=== PATIENT | female | born 1980 | race Caucasian/White ===

== ENCOUNTER 2020-02-13 09:39 | Outpatient (REF) | payer OTHER, SELFPAY ==
[2020-02-14 10:03] LABS: BV Int Neg Control Negative (Negative); BV Int Pos Control Positive (Positive)
== END 2020-02-13 09:40 | disposition home or self-care (01) ==
LOC: HO.LAB 09:39
PROVIDERS: PCP Internal Medicine; Visit Provider Obstetrics & Gynecology
DX: N89.8 Other specified noninflammatory disorders of vagina (principal); I10 Essential (primary) hypertension
CPT/HCPCS: 87480; 87510; 87660; 99213

== ENCOUNTER → 2020-03-01 09:53 | Outpatient (BNVA) | payer OTHER, SELFPAY | PROVIDERS: Visit Provider Obstetrics & Gynecology | DX: Z76.89 Persons encountering health services in other specified circumstances (principal) ==

== ENCOUNTER 2020-09-20 18:13 | Inpatient (IN) | payer OTHER, SELFPAY ==
--- NOTE | ~2020-09-20 | CT_ITS ---
EXAMINATION: CT ABDOMEN AND PELVIS WITH CONTRAST CLINICAL INFORMATION: Abdominal pain, nodular and vomiting. COMPARISON: None TECHNIQUE: Multidetector volumetric images were obtained from the superior aspect of the liver through the pubic symphysis following administration 85 mL of Omnipaque 350 intravenous contrast. Sagittal and coronal reformatted images were obtained on the technologist's workstation. Oral contrast: No This CT examination was performed using dose optimization techniques as appropriate, variously including the following: *Automated exposure control *Adjustment of mA and/or kV according to patient size (this includes techniques or standardized protocols for targeted exams where dose is matched to indication/reason for exam; i.e. extremities or head) *Use of iterative reconstruction technique DLP: 972 mGy-cm FINDINGS: LUNG BASES: The visualized lung bases are unremarkable. LIVER, GALLBLADDER, AND BILIARY TREE: The liver is normal in size, shape, and attenuation. No focal hepatic lesion or biliary ductal dilatation is present. Gallbladder has been surgically removed. PANCREAS: Unremarkable. SPLEEN: Unremarkable. ADRENAL GLANDS: Unremarkable. KIDNEYS AND URETERS: The kidneys are normal in size, shape, and attenuation. No hydronephrosis, hydroureter, or calculi seen. No perinephric stranding. BLADDER: Unremarkable. GASTROINTESTINAL TRACT: There is a long segment of mural thickening involving what appears to be terminal ileum and cecum. Underlying inflammatory process. There are abnormal mesenteric lymph nodes measuring 8 mm in the right lower quadrant, mesenteric haziness and now with lesions. There is mesenteric scarring likely from fistulous connection previously. There is no free air, free fluid or any abscess at this time. Mild proximal small bowel distention with air-fluid level is seen in the fourth of mural thickening of the distal ileum. ABDOMINAL WALL: Small reactive lymph nodes are seen in the inguinal regions with largest lymph node left inguinal area measuring 9 mm. LYMPH NODES: There are numerous mesenteric lymph nodes likely i post inflammatory VASCULAR: Unremarkable. PELVIC VISCERA: There is small or free fluid in the pelvis. The uterus is anteverted with punctate calcification within is posterior fundal mass likely fibroid. It measures 2 x 2 by 2.0 cm likely fibroid. OSSEOUS STRUCTURES There is minimal free fluid in the pelvis and the pericolic gutters: No lytic or sclerotic process seen. CT/CT abdomen pelvis w con IMPRESSION: Abnormal distal ileal segment of mural thickening, mesenteric haziness and abnormal mesenteric lymphadenopathy likely inflammatory infectious bowel disease. There is extensive peritoneal scarring or thickening questioned in previous fistulous connection. There is mild dilated proximal small bowel loops with air-fluid level and minimal stool. There is minimal free fluid in the pelvis. Small calcified uterine fibroid.
[2020-09-20 18:16] VITALS: BP 180/100; PULSE 98; O2SAT 98
[2020-09-20 18:18] VITALS: BP 186/86; PULSE 91; RESP 20; TEMP 36.2; O2SAT 100; BMI 41.1
--- NOTE | 2020-09-20 18:25 | PC.NURSE ---
20g to left AC by EMS removed by this RN
[2020-09-20 20:00] VITALS: BP 176/99; PULSE 90; RESP 20; O2SAT 99
[2020-09-20 20:44] LABS: MANUAL DIFF FLAG NO
[2020-09-20 20:48] LABS: Basophils Percent Auto 0.2 % (0-2); Eosinophils Absolute Auto 0.2 X10*3/uL (0.0-0.4); Eosinophils Percent Auto 1.9 % (0-4); Hematocrit 32.6 % (37-47); Hemoglobin 9.9 g/dl (12.0-16.0); Imm Gran Abs Auto 0.03 X10*3/uL (0.00-0.03); Imm Gran Pct Auto 0.3 % (0.0-0.4); Lymphocytes Absolute Auto 1.4 X10*3/uL (1.2-4.9); Lymphocytes Percent Auto 13.7 % (20-40); Mean Corpuscular HGB Conc 30.4 g/dl (31.0-35.0); Mean Corpuscular Volume 72.6 fL (80-98); Mean Platelet Volume 8.6 fL (9.4-12.3); Monocytes Absolute Auto 0.7 X10*3/uL (0.1-1.2); Monocytes Percent Auto 6.8 % (2-11); Neutrophils Absolute Auto 7.9 X10*3/uL (2.0-8.3); Neutrophils Percent Auto 77.1 % (45-73); Platelet Count 477 X10*3/uL (160-400); Red Blood Count 4.49 X10*6/uL (4.20-5.50); Red Cell Distribution Width 16.3 % (11.0-16.0); White Blood Count 10.2 X10*3/uL (4.8-10.8)
--- NOTE | 2020-09-20 21:10 | ED_ITS ---
HPI - Abdominal Pain General Chief Complaint: Abdominal Pain Stated Complaint: abd pain x 1 week Time Seen by Provider: 09/20/20 21:08 History of Present Illness HPI narrative: Patient is a 40-year-old female with a history of Crohn's disease. Presents today with having abdominal pain. The pain is over the upper abdomen. She is status post cholecystectomy many years ago. No chest pain or shortness of breath no diaphoresis. No history of obstruction. Patient is currently on Humira for Crohn's disease. Complaining the pain is been ongoing for over week. Approximately the same but getting worse in the last 24-48 hours. Patient did have a bowel movement this morning. No cough no congestion or upper respiratory symptoms. No diaphoresis. Patient is from home. Related Data Home Medications Medication Instructions Recorded Confirmed adalimumab 40 mg/0.8 mL See Rx Instructions SUBCUT .COMPLEX 02/13/20 subcutaneous syringe kit lisinopril 20 mg tablet 20 mg PO DAILY 02/13/20 Previous Rx's Medication Instructions Recorded fluconazole 150 mg tablet 150 mg PO Q3D #2 tab 02/13/20 metronidazole 500 mg tablet 500 mg PO BID #10 tab 08/29/20 Allergies Allergy/AdvReac Type Severity Reaction Status Date / Time aspirin [Aspirin] Allergy Mild EYES SWELL Verified 09/20/20 18:24 [email or web address] Allergy Intermediate Rash Uncoded 03/01/20 10:04 ASA Allergy Unknown facial Uncoded 03/18/17 00:00 swelling SEASONAL ALLERGIES Allergy Unknown TRIGGERS Uncoded 01/12/20 16:47 ASTHMA ATTACKS Review of Systems Review of Systems Constitutional: No Weight loss, No Fever, No Chills, No Night Sweats, No Fatigue, No Malaise ENT/Mouth: No Hearing loss, No Ear Pain, No Nasal Congestion, No Sinus Pain, No Hoarseness, No sore throat, No Rhinorrhea, No Swallowing Difficulty Eyes: No Eye Pain, No Swelling, No Redness, No Foreign Body, No Discharge, No Vision Changes Cardiovascular: No Chest Pain, No SOB, No Dyspnea on Exertion, No Orthopnea, No Edema, No Palpitations Respiratory: No Cough, No Sputum, No Wheezing, No Smoke Exposure, No Dyspnea Gastrointestinal: No Nausea, No Vomiting, No Diarrhea, No Constipation, positive abdominal Pain, No Hematochezia, No Melena Genitourinary: no irregular bleeding, No Dysuria, No Urinary Frequency, No Hematuria, No Urinary Incontinence, No Urgency, No Flank Pain, No Urinary Flow Changes, No Hesitancy Musculoskeletal: No joint pain, No Myalgias, No Joint Swelling Skin: No Skin Lesions, No rash Neuro: No Weakness, No Numbness, No Paresthesias, No Loss of Consciousness, No Dizziness, No Headache Psych: No Anxiety/Panic, No Depression, No SI/HI/AH/VH, No Social Issues, Heme/Lymph: No Bruising, No Bleeding,No Lymphadenopathy Endocrine: No Polyuria, No Polydipsia, No Temperature Intolerance Physical Exam Vital Signs: Vital Signs: Last Vital Signs Temp 97.2 F 09/20/20 18:18 Pulse 90 09/20/20 20:00 Resp 20 09/20/20 20:00 BP 176/99 H 09/20/20 20:00 Pulse Ox 99 09/20/20 20:00 Body Mass Index 41.1 Appearance: Alert. Oriented X3. No acute distress. Eyes: Pupils equal, round and reactive to light. ENT: Pharynx normal. Neck: Normal inspection. Neck supple. No lymph nodes noted. No crepitus CVS: Normal heart rate and rhythm. Pulses normal. Normal S1 and S2 Respiratory: No respiratory distress. Breath sounds normal. No Wheezing. No rales Abdomen: Soft and nontender. No rigidity. No distention. good BS x4 Skin: Skin warm and dry. Normal skin color. Normal skin turgor. Extremities: No lower extremity edema. Neurovascular intact to all extremities. No Lacerations. No Rash Neuro: Oriented X 3. No motor deficit. No sensory deficit. Moving all extermities. No slurred speech MDM - Abdominal Pain MDM Narrative Medical decision making narrative: Patient positive history of Crohn's. With abdominal pain diffuse over the abdomen. Decreased p.o. intake. Did have a bowel movement earlier. Patient's CT scan of the abdomen positive for having may be early small-bowel obstruction. Otherwise is consistent with having Cr ohn's disease. We will go ahead and start patient on some steroid IV fluids. Will monitor overnight. Patient's case discussed with hospitalist service. In stable condition. Medical Records Attestation: I reviewed the patient's medical records. Lab Data Attestation: I reviewed the patient's lab results. Result diagrams: 09/20/20 20:40 09/20/20 20:40 Labs: Lab Results 09/20/20 09/20/20 09/20/20 Range/Units 20:40 20:40 20:40 WBC 10.2 (4.8-10.8) X10*3/uL RBC 4.49 (4.20-5.50) X10*6/uL Hgb 9.9 L (12.0-16.0) g/dl Hct 32.6 L (37-47) % MCV 72.6 L (80-98) fL MCH 22.0 L (27.0-33.0) pg MCHC 30.4 L (31.0-35.0) g/dl RDW 16.3 H (11.0-16.0) % Plt Count 477 H (160-400) X10*3/uL MPV 8.6 L (9.4-12.3) fL Immature Gran % (Auto) 0.3 (0.0-0.4) % Neut % (Auto) 77.1 H (45-73) % Lymph % (Auto) 13.7 L (20-40) % Edgar % (Auto) 6.8 (2-11) % Eos % (Auto) 1.9 (0-4) % Baso % (Auto) 0.2 (0-2) % Lymph # (Auto) 1.4 (1.2-4.9) X10*3/uL Edgar # (Auto) 0.7 (0.1-1.2) X10*3/uL Eos # (Auto) 0.2 (0.0-0.4) X10*3/uL Baso # (Auto) 0.0 (0.0-0.2) X10*3/uL Abs Immat Gran (auto) 0.03 (0.00-0.03) X10*3/uL Absolute Neuts (auto) 7.9 (2.0-8.3) X10*3/uL Absolute Nucleated RBC 0.000 (0.0-0.012) X10*3/uL Nucleated RBC % (auto) 0.0 (0.0-0.2) /100WBC Hold Blue Top SEE NOTE Sodium 138 (135-145) mmol/L Potassium 3.9 (3.3-5.1) mmol/L Chloride 104 (96-108) mmol/L Carbon Dioxide 25 (22-29) mmol/L Anion Gap 13 (12-20) BUN 10 (9-16) mg/dL Creatinine 0.67 (0.5-1.4) mg/dL Estim Creat Clear Calc 140.6 Estimated GFR > 60 Random Glucose 101 (60-115) mg/dL Calcium 8.7 (8.4-10.2) mg/dL Total Bilirubin 0.3 (0.0-1.0) mg/dL AST 10 (5-31) U/L ALT 11 (0-31) U/L Alkaline Phosphatase 91 (39-117) U/L Total Protein 7.8 (6.5-8.0) g/dL Albumin 3.7 (3.5-5.0) g/dL Lipase 12 (8-78) U/L Beta HCG, Quant < 2 mIU/mL Urine Color Urine Appearance Urine pH (5.0-8.0) Ur Specific [place] (1.005-1.025) Urine Protein (NEG-TRACE) MG/DL Urine Glucose (UA) (NEG) MG/DL Urine Ketones (NEG) MG/DL Urine Blood (NEG) Urine Nitrite (NEG) Ur Leukocyte Esterase (NEG) Urine RBC (0) /HPF Urine WBC (0-4) /HPF Ur Squamous Epith Cells /LPF Ur Renal Epithelial Cell /LPF Urine Bacteria /LPF Urine Mucus /LPF Urine Test (NEGATIVE) 09/20/20 09/20/20 Range/Units 22:14 22:14 WBC (4.8-10.8) X10*3/uL RBC (4.20-5.50) X10*6/uL Hgb (12.0-16.0) g/dl Hct (37-47) % MCV (80-98) fL MCH (27.0-33.0) pg MCHC (31.0-35.0) g/dl RDW (11.0-16.0) % Plt Count (160-400) X10*3/uL MPV (9.4-12.3) fL Immature Gran % (Auto) (0.0-0.4) % Neut % (Auto) (45-73) % Lymph % (Auto) (20-40) % Edgar % (Auto) (2-11) % Eos % (Auto) (0-4) % Baso % (Auto) (0-2) % Lymph # (Auto) (1.2-4.9) X10*3/uL Edgar # (Auto) (0.1-1.2) X10*3/uL Eos # (Auto) (0.0-0.4) X10*3/uL Baso # (Auto) (0.0-0.2) X10*3/uL Abs Immat Gran (auto) (0.00-0.03) X10*3/uL Absolute Neuts (auto) (2.0-8.3) X10*3/uL Absolute Nucleated RBC (0.0-0.012) X10*3/uL Nucleated RBC % (auto) (0.0-0.2) /100WBC Hold Blue Top Sodium (135-145) mmol/L Potassium (3.3-5.1) mmol/L Chloride (96-108) mmol/L Carbon Dioxide (22-29) mmol/L Anion Gap (12-20) BUN (9-16) mg/dL Creatinine (0.5-1.4) mg/dL Estim Creat Clear Calc Estimated GFR Random Glucose (60-115) mg/dL Calcium (8.4-10.2) mg/dL Total Bilirubin (0.0-1.0) mg/dL AST (5-31) U/L ALT (0-31) U/L Alkaline Phosphatase (39-117) U/L Total Protein (6.5-8.0) g/dL Albumin (3.5-5.0) g/dL Lipase (8-78) U/L Beta HCG, Quant mIU/mL Urine Color BROWN Urine Appearance TURBID Urine pH 6.0 (5.0-8.0) Ur Specific [place] 1.025 (1.005-1.025) Urine Protein 2+ H (NEG-TRACE) MG/DL Urine Glucose (UA) NEG (NEG) MG/DL Urine Ketones NEG (NEG) MG/DL Urine Blood 3+ H (NEG) Urine Nitrite POS H (NEG) Ur Leukocyte Esterase 1+ H (NEG) Urine RBC 50-75 H (0) /HPF Urine WBC 10-14 H (0-4) /HPF Ur Squamous Epith Cells 2+ /LPF Ur Renal Epithelial Cell 1+ /LPF Urine Bacteria 3+ /LPF Urine Mucus TRACE /LPF Urine Test NEGATIVE (NEGATIVE) Discharge Plan Discharge Clinical Impression: Small bowel obstruction, Crohn disease Patient Disposition: Admitted As Inpatient [facility] Past Medical History Medical History Hx of Crohn's disease Hx of essential hypertension Surgical History Hx of section Hx of cholecystectomy Hx of tubal ligation Family History Family History Mother Diabetes HTN (hypertension) Parkinson disease Father Hyperthyroidism Social History Social History Alcohol intake: never Advance Directives: No Advance Directives Information Provided: Yes Patient : No Sexual orientation: Straight/Heterosexual
[2020-09-20 21:17] LABS: Alanine Aminotransferase 11 U/L (0-31); Albumin Level 3.7 g/dL (3.5-5.0); Alkaline Phosphatase 91 U/L (39-117); Anion Gap 13 (12-20); Aspartate Amino Transferase 10 U/L (5-31); Bilirubin Total 0.3 mg/dL (0.0-1.0); Blood Urea Nitrogen 10 mg/dL (9-16); Calcium 8.7 mg/dL (8.4-10.2); Carbon Dioxide 25 mmol/L (22-29); Chloride 104 mmol/L (96-108); Creatinine Clr Calc Pharmacy 140.6; Estimated Glomerular Filt Rate > 60; Glucose Random 101 mg/dL (60-115); Lipase 12 U/L (8-78); Potassium 3.9 mmol/L (3.3-5.1); Sodium 138 mmol/L (135-145); Total Protein 7.8 g/dL (6.5-8.0)
--- NOTE | 2020-09-20 21:21 | PC.NURSE ---
Per CT, no test was done on pt. Per CT, to add HCG quant to labs. Quant pending.
--- NOTE | 2020-09-20 21:22 | PC.NURSE ---
Pt provided with a urine cup, awaiting UA.
[2020-09-20 21:40] LABS: HCG Quantitative < 2 mIU/mL
--- NOTE | 2020-09-20 21:58 | PC.NURSE ---
Off to CT on hospital bed. Plan to medicate upon return.
[2020-09-20] MEDS: iohexoL 350 MG/ML 100 ML INFUS..BTL IV (22:10)
[2020-09-20] MEDS: 0.9 % Sodium Chloride 1,000 ML 999 ML IV (22:11)
[2020-09-20] MEDS: ondansetron HCL 4 MG/2 ML VIAL IVPUSH (22:12)
[2020-09-20] MEDS: HYDROmorphone HCl 0.5 MG/0.5 ML SYRINGE IVPUSH ×2 (22:12→23:16)
[2020-09-20 22:22] LABS: Glucose Urine UA NEG (NEG); Leukocyte Esterase Urine 1+ (NEG); Nitrite Urine POS (NEG); Specific Gravity - Urine 1.025 (1.005-1.025); UACC Culture Trigger YES; Urine Blood 3+ (NEG); Urine Ketones NEG (NEG); Urine Protein 2+ MG/DL (NEG-TRACE)
[2020-09-20 22:23] LABS: Appearance Urine TURBID; Color Urine BROWN; UPreg QC Valid YES; Urine Pregnancy NEGATIVE (NEGATIVE)
[2020-09-20 22:29] LABS: Bacteria Urine 3+ /LPF; RBC Urine 50-75 /HPF (0); Squamous Epithelial Cell Urine 2+ /LPF
[2020-09-20 22:30] LABS: Mucus Urine TRACE /LPF; Renal Epithelial Cells Urine 1+ /LPF
[2020-09-20] MEDS: methylPREDNISolone Sod Succ 125 MG/2 ML VIAL IVPUSH (23:18)
[2020-09-20 23:27] VITALS: BP 177/94; PULSE 88; RESP 16; O2SAT 98
--- NOTE | 2020-09-20 23:28 | PC.NURSE ---
Pt aware of plan for admission. Covid swab obtained and sent. VSS. Call sorinao within reach, continue to monitor.
[2020-09-20 23:50] LABS: COVID-19 Test Negative (Negative)
--- NOTE | 2020-09-21 01:00 | P.HPHOSP_ITS ---
History of Present Illness Date of Service: 09/21/20 Chief Complaint: Abdominal pain 40-year-old female with a past medical history of Crohn's disease presented to the hospital with a chief complaint of abdominal pain, diffuse, associated with nausea and vomiting, denies any diarrhea. Denies any blood in the vomitus or blood in the stool. Mentions that symptoms have been going on for the past week but has been worsening lately for the past 2 days. Hence decided to come to the ER for further evaluation. Denies any chest pain palpitations lightheadedness dizziness. Denies any fever chills cough. Review of all other systems is negative except mentioned above ER course: Per ER team patient abdomen noted to have diffuse tenderness, no guarding no rigidity, CT scan shows findings of inflammation/Crohn's flare, also concern for an early SBO. Reportedly patient had bowel movement in the morning but has not passed any gas after that. Admitted to the hospital for further management. Patient was given Solu-Medrol in the ER. [facility] Medical History (Updated 09/30/20 @ 11:24 by Hadley Spaulding MD) Anemia Benign essential hypertension Crohn's disease Obesity (BMI 30-39.9) Family History Mother Diabetes HTN (hypertension) Parkinson disease Father Hyperthyroidism Surgical History Hx of section Hx of cholecystectomy Hx of tubal ligation Social History Household Members: Spouse and Children Housing: House Do you presently have visiting nurse or other home services: No Alcohol intake: never Patient Tobacco Use Status: Former Tobacco user Tobacco use type: Cigarette Second Hand Smoke Exposure: No Advance Directives Date on File: 09/21/20 service: No Current occupational status: employed Sexual orientation: Straight/Heterosexual Meds Allergies Allergy/AdvReac Type Severity Reaction Status Date / Time aspirin [Aspirin] Allergy Mild EYES SWELL Verified 09/30/20 05:24 [email or web address] Allergy Intermediate Rash Uncoded 09/30/20 05:24 ASA Allergy Unknown facial Uncoded 09/30/20 05:24 swelling SEASONAL ALLERGIES Allergy Unknown TRIGGERS Uncoded 09/30/20 05:24 ASTHMA ATTACKS Active Medications: Current Medications Generic Name Dose Route Start Last Admin Trade Name Alexey PRN Reason Stop Dose Admin Acetaminophen 650 mg 09/21/20 00:57 Acetaminophen 325 Mg Tablet PO Q6H PRN Pain, Mild (Pain Scale 1-3) Dextrose/Sodium Chloride 1,000 mls @ 100 mls/hr 09/21/20 01:00 D51/2ns IVCONT .Q10H [facility] Lisinopril 20 mg 09/21/20 09:00 Lisinopril 20 Mg Tablet PO DAILY [facility] Protocol Methylprednisolone Sodium Succinate 20 mg 09/21/20 01:00 Methylprednisolone Sod Succ 40 Mg/Ml Vial IVPUSH Q8H [place] Morphine Sulfate 1 mg 09/21/20 00:57 Morphine Sulfate 4 Mg/Ml Cartridge IVPUSH Q6H PRN Pain, Severe (Pain Scale 7-10) Pharmacy Consult 1 each 09/20/20 23:10 Consult Rx Perform Med Rec MISCELLANE ONCE PRN Consult order Sodium Chloride 3 ml 09/21/20 08:00 0.9 % Sodium Chloride Flush 3 Ml Syringe IVFLUSH QSHIFT [facility] Home Medications Medication Instructions Recorded Confirmed Last Taken Type adalimumab 40 mg/0.8 mL See Rx Instructions SUBCUT .COMPLEX 02/13/20 09/30/20 09/19/20 History subcutaneous syringe kit Physical Exam Vital Signs and Narrative: Vital Signs: Last Vital Signs Temp 97.2 F 09/20/20 18:18 Pulse 88 09/20/20 23:27 Resp 16 09/20/20 23:27 BP 177/94 H 09/20/20 23:27 Pulse Ox 98 09/20/20 23:27 Body Mass Index 41.1 Gen: Appears be in no acute distress HEENT: NCAT, Moist mucosa. Pulmonary: Vesicular breath sounds, fair air entry CVS: Normal S1-S2 Abdomen: BS+, Soft, mildly tender diffusely. No guarding no rigidity Extremities: Warm well perfused Neuro: Alert and awake. Results Labs CBC and Chem 7: 09/21/20 05:35 09/21/20 05:35 Labs: Laboratory Results - last 24 hr 09/20/20 09/20/20 09/20/20 20:40 20:40 20:40 MCV 72.6 L MCH 22.0 L MCHC 30.4 L RDW 16.3 H Plt Count 477 H MPV 8.6 L Immature Gran % (Auto) 0.3 Neut % (Auto) 77.1 H Lymph % (Auto) 13.7 L [place] % (Auto) 6.8 Eos % (Auto) 1.9 Baso % (Auto) 0.2 Lymph # (Auto) 1.4 [place] # (Auto) 0.7 Eos # (Auto) 0.2 Baso # (Auto) 0.0 Abs Immat Gran (auto) 0.03 Absolute Neuts (auto) 7.9 Absolute Nucleated RBC 0.000 Nucleated RBC % (auto) 0.0 Hold Blue Top SEE NOTE Anion Gap 13 Estim Creat Clear Calc 140.6 Estimated GFR > 60 Random Glucose 101 Calcium 8.7 Total Bilirubin 0.3 AST 10 ALT 11 Alkaline Phosphatase 91 Total Protein 7.8 Albumin 3.7 Lipase 12 Beta HCG, Quant < 2 Urine Color Urine Appearance Urine pH Ur Specific [place] Urine Protein Urine Glucose (UA) Urine Ketones Urine Blood Urine Nitrite Ur Leukocyte Esterase Urine RBC Urine WBC Ur Squamous Epith Cells Ur Renal Epithelial Cell Urine Bacteria Urine Mucus Urine Test COVID-19 (REJI) COVID-esolidar 09/20/20 09/20/20 09/20/20 22:14 22:14 23:25 MCV MCH MCHC RDW Plt Count MPV Immature Gran % (Auto) Neut % (Auto) Lymph % (Auto) [place] % (Auto) Eos % (Auto) Baso % (Auto) Lymph # (Auto) [place] # (Auto) Eos # (Auto) Baso # (Auto) Abs Immat Gran (auto) Absolute Neuts (auto) Absolute Nucleated RBC Nucleated RBC % (auto) Hold Blue Top Anion Gap Estim Creat Clear Calc Estimated GFR Random Glucose Calcium Total Bilirubin AST ALT Alkaline Phosphatase Total Protein Albumin Lipase Beta HCG, Quant Urine Color BROWN Urine Appearance TURBID Urine pH 6.0 Ur Specific [place] 1.025 Urine Protein 2+ H Urine Glucose (UA) NEG Urine Ketones NEG Urine Blood 3+ H Urine Nitrite POS H Ur Leukocyte Esterase 1+ H Urine RBC 50-75 H Urine WBC 10-14 H Ur Squamous Epith Cells 2+ Ur Renal Epithelial Cell 1+ Urine Bacteria 3+ Urine Mucus TRACE Urine Test NEGATIVE COVID-19 (REJI) Negative COVID-19 Naehas See Note Imaging Radiologist's Impressions: Impressions Abdomen/Pelvis CT 09/20/20 21:08 IMPRESSION: Abnormal distal ileal segment of mural thickening, mesenteric haziness and abnormal mesenteric lymphadenopathy likely inflammatory infectious bowel disease. There is extensive peritoneal scarring or thickening questioned in previous fistulous connection. There is mild dilated proximal small bowel loops with air-fluid level and minimal stool. There is minimal free fluid in the pelvis. Small calcified uterine fibroid. Assessment and Plan (1) Crohn disease: Status: Inactive 40-year-old female with a past medical history of Crohn's disease presented the hospital with a chief complaint of abdominal pain/nausea. Noted to have Crohn's flare. Crohn's flare: Continue Solu-Medrol 20 mg IV t.i.d.. Gastroenterology consult. Supportive care. NPO. Pain control. SBO: Patient had bowel movement early in the morning. Reports he has not been passing gas ever since. Supportive care. General surgery consult. UIT with microscopic Hematuria: ceftriaxone;f/u Cultures; Repeat UA after hydration DVT prophylaxis: SCD boots Code status: Full code
[2020-09-21] MEDS: Dextrose 5 % and 0.45 % NaCl 1,000 ML 100 ML IVCONT ×3 (01:08→22:34)
[2020-09-21] MEDS: Morphine Sulfate 4 MG/ML CARTRIDGE 1 MG IVPUSH ×2 (01:13→12:48)
[2020-09-21] MEDS: Acetaminophen 325 MG TABLET 650 MG PO (01:14)
--- NOTE | 2020-09-21 02:28 | PC.NURSE ---
[facility] unable to take report at this time.
--- NOTE | 2020-09-21 02:42 | PC.NURSE ---
This RN contacting hospitalist as UA was + for nitrates and leukocyte esterase. Plan for Rocephin and transfer to floor.
[2020-09-21] MEDS: cefTRIAXone sodium 1 GM in 0.9 % Sodium Chloride 50 ML IV (02:54)
[2020-09-21 04:00] VITALS: BP 181/95; PULSE 73; RESP 16; TEMP 36.4; O2SAT 96
[2020-09-21 06:24] LABS: Basophils Percent Auto 0.2 % (0-2); Hematocrit 32.5 % (37-47); Hemoglobin 9.5 g/dl (12.0-16.0); Imm Gran Abs Auto 0.03 X10*3/uL (0.00-0.03); Imm Gran Pct Auto 0.5 % (0.0-0.4); Lymphocytes Absolute Auto 0.3 X10*3/uL (1.2-4.9); Lymphocytes Percent Auto 5.3 % (20-40); MANUAL DIFF FLAG SCAN; Mean Corpuscular HGB Conc 29.2 g/dl (31.0-35.0); Mean Corpuscular Hemoglobin 21.3 pg (27.0-33.0); Mean Corpuscular Volume 72.7 fL (80-98); Mean Platelet Volume 9.3 fL (9.4-12.3); Monocytes Percent Auto 0.7 % (2-11); Neutrophils Absolute Auto 5.7 X10*3/uL (2.0-8.3); Neutrophils Percent Auto 93.3 % (45-73); Platelet Count 473 X10*3/uL (160-400); Red Blood Count 4.47 X10*6/uL (4.20-5.50); Red Cell Distribution Width 16.1 % (11.0-16.0); SCAN SMEAR FLAG 1; White Blood Count 6.1 X10*3/uL (4.8-10.8)
[2020-09-21 06:52] LABS: Anion Gap 13 (12-20); Blood Urea Nitrogen 7 mg/dL (9-16); Calcium 8.6 mg/dL (8.4-10.2); Carbon Dioxide 24 mmol/L (22-29); Chloride 105 mmol/L (96-108); Creatinine Clr Calc Pharmacy 140.6; Estimated Glomerular Filt Rate > 60; Glucose Random 192 mg/dL (60-115); Potassium 4.1 mmol/L (3.3-5.1); SLIDE REVIEW VERIFIED; Sodium 138 mmol/L (135-145)
[2020-09-21 07:21] VITALS: BP 130/75; PULSE 84; RESP 16; TEMP 36.1; O2SAT 95
--- NOTE | 2020-09-21 09:07 | MHC.CM.PN ---
CM met with Patient at bedside. Patient lives in a house with her Boyfriend and 2 children, ages 12 and 17 years of age. 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 Patient's goal is to return home, no services and CM has initiated and will follow for dc planning. PCP is Dr. Hadley Spaulding.
[2020-09-21] MEDS: methylPREDNISolone Sod Succ 40 MG/ML VIAL 20 MG IVPUSH ×2 (09:17→16:53)
[2020-09-21] MEDS: lisinopriL 20 MG TABLET PO (09:17)
--- NOTE | 2020-09-21 09:43 | P.CONGS_ITS ---
History of Present Illness Consult details Consult date: 09/21/20 Narrative: 40-year-old female patient presented to the emergency department with complaints of diffuse abdominal pain felt greatest in the right lower quadrant right upper quadrant. She has a known history of Crohn's disease and is being followed by Dr. Bowen. She reports previous episodes of similar complaints. The pain was associated with nausea and vomiting. In the emergency department she was noted to have diffuse abdominal tenderness. CT of the abdomen and pelvis revealed inflammation of the terminal ileum with narrowing and scarring from previous fistula resulting in dilated proximal small bowel suggestive of a partial small-bowel obstruction. The patient did have a bowel movement yesterday but denies any bowel movements since coming to the hospital. She is admitted to the hospital service for management of a Crohn's flare and small-bowel obstruction. This morning the patient feels much improved with decreased abdominal pain. Initially she was 10/10 but now reports 0/10. Review of Systems Review of Systems: Yes all other systems are reviewed and are negative Constitutional: Constitutional: Reports anorexia, Denies chills, Denies fever(s) and Denies headache(s) ENT: Denies headache(s) Cardiovascular: Cardiovascular: Reports Abdominal Distension, Denies chest pain, Reports Epigastric Pain, Denies pedal edema and Denies irregular heart rhythm Respiratory: Respiratory: Denies chest congestion, Denies cough, Denies excessive phlegm production and Denies wheezing Gastrointestinal: Gastrointestinal: Reports abdominal pain, Denies hematochezia, Reports change in bowel habits, Reports constipation, Denies diarrhea, Reports nausea and Reports vomiting Genitourinary: Genitourinary: Reports no additional female genitourinary complaints Neurologic: Reports system reviewed and no additional complaints, except as documented and Denies headache(s) Hematologic/Lymphatic: Hematologic/Lymphatic: Denies lymphadenopathy Allergic/Immunologic: Allergic/Immunologic: Denies wheezing PMFSH Past Medical History Medical History Hx of Crohn's disease Hx of essential hypertension Family History Family History Mother Diabetes HTN (hypertension) Parkinson disease Father Hyperthyroidism Surgical History Surgical History Hx of section Hx of cholecystectomy Hx of tubal ligation Social History Social History Household Members: Spouse and Children Housing: House Do you presently have visiting nurse or other home services: No Alcohol intake: never Patient Tobacco Use Status: Former Tobacco user Tobacco use type: Cigarette Smoked in Last 30 Days: No Patient Interested in Nicotine Replacement: No Patient Given Instructions on How to Stop Smoking: No Second Hand Smoke Exposure: No Use of substances other than those prescribed or required for medical reasons: No Currently Displaying Signs/Symptoms of Drug Intoxication Withdrawal: No Any prior treatment program specific to substance use: No Have you been hit, kicked, punched, or otherwise hurt by someone within the past year? If so, by whom?: No Do you feel safe in your current relationship?: Yes Is there a partner from a previous relationship who is making you feel unsafe now?: No Are you made to feel afraid or neglected: No Advance Directives: No Advance Directives Information Provided: Yes Advance Directives Date on File: 09/21/20 Do you have thoughts of harming others: None Do you have a plan to hurt others: No Plan Recently lost weight without trying: No Eating poorly because of decreased appetite: No Nutrition Risks: No Nutritional Risk Patient : No : No Poor oral hygiene: No service: No Current occupational status: employed Sexual orientation: Straight/Heterosexual Meds Allergies Allergy/AdvReac Type Severity Reaction Status Date / Time aspirin [Aspirin] Allergy Mild EYES SWELL Verified 09/20/20 18:24 zucchini Allergy Intermediate Rash Uncoded 03/01/20 10:04 ASA Allergy Unknown facial Uncoded 03/18/17 00:00 swelling SEASONAL ALLERGIES Allergy Unknown TRIGGERS Uncoded 01/12/20 16:47 ASTHMA ATTACKS Active Medications: Current Medications Generic Name Dose Route Start Last Admin Trade Name Freq PRN Reason Stop Dose Admin Acetaminophen 650 mg 09/21/20 00:57 09/21/20 01:14 Acetaminophen 325 Mg Tablet PO 650 mg Q6H PRN Administration Pain, Mild (Pain Scale 1-3) Dextrose/Sodium Chloride 1,000 mls @ 100 mls/hr 09/21/20 01:00 09/21/20 09:19 D51/2ns IVCONT 100 mls/hr .Q10H [facility] Administration Ceftriaxone Sodium 1 gm/ 50 mls @ 100 mls/hr 09/21/20 03:00 09/21/20 03:30 Sodium Chloride IV Infused Q24H [facility] Infusion Lisinopril 20 mg 09/21/20 09:00 09/21/20 09:17 Lisinopril 20 Mg Tablet PO 20 mg DAILY [facility]ERSON Administration Protocol Methylprednisolone Sodium Succinate 20 mg 09/21/20 08:00 09/21/20 09:17 Methylprednisolone Sod Succ 40 Mg/Ml Vial IVPUSH 20 mg Q8H [facility] Administration Morphine Sulfate 1 mg 09/21/20 00:57 09/21/20 01:13 Morphine Sulfate 4 Mg/Ml Cartridge IVPUSH 1 mg Q6H PRN Administration Pain, Severe (Pain Scale 7-10) Pharmacy Consult 1 each 09/20/20 23:10 Consult Rx Perform Med Rec MISCELLANE ONCE PRN Consult order Sodium Chloride 3 ml 09/21/20 08:00 09/21/20 09:17 0.9 % Sodium Chloride Flush 3 Ml Syringe IVFLUSH Not Given QSHIFT [facility] Home Medications Medication Instructions Recorded Confirmed Last Taken Type adalimumab 40 mg/0.8 mL See Rx Instructions SUBCUT .COMPLEX 02/13/20 09/20/20 09/19/20 History subcutaneous syringe kit lisinopril 20 mg tablet 20 mg PO DAILY 02/13/20 09/20/20 09/20/20 08:00 History Physical Exam Vital Signs: Vital Signs: Last Vital Signs Temp 97 F 09/21/20 07:21 Pulse 84 09/21/20 07:21 Resp 16 09/21/20 07:21 BP 130/75 09/21/20 07:21 Pulse Ox 95 09/21/20 07:21 Body Mass Index 41.1 Const: General: cooperative, healthy appearing, comfortable, no acute distress, well developed, alert and awake Eyes: Sclerae: sclerae normal EOM: EOMs intact bilaterally Resp: Effort & Inspection: normal respiratory effort, no audible wheezes, no cough and not tachypneic Cardio: Jugular venous distension: JVD present GI: Inspection: Yes normal to inspection Palpation (GI): Soft to palpation, nontender, no guarding and not rigid Percussion: Yes tympanic to percussion Auscultation: normal bowel sounds Skin: General skin exam: no rashes or lesions noted Extrem: General: Yes full ROM Results Labs Result diagrams: 09/21/20 05:35 09/21/20 05:35 Labs: Abnormal lab results 09/20/20 09/20/20 09/21/20 Range/Units 20:40 22:14 05:35 Hgb 9.9 L 9.5 L (12.0-16.0) g/dl Hct 32.6 L 32.5 L (37-47) % MCV 72.6 L 72.7 L (80-98) fL MCH 22.0 L 21.3 L (27.0-33.0) pg MCHC 30.4 L 29.2 L (31.0-35.0) g/dl RDW 16.3 H 16.1 H (11.0-16.0) % Plt Count 477 H 473 H (160-400) X10*3/uL MPV 8.6 L 9.3 L (9.4-12.3) fL Immature Gran % (Auto) 0.5 H (0.0-0.4) % Neut % (Auto) 77.1 H 93.3 H (45-73) % Lymph % (Auto) 13.7 L 5.3 L (20-40) % [place] % (Auto) 0.7 L (2-11) % Lymph # (Auto) 0.3 L (1.2-4.9) X10*3/uL [place] # (Auto) 0.0 L (0.1-1.2) X10*3/uL BUN (9-16) mg/dL Random Glucose (60-115) mg/dL Urine Protein 2+ H (NEG-TRACE) MG/DL Urine Blood 3+ H (NEG) Urine Nitrite POS H (NEG) Ur Leukocyte Esterase 1+ H (NEG) Urine RBC 50-75 H (0) /HPF Urine WBC 10-14 H (0-4) /HPF 09/21/20 Range/Units 05:35 Hgb (12.0-16.0) g/dl Hct (37-47) % MCV (80-98) fL MCH (27.0-33.0) pg MCHC (31.0-35.0) g/dl RDW (11.0-16.0) % Plt Count (160-400) X10*3/uL MPV (9.4-12.3) fL Immature Gran % (Auto) (0.0-0.4) % Neut % (Auto) (45-73) % Lymph % (Auto) (20-40) % [place] % (Auto) (2-11) % Lymph # (Auto) (1.2-4.9) X10*3/uL [place] # (Auto) (0.1-1.2) X10*3/uL BUN 7 L (9-16) mg/dL Random Glucose 192 H D (60-115) mg/dL Urine Protein (NEG-TRACE) MG/DL Urine Blood (NEG) Urine Nitrite (NEG) Ur Leukocyte Esterase (NEG) Urine RBC (0) /HPF Urine WBC (0-4) /HPF Short CBC 09/20/20 09/21/20 Range/Units 20:40 05:35 WBC 10.2 6.1 (4.8-10.8) X10*3/uL Hgb 9.9 L 9.5 L (12.0-16.0) g/dl Hct 32.6 L 32.5 L (37-47) % Plt Count 477 H 473 H (160-400) X10*3/uL BMP 09/20/20 09/21/20 20:40 05:35 Sodium 138 138 Potassium 3.9 4.1 Chloride 104 105 Carbon Dioxide 25 24 BUN 10 7 L Creatinine 0.67 0.67 Calcium 8.7 8.6 Liver Function 09/20/20 Range/Units 20:40 Total Bilirubin 0.3 (0.0-1.0) mg/dL AST 10 (5-31) U/L ALT 11 (0-31) U/L Alkaline Phosphatase 91 (39-117) U/L Albumin 3.7 (3.5-5.0) g/dL Urine 09/20/20 09/20/20 Range/Units 22:14 22:14 Urine Color BROWN Urine Appearance TURBID Urine pH 6.0 (5.0-8.0) Ur Specific [place] 1.025 (1.005-1.025) Urine Protein 2+ H (NEG-TRACE) MG/DL Urine Glucose (UA) NEG (NEG) MG/DL Urine Test NEGATIVE (NEGATIVE) All other labs normal. Assessment and Plan (1) Crohn disease: Status: Acute (2) Small bowel obstruction: Status: Acute Patient presents with evidence of a Crohn's flare with secondary partial small-bowel obstruction. Patient does feel improved this morning and denies any further nausea or vomiting. Examination reveals her abdomen to be soft and nondistended. Recommend further management of the Crohn's flare, GI consultation. No surgical intervention indicated at this time. Procedures Date of Service Date of Service: 09/21/20
[2020-09-21 12:00] VITALS: BP 165/79; PULSE 81; RESP 16; TEMP 36.6; O2SAT 97
--- NOTE | 2020-09-21 14:40 | PM.EVENT ---
Event Note Date of Service: 09/21/20 Event Note: Patient seen examined chart reviewed Patient abdominal pain is better no flatus no urinary sxs vs no fever,bp 165/79 Lungs clear abd obese soft nontender ext no edema a/p crohns flare with know hx of chrons disease since 2007 partial small-bowel obstruction due to above uti Continue IV ceftriaxone and follow urine c/s cont iv solumedrol/ivf Seen by General surgery no intervention indicated.
[2020-09-21 15:32] VITALS: BP 152/90; PULSE 76; RESP 18; TEMP 36.6; O2SAT 97
[2020-09-21] MEDS: 0.9 % Sodium Chloride Flush 3 ML SYRINGE IVFLUSH ×2 (16:54→22:35)
[2020-09-21 19:22] VITALS: BP 164/80; PULSE 83; RESP 16; TEMP 36.6; O2SAT 96
--- NOTE | 2020-09-21 19:36 | CONS_ITS ---
DATE OF SERVICE: 09/21/2020 REFERRING PHYSICIAN: Chilango Gray MD REASON FOR CONSULTATION: Crohn disease. HISTORY OF PRESENT ILLNESS: The patient is a pleasant 40-year-old woman, known to me from prior evaluation. She has a history of Crohn disease involving the small intestine with recurrent small-bowel obstructions. Her last colonoscopy in 2013 showed terminal ileal disease and an upper GI series in June of 2013 showed 2 segments of distal ileal disease. Current therapy is Humira, which she has been on since 2015, which has been increased to weekly dosing since 2017. She reports noting increasing abdominal distention over a period of 2 days prior to admission with abdominal pain, but not with any vomiting. She did have a bowel movement the day of admission. She presented to the emergency room, where she was evaluated and underwent a CT scanning of the abdomen and pelvis, which showed changes consistent with inflammatory bowel disease and mild dilation of proximal small loops of small bowel. She was admitted to the hospital and started on steroids and reports feeling much better today. She has been compliant with her Humira. PAST MEDICAL HISTORY: 1. Crohn disease as above. 2. Hypertension. CURRENT MEDICATIONS: Her current medication list is reviewed in the chart. ALLERGIES: MULTIPLE ALLERGIES ARE REVIEWED. FAMILY HISTORY: This is reviewed with the patient and is noncontributory. SOCIAL HISTORY: There is no current tobacco, alcohol, or substance abuse. REVIEW OF SYSTEMS: SKIN: No pruritus. HEENT: Negative. CARDIOPULMONARY: No shortness of breath or chest pain. GASTROINTESTINAL: As above. GENITOURINARY: Negative. NEUROPSYCHIATRIC: Negative. PHYSICAL EXAMINATION: GENERAL: Shows a pleasant female, in no acute distress. VITAL SIGNS: Reviewed in electronic medical record and are stable. SKIN: Anicteric. HEENT: Shows no scleral icterus. NECK: Without lymphadenopathy or thyromegaly. LUNGS: Clear. HEART: Regular rate and rhythm. S1, S2. No murmur. ABDOMEN: Soft without focal masses. Bowel sounds are present. There is no focal tenderness, guarding, or rebound. EXTREMITIES: Without edema. LABORATORY DATA: Shows a white blood cell count of 6.1, hematocrit 32.5. Chemistries show an elevated glucose. IMPRESSION: Crohn disease. At this point, she seems improved on her IV steroids. I would recommend continuing these. She can be started on prednisone when she is discharged. She will have laboratory studies as an outpatient next week prior to her Humira injection to assess for levels and antibodies and I would recommend starting her on clear liquids today and advancing her diet as tolerated. Thanks for asking me to see her. I will follow her in the hospital with you. MD ERIKA Giron/JULISSA / [id number]
[2020-09-21 23:32] VITALS: BP 158/85; PULSE 72; RESP 18; TEMP 36.3; O2SAT 98
[2020-09-22] MEDS: methylPREDNISolone Sod Succ 40 MG/ML VIAL 20 MG IVPUSH ×2 (01:40→08:14)
[2020-09-22] MEDS: cefTRIAXone sodium 1 GM in 0.9 % Sodium Chloride 50 ML IV (03:11)
[2020-09-22 03:23] VITALS: BP 135/79; PULSE 73; RESP 18; TEMP 36.9; O2SAT 97
[2020-09-22 07:47] VITALS: BP 127/72; PULSE 83; RESP 16; TEMP 36.2; O2SAT 98
[2020-09-22 08:14] VITALS: BP 127/72; PULSE 83
[2020-09-22] MEDS: lisinopriL 20 MG TABLET PO (08:14)
[2020-09-22] MEDS: 0.9 % Sodium Chloride Flush 3 ML SYRINGE IVFLUSH (08:17)
[2020-09-22] MEDS: Dextrose 5 % and 0.45 % NaCl 1,000 ML 100 ML IVCONT (08:18)
--- NOTE | 2020-09-22 10:09 | PM.PNGS ---
Subjective Subjective Date of Service: 09/22/20 Interval history: Feels well Denies abdominal pain No nausea or vomiting Has flatus and BMs Physical Exam Vital Signs: Vital Signs: Last Vital Signs Temp 97.2 F 09/22/20 07:47 Pulse 83 09/22/20 08:14 Resp 16 09/22/20 07:47 BP 127/72 09/22/20 08:14 Pulse Ox 98 09/22/20 07:47 Body Mass Index 41.1 Const: General: comfortable and no acute distress Resp: Effort & Inspection: normal respiratory effort GI: Inspection: No distended Palpation (GI): Soft to palpation, not firm and nontender Progress Note: A&P Assessment and plan (1) Small bowel obstruction: Status: Acute Assessment and Plan: Partial SBO from Crohn's disease Symptoms have resolved Tolerating clear liquids well Good GI function Diet as tolerated Okay to SC home later today if tolerating diet Patient has an appointment with Dr. Bowen next week Fall Risk Details Current Medications: Current Medications Generic Name Dose Route Start Last Admin Trade Name Freq PRN Reason Stop Dose Admin Acetaminophen 650 mg 09/21/20 00:57 09/21/20 01:14 Acetaminophen 325 Mg Tablet PO 650 mg Q6H PRN Administration Pain, Mild (Pain Scale 1-3) Dextrose/Sodium Chloride 1,000 mls @ 100 mls/hr 09/21/20 01:00 09/22/20 08:18 D51/2ns IVCONT 100 mls/hr .Q10H [facility] Administration Ceftriaxone Sodium 1 gm/ 50 mls @ 100 mls/hr 09/21/20 03:00 09/22/20 03:47 Sodium Chloride IV Infused Q24H [facility] Infusion Lisinopril 20 mg 09/21/20 09:00 09/22/20 08:14 Lisinopril 20 Mg Tablet PO 20 mg DAILY [facility] Administration Protocol Methylprednisolone Sodium Succinate 20 mg 09/21/20 08:00 09/22/20 08:14 Methylprednisolone Sod Succ 40 Mg/Ml Vial IVPUSH 20 mg Q8H [facility] Administration Morphine Sulfate 1 mg 09/21/20 00:57 09/21/20 12:48 Morphine Sulfate 4 Mg/Ml Cartridge IVPUSH 1 mg Q6H PRN Administration Pain, Severe (Pain Scale 7-10) Pharmacy Consult 1 each 09/20/20 23:10 Consult Rx Perform Med Rec MISCELLANE ONCE PRN Consult order Sodium Chloride 3 ml 09/21/20 08:00 09/22/20 08:17 0.9 % Sodium Chloride Flush 3 Ml Syringe IVFLUSH 3 ml QSHIFT [facility] Administration Time Spent With Patient Time: Total time spent is greater than 50% in coordination of care (as documented) at patient's floor/unit and/or counseling patient: Time with patient: 15 - 24 minutes Procedures Date of Service Date of Service: 09/22/20
[2020-09-22 11:25] VITALS: BP 158/86; PULSE 71; RESP 18; TEMP 36.3; O2SAT 97
--- NOTE | 2020-09-22 11:43 | PM.GIPN ---
Subjective Subjective Date of Service: 09/22/20 Interval History: feels well, had bm, no abd pain, tolerating clear liquids Critical Care Time (minutes): 0 Physical Exam Vital Signs: Vital Signs: Last Vital Signs Temp 97.3 F 09/22/20 11:25 Pulse 71 09/22/20 11:25 Resp 18 09/22/20 11:25 BP 158/86 H 09/22/20 11:25 Pulse Ox 97 09/22/20 11:25 Body Mass Index 41.1 Const: General: cooperative HENMT: Other: no scleral icterus Resp: Other: lungs clear Cardio: Heart sounds: S1 normal heart sound present and S2 normal heart sound present GI: Other: abdomen soft, n ontender Objective Data Labs CBC & Chem 7: 09/21/20 05:35 09/21/20 05:35 Progress Note: A&P Assessment and plan (1) Crohn disease: Status: Acute Assessment and Plan: doing well advance diet after d/c start prednisone 60 mg/d, taper by 10 mg/week she will have adalimumab levels/antibody testing before next injection on Thursday continue weekly dosing for now. discussed with patient possible need to change therapy pending results, also discussed possible elective resection of diseased segment of ileum pending clinical course. Time Spent With Patient Time: Total time spent is greater than 50% in coordination of care (as documented) at patient's floor/unit and/or counseling patient: Time with patient: less than 15 minutes Procedures Date of Service Date of Service: 09/22/20
--- NOTE | 2020-09-22 14:07 | MHC.CM.PN ---
PT WILL DISCHARGE HOME TODAY WITH NO SERVICES
--- NOTE | 2020-09-22 15:56 | P.DS_ITS ---
DS: Providers Provider Date of Service: 09/22/20 Date of admission: 09/21/20 00:57 Primary care physician: Hadley Spaulding MD Consults: 09/21/20 00:56 Consult to Gastroenterology Routine Consulting Provider: Cosmo Bowen Reason for consultation: Crohns Flare Consult to General Surgery Routine Consulting Provider: Ghanshyam Arnold Reason for consultation: SBO DS: Diagnosis Discharge Diagnosis (1) Crohn disease: Status: Acute DS: Medications Discharge Medications Home Medications: Home Medications Medication Instructions Recorded Confirmed adalimumab 40 mg/0.8 mL See Rx Instructions SUBCUT .COMPLEX 02/13/20 09/20/20 subcutaneous syringe kit lisinopril 20 mg tablet 20 mg PO DAILY 02/13/20 09/20/20 Previous Rx's Medication Instructions Recorded cefuroxime axetil 250 mg PO Q12H #10 tab 09/22/20 prednisone 10 mg PO DAILY #150 tab 09/22/20 DS: Summary Hospital Course Hospital Course: History of presenting illness Chief Complaint: Abdominal pain 40-year-old female with a past medical history of Crohn's disease presented to the hospital with a chief complaint of abdominal pain, diffuse, associated with nausea and vomiting, denies any diarrhea. Denies any blood in the vomitus or blood in the stool. Mentions that symptoms have been going on for the past week but has been worsening lately for the past 2 days. Hence decided to come to the ER for further evaluation. Denies any chest pain palpitations lightheadedness dizziness. Denies any fever chills cough. Review of all other systems is negative except mentioned above ER course: Per ER team patient abdomen noted to have diffuse tenderness, no guarding no rigidity, CT scan shows findings of inflammation/Crohn's flare, also concern for an early SBO. Reportedly patient had bowel movement in the morning but has not passed any gas after that. Admitted to the hospital for further management. Patient was given Solu-Medrol in the ER. Hospital course Patient admitted with abdominal pain associated with nause and vomiting,CT scan shows findings of inflammation/Crohn's flare, also concern for an early SBO treated with iv steroids,iv fluids and iv antibiotics for uti,was kept npo patient responded well to above treatment, diet has been advanced that she is tolerating well, nausea vomiting abdominal pain resolved, she is passing flatus and had a bowel movement, her urine culture grew E coli therefore being discharged on by mouth Ceftin for 5 days, patient was seen by Dr. Bowen he recommend to discharge patient home on tapering dose of steroids, and to continue adalimumab and recommend to have outpatient follow- up at their office in 7-10 days. Time Spent with Patient Time attestation: Total time spent providing and/or coordinating discharge services: Discharge coordination time: Greater than 30 minutes Quality: Stroke Does the patient have a stroke diagnosis?: No Physical Exam Vital Signs: Vital Signs: Last Vital Signs Temp 97.3 F 09/22/20 11:25 Pulse 71 09/22/20 11:25 Resp 18 09/22/20 11:25 BP 158/86 H 09/22/20 11:25 Pulse Ox 97 09/22/20 11:25 Body Mass Index 41.1 General patient resting comfortably in no acute distress. Neck is supple no JVD. CVS regular rate rhythm, Respiratory lungs clear to auscultation, no respiratory distress, no wheeze, no rhonchi. Gastrointestinal abdomen soft, nontender, bowel sounds audible, no no guarding , no rigidity. Extremities no clubbing cyanosis or edema. Neuro nonfocal , speech clear. Skin no rash DS: Data Data Completed and Pending Labs on day of discharge: Preliminary micro results at discharge 09/21/20 05:35 Blood Culture - Preliminary Blood - Venous No growth after 24 hours. 09/21/20 05:35 Blood Culture - Preliminary Blood - Venous No growth after 24 hours. Discharge Plan Discharge Patient Disposition: Home, Self-Care Discharge Diagnosis: Urinary tract infection Flare of Crohn's disease Partial small-bowel obstruction due to Crohn's Referrals: Hadley Spaulding MD [Primary Care Provider] - 1 Week Discharge Medications: New cefuroxime axetil 250 mg Tablet 250 mg PO Q12H Qty: 10 RF: 0 prednisone 10 mg tablet 10 mg PO DAILY Qty: 150 RF: 0 Continued lisinopril 20 mg tablet 20 mg PO DAILY RF: 0 Humira 40 mg/0.8 mL syringe kit See Rx Instructions subcut .COMPLEX RF: 0 Discharge Orders: Discharge Order (Routine); Ordered 09/22/20 Ordered By: Elicia Rogers Diet: advance to usual diet Activity on Discharge: As tolerated Stand Alone Forms: Patient Portal Discharge page Care Plan Goals: Crohn's flare and urinary tract infection take prednisone as prescribed starting from 60 mg daily drop 10 mg Q weekly as prescribed Take Ceftin 250 mg twice daily for 5 days, outpatient follow-up with Gastroente rology as planned, follow low residue soft diet Health Concerns: Crohn's disease/UTI Plan of Treatment: Outpatient follow-up with primary care physician and Gastroenterology Assessment: As above Discharge Date/Time: 09/22/20 15:00
== END 2020-09-22 15:00 | disposition home or self-care (01) | DRG 245 ==
LOC: HO.ED 23:14 → HO.IMC 09-21 02:16
PROVIDERS: Admitting Provider Hospitalist; Emergency Provider Emergency Medicine Emergency Medical Services; PCP Internal Medicine; Visit Provider Hospitalist
DX: K50.912 Crohn's disease, unspecified, with intestinal obstruction (principal); I10 Essential (primary) hypertension; N39.0 Urinary tract infection, site not specified; Z20.822 Contact with and (suspected) exposure to COVID-19; Z88.6 Allergy status to analgesic agent; Z79.899 Other long term (current) drug therapy
CPT/HCPCS: 36415; 74177; 80048; 80053; 81001; 81003; 81025; 83690; 84702; 85025; 87040; 87086; 87088; 87186; 87635; 96374; 96375; 99285; J0696; J1170; J2270; J2405; J2920; J2930; Q9967

== ENCOUNTER 2020-09-26 09:47 | Outpatient (REF) | payer OTHER, SELFPAY ==
[2020-10-09 16:08] LABS: Adalimumab Drug Level 2.9 mcg/mL; Anti-Adalimumab Antibody <10 AU (<10)
== END 2020-09-26 09:48 | disposition home or self-care (01) ==
LOC: HO.LAB 09:47
PROVIDERS: PCP Internal Medicine; Visit Provider Internal Medicine Gastroenterology
DX: K50.012 Crohn's disease of small intestine with intestinal obstruction (principal)
CPT/HCPCS: 36415; 80145; 83520

== ENCOUNTER 2020-10-23 09:12 | Outpatient (REF) | payer OTHER, SELFPAY ==
[2020-11-04 03:12] LABS: Adalimumab Drug Level 1.6 mcg/mL; Anti-Adalimumab Antibody <10 AU (<10)
== END 2020-10-23 09:13 | disposition home or self-care (01) ==
LOC: HO.LAB 09:12
PROVIDERS: PCP Internal Medicine; Visit Provider Internal Medicine Gastroenterology
DX: K50.00 Crohn's disease of small intestine without complications (principal)
CPT/HCPCS: 36415; 80145; 83520

== ENCOUNTER 2020-11-09 10:21 | Day surgery (SDC) | payer OTHER, SELFPAY ==
--- NOTE | 2020-11-08 08:30 | HO.ANESPROP2 ---
Documented by User: Yesica Chavezney 11/08/20 08:32 HPI - Anesthesia Eval Consult details Narrative: 40yo F for Colonoscopy Daily prednisone PMFSH Active Problems Active Problems: All Active Problems (Updated 09/30/20 @ 11:24 by Hadley Spaulding MD) Obesity (BMI 30-39.9) (Acute) Crohn's disease (Acute) Benign essential hypertension (Acute) Anemia (Acute) UTI (urinary tract infection) (Acute) Past Medical History Medical History Anemia Asthma Benign essential hypertension Crohn's disease Obesity (BMI 30-39.9) Family History Family History Mother Diabetes HTN (hypertension) Parkinson disease Father Hyperthyroidism Surgical History Surgical History Hx of section Hx of cholecystectomy Hx of colonoscopy Hx of tubal ligation Social History Social History Household Members: Spouse and Children Housing: House Do you presently have visiting nurse or other home services: No Alcohol intake: never Patient Tobacco Use Status: Former Tobacco user Quit Date: 6 YRS AGO Tobacco use type: Cigarette Second Hand Smoke Exposure: No Use of substances other than those prescribed or required for medical reasons: No Are you DNR?: No Advance Directives: No Advance Directives Information Provided: Yes Advance Directives Date on File: 09/21/20 service: No Current occupational status: employed Sexual orientation: Straight/Heterosexual Meds Allergies Allergy/AdvReac Type Severity Reaction Status Date / Time aspirin [Aspirin] Allergy Mild EYES SWELL Verified 09/30/20 05:24 zucchini Allergy Intermediate Rash Uncoded 09/30/20 05:24 SEASONAL ALLERGIES Allergy Unknown TRIGGERS Uncoded 09/30/20 05:24 ASTHMA ATTACKS Home Medications Medication Instructions Recorded Confirmed Last Taken Type adalimumab 40 mg/0.8 mL See Rx Instructions SUBCUT .COMPLEX 02/13/20 09/30/20 09/19/20 History subcutaneous syringe kit Exam Exam Date and Time: November 08, 2020 0830 Pertinent Lab Results Pertinent Lab Results: Laboratory Tests 09/21/20 09/21/20 05:35 05:35 WBC 6.1 Hgb 9.5 L Hct 32.5 L Plt Count 473 H Sodium 138 Potassium 4.1 Chloride 105 Carbon Dioxide 24 BUN 7 L Creatinine 0.67 Assessment and Plan Assessment Anesthesia Assessment: Chart Reviewed Documented by User: Daniela Rodriguez 11/09/20 10:54 PMFSH Past Medical History Medical History Anemia Asthma Benign essential hypertension Crohn's disease Obesity (BMI 30-39.9) Family History Family History Mother Diabetes HTN (hypertension) Parkinson disease Father Hyperthyroidism Surgical History Surgical History Hx of section Hx of cholecystectomy Hx of colonoscopy Hx of tubal ligation Social History Social History Household Members: Spouse and Children Housing: House Do you presently have visiting nurse or other home services: No Alcohol intake: never Patient Tobacco Use Status: Former Tobacco user Quit Date: 6 YRS AGO Tobacco use type: Cigarette Second Hand Smoke Exposure: No Use of substances other than those prescribed or required for medical reasons: No Are you DNR?: No Advance Directives: No Advance Directives Information Provided: Yes Advance Directives Date on File: 09/21/20 service: No Current occupational status: employed Sexual orientation: Straight/Heterosexual Meds Allergies Allergy/AdvReac Type Severity Reaction Status Date / Time aspirin [Aspirin] Allergy Mild EYES SWELL Verified 09/30/20 05:24 zucchini Allergy Intermediate Rash Uncoded 09/30/20 05:24 SEASONAL ALLERGIES Allergy Unknown TRIGGERS Uncoded 09/30/20 05:24 ASTHMA ATTACKS Home Medications Medication Instructions Recorded Confirmed Last Taken Type adalimumab 40 mg/0.8 mL See Rx Instructions SUBCUT .COMPLEX 02/13/20 09/30/20 09/19/20 History subcutaneous syringe kit Exam Airway Mallampati Class: II TM Dist: >3cm Neck ROM: Full Assessment and Plan Assessment Anesthesia Assessment: Anesthesia Plan Discussed and Chart Reviewed Final Anesthetic Review NPO: Yes ASA Class: III Final Preanesthetic Review: No Changes in Pt Med Stat, Meds/Allgs Chart Reviewed, Consent Obtained/Reviewed and Anes Risks/Benef Reviewed Patient Risk: Intermediate Procedure Risk: Low Assessment/Block/Sedation in SS: Assess/Block/Sedation-SS Anesthetic Plan Anesthetic Plan: MAC: Disposition: Standard PACU
[2020-11-09 10:28] VITALS: BMI 40.2
[2020-11-09 10:34] VITALS: BP 140/86; PULSE 91; RESP 16; TEMP 36.2; O2SAT 98
[2020-11-09] MEDS: Lactated Ringers 1,000 ML 100 ML IVCONT (10:47)
--- NOTE | 2020-11-09 11:27 | MHC.SHP ---
Pre-Procedural Eval Section A Date of Service: 11/09/20 The patient is an INPATIENT: No Changes since office visit: No Cold of Flu in the past 2 weeks, No New Medical Problems, No Changes in Medication and No Patient answered all questions The History & Physical has been completed within 30 days and I have reviewed it.: Yes Section B Chief Complaint: chrons Allergies: Allergies Allergy/AdvReac Type Severity Reaction Status Date / Time aspirin [Aspirin] Allergy Mild EYES SWELL Verified 09/30/20 05:24 zucchini Allergy Intermediate Rash Uncoded 09/30/20 05:24 SEASONAL ALLERGIES Allergy Unknown TRIGGERS Uncoded 09/30/20 05:24 ASTHMA ATTACKS Plan I have reviewed the history and physical and performed a pertinent physical examination on my patient. No changes have occurred unless specified.
[2020-11-09 12:10] VITALS: BP 144/89; PULSE 96; RESP 24; TEMP 36.3; O2SAT 97
--- NOTE | 2020-11-09 12:14 | P.BOP_ITS ---
Brief Operative Note Date of Service: 11/09/20 Pre-op diagnosis: crohns Post-op diagnosis: same Procedure: colonoscopy Surgeon: Cosmo Bowen Anesthesia: MAC Was an Industrial Truck Mechanic used for this Procedure?: No Estimated blood loss (mL): 5 Pathology: other (multiple biopsies) Condition: stable Disposition: PACU
[2020-11-09 12:24] VITALS: BP 141/93; PULSE 82; RESP 20; TEMP 36.3; O2SAT 99
--- NOTE | 2020-11-09 13:37 | OP_ITS ---
SURGEON: Cosmo Bowen MD INDICATIONS: Crohn disease involving the small and large intestine. PREOPERATIVE DIAGNOSIS: POSTOPERATIVE DIAGNOSIS: PROCEDURE PERFORMED: Colonoscopy to the cecum with biopsy. ESTIMATED BLOOD LOSS: COMPLICATIONS: ANESTHESIA: ASSISTANTS: SPECIMENS: MEDICATIONS: Monitored anesthesia care. DESCRIPTION OF PROCEDURE: History and physical performed. The risks and benefits of the procedure were explained to the patient. Informed consent was obtained. The patient was placed in the left lateral decubitus position. A digital rectal exam was performed and was found to be normal. The Olympus pediatric video colonoscope was introduced into the rectum and advanced to the cecum without difficulty. The cecum was identified by transillumination, palpation, and identification of ileocecal valve. Examination was performed and the scope was removed. She tolerated the procedure well and was taken to recovery area in stable condition. FINDINGS: The terminal ileum was not examined. In the cecum, there were inflammatory changes in the vicinity of the ileocecal valve, which distorted the anatomy. The valve and opening could not be clearly identified. The mucosa was friable and there was some superficial ulceration. Biopsies were obtained in the cecum and throughout the colon. There appeared to be no involvement endoscopically of the colon except at the ileocecal valve with the inflammatory changes as described above. Retroflexed examination was normal. The quality of the prep was good. IMPRESSION: Crohn disease involving the small intestine. RECOMMENDATIONS: 1. Follow up the biopsy results. 2. She has had low levels on testing for her weekly Humira troughs, so a different biologic agent could be considered. MD ERIKA Giron/MODL / [id number]
== END 2020-11-09 12:40 | disposition home or self-care (01) ==
PROVIDERS: PCP Internal Medicine; Visit Provider Internal Medicine Gastroenterology
PROC: 0DJD8ZZ Inspection of Lower Intestinal Tract, Via Natural or Artificial Opening Endoscopic (ICD-10-PCS; CPT 45378; principal; 2020-11-09 11:20)
DX: K50.00 Crohn's disease of small intestine without complications (principal); D64.9 Anemia, unspecified; J45.909 Unspecified asthma, uncomplicated; I10 Essential (primary) hypertension; Z79.899 Other long term (current) drug therapy; Z90.49 Acquired absence of other specified parts of digestive tract; Z87.891 Personal history of nicotine dependence
CPT/HCPCS: 45380; 88305

== ENCOUNTER 2020-12-15 08:50 | Emergency (ER) | payer OTHER, SELFPAY ==
--- NOTE | ~2020-12-15 | CT_ITS ---
EXAMINATION: CT ABDOMEN AND PELVIS WITH CONTRAST CLINICAL INFORMATION: History of Crohn's disease. Nausea, vomiting and upper abdominal pain. COMPARISON: 09/20/2020 TECHNIQUE: Multidetector volumetric images were obtained from the superior aspect of the liver through the pubic symphysis following administration 85 mL of Omnipaque 350 intravenous contrast. Sagittal and coronal reformatted images were obtained on the technologist's workstation. Oral contrast: No This CT examination was performed using dose optimization techniques as appropriate, variously including the following: *Automated exposure control *Adjustment of mA and/or kV according to patient size (this includes techniques or standardized protocols for targeted exams where dose is matched to indication/reason for exam; i.e. extremities or head) *Use of iterative reconstruction technique DLP: 1038 mGy-cm FINDINGS: LUNG BASES: The visualized lung bases are unremarkable. LIVER, GALLBLADDER, AND BILIARY TREE: The liver is normal in size, shape, and attenuation. No focal hepatic lesion or biliary ductal dilatation is present. Cholecystectomy. PANCREAS: Unremarkable. SPLEEN: Unremarkable. ADRENAL GLANDS: Unremarkable. KIDNEYS AND URETERS: The kidneys are normal in size, shape, and attenuation. No hydronephrosis, hydroureter, or calculi seen. No perinephric stranding. BLADDER: Unremarkable. GASTROINTESTINAL TRACT: There is marked wall thickening of the terminal ileum leading up to the cecum similar to that seen previously extending over length of approximately 11 cm. Upstream from this, there is a 4 cm segment of distal ileum which is uninvolved by inflammation followed by an additional 5 cm segment of distal ileum showing wall thickening. Again, upstream from this there is an additional short segment of distal ileum showing wall thickening. There is scarring of the small bowel mesentery within the pelvis with tethering of multiple loops of small bowel, also similar to the previous exam. This scar tissue also tethers the mid sigmoid colon, which is inseparable from loops of matted small bowel within the central. This. There is associated generalized ileus. No evidence of obstruction. Stomach unremarkable. ABDOMINAL WALL: No significant hernia. LYMPH NODES: There are mildly prominent mesenteric lymph nodes as seen previously which are reactive. No retroperitoneal or abdominal adenopathy by size criteria. VASCULAR: Unremarkable. PELVIC VISCERA: There is a 2.1 cm fibroid within the dorsal uterine fundus. Left ovary unremarkable. Right ovary is located inferior to the inflammatory changes involving the terminal ileum. Small free fluid within the pelvis and bilateral adnexa. OSSEOUS STRUCTURES: No acute or suspicious osseous abnormalities. CT/CT abdomen pelvis w con IMPRESSION: Again seen are changes related to Crohn's disease with multifocal noncontiguous skip lesions of small bowel inflammation, with intervening pseudosacculations and perienteric inflammation. There is tethering of multiple small and large bowel loops within the pelvis without evidence of obstruction. Developing fistula formation between loops of small bowel within the small bowel and sigmoid colon is neither confirmed nor excluded on this exam. Overall, the degree of inflammation is similar in extent to that seen on the previous exam. Associated generalized ileus noted.
[2020-12-15 08:57] VITALS: BP 162/106; PULSE 103; RESP 18; TEMP 36.8; O2SAT 96; BMI 40.4
[2020-12-15 09:55] VITALS: RESP 16
[2020-12-15 09:55] LABS: MANUAL DIFF FLAG NO
[2020-12-15] MEDS: ondansetron HCL 4 MG/2 ML VIAL IVPUSH (09:55)
[2020-12-15] MEDS: 0.9 % Sodium Chloride 1,000 ML 999 ML IVCONT (09:55)
[2020-12-15] MEDS: Morphine Sulfate 4 MG/ML CARTRIDGE IVPUSH ×2 (09:55→11:59)
[2020-12-15 09:56] LABS: Basophils Percent Auto 0.2 % (0-2); Eosinophils Absolute Auto 0.1 X10*3/uL (0.0-0.4); Eosinophils Percent Auto 0.4 % (0-4); Hematocrit 33.6 % (37-47); Hemoglobin 9.7 g/dl (12.0-16.0); Imm Gran Abs Auto 0.05 X10*3/uL (0.00-0.03); Imm Gran Pct Auto 0.4 % (0.0-0.4); Lymphocytes Absolute Auto 0.8 X10*3/uL (1.2-4.9); Lymphocytes Percent Auto 6.5 % (20-40); Mean Corpuscular HGB Conc 28.9 g/dl (31.0-35.0); Mean Corpuscular Volume 72.6 fL (80-98); Mean Platelet Volume 8.8 fL (9.4-12.3); Monocytes Absolute Auto 0.5 X10*3/uL (0.1-1.2); Monocytes Percent Auto 3.8 % (2-11); Neutrophils Absolute Auto 10.9 X10*3/uL (2.0-8.3); Neutrophils Percent Auto 88.7 % (45-73); Platelet Count 504 X10*3/uL (160-400); Red Blood Count 4.63 X10*6/uL (4.20-5.50); Red Cell Distribution Width 15.3 % (11.0-16.0); White Blood Count 12.3 X10*3/uL (4.8-10.8)
[2020-12-15 10:09] LABS: INTERNATIONAL NORM RATIO 1.1 (0.9-1.1)
[2020-12-15 10:38] LABS: Alanine Aminotransferase 14 U/L (0-31); Albumin Level 3.7 g/dL (3.5-5.0); Alkaline Phosphatase 100 U/L (39-117); Anion Gap 14 (12-20); Aspartate Amino Transferase 15 U/L (5-31); Bilirubin Total 0.4 mg/dL (0.0-1.0); Blood Urea Nitrogen 9 mg/dL (9-16); Carbon Dioxide 25 mmol/L (22-29); Chloride 103 mmol/L (96-108); Creatinine Clr Calc Pharmacy 131.4; Estimated Glomerular Filt Rate > 60; Glucose Random 118 mg/dL (60-115); Lipase 9 U/L (8-78); Magnesium 2.1 mg/dL (1.6-2.6); Potassium 3.9 mmol/L (3.3-5.1); Sodium 138 mmol/L (135-145); Total Protein 7.9 g/dL (6.5-8.0)
[2020-12-15 10:45] LABS: HCG Quantitative < 2 mIU/mL
[2020-12-15] MEDS: iohexoL 350 MG/ML 100 ML INFUS..BTL 85 ML IV (11:08)
[2020-12-15 11:33] LABS: Lactic Acid 0.8 mmol/L (0.5-2.0)
--- NOTE | 2020-12-15 11:37 | ED_ITS ---
HPI - Nausea/Vomiting/Diarrhea General Chief complaint: Nausea/Vomiting/Diarrhea Stated complaint: abd pain Time Seen by Provider: 12/15/20 09:19 Source: patient Mode of arrival: ambulatory Limitations: no limitations History of Present Illness HPI Narrative: 40-year-old female with a past medical history of Crohn's disease currently on Humira taking weekly and being followed by Dr. Bowen the sales consultant insurance, obesity, anemia, asthma and hypertension presenting to the ED with complaints of abdominal pain in the left upper quadrant/epigastric/right upper quadrant and right flank that is sharp in sensation radiating to her back since yesterday worse today with associated nausea/vomiting. Reports that she last had a bowel movement 2 days ago. She reports that her pain is sharp in sensation and that it feels worse than her prior episodes of Crohn's flares. She denies any fevers, dizziness, chest pain or shortness of breath, palpitations, dysuria, hematuria, abnormal vaginal discharge, diarrhea, recent travel or sick contacts or any other symptoms complaints or concerns at this time. MD elicited complaint: nausea, vomiting, abdominal pain and other (Constipation) Pertinent past history: other (Crohn's disease) Onset (ago): day(s) (Since last night worse today) Description of vomiting: bilious Associated nausea: Yes Associated abdominal pain: Yes Location of pain: epigastric, LUQ, RUQ and R flank Pain consistency: constant Severity: severe Pain scale (0-10): 10 Quality: sharp and constant Exacerbating factors: none Relieving factors: none Associated symptoms: denies other symptoms Related Data Home Medications Medication Instructions Recorded Confirmed adalimumab 40 mg/0.8 mL See Rx Instructions SUBCUT .COMPLEX 02/13/20 09/30/20 subcutaneous syringe kit (Humira) Previous Rx's Medication Instructions Recorded prednisone 10 mg tablet 10 mg PO DAILY #150 tab 09/22/20 ferrous sulfate 325 mg (65 mg 325 mg PO DAILY 30 Days #30 tab 09/30/20 iron) tablet lisinopril 20 mg tablet 20 mg PO DAILY 90 Days #90 tab 09/30/20 ondansetron HCl 4 mg tablet 4 mg PO Q8H PRN #14 tab 12/15/20 (Zofran) oxycodone 5 mg tablet 5 mg PO BID PRN #10 tab 12/15/20 prednisone 10 mg tablet 40 mg PO DAILY 14 Days #56 tab 12/15/20 Allergies Allergy/AdvReac Type Severity Reaction Status Date / Time aspirin [Aspirin] Allergy Mild EYES SWELL Verified 09/30/20 05:24 zucchini Allergy Intermediate Rash Uncoded 09/30/20 05:24 SEASONAL ALLERGIES Allergy Unknown TRIGGERS Uncoded 09/30/20 05:24 ASTHMA ATTACKS Review of Systems Review of Systems: Constitutional : No Weight loss, No Fever, No Chills, No Night Sweats, No Fatigue, No Malaise ENT/Mouth: No ear pain, No sore throat, No Difficulty swallowing Cardiovascular : No Chest Pain, No SOB, No Dyspnea on Exertion, No Orthopnea, NoEdema, No Palpitations Respiratory : No Cough, No Sputum, No Wheezing, No Dyspnea Gastrointestinal : Positive nausea/vomiting/abdominal pain/constipation, No Diarrhea, No blood streaked emesis, No coffee-ground emesis, No gross hemat emesis, No blood streak stool, No gross hematochezia, No Melena Genitourinary : No irregular bleeding, No Dysuria, No Urinary Frequency, No Hematuria,No Urinary Incontinence, No Urgency, No Flank Pain Musculoskeletal : No joint pain, No Myalgias, No Joint Swelling Skin : No Skin Lesions, No rash Neuro : No Weakness, No Numbness, No Paresthesias, No Loss of Consciousness, NoDizziness, No Headache Psych : No Social Issues, Heme/Lymph: No Bruising, No Bleeding,No Lymphadenopathy Endocrine : No Polyuria, No Polydipsia, No Temperature Intolerance Yes all other systems are reviewed and are negative Gastrointestinal: Gastrointestinal: Reports nausea PMFSH Past Medical History Attestation statement: The following information was validated with the patient. Medical History Anemia Asthma Benign essential hypertension Crohn's disease Obesity (BMI 30-39.9) Surgical History Hx of section Hx of cholecystectomy Hx of colonoscopy Hx of tubal ligation Family History Family History Mother Diabetes HTN (hypertension) Parkinson disease Father Hyperthyroidism Social History Social History Household Members: Spouse and Children Housing: House Do you presently have visiting nurse or other home services: No Alcohol intake: never Patient Tobacco Use Status: Former Tobacco user Quit Date: 6 YRS AGO Tobacco use type: Cigarette Second Hand Smoke Exposure: No Use of substances other than those prescribed or required for medical reasons: No Advance Directives: No Advance Directives Information Provided: No Advance Directives Date on File: 09/21/20 service: No Current occupational status: employed Sexual orientation: Straight/Heterosexual Physical Exam Vital Signs: Vital Signs: Last Vital Signs Temp 98.2 F 12/15/20 11:42 Pulse 83 12/15/20 11:42 Resp 18 12/15/20 11:59 BP 145/87 H 12/15/20 11:42 Pulse Ox 98 12/15/20 11:42 Body Mass Index 40.4 vital signs have been reviewed as normal and appeared to be correct. Blood pressure hypertensive at 162/106. Heart rate tachycardic at 103. Respiration rate normal. Temperature normal. Oxygen saturation normal. Appearance: Alert. Oriented X3. In pain otherwise No other acute distress. Head: Normal external exam. Normocephalic. Eyes: PERRLA. EOMI. Conjunctiva and sclera normal. Eyelids normal. ENT: Pharynx normal. Uvula midline. Moist mucous membranes. Neck: Normal inspection. Neck supple. FROM. No adenopathy. No meningeal signs. CVS: Normal heart rate and rhythm. Heart sound normal. No murmurs noted. Pulses normal throughout. Respiratory: No respiratory distress. Painless inspiration. Breath sounds normal. No wheezes/rales/rhonchi noted. Chest nontender. No accessory muscle usage noted or decreased air movement noted. Abdomen: Soft and moderate tenderness to palpation to left upper quadrant/epigastric/right upper quadrant/right flank with guarding and patient's abdomen appears to be distended. No rigidity. Bowel sounds normal in all 4 quadrants. No distention noted. No organomegaly noted. No visible injury noted. No rebound tenderness. Negative Rovsing sign. Negative obturator's sign. Negative psoas sign. Negative Barrios sign. Back: No CVA tenderness. Full range of motion noted. Skin: Skin warm and dry. Normal skin color. Normal skin turgor. No rashes/lesions/lacerations noted. Extremities: Extremities exhibit normal range of motion. Extremities nontender. Neuro: Oriented X 3. No motor deficit. No sensory deficit. Reflexes normal. Normal steady gait. Course Course Course Narrative: 9:30am - 40-year-old female with a past medical history of Crohn's disease currently on Humira taking weekly and being followed by Dr. Bowen the sales consultant insurance, obesity, anemia, asthma and hypertension presenting to the ED with complaints of abdominal pain in the left upper quadrant/epigastric/right upper quadrant and right flank that is sharp in sensation radiating to her back since yesterday worse today with associated nausea/vomiting. Reports that she last had a bowel movement 2 days ago. She reports that her pain is sharp in sensation and that it feels worse than her prior episodes of Crohn's flares. On Exam patient reports moderate pain otherwise no other acute distress. Mildly hypertensive and tachycardic otherwise all other vitals are within normal limits. Lungs are clear to auscultation. CV RRR. Abdominal exam patient has moderate tenderness palpation to upper abdomen and right flank with guarding and distension. No CVA tenderness is noted. Plan: Labs, UA, blood cultures, lactic acid, CT scan of abdomen and pelvis with IV contrast. Provide a L of IV fluids Reevaluation(s) Reevaluation #1: - labs reviewed and [place] [id number]. Mild baseline anemia similar compared to prior. Platelet count 504. Random glucose 118. Otherwise all other labs are within normal limits. Serum quant negative for . - CT scan of abdomen and pelvis with IV contrast revealed chronic changes no acute processes were noted. - therefore I consulted with Dr. Wiggins and he reviewed the patient's CT scan results and he reported that it appears similar when compared to last CT scan of abdomen pelvis with IV contrast in August 2020. - therefore he reported that the patient can receive 100 mg of IV hydrocortisone can be discharged with 40 mg of prednisone daily for at least 2 weeks and that the patient should follow up with Dr. Bowen to call his office on Thursday that he will return from vacation at that time and he can give her a taper dosing. Dr. Bowen and her are currently working with insurance to get her approved from switching to Humira to Remicade. I did offer admission although patient refused. Otherwise will give her a dose of IV hydrocortisone and DC home with prednisone and symptomatic treatment and instructions to follow-up with Dr. Andrés. Patient understands agrees with this plan. Time: 12:14 MDM - Nausea/Vomiting/Diarrhea Medical Records Attestation: I reviewed the patient's medical records. Lab Data Attestation: I reviewed the patient's lab results. Result diagrams: 12/15/20 09:49 12/15/20 09:49 Labs: Lab Results 12/15/20 12/15/20 12/15/20 Range/Units 09:49 09:49 09:49 WBC 12.3 H (4.8-10.8) X10*3/uL RBC 4.63 (4.20-5.50) X10*6/uL Hgb 9.7 L (12.0-16.0) g/dl Hct 33.6 L (37-47) % MCV 72.6 L (80-98) fL MCH 21.0 L (27.0-33.0) pg MCHC 28.9 L (31.0-35.0) g/dl RDW 15.3 (11.0-16.0) % Plt Count 504 H (160-400) X10*3/uL MPV 8.8 L (9.4-12.3) fL Immature Gran % (Auto) 0.4 (0.0-0.4) % Neut % (Auto) 88.7 H (45-73) % Lymph % (Auto) 6.5 L (20-40) % [place] % (Auto) 3.8 (2-11) % Eos % (Auto) 0.4 (0-4) % Baso % (Auto) 0.2 (0-2) % Lymph # (Auto) 0.8 L (1.2-4.9) X10*3/uL [place] # (Auto) 0.5 (0.1-1.2) X10*3/uL Eos # (Auto) 0.1 (0.0-0.4) X10*3/uL Baso # (Auto) 0.0 (0.0-0.2) X10*3/uL Abs Immat Gran (auto) 0.05 H (0.00-0.03) X10*3/uL Absolute Neuts (auto) 10.9 H (2.0-8.3) X10*3/uL Absolute Nucleated RBC 0.000 (0.0-0.012) X10*3/uL Nucleated RBC % (auto) 0.0 (0.0-0.2) /100WBC PT 13.0 (9.9-13.0) SEC INR 1.1 (0.9-1.1) Sodium 138 (135-145) mmol/L Potassium 3.9 (3.3-5.1) mmol/L Chloride 103 (96-108) mmol/L Carbon Dioxide 25 (22-29) mmol/L Anion Gap 14 (12-20) BUN 9 (9-16) mg/dL Creatinine 0.71 (0.5-1.4) mg/dL Estim Creat Clear Calc 131.4 Estimated GFR > 60 Random Glucose 118 H D (60-115) mg/dL Lactic Acid (0.5-2.0) mmol/L Calcium 9.0 (8.4-10.2) mg/dL Magnesium 2.1 (1.6-2.6) mg/dL Total Bilirubin 0.4 (0.0-1.0) mg/dL AST 15 D (5-31) U/L ALT 14 (0-31) U/L Alkaline Phosphatase 100 (39-117) U/L Total Protein 7.9 (6.5-8.0) g/dL Albumin 3.7 (3.5-5.0) g/dL Lipase 9 (8-78) U/L Beta HCG, Quant < 2 mIU/mL 12/15/20 Range/Units 11:12 WBC (4.8-10.8) X10*3/uL RBC (4.20-5.50) X10*6/uL Hgb (12.0-16.0) g/dl Hct (37-47) % MCV (80-98) fL MCH (27.0-33.0) pg MCHC (31.0-35.0) g/dl RDW (11.0-16.0) % Plt Count (160-400) X10*3/uL MPV (9.4-12.3) fL Immature Gran % (Auto) (0.0-0.4) % Neut % (Auto) (45-73) % Lymph % (Auto) (20-40) % [place] % (Auto) (2-11) % Eos % (Auto) (0-4) % Baso % (Auto) (0-2) % Lymph # (Auto) (1.2-4.9) X10*3/uL [place] # (Auto) (0.1-1.2) X10*3/uL Eos # (Auto) (0.0-0.4) X10*3/uL Baso # (Auto) (0.0-0.2) X10*3/uL Abs Immat Gran (auto) (0.00-0.03) X10*3/uL Absolute Neuts (auto) (2.0-8.3) X10*3/uL Absolute Nucleated RBC (0.0-0.012) X10*3/uL Nucleated RBC % (auto) (0.0-0.2) /100WBC PT (9.9-13.0) SEC INR (0.9-1.1) Sodium (135-145) mmol/L Potassium (3.3-5.1) mmol/L Chloride (96-108) mmol/L Carbon Dioxide (22-29) mmol/L Anion Gap (12-20) BUN (9-16) mg/dL Creatinine (0.5-1.4) mg/dL Estim Creat Clear Calc Estimated GFR Random Glucose (60-115) mg/dL Lactic Acid 0.8 (0.5-2.0) mmol/L Calcium (8.4-10.2) mg/dL Magnesium (1.6-2.6) mg/dL Total Bilirubin (0.0-1.0) mg/dL AST (5-31) U/L ALT (0-31) U/L Alkaline Phosphatase (39-117) U/L Total Protein (6.5-8.0) g/dL Albumin (3.5-5.0) g/dL Lipase (8-78) U/L Beta HCG, Quant mIU/mL Imaging Data CT scan abdomen pelvis with IV contrast: Attestation: I personally reviewed and interpreted this imaging study as follows: Radiologist's impression: FINDINGS: LUNG BASES: The visualized lung bases are unremarkable.? LIVER, GALLBLADDER, AND BILIARY TREE: The liver is normal in size, shape, and attenuation. No focal hepatic lesion or biliary ductal dilatation is present. Cholecystectomy.? PANCREAS: Unremarkable.? SPLEEN: Unremarkable.? ADRENAL GLANDS: Unremarkable.? KIDNEYS AND URETERS: The kidneys are normal in size, shape, and attenuation. No hydronephrosis, hydroureter, or calculi seen. No perinephric stranding. ? BLADDER: Unremarkable.? GASTROINTESTINAL TRACT: There is marked wall thickening of the terminal ileum leading up to the cecum similar to that seen previously extending over length of approximately 11 cm. Upstream from this, there is a 4 cm segment of distal ileum which is uninvolved by inflammation followed by an additional 5 cm segment of distal ileum showing wall thickening. Again, upstream from this there is an additional short segment of distal ileum showing wall thickening. There is scarring of the small bowel mesentery within the pelvis with tethering of multiple loops of small bowel, also similar to the previous exam. This scar tissue also tethers the mid sigmoid colon, which is inseparable from loops of matted small bowel within the central. This. There is associated generalized ileus. No evidence of obstruction. Stomach unremarkable. ABDOMINAL WALL: No significant hernia.? LYMPH NODES: There are mildly prominent mesenteric lymph nodes as seen previously which are reactive. No retroperitoneal or abdominal adenopathy by size criteria. VASCULAR: Unremarkable. PELVIC VISCERA: There is a 2.1 cm fibroid within the dorsal uterine fundus. Left ovary unremarkable. Right ovary is located inferior to the inflammatory changes involving the terminal ileum. Small free fluid within the pelvis and bilateral adnexa.? OSSEOUS STRUCTURES: No acute or suspicious osseous abnormalities.? CT/CT abdomen pelvis w con IMPRESSION: Again seen are changes related to Crohn's disease with multifocal noncontiguous skip lesions of small bowel inflammation, with intervening pseudosacculations and perienteric inflammation. There is tethering of multiple small and large bowel loops within the pelvis without evidence of obstruction. Developing fistula formation between loops of small bowel within the small bowel and sigmoid colon is neither confirmed nor excluded on this exam. Overall, the degree of inflammation is similar in extent to that seen on the previous exam. Associated generalized ileus noted. Discharge Plan Discharge Clinical Impression: Crohn's disease Patient Disposition: Home, Self-Care Instructions: Crohn Disease (ED) Prescriptions: New prednisone 10 mg tablet 40 mg PO DAILY 14 Days Qty: 56 RF: 0 ondansetron HCl [Zofran] 4 mg tablet 4 mg PO Q8H PRN (Reason: nausea and vomiting) Qty: 14 RF: 0 oxycodone 5 mg tablet 5 mg PO BID PRN (Reason: pain) Qty: 10 RF: 0 No Action prednisone 10 mg tablet 10 mg PO DAILY Qty: 150 RF: 0 lisinopril 20 mg tablet 20 mg PO DAILY 90 Days Qty: 90 RF: 1 ferrous sulfate 325 mg (65 mg iron) tablet 325 mg PO DAILY 30 Days Qty: 30 RF: 5 Humira 40 mg/0.8 mL syringe kit See Rx Instructions subcut .COMPLEX RF: 0 Referrals: Hadley Spaulding MD [Primary Care Provider] - 2 days Cosmo oBwen [Physician] - 12/17/20 Print Language: Syriac
[2020-12-15 11:42] VITALS: BP 145/87; PULSE 83; RESP 18; TEMP 36.8; O2SAT 98
[2020-12-15 11:59] VITALS: RESP 18
[2020-12-15] MEDS: Hydrocortisone Sod Succ/PF 100 MG VIAL IVPUSH (12:17)
[2020-12-15 12:25] LABS: C Reactive Protein 6.94 mg/dL (< or = 0.50)
[2020-12-15 12:53] LABS: Erythrocyte Sedimentation Rate 64 MM/HR (0-20)
[2020-12-15 12:55] LABS: COVID-19 Test Negative (Negative)
[2020-12-15 12:59] LABS: Glucose Urine UA NEG (NEG); Leukocyte Esterase Urine NEG (NEG); Nitrite Urine POS (NEG); PH 6.5 (5.0-8.0); Specific Gravity - Urine <= 1.005 (1.005-1.025); UACC Culture Trigger YES; Urine Blood TRACE (NEG); Urine Ketones NEG (NEG); Urine Protein NEG (NEG-TRACE)
[2020-12-15 13:00] LABS: Appearance Urine HAZY; Color Urine YELLOW
[2020-12-15 13:02] LABS: Bacteria Urine 2+ /LPF; Squamous Epithelial Cell Urine 2+ /LPF; WBC Urine 0-2 /HPF (0-4)
== END 2020-12-15 12:53 | disposition home or self-care (01) ==
PROVIDERS: Physician Assistant Medical; Emergency Provider Internal Medicine; PCP Internal Medicine
DX: K50.90 Crohn's disease, unspecified, without complications (principal); N39.0 Urinary tract infection, site not specified; Z20.822 Contact with and (suspected) exposure to COVID-19; I10 Essential (primary) hypertension; Z79.899 Other long term (current) drug therapy
CPT/HCPCS: 36415; 74177; 80053; 81001; 83605; 83690; 83735; 84702; 85025; 85610; 85652; 86140; 87040; 87086; 87088; 87186; 87635; 96361; 96374; 96375; 96376; 99284; J2270; J2405; Q9967

== ENCOUNTER 2020-12-27 07:45 | Outpatient (REF) | payer OTHER, SELFPAY ==
[2020-12-27 08:22] LABS: MANUAL DIFF FLAG NO
[2020-12-27 08:28] LABS: Basophils Absolute Auto 0.1 X10*3/uL (0.0-0.2); Basophils Percent Auto 0.4 % (0-2); Eosinophils Absolute Auto 0.1 X10*3/uL (0.0-0.4); Eosinophils Percent Auto 0.9 % (0-4); Hemoglobin 8.5 g/dl (12.0-16.0); Imm Gran Abs Auto 0.08 X10*3/uL (0.00-0.03); Imm Gran Pct Auto 0.6 % (0.0-0.4); Lymphocytes Percent Auto 22.5 % (20-40); Mean Corpuscular HGB Conc 28.3 g/dl (31.0-35.0); Mean Corpuscular Hemoglobin 20.9 pg (27.0-33.0); Mean Corpuscular Volume 73.7 fL (80-98); Mean Platelet Volume 9.3 fL (9.4-12.3); Monocytes Absolute Auto 0.9 X10*3/uL (0.1-1.2); Neutrophils Absolute Auto 9.2 X10*3/uL (2.0-8.3); Neutrophils Percent Auto 68.6 % (45-73); Platelet Count 418 X10*3/uL (160-400); Red Blood Count 4.07 X10*6/uL (4.20-5.50); Red Cell Distribution Width 15.9 % (11.0-16.0); White Blood Count 13.5 X10*3/uL (4.8-10.8)
[2020-12-27 08:53] LABS: Iron 26 mcg/dL (30-160); Percent Iron Saturation 10 % (15-50); Total Iron Binding Capacity 267 mcg/dL (228-428); Unsaturated Iron Binding 241 ug/dL
== END 2020-12-27 07:46 | disposition home or self-care (01) ==
LOC: HO.LAB 07:45
PROVIDERS: PCP Internal Medicine; Visit Provider Internal Medicine
DX: D50.9 Iron deficiency anemia, unspecified (principal)
CPT/HCPCS: 36415; 83540; 85025

== ENCOUNTER 2021-01-11 11:32 | Emergency (ER) | payer OTHER, SELFPAY ==
--- NOTE | ~2021-01-11 | CT_ITS ---
EXAMINATION: CT ABDOMEN AND PELVIS WITH CONTRAST CLINICAL INFORMATION: Right lower quadrant pain COMPARISON: Recent including 12/15/2020 TECHNIQUE: Multidetector volumetric images were obtained from the superior aspect of the liver through the pubic symphysis following administration 85 mL of Omnipaque 350 intravenous contrast. Sagittal and coronal reformatted images were obtained on the technologist's workstation. Oral contrast: No This CT examination was performed using dose optimization techniques as appropriate, variously including the following: *Automated exposure control *Adjustment of mA and/or kV according to patient size (this includes techniques or standardized protocols for targeted exams where dose is matched to indication/reason for exam; i.e. extremities or head) *Use of iterative reconstruction technique DLP: 1082 mGy-cm FINDINGS: LUNG BASES: The visualized lung bases are unremarkable. LIVER, GALLBLADDER, AND BILIARY TREE: Moderate nonspecific hepatomegaly without any discrete lesion. No biliary dilatation. Clips consistent cholecystectomy. PANCREAS: Unremarkable. SPLEEN: Unremarkable. ADRENAL GLANDS: Unremarkable. KIDNEYS AND URETERS: The kidneys are normal in size, shape, and attenuation. No hydronephrosis, hydroureter, or calculi seen. No perinephric stranding. BLADDER: Unremarkable. GASTROINTESTINAL TRACT: Centered about the ileocolic level is once again overall worsening active inflammatory changes. There is less small bowel dilatation on the current study otherwise there are more pronounced transmural hyperenhancement of long segments of small bowel as well as the cecum. There is a very disorganized cicatrized appearance to the right lower quadrant bowel loops and mesentery. Edema/fluid tracks into the mesenteric leaflets with more pronounced reactive lymph nodes throughout this region. More centrally within the pelvis, there is convergence of abnormal small bowel in sigmoid colon which could indicate early suspicious communication although this is not confirmed on this standard CT scan. Please see jansen images. Moreover small bowel loops are clumped in the right lower quadrant which could be related to marked inflammatory adhesions versus potentially early fistulous medication. There is no definite extraluminal air or definite drainable fluid collection seen. The perianal location appears unremarkable. No new foci of involvement seen. There is mild fullness of the right renal collecting system to this level which could represent early obstruction. ABDOMINAL WALL: No focal defect. LYMPH NODES: As above VASCULAR: Unremarkable. PELVIC VISCERA: Fibroid uterus again noted. OSSEOUS STRUCTURES: Changes of mild symmetrical sacroiliitis. CT/CT abdomen pelvis w con IMPRESSION: Overall slight progression of severe active inflammatory changes in the right lower quadrant centered about the ileocolic level. Please see jansen images. Appearance favors active granulomatous colitis with potentially early fistula formation. No drainable abscess measurable although phlegmonous changes are present. Patient may benefit from an MR enterography to better assess for complications. The only positive change in the interim is less dilatation of upstream small bowel which could indicate absence of any fibrous stenosing Crohn's. Clinical question was also appendicitis. The appendix is not definitively identified but based on review of series CT scans, appearance favors active granulomatous colitis.
[2021-01-11 11:34] VITALS: BP 183/96; PULSE 112; RESP 16; TEMP 36.6; O2SAT 98; BMI 40.2
--- NOTE | 2021-01-11 12:03 | ED.ABDPAIN ---
HPI - Abdominal Pain General Chief Complaint: Abdominal Pain Stated Complaint: rt side abd pain Time Seen by Provider: 01/11/21 12:55 Source: patient Mode of arrival: ambulatory Limitations: no limitations History of Present Illness HPI narrative: Patient presents to the ED for right-sided abdominal pain that woke her up this morning. Patient states no nausea, vomiting, dysuria, hematuria, or diarrhea. Patient states history of Crohn's disease and states this is the worst pain she has ever had. Patient states her appendix has not been removed. Patient states unlikely she is due to her having her to burn. Denies any recent trauma to the abdomen or flanks. MD elicited complaint: abdominal pain Related Data Home Medications Medication Instructions Recorded Confirmed adalimumab 40 mg/0.8 mL See Rx Instructions SUBCUT .COMPLEX 02/13/20 01/03/21 subcutaneous syringe kit (Humira) Previous Rx's Medication Instructions Recorded ondansetron HCl 4 mg tablet 4 mg PO Q8H PRN #14 tab 12/15/20 (Zofran) prednisone 10 mg tablet 40 mg PO DAILY 14 Days #56 tab 12/15/20 cephalexin 500 mg capsule 500 mg PO QID 5 Days #20 cap 12/19/20 ferrous sulfate 325 mg (65 mg 325 mg PO DAILY 30 Days #30 tab 01/03/21 iron) tablet lisinopril 20 mg tablet 20 mg PO DAILY 90 Days #90 tab 01/03/21 oxycodone-acetaminophen 5 mg-325 1 tab PO TID PRN #9 tab 01/11/21 mg tablet (Percocet) prednisone 20 mg tablet 60 mg PO DAILY 7 Days #21 tab 01/11/21 Allergies Allergy/AdvReac Type Severity Reaction Status Date / Time aspirin [Aspirin] Allergy Mild EYES SWELL Verified 01/03/21 21:36 zucchini Allergy Intermediate Rash Uncoded 01/03/21 21:36 SEASONAL ALLERGIES Allergy Unknown TRIGGERS Uncoded 01/03/21 21:36 ASTHMA ATTACKS Review of Systems Review of Systems Yes all other systems are reviewed and are negative Constitutional: Reports as per HPI and Reports no additional constitutional complaints Eyes: Reports as per HPI and Reports no additional eye complaints Reports system reviewed and no additional complaints, except as documented and Reports as per HPI Cardiovascular: Reports as per HPI and Reports no additional cardiovascular complaints Respiratory: Reports as per HPI and Reports no additional respiratory complaints Gastrointestinal: Reports as per HPI, Reports no additional gastrointestinal complaints and Reports abdominal pain (Right sided abdominal) Genitourinary: Reports no additional female genitourinary complaints and Reports as per HPI Musculoskeletal: Reports no additional musculoskeletal complaints and Reports as per HPI Reports system reviewed and no additional complaints, except as documented and Reports as per HPI Psychiatric: Reports no additional psychiatric complaints and Reports as per HPI Physical Exam Vital Signs: Vital Signs: Last Vital Signs Temp 98.5 F 01/11/21 18:27 Pulse 92 01/11/21 18:27 Resp 16 01/11/21 18:27 BP 133/76 01/11/21 18:27 Pulse Ox 99 01/11/21 18:27 Body Mass Index 40.2 Const: General: cooperative, healthy appearing, comfortable, no acute distress, well developed, alert, awake and Physically active Orientation/consciousness: patient oriented x3 HENMT: Head: Yes normal to inspection, Yes No palpable skull fracture present, Yes normocephalic and Yes atraumatic Eyes: General: appearance normal, both eyes and all related structures Neck: Neck: Yes normal visual inspection, Yes full ROM, Yes no lymphadenopathy, Yes no meningeal signs, Yes trachea midline, Yes supple and No tender Chest: Chest palpation & inspection: normal inspection of the chest and normal palpation of entire chest wall Resp: Effort & Inspection: normal respiratory effort and able to speak in complete sentences Auscultation: clear to auscultation bilaterally Cardio: Jugular venous distension: no JVD Heart sounds: S1 normal heart sound present and S2 normal heart sound present GI: Inspection: Yes normal to inspection and No abdominal wall ecchymosis Palpation (GI): Soft to palpation, not firm, Tenderness to palpation present (GI) in the RLQ and with rebound tenderness, no guarding and not rigid : General: No CVA tenderness and Yes no CVA tenderness Back/Spine/Pelvis: Back: no CVA tenderness, No CVA tenderness and No back tenderness Skin: General skin exam: no rashes or lesions noted and elasticity normal Neuro: General: patient oriented x3, gait normal, no meningeal signs and CN's II-XI intact bilaterally Cranial nerves: Yes CN's II-XII intact bilaterally Course Course Course Narrative: Patient will have labs drawn. UA to rule out and UTI. patient hypertensive and tachy due to pain. Reevaluation(s) Reevaluation #1: Patient given morphine for pain. Patient will white blood cell count [id number] which is chronically elevated. CT scan shows granulomatous colitis which is excepted of Crohn's disease but has a fistula. Spoke with Dr. Arnold of surgery who states no surgery is indicated. Dr. Arnold recommend contacting Gastroenterology on-call. Patient is chronically anemic. 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 Patient preferred to be discharged with steroids. Patient informed to return to the ED immediately if symptoms worsen. Patient will be given days off from work. Patient states she will call Dr. Bowen on her own for immediate appointment. Time: 19:27 MDM - Abdominal Pain MDM Narrative Medical decision making narrative: Crohn's granulomalaatous colitis Lab Data Result diagrams: 01/11/21 12:21 01/11/21 12:21 Labs: Lab Results 01/11/21 01/11/21 01/11/21 Range/Units 12:21 12:21 14:20 WBC 14.4 H (4.8-10.8) X10*3/uL RBC 4.09 L (4.20-5.50) X10*6/uL Hgb 8.7 L (12.0-16.0) g/dl Hct 29.7 L (37-47) % MCV 72.6 L (80-98) fL MCH 21.3 L (27.0-33.0) pg MCHC 29.3 L (31.0-35.0) g/dl RDW 15.5 (11.0-16.0) % Plt Count 395 (160-400) X10*3/uL MPV 8.5 L (9.4-12.3) fL Immature Gran % (Auto) 0.4 (0.0-0.4) % Neut % (Auto) 80.2 H (45-73) % Lymph % (Auto) 13.3 L (20-40) % Morris % (Auto) 5.4 (2-11) % Eos % (Auto) 0.6 (0-4) % Baso % (Auto) 0.1 (0-2) % Lymph # (Auto) 1.9 (1.2-4.9) X10*3/uL Morris # (Auto) 0.8 (0.1-1.2) X10*3/uL Eos # (Auto) 0.1 (0.0-0.4) X10*3/uL Baso # (Auto) 0.0 (0.0-0.2) X10*3/uL Abs Immat Gran (auto) 0.06 H (0.00-0.03) X10*3/uL Absolute Neuts (auto) 11.5 H (2.0-8.3) X10*3/uL Absolute Nucleated RBC 0.000 (0.0-0.012) X10*3/uL Nucleated RBC % (auto) 0.0 (0.0-0.2) /100WBC Sodium 139 (135-145) mmol/L Potassium 3.2 L (3.3-5.1) mmol/L Chloride 104 (96-108) mmol/L Carbon Dioxide 25 (22-29) mmol/L Anion Gap 13 (12-20) BUN 10 (9-16) mg/dL Creatinine 0.73 (0.5-1.4) mg/dL Estim Creat Clear Calc 127.5 Estimated GFR > 60 Random Glucose 100 (60-115) mg/dL Calcium 8.8 (8.4-10.2) mg/dL Total Bilirubin 0.4 (0.0-1.0) mg/dL Direct Bilirubin 0.2 (0.0-0.5) mg/dL AST 8 D (5-31) U/L ALT 11 (0-31) U/L Alkaline Phosphatase 74 D (39-117) U/L Total Protein 6.7 (6.5-8.0) g/dL Albumin 3.5 (3.5-5.0) g/dL Lipase 15 (8-78) U/L Beta HCG, Quant < 2 mIU/mL Urine Color YELLOW Urine Appearance HAZY Urine pH 6.5 (5.0-8.0) Ur Specific [place] 1.010 (1.005-1.025) Urine Protein NEG (NEG-TRACE) MG/DL Urine Glucose (UA) NEG (NEG) MG/DL Urine Ketones NEG (NEG) MG/DL Urine Blood TRACE (NEG) Urine Nitrite NEG (NEG) Ur Leukocyte Esterase TRACE H (NEG) Urine RBC 0-2 (0) /HPF Urine WBC 0-2 (0-4) /HPF Ur Squamous Epith Cells 2+ /LPF Urine Bacteria TRACE /LPF Discharge Plan Discharge Clinical Impression: Crohn disease, Granulomatous colitis Patient Disposition: Home, Self-Care Instructions: Crohn Disease (ED) Additional Instructions: Please call Dr. 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 He will be discharged with steroids and pain meds. Return to the ED immediately for worsening abdominal pain, fever, chills, nausea, vomiting, diarrhea, blood in stool, or any other concerning symptoms. Prescriptions: New prednisone 20 mg tablet 60 mg PO DAILY 7 Days Qty: 21 RF: 0 oxycodone-acetaminophen [Percocet] 5-325 mg tablet 1 tab PO TID PRN (Reason: pain) Qty: 9 RF: 0 No Action prednisone 10 mg tablet 40 mg PO DAILY 14 Days Qty: 56 RF: 0 ondansetron HCl [Zofran] 4 mg tablet 4 mg PO Q8H PRN (Reason: nausea and vomiting) Qty: 14 RF: 0 cephalexin 500 mg capsule 500 mg PO QID 5 Days Qty: 20 RF: 0 lisinopril 20 mg tablet 20 mg PO DAILY 90 Days Qty: 90 RF: 1 ferrous sulfate 325 mg (65 mg iron) tablet 325 mg PO DAILY 30 Days Qty: 30 RF: 5 Humira 40 mg/0.8 mL syringe kit See Rx Instructions subcut .COMPLEX RF: 0 Referrals: Cosmo Bowen [Physician] - 2 days (Crohn's exacerbation. Granulomatous colitis) Stand Alone Forms: Work/School Release Interventions: ED Discharge Assessment Last Done: 01/11/21 19:39 Discharge Date/Time: 01/11/21 19:58 Print Language: Pan[place]ian [facility] Past Medical History Medical History Anemia Asthma Benign essential hypertension Crohn's disease Obesity (BMI 30-39.9) Surgical History Hx of section Hx of cholecystectomy Hx of colonoscopy Hx of tubal ligation Family History Family History Mother Diabetes HTN (hypertension) Parkinson disease Father Hyperthyroidism Social History Social History Household Members: Spouse and Children Housing: House Do you presently have visiting nurse or other home services: No Alcohol intake: never Patient Tobacco Use Status: Former Tobacco user Quit Date: 6 YRS AGO Tobacco use type: Cigarette Second Hand Smoke Exposure: Yes Advance Directives: No Advance Directives Date on File: 09/21/20 Patient : No service: No Current occupational status: employed Sexual orientation: Straight/Heterosexual
--- NOTE | 2021-01-11 12:30 | PC.NURSE ---
Pt alert and oriented, vss. pt reports right-sided abdominal pain that woke her up this morning. no c/o nausea, vomiting or diarrhea. Pt has history of Crohn's disease and states she has never had pain this bad before. She denies dizziness/sob/chest pain. no other symptoms reported.
[2021-01-11 12:37] LABS: MANUAL DIFF FLAG NO
[2021-01-11 12:38] LABS: Basophils Percent Auto 0.1 % (0-2); Eosinophils Absolute Auto 0.1 X10*3/uL (0.0-0.4); Eosinophils Percent Auto 0.6 % (0-4); Hematocrit 29.7 % (37-47); Hemoglobin 8.7 g/dl (12.0-16.0); Imm Gran Abs Auto 0.06 X10*3/uL (0.00-0.03); Imm Gran Pct Auto 0.4 % (0.0-0.4); Lymphocytes Absolute Auto 1.9 X10*3/uL (1.2-4.9); Lymphocytes Percent Auto 13.3 % (20-40); Mean Corpuscular HGB Conc 29.3 g/dl (31.0-35.0); Mean Corpuscular Hemoglobin 21.3 pg (27.0-33.0); Mean Corpuscular Volume 72.6 fL (80-98); Mean Platelet Volume 8.5 fL (9.4-12.3); Monocytes Absolute Auto 0.8 X10*3/uL (0.1-1.2); Monocytes Percent Auto 5.4 % (2-11); Neutrophils Absolute Auto 11.5 X10*3/uL (2.0-8.3); Neutrophils Percent Auto 80.2 % (45-73); Platelet Count 395 X10*3/uL (160-400); Red Blood Count 4.09 X10*6/uL (4.20-5.50); Red Cell Distribution Width 15.5 % (11.0-16.0); White Blood Count 14.4 X10*3/uL (4.8-10.8)
[2021-01-11 12:53] VITALS: BP 139/90; PULSE 97; RESP 18; TEMP 531.9; TEMP 989.4; O2SAT 98
[2021-01-11 12:57] LABS: Alanine Aminotransferase 11 U/L (0-31); Albumin Level 3.5 g/dL (3.5-5.0); Alkaline Phosphatase 74 U/L (39-117); Anion Gap 13 (12-20); Aspartate Amino Transferase 8 U/L (5-31); Bilirubin Direct 0.2 mg/dL (0.0-0.5); Bilirubin Total 0.4 mg/dL (0.0-1.0); Blood Urea Nitrogen 10 mg/dL (9-16); Calcium 8.8 mg/dL (8.4-10.2); Carbon Dioxide 25 mmol/L (22-29); Chloride 104 mmol/L (96-108); Creatinine Clr Calc Pharmacy 127.5; Estimated Glomerular Filt Rate > 60; Glucose Random 100 mg/dL (60-115); Lipase 15 U/L (8-78); Potassium 3.2 mmol/L (3.3-5.1); Sodium 139 mmol/L (135-145); Total Protein 6.7 g/dL (6.5-8.0)
[2021-01-11] MEDS: Morphine Sulfate 4 MG/ML CARTRIDGE IVPUSH (12:57)
[2021-01-11] MEDS: methylPREDNISolone Sod Succ 125 MG/2 ML VIAL IVPUSH (12:57)
[2021-01-11] MEDS: 0.9 % Sodium Chloride 1,000 ML 999 ML IV (12:57)
[2021-01-11 13:56] LABS: HCG Quantitative < 2 mIU/mL
[2021-01-11 14:29] LABS: Appearance Urine HAZY; Color Urine YELLOW; Glucose Urine UA NEG (NEG); Leukocyte Esterase Urine TRACE (NEG); Nitrite Urine NEG (NEG); PH 6.5 (5.0-8.0); UACC Culture Trigger YES; Urine Blood TRACE (NEG); Urine Ketones NEG (NEG); Urine Protein NEG (NEG-TRACE)
[2021-01-11 14:41] LABS: Bacteria Urine TRACE /LPF; RBC Urine 0-2 /HPF (0); Squamous Epithelial Cell Urine 2+ /LPF; WBC Urine 0-2 /HPF (0-4)
[2021-01-11] MEDS: iohexoL 350 MG/ML 100 ML INFUS..BTL IV (15:20)
[2021-01-11 16:00] VITALS: BP 135/85; PULSE 102; RESP 16; TEMP 36.8; O2SAT 99
[2021-01-11] MEDS: Morphine Sulfate 2 MG/ML CARTRIDGE IVPUSH (17:49)
[2021-01-11 18:27] VITALS: BP 133/76; PULSE 92; RESP 16; TEMP 36.9; O2SAT 99
--- NOTE | 2021-01-11 19:28 | P.CONGS_ITS ---
History of Present Illness Consult details Consult date: 01/11/21 Narrative: 40F who is known to me for a long hx of Crohn's disease, who came to the ED tonight for RLQ pain. She says she was doing well yesterday but started to feel sharp constant pain on the RLQ this morning. She says this persisted. She denies nausea or vomitting. She denies diarrhea. She is being foillowed by Dr. Bowen and has been on Humira but is in the process of being switched to Remicade. She says she had been on PO prednisone until last week.She was last admitted to the hospital last August for a similar complaint. Review of Systems Constitutional: Constitutional: Denies chills and Denies fever(s) Cardiovascular: Cardiovascular: Denies chest pain, Denies dyspnea and Denies dyspnea on exertion Respiratory: Respiratory: Denies cough, Denies dyspnea and Denies dyspnea on exertion Gastrointestinal: Gastrointestinal: Denies hematochezia and Denies change in bowel habits Genitourinary: Genitourinary: Denies hematuria Musculoskeletal: Musculoskeletal: Denies back pain and Denies limited range of motion Neurologic: Denies focal weakness and Denies convulsions Psychiatric: Psychiatric: Denies depression and Denies mood swings PMFSH Past Medical History Medical History Anemia Asthma Benign essential hypertension Crohn's disease Obesity (BMI 30-39.9) Family History Family History Mother Diabetes HTN (hypertension) Parkinson disease Father Hyperthyroidism Surgical History Surgical History Hx of section Hx of cholecystectomy Hx of colonoscopy Hx of tubal ligation Social History Social History Household Members: Spouse and Children Housing: House Do you presently have visiting nurse or other home services: No Alcohol intake: never Patient Tobacco Use Status: Former Tobacco user Quit Date: 6 YRS AGO Tobacco use type: Cigarette Second Hand Smoke Exposure: Yes Advance Directives: No Advance Directives Date on File: 09/21/20 Patient : No service: No Current occupational status: employed Sexual orientation: Straight/Heterosexual Meds Allergies Allergy/AdvReac Type Severity Reaction Status Date / Time aspirin [Aspirin] Allergy Mild EYES SWELL Verified 01/03/21 21:36 zucchini Allergy Intermediate Rash Uncoded 01/03/21 21:36 SEASONAL ALLERGIES Allergy Unknown TRIGGERS Uncoded 01/03/21 21:36 ASTHMA ATTACKS Home Medications Medication Instructions Recorded Confirmed Last Taken Type adalimumab 40 mg/0.8 mL See Rx Instructions SUBCUT .COMPLEX 02/13/20 01/03/21 09/19/20 History subcutaneous syringe kit (Humira) Physical Exam Vital Signs: Vital Signs: Last Vital Signs Temp 98.5 F 01/11/21 18:27 Pulse 92 01/11/21 18:27 Resp 16 01/11/21 18:27 BP 133/76 01/11/21 18:27 Pulse Ox 99 01/11/21 18:27 Body Mass Index 40.2 Const: General: comfortable and no acute distress Orientation/consciousness: patient oriented x3 Neck: Neck: Yes no lymphadenopathy Resp: Auscultation: clear to auscultation bilaterally Cardio: Rhythm: regular rhythm GI: Other: tender on the RLQ, no rebound or guarding Palpation (GI): Soft to palpation, Tenderness to palpation present (GI) and no guarding Neuro: General: patient oriented x3 Results Labs Result diagrams: 01/11/21 12:21 01/11/21 12:21 Labs: Abnormal lab results 01/11/21 01/11/21 01/11/21 Range/Units 12:21 12:21 14:20 WBC 14.4 H (4.8-10.8) X10*3/uL RBC 4.09 L (4.20-5.50) X10*6/uL Hgb 8.7 L (12.0-16.0) g/dl Hct 29.7 L (37-47) % MCV 72.6 L (80-98) fL MCH 21.3 L (27.0-33.0) pg MCHC 29.3 L (31.0-35.0) g/dl MPV 8.5 L (9.4-12.3) fL Neut % (Auto) 80.2 H (45-73) % Lymph % (Auto) 13.3 L (20-40) % Abs Immat Gran (auto) 0.06 H (0.00-0.03) X10*3/uL Absolute Neuts (auto) 11.5 H (2.0-8.3) X10*3/uL Potassium 3.2 L (3.3-5.1) mmol/L Ur Leukocyte Esterase TRACE H (NEG) Short CBC 01/11/21 Range/Units 12:21 WBC 14.4 H (4.8-10.8) X10*3/uL Hgb 8.7 L (12.0-16.0) g/dl Hct 29.7 L (37-47) % Plt Count 395 (160-400) X10*3/uL BMP 01/11/21 12:21 Sodium 139 Potassium 3.2 L Chloride 104 Carbon Dioxide 25 BUN 10 Creatinine 0.73 Calcium 8.8 Liver Function 01/11/21 Range/Units 12:21 Total Bilirubin 0.4 (0.0-1.0) mg/dL Direct Bilirubin 0.2 (0.0-0.5) mg/dL AST 8 D (5-31) U/L ALT 11 (0-31) U/L Alkaline Phosphatase 74 D (39-117) U/L Albumin 3.5 (3.5-5.0) g/dL Urine 01/11/21 Range/Units 14:20 Urine Color YELLOW Urine Appearance HAZY Urine pH 6.5 (5.0-8.0) Ur Specific [place] 1.010 (1.005-1.025) Urine Protein NEG (NEG-TRACE) MG/DL Urine Glucose (UA) NEG (NEG) MG/DL All other labs normal. Imaging Abdomen CT scan report/results: report reviewed and image reviewed CT scan - pelvis: report reviewed and image reviewed Assessment and Plan (1) Crohn disease: Status: Inactive Her CT shows inflammatory and granulomatous changes in the RLQ at the area of the terminall ileum and cecum c/w her long standing Crohn's disease. This is similar in appearance to her previous CT scan. She is not presenting with obstruction. She has a benign exam, but may need to be admitted for IV steroids again. She is supposed to be started on Remicade by Dr. Valencia. I will follow along if she gets admitted. Procedures Date of Service Date of Service: 01/11/21
== END 2021-01-11 19:58 | disposition home or self-care (01) ==
PROVIDERS: Physician Assistant; Emergency Provider Emergency Medicine; PCP Internal Medicine
DX: K50.90 Crohn's disease, unspecified, without complications (principal); K50.10 Crohn's disease of large intestine without complications; R10.31 Right lower quadrant pain; F17.210 Nicotine dependence, cigarettes, uncomplicated; Z71.6 Tobacco abuse counseling; Z79.899 Other long term (current) drug therapy
CPT/HCPCS: 36415; 74177; 80053; 81001; 82248; 83690; 84702; 85025; 87086; 96361; 96374; 96375; 96376; 99283; 99284; J2270; J2930; Q9967

== ENCOUNTER → 2021-01-18 10:23 | Outpatient (BNV) | payer OTHER, SELFPAY | PROVIDERS: PCP Internal Medicine; Referring Provider Internal Medicine; Visit Provider Internal Medicine | DX: D64.9 Anemia, unspecified (principal) | CPT/HCPCS: 99203; 99212; 99213; 99214; G2211 ==

== ENCOUNTER 2021-01-29 07:22 | Outpatient (REF) | payer OTHER, SELFPAY ==
[2021-02-01 01:41] LABS: TS Negative Control Passed; TS Panel A 0; TS Panel B 1; TS Positive Control Passed; TSpotTB Negative (SeeBelow)
== END 2021-01-29 07:23 | disposition home or self-care (01) ==
LOC: HO.MDS 07:22
PROVIDERS: Visit Provider Internal Medicine Gastroenterology
DX: K50.012 Crohn's disease of small intestine with intestinal obstruction (principal)
CPT/HCPCS: 36415; 86481; 96413; 96415; J1745

== ENCOUNTER 2021-02-05 07:36 | Outpatient (REF) | payer OTHER, SELFPAY | END 2021-02-05 07:37 | disposition home or self-care (01) | LOC: HO.MDS 07:36 | PROVIDERS: PCP Internal Medicine; Visit Provider Internal Medicine | DX: D50.9 Iron deficiency anemia, unspecified (principal) | CPT/HCPCS: 96365; 96366; J1200; J1750; Q0163 ==

== ENCOUNTER 2021-02-12 07:53 | Outpatient (REF) | payer OTHER, SELFPAY | END 2021-02-12 07:54 | disposition home or self-care (01) | LOC: HO.MDS 07:53 | PROVIDERS: PCP Internal Medicine; Visit Provider Internal Medicine Gastroenterology | DX: K50.012 Crohn's disease of small intestine with intestinal obstruction (principal) | CPT/HCPCS: 96413; 96415; J1745 ==

== ENCOUNTER 2021-03-05 09:35 | Outpatient (REF) | payer OTHER, SELFPAY ==
[2021-03-05 15:23] LABS: CT PCR NOT DETECTED (Not Detect.); NG PCR NOT DETECTED (Not Detect.)
[2021-03-06 09:58] LABS: BV Int Neg Control Negative (Negative); BV Int Pos Control Positive (Positive)
[2021-03-07 21:42] LABS: HPV mRNA E6/E7 rflx Not Detected (Not Detected)
== END 2021-03-05 09:36 | disposition home or self-care (01) ==
LOC: HO.LAB 09:35
PROVIDERS: Visit Provider Advanced Practice Midwife
DX: Z01.411 Encounter for gynecological examination (general) (routine) with abnormal findings (principal); Z11.51 Encounter for screening for human papillomavirus (HPV); Z11.3 Encounter for screening for infections with a predominantly sexual mode of transmission; N89.8 Other specified noninflammatory disorders of vagina; N92.0 Excessive and frequent menstruation with regular cycle
CPT/HCPCS: 87480; 87491; 87510; 87591; 87624; 87660; 88142

== ENCOUNTER 2021-03-25 10:49 | Outpatient (REF) | payer OTHER, SELFPAY ==
--- NOTE | ~2021-03-25 | US_ITS ---
EXAMINATION: US PELVIS CLINICAL INFORMATION: Excessive and frequent menstruation. COMPARISON: CT abdomen and pelvis with contrast 01/11/2021. TECHNIQUE: Ultrasound of the pelvis is performed using both transabdominal and transvaginal transducers along with Doppler. Transvaginal imaging is performed due to inadequate visualization transabdominally. FINDINGS: UTERUS: The uterus is anteverted and anteflexed and measures 9.9 cm in length, 4.8 cm in AP and 5.8 cm in transverse dimension. The double wall endometrial thickness is 1.3 cm. The uterus is smooth in contour and has normal myometrial echogenicity. There are two hyperechoic lesions. One in the anterior body of the uterus measuring 1.4 x 1.4 cm. The second in the posterior fundus measuring 2.0 x 1.4 x 2.0 cm. ADNEXA: Both ovaries are visualized. There is normal color flow to the adnexa. There is no ovarian torsion. There is no pelvic ascites or fluid collection. Right ovary measures 2.9 x 1.6 x 1.7 cm and volume 4.1 mL. There is a small dominant follicle in the right ovary. Left ovary measures 3.5 x 1.8 x 3.2 cm and volume 10.6 mL. There is a focal hyperechoic lesion measuring 1.6 x 0.8 x 1.3 cm. There is a small amount of free fluid in the cul-de-sac. US/US pelvic and transvaginal IMPRESSION: Two small uterine fibroids. Dominant follicle right ovary. Small hyperechoic lesion left ovary. This was not seen on the previous CT abdomen and pelvic exam.
[2021-03-25 11:58] LABS: Hematocrit 35.5 % (37.0-47.0); Hemoglobin 10.2 g/dl (12.0-16.0); Mean Corpuscular HGB Conc 28.7 g/dl (31.0-35.0); Mean Corpuscular Hemoglobin 23.2 pg (27.0-33.0); Mean Corpuscular Volume 80.7 fL (80.0-98.0); Mean Platelet Volume 9.7 fL (9.4-12.3); Platelet Count 325 X10*3/uL (160-400); Red Cell Distribution Width 18.4 % (11.0-16.0); White Blood Count 9.1 X10*3/uL (4.8-10.8)
[2021-03-25 12:34] LABS: Thyroid Stimulating Hormone 1.51 uIU/mL (0.32-4.0)
== END 2021-03-25 10:50 | disposition home or self-care (01) ==
LOC: HO.US 10:49
PROVIDERS: PCP Internal Medicine; Visit Provider Advanced Practice Midwife
DX: N92.1 Excessive and frequent menstruation with irregular cycle (principal); N92.0 Excessive and frequent menstruation with regular cycle
CPT/HCPCS: 36415; 76830; 76856; 84443; 85027

== ENCOUNTER 2021-03-25 11:43 | Outpatient (REF) | payer OTHER, SELFPAY | END 2021-03-25 11:44 | disposition home or self-care (01) | LOC: HO.MDS 11:43 | PROVIDERS: Visit Provider Internal Medicine Gastroenterology | DX: K50.012 Crohn's disease of small intestine with intestinal obstruction (principal) | CPT/HCPCS: 96413; 96415; J1745 ==

== ENCOUNTER 2021-04-05 09:31 | Outpatient (REF) | payer OTHER, SELFPAY ==
--- NOTE | ~2021-04-05 | MM_ITS ---
EXAMINATION: MM SCREENING DIGITAL BREAST TOMOSYNTHESIS, BILATERAL CLINICAL INFORMATION: Screening. Asymptomatic. No prior breast imaging. Age 41. No known family history breast cancer. The lifetime risk of breast cancer based on the Tyrer-Cuzick Model is 9%. COMPARISON: None (current study represents initial baseline exam). TECHNIQUE: Digital breast tomosynthesis is performed in both the craniocaudal and mediolateral oblique views along with computer-aided detection (CAD). Synthesized 2D images are generated from the tomosynthesis. FINDINGS: There are scattered areas of fibroglandular density (ACR BI-RADS breast composition Category b). Neither breast shows abnormal calcifications or architectural abnormality. Left breast shows no significant mass. The axilla and skin contours are unremarkable. Right breast has macrolobulated nodule anterior lower inner periareolar breast measuring 0.6 x 0.4 cm. Patient will be recalled for targeted ultrasound to fully characterize baseline appearance. MM/MM tomosynthesis screening BI IMPRESSION: 1. Right: Macrolobulated nodule periareolar lower inner quadrant under 1 cm. 2. Left: No mammographic evidence of malignancy. ASSESSMENT: BI-RADS 0: Incomplete - Need Additional Imaging Evaluation RECOMMENDATION: 1. Targeted ultrasound right breast. 2. Radiology department staff will contact the patient for additional imaging. This patient's information was entered into a reminder system with a target due date for their next mammogram.
== END 2021-04-05 09:32 | disposition home or self-care (01) ==
LOC: HO.MAMMO 09:31
PROVIDERS: PCP Internal Medicine; Visit Provider Advanced Practice Midwife
DX: Z12.31 Encounter for screening mammogram for malignant neoplasm of breast (principal)
CPT/HCPCS: 77063; 77067

== ENCOUNTER → 2021-04-08 11:22 | Outpatient (BNVA) | payer OTHER, SELFPAY | PROVIDERS: PCP Internal Medicine; Visit Provider Advanced Practice Midwife ==

== ENCOUNTER 2021-04-10 09:18 | Outpatient (REF) | payer OTHER, SELFPAY ==
--- NOTE | ~2021-04-10 | US_ITS ---
EXAMINATION: US DIAGNOSTIC ULTRASOUND BREAST, RIGHT CLINICAL INFORMATION: Recall from baseline mammography for subcentimeter circumscribed nodule periareolar lower inner right breast. COMPARISON: Baseline mammography 04/05/2021. TECHNIQUE: Ultrasound right breast is targeted to the medial periareolar breast. Grayscale imaging and color Doppler are performed without and with harmonics. FINDINGS: There is a small cyst just beneath the skin 3:00 position 2 cm from nipple measuring approximately 6 x 4 mm. This corresponds to the finding on mammography. There is increased through-transmission of sound. No associated color flow. There is no solid mass or architectural abnormality or duct ectasia. Results are discussed with the patient at time of visit. US/US breast RT limited IMPRESSION: Small cyst periareolar breast measuring 6 x 4 mm corresponding to finding on baseline mammography. ASSESSMENT: BI-RADS 2: Benign RECOMMENDATION: Routine annual mammography screening. This patient's information was entered into a reminder system with a target due date for their next mammogram.
== END 2021-04-10 09:19 | disposition home or self-care (01) ==
LOC: HO.MAMMO 09:18
PROVIDERS: Visit Provider Advanced Practice Midwife
DX: N63.15 Unspecified lump in the right breast, overlapping quadrants (principal)
CPT/HCPCS: 76642

== ENCOUNTER 2021-04-16 08:02 | Outpatient (REF) | payer OTHER, SELFPAY ==
[2021-04-16 08:25] LABS: MANUAL DIFF FLAG NO
[2021-04-16 08:35] LABS: Basophils Percent Auto 0.2 % (0-2); Hematocrit 39.2 % (37.0-47.0); Hemoglobin 11.5 g/dl (12.0-16.0); Imm Gran Pct Auto 0.8 % (0.0-0.4); Lymphocytes Absolute Auto 1.2 X10*3/uL (1.2-4.9); Mean Corpuscular HGB Conc 29.3 g/dl (31.0-35.0); Mean Corpuscular Hemoglobin 23.8 pg (27.0-33.0); Mean Platelet Volume 8.9 fL (9.4-12.3); Monocytes Absolute Auto 0.4 X10*3/uL (0.1-1.2); Neutrophils Absolute Auto 10.2 x10*3/uL (2.0-8.3); Platelet Count 430 X10*3/uL (160-400); Red Blood Count 4.84 X10*6/uL (4.20-5.50); Red Cell Distribution Width 15.9 % (11.0-16.0); White Blood Count 11.9 X10*3/uL (4.8-10.8)
[2021-04-16 09:18] LABS: Erythrocyte Sedimentation Rate 55 MM/HR (0-20)
== END 2021-04-16 08:03 | disposition home or self-care (01) ==
LOC: HO.LAB 08:02
PROVIDERS: PCP Internal Medicine; Visit Provider Internal Medicine Gastroenterology
DX: K50.00 Crohn's disease of small intestine without complications (principal)
CPT/HCPCS: 36415; 85025; 85652

== ENCOUNTER 2021-05-07 13:41 | Outpatient (REF) | payer OTHER, SELFPAY | END 2021-05-07 13:42 | disposition home or self-care (01) | LOC: HO.LAB 13:41 | PROVIDERS: PCP Internal Medicine; Visit Provider Advanced Practice Midwife | DX: N92.0 Excessive and frequent menstruation with regular cycle (principal); N93.9 Abnormal uterine and vaginal bleeding, unspecified; R93.5 Abnormal findings on diagnostic imaging of other abdominal regions, including retroperitoneum | CPT/HCPCS: 58100; 81025; 88305 ==

== ENCOUNTER 2021-05-07 14:38 | Outpatient (REF) | payer OTHER, SELFPAY ==
[2021-05-09 06:47] LABS: CA-125 33 U/mL (<35)
== END 2021-05-07 14:39 | disposition home or self-care (01) ==
LOC: HO.LAB 14:38
PROVIDERS: PCP Internal Medicine; Visit Provider Advanced Practice Midwife
DX: N83.299 Other ovarian cyst, unspecified side (principal)
CPT/HCPCS: 36415; 86304

== ENCOUNTER 2021-05-16 10:22 | Outpatient (REF) | payer OTHER, SELFPAY ==
--- NOTE | ~2021-05-16 | US_ITS ---
EXAMINATION: US PELVIS CLINICAL INFORMATION: Abnormal findings on diagnostic imaging. COMPARISON: Previous study from 03/25/2021. TECHNIQUE: Ultrasound of the pelvis is performed using both transabdominal and transvaginal transducers along with Doppler. Transvaginal imaging is performed due to inadequate visualization transabdominally. FINDINGS: The uterus is measuring 10.5 x 4.7 x 5.3 cm. Anteverted and anteflexed. The endometrial thickness is measured at 7 mm. Two probable fibroids are seen. One emanating off the fundus is exophytic. This may be partially calcified. Measures 2.2 x 2.1 x 2.1 cm. Another appears myometrial and is felt to be away from the canal. This measures 1.6 x 1.4 x 1.5 cm. These were seen previously. The right ovary is 2.8 x 1.3 x 1.6 cm. Volume 3 mL. There is vascularity. Left ovary is 4.4 x 2.5 x 3.8 cm. Once again a small hyperechoic area is seen within. This structure is not significantly changed. Measured by the parts counterperson at 1.3 x 0.6 x 0.9 cm. There is no obvious adnexal mass. A small amount of free fluid is seen which may be physiologic. US/US pelvic and transvaginal IMPRESSION: Small fibroids within the uterus are once again seen. A small amount of free fluid which may be physiologic. Once again small hyperechoic lesion associated with the left ovary which is not felt to be changed from previous. Etiology is indeterminate.
== END 2021-05-16 10:23 | disposition home or self-care (01) ==
LOC: HO.HMGCX 10:22
PROVIDERS: Visit Provider Advanced Practice Midwife
DX: R93.5 Abnormal findings on diagnostic imaging of other abdominal regions, including retroperitoneum (principal)
CPT/HCPCS: 76830; 76856

== ENCOUNTER 2021-05-20 08:42 | Outpatient (REF) | payer OTHER, SELFPAY | END 2021-05-20 08:43 | disposition home or self-care (01) | LOC: HO.MDS 08:42 | PROVIDERS: PCP Internal Medicine; Visit Provider Internal Medicine Gastroenterology | DX: K50.012 Crohn's disease of small intestine with intestinal obstruction (principal) | CPT/HCPCS: 96413; 96415; J1745 ==

== ENCOUNTER → 2021-06-19 15:31 | Outpatient (BNVA) | payer OTHER, SELFPAY | PROVIDERS: PCP Internal Medicine; Visit Provider Advanced Practice Midwife ==

== ENCOUNTER 2021-07-01 08:02 | Outpatient (REF) | payer OTHER, SELFPAY ==
[2021-07-01 08:19] LABS: MANUAL DIFF FLAG NO
[2021-07-01 08:32] LABS: Basophils Percent Auto 0.3 % (0-2); Eosinophils Percent Auto 0.3 % (0-4); Hematocrit 36.7 % (37.0-47.0); Hemoglobin 11.1 g/dl (12.0-16.0); Imm Gran Abs Auto 0.09 X10*3/uL (0.00-0.03); Imm Gran Pct Auto 0.8 % (0.0-0.4); Lymphocytes Absolute Auto 1.6 X10*3/uL (1.2-4.9); Lymphocytes Percent Auto 13.9 % (20-40); Mean Corpuscular HGB Conc 30.2 g/dl (31.0-35.0); Mean Corpuscular Hemoglobin 25.5 pg (27.0-33.0); Mean Corpuscular Volume 84.2 fL (80.0-98.0); Mean Platelet Volume 9.1 fL (9.4-12.3); Monocytes Absolute Auto 0.8 X10*3/uL (0.1-1.2); Neutrophils Absolute Auto 8.6 x10*3/uL (2.0-8.3); Neutrophils Percent Auto 77.7 % (45-73); Platelet Count 376 X10*3/uL (160-400); Red Blood Count 4.36 X10*6/uL (4.20-5.50); Red Cell Distribution Width 13.1 % (11.0-16.0); White Blood Count 11.1 X10*3/uL (4.8-10.8)
[2021-07-01 08:39] LABS: Estimated Average Glucose 117 mg/dL; Hemoglobin A1c % 5.7 %
[2021-07-01 08:59] LABS: Alanine Aminotransferase 15 U/L (0-31); Albumin Level 3.6 g/dL (3.5-5.0); Alkaline Phosphatase 70 U/L (39-117); Anion Gap 12 (12-20); Aspartate Amino Transferase 11 U/L (5-31); Bilirubin Total 0.3 mg/dL (0.0-1.0); Blood Urea Nitrogen 11 mg/dL (9-16); Carbon Dioxide 26 mmol/L (22-29); Chloride 106 mmol/L (96-108); Cholesterol 140 mg/dL; Estimated Glomerular Filt Rate > 60; Glucose Fasting 77 mg/dL (60-99); HDL Cholesterol 51 mg/dL; Iron 33 mcg/dL (30-160); LDL Cholesterol Calculated 76 mg/dl; Percent Iron Saturation 14 % (15-50); Potassium 4.1 mmol/L (3.3-5.1); Sodium 140 mmol/L (135-145); Total Iron Binding Capacity 244 mcg/dL (228-428); Triglycerides 66 mg/dL; Unsaturated Iron Binding 211 ug/dL
[2021-07-01 09:23] LABS: TSH reflex Free T4 0.62 uIU/mL (0.32-4.0); Vitamin D 25-OH Total 14.5 ng/mL (>30)
[2021-07-01 09:23] LABS: Appearance Urine HAZY; Color Urine YELLOW; Glucose Urine UA NEG (NEG); Leukocyte Esterase Urine TRACE (NEG); Nitrite Urine POS (NEG); UACC Culture Trigger YES; Urine Blood TRACE (NEG); Urine Ketones NEG (NEG); Urine Protein NEG (NEG-TRACE)
[2021-07-01 09:49] LABS: Bacteria Urine 3+ /LPF; RBC Urine 0 /HPF (0); Squamous Epithelial Cell Urine 1+ /LPF
[2021-07-02 17:16] LABS: CA-125 17 U/mL (<35)
== END 2021-07-01 08:03 | disposition home or self-care (01) ==
LOC: HO.LAB 08:02
PROVIDERS: Advanced Practice Midwife; PCP Internal Medicine; Visit Provider Internal Medicine
DX: Z00.00 Encounter for general adult medical examination without abnormal findings (principal); R93.5 Abnormal findings on diagnostic imaging of other abdominal regions, including retroperitoneum; I10 Essential (primary) hypertension; R73.01 Impaired fasting glucose; D50.9 Iron deficiency anemia, unspecified; E55.9 Vitamin D deficiency, unspecified
CPT/HCPCS: 36415; 80053; 80061; 81001; 82306; 83036; 83540; 84443; 85025; 86304; 87086; 87088; 87186

== ENCOUNTER 2021-07-09 15:33 | Outpatient (REF) | payer OTHER, SELFPAY ==
--- NOTE | ~2021-07-09 | MR_ITS ---
EXAMINATION: MRI PELVIS WITH AND WITHOUT CONTRAST CLINICAL INFORMATION: Reason for Exam R93.5 - Abnormal findings on diagnostic imaging of other ... COMPARISON: CT abdomen pelvis 01/11/2021, pelvic ultrasound 05/16/2021 TECHNIQUE: Multiple routine MRI sequences through the pelvis were obtained before and after the uneventful administration of 10 mL of Gadavist gadolinium-based IV contrast. FINDINGS: UTERUS: Anteverted uterus has a normal configuration and measures 10.9 x 5.1 x 5.9 cm ([id number] x anterior-posterior x transverse). Endometrium is uniform and measures 0.8 cm in thickness. Junctional zone is normal in signal and thickness. A 2.1 cm subserosal myoma is noted at the fundus and a 1.6 cm subserosal myoma in the anterior body which is homogeneously T2 hypointense. Stability artifact in the anterior lower uterine segment may reflect sequelae of prior section scar. CERVIX: Unremarkable. VAGINA: A 2.8 cm T2 hyperintense lesion associated with the lower third of the left aspect of the vagina which may reflect a Bartholin gland cyst. OVARIES: The right ovary measures 2.5 x 1.8 cm. Right ovary is unremarkable. The left ovary measures 3.4 x 1.1 cm. A 1.7 cm intrinsically T1 hyperintense, heterogeneous T2 left ovarian lesion which may reflect a small hemorrhagic cyst. No solid ovarian mass. A 1.8 cm unilocular left paraovarian cyst. KIDNEYS: Two normally positioned kidneys are seen. No hydronephrosis. BLADDER: Unremarkable. PELVIC FREE FLUID: Small amount of fluid in the pelvis which may in part be loculated given the anti--dependent location. LYMPH NODES: No pathologically enlarged lymph nodes. OSSEOUS STRUCTURES: No acute or suspicious osseous abnormalities. VISUALIZED BOWEL: Tethered appearance of the loops of visualized bowel matted within the central pelvis, similar in morphology to prior, for which fistula cannot be excluded. MR/MR pelvis wo/w con IMPRESSION: A 1.7 cm intrinsically T1 hyperintense left ovarian lesion which may reflect a small hemorrhagic cyst. No solid ovarian mass. A 2.8 cm T2 hyperintense lesion associated with the lower third of the left aspect of the vagina which may reflect a Bartholin gland cyst. A 1.8 cm unilocular simple left paraovarian cyst, no imaging follow-up recommended. Small subserosal myomas measuring up to 2.1 cm Tethered appearance of the loops of visualized bowel matted within the central pelvis, similar in morphology to prior, for which fistula cannot be excluded. Small amount of fluid in the pelvis which may in part be loculated given the anti--dependent location.
== END 2021-07-09 15:34 | disposition home or self-care (01) ==
LOC: HO.MRI 15:33
PROVIDERS: Visit Provider Advanced Practice Midwife
DX: R93.5 Abnormal findings on diagnostic imaging of other abdominal regions, including retroperitoneum (principal)
CPT/HCPCS: 72197; A9585

== ENCOUNTER 2021-07-16 08:49 | Outpatient (REF) | payer OTHER, SELFPAY | END 2021-07-16 08:50 | disposition home or self-care (01) | LOC: HO.MDS 08:49 | PROVIDERS: PCP Internal Medicine; Visit Provider Internal Medicine Gastroenterology | DX: K50.90 Crohn's disease, unspecified, without complications (principal) | CPT/HCPCS: 96413; 96415; J1745 ==

== ENCOUNTER → 2021-07-17 11:07 | Outpatient (BNVA) | payer OTHER, SELFPAY | PROVIDERS: PCP Internal Medicine; Visit Provider Advanced Practice Midwife | DX: N83.202 Unspecified ovarian cyst, left side (principal); N92.0 Excessive and frequent menstruation with regular cycle; Z87.891 Personal history of nicotine dependence; Z71.2 Person consulting for explanation of examination or test findings | CPT/HCPCS: Q3014 ==

== ENCOUNTER 2021-09-10 08:46 | Outpatient (REF) | payer OTHER, SELFPAY | END 2021-09-10 08:47 | disposition home or self-care (01) | LOC: HO.MDS 08:46 | PROVIDERS: Visit Provider Internal Medicine Gastroenterology | DX: K50.90 Crohn's disease, unspecified, without complications (principal) | CPT/HCPCS: 96413; 96415; J1745 ==

== ENCOUNTER 2021-09-25 08:29 | Outpatient (REF) | payer OTHER, SELFPAY ==
--- NOTE | ~2021-09-25 | XR_ITS ---
EXAMINATION: XR HAND, RIGHT XR HAND, LEFT CLINICAL INFORMATION: Chronic pain bilateral hands COMPARISON: None TECHNIQUE: Each hand is imaged in 3 views. There are total of 6 views. FINDINGS: Right: Normal bony mineralization. No fracture, dislocation, or arthropathy. Ulnar variance is borderline negative. The carpus shows no joint narrowing or erosive change or chondrocalcinosis. The MCP and interphalangeal joints are unremarkable. Left: Normal bony mineralization. No fracture, dislocation, or arthropathy. Ulnar variance is borderline negative. The carpus shows no joint narrowing or erosive change or chondrocalcinosis. The MCP and interphalangeal joints are unremarkable. XR/XR hand RT min 3V IMPRESSION: Normal bilateral hands. No arthropathy.
--- NOTE | ~2021-09-25 | XR_ITS ---
EXAMINATION: XR HAND, RIGHT XR HAND, LEFT CLINICAL INFORMATION: Chronic pain bilateral hands COMPARISON: None TECHNIQUE: Each hand is imaged in 3 views. There are total of 6 views. FINDINGS: Right: Normal bony mineralization. No fracture, dislocation, or arthropathy. Ulnar variance is borderline negative. The carpus shows no joint narrowing or erosive change or chondrocalcinosis. The MCP and interphalangeal joints are unremarkable. Left: Normal bony mineralization. No fracture, dislocation, or arthropathy. Ulnar variance is borderline negative. The carpus shows no joint narrowing or erosive change or chondrocalcinosis. The MCP and interphalangeal joints are unremarkable. XR/XR hand LT min 3V IMPRESSION: Normal bilateral hands. No arthropathy.
[2021-09-25 09:30] LABS: MANUAL DIFF FLAG NO
[2021-09-25 10:07] LABS: Basophils Percent Auto 0.2 % (0-2); Eosinophils Absolute Auto 0.1 X10*3/uL (0.0-0.4); Eosinophils Percent Auto 0.9 % (0-4); Hematocrit 38.2 % (37.0-47.0); Hemoglobin 11.7 g/dl (12.0-16.0); Imm Gran Abs Auto 0.05 X10*3/uL (0.00-0.03); Imm Gran Pct Auto 0.5 % (0.0-0.4); Lymphocytes Absolute Auto 1.4 X10*3/uL (1.2-4.9); Lymphocytes Percent Auto 15.7 % (20-40); Mean Corpuscular HGB Conc 30.6 g/dl (31.0-35.0); Mean Corpuscular Hemoglobin 25.7 pg (27.0-33.0); Mean Corpuscular Volume 83.8 fL (80.0-98.0); Mean Platelet Volume 9.5 fL (9.4-12.3); Monocytes Absolute Auto 0.5 X10*3/uL (0.1-1.2); Monocytes Percent Auto 5.2 % (2-11); Neutrophils Absolute Auto 7.1 x10*3/uL (2.0-8.3); Neutrophils Percent Auto 77.5 % (45-73); Platelet Count 295 X10*3/uL (160-400); Red Blood Count 4.56 X10*6/uL (4.20-5.50); Red Cell Distribution Width 13.4 % (11.0-16.0); White Blood Count 9.2 X10*3/uL (4.8-10.8)
[2021-09-25 10:39] LABS: Alanine Aminotransferase 16 U/L (0-31); Albumin Level 3.6 g/dL (3.5-5.0); Alkaline Phosphatase 61 U/L (39-117); Anion Gap 13 (12-20); Aspartate Amino Transferase 11 U/L (5-31); Bilirubin Total 0.2 mg/dL (0.0-1.0); Blood Urea Nitrogen 8 mg/dL (9-16); C Reactive Protein 4.26 mg/dL (< or = 0.50); Calcium 9.1 mg/dL (8.4-10.2); Carbon Dioxide 27 mmol/L (22-29); Chloride 105 mmol/L (96-108); Estimated Glomerular Filt Rate > 60; Glucose Random 98 mg/dL (60-115); Potassium 3.9 mmol/L (3.3-5.1); Rheumatoid Factor < 15.0 IU/mL (<15.0); Sodium 141 mmol/L (135-145); Total Protein 6.8 g/dL (6.5-8.0)
[2021-09-25 10:56] LABS: Erythrocyte Sedimentation Rate 30 MM/HR (0-20)
[2021-09-25 11:03] LABS: TSH reflex Free T4 0.59 uIU/mL (0.32-4.0); Vitamin D 25-OH Total 16.9 ng/mL (>30)
[2021-09-25 11:34] LABS: Appearance Urine CLOUDY; Color Urine YELLOW; Glucose Urine UA NEG (NEG); Leukocyte Esterase Urine 1+ (NEG); Nitrite Urine NEG (NEG); Specific Gravity - Urine 1.015 (1.005-1.025); UACC Culture Trigger YES; Urine Blood 3+ (NEG); Urine Ketones NEG (NEG); Urine Protein NEG (NEG-TRACE)
[2021-09-25 11:37] LABS: Folate 12.1 ng/mL (> or = 4.0); Vitamin B12 393 pg/mL (200-900)
[2021-09-25 12:17] LABS: Mucus Urine 2+ /LPF; Squamous Epithelial Cell Urine 1+ /LPF
[2021-09-25 12:18] LABS: Bacteria Urine 3+ /LPF
[2021-09-29 11:57] LABS: Anti Nuclear Antibody Pattern Nuclear, Homogeneous; Anti Nuclear Antibody Screen POSITIVE (NEGATIVE)
== END 2021-09-25 08:30 | disposition home or self-care (01) ==
LOC: HO.LAB 08:29
PROVIDERS: PCP Internal Medicine; Visit Provider Internal Medicine
DX: M25.50 Pain in unspecified joint (principal); M79.89 Other specified soft tissue disorders; I10 Essential (primary) hypertension; M79.7 Fibromyalgia; R20.2 Paresthesia of skin; E78.00 Pure hypercholesterolemia, unspecified; E55.9 Vitamin D deficiency, unspecified
CPT/HCPCS: 36415; 73130; 80053; 81001; 82306; 82607; 82746; 84443; 85025; 85652; 86038; 86039; 86140; 86431; 87086

== ENCOUNTER 2021-10-08 12:30 | Outpatient (REF) | payer OTHER, SELFPAY ==
--- NOTE | ~2021-10-08 | US_ITS ---
EXAMINATION: US PELVIS CLINICAL INFORMATION: Abnormal finding. Follow-up left ovary. COMPARISON: Ultrasound pelvis 05/16/2021. TECHNIQUE: Ultrasound of the pelvis is performed using both transabdominal and transvaginal transducers along with Doppler. Transvaginal imaging is performed due to inadequate visualization transabdominally. FINDINGS: Uterus: The uterus is anteverted and measures 11.1 cm in length, 4.9 mL in AP and 5.8 cm in transverse dimension. The double wall endometrial thickness is 0.9 mm. The uterus is smooth in contour and has normal myometrial echogenicity. There are 2 hypoechoic lesions. 1. Lesion in the anterior upper body of uterus measures 2.6 x 2.3 x 1.7 cm. Previously it measured 1.6 x 1.4 x 1.5 seen. 2. Lesion in the top of the fundus partially exophytic measures 2.7 x 1.5 x 1.7 cm. Previously it measured 2.2 x 2.1 x 2.1 cm. Adnexa: Both ovaries are visualized on transabdominal ultrasound matter. There is normal color flow to the adnexa. There is no ovarian torsion. There is no pelvic ascites or fluid collection. Right ovary measures 5.8 x 3.2 x 3.6 cm and volume 35 mL. There is anechoic cyst with septation on transabdominal ultrasound measuring 4.0 x 3.2 x 4.4 cm. Left ovary measures 4.8 x 4.2 x 4.1 cm and volume 43.3 mL. There is anechoic cyst measuring 4.7 x 2.2 x 3.3 cm. A hypoechoic avascular lesion seen measuring 1.7 x 1.1 x 1.9 cm. US/US pelvic and transvaginal IMPRESSION: Complex right ovarian cyst. Simple cyst left ovary with a hypoechoic nonvascular lesion. Two uterine fibroids grossly unchanged.
== END 2021-10-08 12:31 | disposition home or self-care (01) ==
LOC: HO.US 12:30
PROVIDERS: Visit Provider Advanced Practice Midwife
DX: R93.5 Abnormal findings on diagnostic imaging of other abdominal regions, including retroperitoneum (principal)
CPT/HCPCS: 76830; 76856

== ENCOUNTER 2021-11-05 08:28 | Outpatient (REF) | payer OTHER, SELFPAY ==
[2021-11-05 08:52] LABS: MANUAL DIFF FLAG NO
[2021-11-05 09:32] LABS: Basophils Percent Auto 0.2 % (0-2); Eosinophils Percent Auto 0.1 % (0-4); Hematocrit 36.7 % (37.0-47.0); Hemoglobin 11.1 g/dl (12.0-16.0); Imm Gran Abs Auto 0.07 X10*3/uL (0.00-0.03); Imm Gran Pct Auto 0.8 % (0.0-0.4); Lymphocytes Absolute Auto 0.8 X10*3/uL (1.2-4.9); Lymphocytes Percent Auto 8.6 % (20-40); Mean Corpuscular HGB Conc 30.2 g/dl (31.0-35.0); Mean Corpuscular Hemoglobin 24.9 pg (27.0-33.0); Mean Corpuscular Volume 82.5 fL (80.0-98.0); Mean Platelet Volume 9.4 fL (9.4-12.3); Monocytes Absolute Auto 0.4 X10*3/uL (0.1-1.2); Monocytes Percent Auto 4.6 % (2-11); Neutrophils Absolute Auto 7.8 x10*3/uL (2.0-8.3); Neutrophils Percent Auto 85.7 % (45-73); Platelet Count 428 X10*3/uL (160-400); Red Blood Count 4.45 X10*6/uL (4.20-5.50); Red Cell Distribution Width 13.2 % (11.0-16.0); White Blood Count 9.1 X10*3/uL (4.8-10.8)
[2021-11-05 10:10] LABS: Erythrocyte Sedimentation Rate 51 MM/HR (0-20)
[2021-11-05 10:11] LABS: Alanine Aminotransferase 19 U/L (0-31); Albumin Level 3.7 g/dL (3.5-5.0); Alkaline Phosphatase 79 U/L (39-117); Aspartate Amino Transferase 10 U/L (5-31); Bilirubin Direct < 0.2 mg/dL (0.0-0.5); Bilirubin Total 0.2 mg/dL (0.0-1.0); Total Protein 7.3 g/dL (6.5-8.0)
[2021-11-08 12:17] LABS: IgA 326 mg/dL (47-310); IgG 1566 mg/dL (600-1640); IgM 204 mg/dL (50-300)
== END 2021-11-05 08:29 | disposition home or self-care (01) ==
LOC: HO.MDS 08:28
PROVIDERS: PCP Internal Medicine; Visit Provider Internal Medicine Gastroenterology
DX: K50.012 Crohn's disease of small intestine with intestinal obstruction (principal)
CPT/HCPCS: 36415; 80076; 82784; 85025; 85652; 86140; 86334; 96413; 96415; J1745

== ENCOUNTER 2021-11-27 13:35 | Outpatient (REF) | payer OTHER, SELFPAY ==
--- NOTE | ~2021-11-27 | US_ITS ---
EXAMINATION: US PELVIS CLINICAL INFORMATION: Right ovarian cyst. COMPARISON: None TECHNIQUE: Ultrasound of the pelvis is performed using both transabdominal and transvaginal transducers along with Doppler. Transvaginal imaging is performed due to inadequate visualization transabdominally. FINDINGS: UTERUS: The uterus is anteverted and measures 11.5 cm in length, 5.2 cm in AP and 5.7 cm in transverse dimension. The double wall endometrial thickness is 0.8 cm. The uterus is smooth in contour and has normal myometrial echogenicity. There is a small hypoechoic lesion left in anterior uterus measuring 2.0 x 1.9 x 2.1 cm. Previously it measured 2.6 x 2.3 x 1.7 cm. There is a second hypoechoic lesion on the top of the fundus measuring 1.3 x 1.3 x 1.9 cm. Previously measured 2.7 x 1.5 x 1.7 cm. ADNEXA: Both ovaries are visualized on transabdominal view. There is normal color flow to the adnexa. There is no ovarian torsion. There is no pelvic ascites or fluid collection. Right ovary measures 4.8 x 2.9 x 3.4 cm and volume 24.9 mL. There is a small anechoic cyst measuring 3.3 x 1.8 x 3.2 cm. Previously the right ovary measured 5.8 x 3.2 x 3.6 cm and volume 35 mL. Left ovary measures 4.3 x 2.3 x 2.4 cm and volume 12.5 mL. There are small follicular cysts seen. Previously the left ovary measures 4.8 x 4.2 x 4.1 cm and 43.3 mL. US/US pelvic and transvaginal IMPRESSION: Simple cyst right ovary. Small follicular cyst left ovary. At least 2 uterine fibroids. There is no free fluid in the cul-de-sac.
== END 2021-11-27 13:36 | disposition home or self-care (01) ==
LOC: HO.US 13:35
PROVIDERS: Visit Provider Advanced Practice Midwife
DX: N83.291 Other ovarian cyst, right side (principal)
CPT/HCPCS: 76830; 76856

== ENCOUNTER → 2021-12-17 11:18 | Outpatient (BNVA) | payer OTHER, SELFPAY | PROVIDERS: Visit Provider Advanced Practice Midwife | DX: Z71.2 Person consulting for explanation of examination or test findings (principal) | CPT/HCPCS: 99212 ==

== ENCOUNTER 2021-12-31 08:37 | Outpatient (REF) | payer OTHER, SELFPAY ==
[2022-01-03 14:11] LABS: TS Negative Control Passed; TS Panel A 0; TS Panel B 0; TS Positive Control Passed; TSpotTB Negative (Negative)
== END 2021-12-31 08:38 | disposition home or self-care (01) ==
LOC: HO.MDS 08:37
PROVIDERS: Visit Provider Internal Medicine Gastroenterology
DX: K50.012 Crohn's disease of small intestine with intestinal obstruction (principal)
CPT/HCPCS: 36415; 86481; 96413; 96415; J1745

== ENCOUNTER 2022-02-25 09:01 | Outpatient (REF) | payer OTHER, SELFPAY | END 2022-02-25 09:02 | disposition home or self-care (01) | LOC: HO.MDS 09:01 | PROVIDERS: Visit Provider Internal Medicine Gastroenterology | DX: K50.012 Crohn's disease of small intestine with intestinal obstruction (principal) | CPT/HCPCS: 96413; 96415; J1745 ==

== ENCOUNTER 2022-03-24 09:19 | Emergency (ER) | payer OTHER, SELFPAY ==
--- NOTE | ~2022-03-24 | XR_ITS ---
EXAMINATION: XR ABDOMEN COMPLETE CLINICAL INDICATION: History of. Crohn's disease: Obstruction. Abdominal pain. COMPARISON: Abdominal radiograph 10/23/2017, CT abdomen and pelvis 01/11/2021 TECHNIQUE: 2 views of the abdomen. FINDINGS: Assessment for intra-abdominal free air is limited due to the fact that the right hemidiaphragm is clipped from the [id number] on the upright image. No evidence of large volume free air. No significant air-fluid levels. There is a small amount of gas in nondilated loops of small bowel and transverse colon. Paucity of bowel gas in the lower abdomen and pelvis. No bowel wall thickening. Visualized left lung base is clear. Surgical clips in the right upper quadrant consistent with prior cholecystectomy. No acute osseous injury. XR/XR abdomen min 2V IMPRESSION: 1. Nonobstructive bowel gas pattern. 2. No large volume free air-limited assessment as above. 3. Paucity of bowel gas in the lower abdomen and pelvis.
[2022-03-24 10:18] VITALS: BP 159/102; PULSE 92; RESP 18; TEMP 36; O2SAT 97; BMI 41.9
[2022-03-24 10:31] LABS: MANUAL DIFF FLAG NO
[2022-03-24 10:34] LABS: Basophils Percent Auto 0.2 % (0-2); Eosinophils Absolute Auto 0.1 X10*3/uL (0.0-0.4); Hemoglobin 10.9 g/dl (12.0-16.0); Imm Gran Abs Auto 0.04 X10*3/uL (0.00-0.03); Imm Gran Pct Auto 0.5 % (0.0-0.4); Lymphocytes Absolute Auto 1.1 X10*3/uL (1.2-4.9); Lymphocytes Percent Auto 12.5 % (20-40); Mean Corpuscular HGB Conc 30.3 g/dl (31.0-35.0); Mean Corpuscular Hemoglobin 24.8 pg (27.0-33.0); Mean Platelet Volume 8.7 fL (9.4-12.3); Monocytes Absolute Auto 0.6 X10*3/uL (0.1-1.2); Neutrophils Absolute Auto 6.8 x10*3/uL (2.0-8.3); Neutrophils Percent Auto 78.8 % (45-73); Platelet Count 405 X10*3/uL (160-400); Red Blood Count 4.39 X10*6/uL (4.20-5.50); Red Cell Distribution Width 12.5 % (11.0-16.0); White Blood Count 8.6 X10*3/uL (4.8-10.8)
[2022-03-24 10:53] LABS: Anion Gap 13 (12-20); Blood Urea Nitrogen 9 mg/dL (9-16); Calcium 8.5 mg/dL (8.4-10.2); Carbon Dioxide 26 mmol/L (22-29); Chloride 105 mmol/L (96-108); Creatinine Clr Calc Pharmacy 137.4; Estimated Glomerular Filt Rate > 60; Glucose Random 86 mg/dL (60-115); Potassium 3.8 mmol/L (3.3-5.1); Sodium 140 mmol/L (135-145)
--- NOTE | 2022-03-24 11:56 | ED.ABDPAIN ---
HPI - Abdominal Pain General Chief Complaint: Abdominal Pain <CATIA Bennett - Last Filed: 03/24/22 11:58> Stated Complaint: Chrons flare up <CATIA Bennett - Last Filed: 03/24/22 11:58> Time Seen by Provider: 03/24/22 13:09 <CATIA Bennett - Last Filed: 03/24/22 11:58> Source: patient <Aneudy Crooks MD - Last Filed: 03/24/22 15:45> Mode of arrival: ambulatory <Aneudy Crooks MD - Last Filed: 03/24/22 15:45> Limitations: no limitations <Aneudy Crooks MD - Last Filed: 03/24/22 15:45> History of Present Illness HPI narrative: Patient with known chrohns on remicaide think she has a flair and in the past has had prednisone. She has lower abdominal pain going to the back over the past few days. Patient has no diarrhea or constipation. Patient denies dysuria or frequency. She states that normally she can't have a BM but her BMs have been normal. <Aneudy Crooks MD - Last Filed: 03/24/22 15:45> MD elicited complaint: abdominal pain <Aneudy Crooks MD - Last Filed: 03/24/22 15:45> Pertinent past history: other (chrohn's) <Aneudy Crooks MD - Last Filed: 03/24/22 15:45> Onset (ago): day(s) <Aneudy Crooks MD - Last Filed: 03/24/22 15:45> Pain Consistency: intermittent <Aneudy Crooks MD - Last Filed: 03/24/22 15:45> Location: RLQ and LLQ <Aneudy Crooks MD - Last Filed: 03/24/22 15:45> Severity: mild <Aneudy Crooks MD - Last Filed: 03/24/22 15:45> Quality: cramping <Aneudy Crooks MD - Last Filed: 03/24/22 15:45> Radiation: back <Aneudy Crooks MD - Last Filed: 03/24/22 15:45> Exacerbating factors: nothing <Aneudy Crooks MD - Last Filed: 03/24/22 15:45> Relieving factors: nothing <Aneudy Crooks MD - Last Filed: 03/24/22 15:45> Associated symptoms: denies other symptoms <Aneudy Crooks MD - Last Filed: 03/24/22 15:45> Related Data Home Medications: Home Medications Medication Instructions Recorded Confirmed infliximab 100 mg intravenous 100 mg IV Q8W 05/23/21 02/04/22 solution (Remicade) prednisone 5 mg tablet 15 mg PO DAILY 05/23/21 02/04/22 ketotifen fumarate 0.025 % (0.035 1 drp ophthalmic (eye) BID PRN Dry 02/04/22 02/04/22 %) eye drops Eye(S) Previous Rx's Medication Instructions Recorded ondansetron HCl 4 mg tablet 4 mg PO Q8H PRN nausea and 12/15/20 (Zofran) vomiting #14 tabs cyanocobalamin (vitamin B-12) 1,000 mcg PO DAILY #90 tabs 08/05/21 1,000 mcg tablet (Vitamin B-12) lisinopril 30 mg tablet 30 mg PO DAILY 90 days #90 tabs 09/07/21 albuterol sulfate 90 mcg/actuation 2 inh inhalation Q6H PRN shortness 12/27/21 breath activated powder inhaler of breath or wheezing #1 ea cephalexin 500 mg capsule 500 mg PO Q6H 7 days #28 caps 03/24/22 <CATIA Bennett - Last Filed: 03/24/22 11:58> Allergies/Adverse Reactions: Allergies Allergy/AdvReac Type Severity Reaction Status Date / Time aspirin [Aspirin] Allergy Mild EYES SWELL Verified 12/17/21 11:28 zucchini Allergy Intermediate Rash Uncoded 12/17/21 11:28 SEASONAL ALLERGIES Allergy Unknown TRIGGERS Uncoded 12/17/21 11:28 ASTHMA ATTACKS <CATIA Bennett - Last Filed: 03/24/22 11:58> Review of Systems Review of Systems Yes all other systems are reviewed and are negative <Aneudy Crooks MD - Last Filed: 03/24/22 15:45> PMFSH Past Medical History Medical History: Medical History Anemia Asthma Benign essential hypertension Breast nodule Crohn's disease Obesity (BMI 30-39.9) Uterine fibroid <CATIA Bennett - Last Filed: 03/24/22 11:58> Surgical History: Surgical History Hx of section Hx of cholecystectomy Hx of colonoscopy Hx of tubal ligation <CATIA Bennett - Last Filed: 03/24/22 11:58> Family History Family History: Family History Mother Diabetes HTN (hypertension) Parkinson disease Father Hyperthyroidism <CATIA Bennett - Last Filed: 03/24/22 11:58> Social History Social History: Social History Household Members: Spouse and Children Housing: House Do you presently have visiting nurse or other home services: No Alcohol intake: never Patient Tobacco Use Status: Former Tobacco user Quit Date: 6 YRS AGO Tobacco use type: Cigarette Second Hand Smoke Exposure: Yes Advance Directives: Yes Advance Directives on File: Yes Advance Directives Date on File: 09/21/20 service: No Current occupational status: employed Sexual orientation: Straight/Heterosexual Cognitive needs: No Hearing needs: No Vision needs: Yes <CATIA Bennett - Last Filed: 03/24/22 11:58> Physical Exam ED Vital Signs: Vital Signs - 24 hr 03/24/22 10:18 03/24/22 13:25 03/24/22 14:13 Temperature 96.8 F 98.5 F Pulse Rate 92 90 93 Respiratory Rate 18 20 14 Blood Pressure 159/102 H 157/85 H 149/95 H Pulse Oximetry 97 98 99 Oxygen Delivery Method Room Air Room Air Room Air 03/24/22 15:35 Temperature 99.3 F Pulse Rate 84 Respiratory Rate 16 Blood Pressure 154/89 H Pulse Oximetry 98 Oxygen Delivery Method Room Air BMI result Body Mass Index 41.9 <CATIA Bennett - Last Filed: 03/24/22 11:58> Vital Signs - 24 hr 03/24/22 10:18 03/24/22 13:25 03/24/22 14:13 Temperature 96.8 F 98.5 F Pulse Rate 92 90 93 Respiratory Rate 18 20 14 Blood Pressure 159/102 H 157/85 H 149/95 H Pulse Oximetry 97 98 99 Oxygen Delivery Method Room Air Room Air Room Air 03/24/22 15:35 Temperature 99.3 F Pulse Rate 84 Respiratory Rate 16 Blood Pressure 154/89 H Pulse Oximetry 98 Oxygen Delivery Method Room Air BMI result Body Mass Index 41.9 <Aneudy Crooks MD - Last Filed: 03/24/22 15:45> Const General: healthy appearing <Aneudy Crooks MD - Last Filed: 03/24/22 15:45> Nutritional Appearance: obese <Aneudy Crooks MD - Last Filed: 03/24/22 15:45> Orientation/consciousness: oriented to person and patient oriented x3 <Aneudy Crooks MD - Last Filed: 03/24/22 15:45> Limitations: no limitations <Aneudy Crooks MD - Last Filed: 03/24/22 15:45> HENMT Head: Yes normal to inspection <Aneudy Crooks MD - Last Filed: 03/24/22 15:45> Ears: external ears normal <Aneudy Crooks MD - Last Filed: 03/24/22 15:45> General nose exam: Normal external nose present <Aneudy Crooks MD - Last Filed: 03/24/22 15:45> Mouth: Normal oral and palatal mucosa present and oropharynx normal <Aneudy Crooks MD - Last Filed: 03/24/22 15:45> Throat: Yes posterior oropharynx normal <Aneudy Crooks MD - Last Filed: 03/24/22 15:45> Eyes General: appearance normal, both eyes and all related structures <Aneudy Crooks MD - Last Filed: 03/24/22 15:45> Neck Neck: Yes normal visual inspection <Aneudy Crooks MD - Last Filed: 03/24/22 15:45> Chest Chest palpation & inspection: normal inspection of the chest <Aneudy Crooks MD - Last Filed: 03/24/22 15:45> Resp Auscultation: clear to auscultation bilaterally <Aneudy Crooks MD - Last Filed: 03/24/22 15:45> Cardio Jugular venous distension: no JVD <Aneudy Crooks MD - Last Filed: 03/24/22 15:45> Rate: regular rate <Aneudy Crooks MD - Last Filed: 03/24/22 15:45> Rhythm: regular rhythm <Aneudy Crooks MD - Last Filed: 03/24/22 15:45> Heart sounds: S1 normal heart sound present and S2 normal heart sound present <Aneudy Crooks MD - Last Filed: 03/24/22 15:45> GI Other: obese soft mild tenderness <Aneudy Crooks MD - Last Filed: 03/24/22 15:45> Palpation (GI): Soft to palpation and Tenderness to palpation present (GI) <Aneudy Crooks MD - Last Filed: 03/24/22 15:45> Auscultation: normal bowel sounds <Aneudy Crooks MD - Last Filed: 03/24/22 15:45> Back/Spine/Pelvis Other: very mild bilateral CVAT <Aneudy Crooks MD - Last Filed: 03/24/22 15:45> Skin General skin exam: no rashes or lesions noted <Aneudy Crooks MD - Last Filed: 03/24/22 15:45> Neuro General: oriented to person and patient oriented x3 <Aneudy Crooks MD - Last Filed: 03/24/22 15:45> Cranial nerves: Yes CN's II-XII intact bilaterally <Aneudy Crooks MD - Last Filed: 03/24/22 15:45> Motor exam (neuro): 5/5 motor strength present throughout <Aneudy Crooks MD - Last Filed: 03/24/22 15:45> Extrem General: Yes normal to inspection <Aneudy Crooks MD - Last Filed: 03/24/22 15:45> Psych Appearance: grossly normal <Aneudy Crooks MD - Last Filed: 03/24/22 15:45> Course Course Course Narrative: 42 yo female with history of Crohn's on Remicade who presents to the ER for evaluation of abdominal pain, nausea, and vomiting x6 days. Hx blockage but having normal BM's without blood. Follows with Dr. Bowen and has gone on steroids in the past with improvement. Basic labs sent from triage. Pt appears well. UA sent now. Will defer imaging to main ED provider, ?if GI would want oral contrast. <CATIA Bennett - Last Filed: 03/24/22 11:58> Reevaluation(s) Reevaluation #1: Non specific abdominal pain, patient is non toxic, labs significant for UTI, xray with nonobstructive bowel gas pattern will dc home on keflex <Aneudy Crooks MD - Last Filed: 03/24/22 15:45> Time: 15:42 <Aneudy Crooks MD - Last Filed: 03/24/22 15:45> Medications Administered Discontinued Medications Generic Name Dose Route Start Last Admin Trade Name Freq PRN Reason Stop Dose Admin Cephalexin HCl 500 mg 03/24/22 13:39 03/24/22 14:32 Cephalexin 500 Mg Capsule PO 03/24/22 13:40 500 mg ONCE ONE Administration Ketorolac Tromethamine 30 mg 03/24/22 13:39 03/24/22 14:31 Ketorolac Tromethamine 30 Mg/Ml Vial IM 03/24/22 13:40 30 mg ONCE ONE Administration <CATIA Bennett - Last Filed: 03/24/22 11:58> Medications Administered Discontinued Medications Generic Name Dose Route Start Last Admin Trade Name Freq PRN Reason Stop Dose Admin Cephalexin HCl 500 mg 03/24/22 13:39 03/24/22 14:32 Cephalexin 500 Mg Capsule PO 03/24/22 13:40 500 mg ONCE ONE Administration Ketorolac Tromethamine 30 mg 03/24/22 13:39 03/24/22 14:31 Ketorolac Tromethamine 30 Mg/Ml Vial IM 03/24/22 13:40 30 mg ONCE ONE Administration <Aneudy Crooks MD - Last Filed: 03/24/22 15:45> MDM - Abdominal Pain Lab Data Result diagrams: : 03/24/22 10:27 03/24/22 10:27 <CATIA Bennett - Last Filed: 03/24/22 11:58> Labs: Lab Results 03/24/22 03/24/22 03/24/22 Range/Units 10:27 10:27 10:27 WBC 8.6 (4.8-10.8) X10*3/uL RBC 4.39 (4.20-5.50) X10*6/uL Hgb 10.9 L (12.0-16.0) g/dl Hct 36.0 L (37.0-47.0) % MCV 82.0 (80.0-98.0) fL MCH 24.8 L (27.0-33.0) pg MCHC 30.3 L (31.0-35.0) g/dl RDW 12.5 (11.0-16.0) % Plt Count 405 H (160-400) X10*3/uL MPV 8.7 L (9.4-12.3) fL Immature Gran % (Auto) 0.5 H (0.0-0.4) % Neut % (Auto) 78.8 H (45-73) % Lymph % (Auto) 12.5 L (20-40) % Mathews % (Auto) 7.0 (2-11) % Eos % (Auto) 1.0 (0-4) % Baso % (Auto) 0.2 (0-2) % Lymph # (Auto) 1.1 L (1.2-4.9) X10*3/uL Mathews # (Auto) 0.6 (0.1-1.2) X10*3/uL Eos # (Auto) 0.1 (0.0-0.4) X10*3/uL Baso # (Auto) 0.0 (0.0-0.2) X10*3/uL Abs Immat Gran (auto) 0.04 H (0.00-0.03) X10*3/uL Absolute Neuts (auto) 6.8 (2.0-8.3) x10*3/uL Absolute Nucleated RBC 0.000 (0.0-0.012) X10*3/uL Nucleated RBC % (auto) 0.0 (0.0-0.2) /100WBC ESR 79 H (0-20) MM/HR Sodium 140 (135-145) mmol/L Potassium 3.8 (3.3-5.1) mmol/L Chloride 105 (96-108) mmol/L Carbon Dioxide 26 (22-29) mmol/L Anion Gap 13 (12-20) BUN 9 (9-16) mg/dL Creatinine 0.68 (0.5-1.4) mg/dL Estim Creat Clear Calc 137.4 Estimated GFR > 60 Random Glucose 86 (60-115) mg/dL Calcium 8.5 D (8.4-10.2) mg/dL Total Bilirubin 0.2 (0.0-1.0) mg/dL Direct Bilirubin < 0.2 (0.0-0.5) mg/dL AST 11 (5-31) U/L ALT 12 (0-31) U/L Alkaline Phosphatase 85 (39-117) U/L C-Reactive Protein 6.35 H (< or = 0.50) mg/dL Total Protein 6.7 (6.5-8.0) g/dL Albumin 3.4 L (3.5-5.0) g/dL Lipase 12 (8-78) U/L Urine Color Urine Appearance Urine pH (5.0-9.0) Ur Specific [place] (1.005-1.025) Urine Protein (Neg-Trace) mg/dL Urine Glucose (UA) (Negative) mg/dL Urine Ketones (Negative) mg/dL Urine Blood (Negative) Urine Nitrite (Negative) Ur Leukocyte Esterase (Negative) Urine RBC (0-2) /HPF Urine WBC (0-5) /HPF Ur Squamous Epith Cells (0-2) /HPF Urine Bacteria (None Seen) Hyaline Casts (0-2) /LPF 03/24/ Range/Units 11:59 WBC (4.8-10.8) X10*3/uL RBC (4.20-5.50) X10*6/uL Hgb (12.0-16.0) g/dl Hct (37.0-47.0) % MCV (80.0-98.0) fL MCH (27.0-33.0) pg MCHC (31.0-35.0) g/dl RDW (11.0-16.0) % Plt Count (160-400) X10*3/uL MPV (9.4-12.3) fL Immature Gran % (Auto) (0.0-0.4) % Neut % (Auto) (45-73) % Lymph % (Auto) (20-40) % Mathews % (Auto) (2-11) % Eos % (Auto) (0-4) % Baso % (Auto) (0-2) % Lymph # (Auto) (1.2-4.9) X10*3/uL Mathews # (Auto) (0.1-1.2) X10*3/uL Eos # (Auto) (0.0-0.4) X10*3/uL Baso # (Auto) (0.0-0.2) X10*3/uL Abs Immat Gran (auto) (0.00-0.03) X10*3/uL Absolute Neuts (auto) (2.0-8.3) x10*3/uL Absolute Nucleated RBC (0.0-0.012) X10*3/uL Nucleated RBC % (auto) (0.0-0.2) /100WBC ESR (0-20) MM/HR Sodium (135-145) mmol/L Potassium (3.3-5.1) mmol/L Chloride (96-108) mmol/L Carbon Dioxide (22-29) mmol/L Anion Gap (12-20) BUN (9-16) mg/dL Creatinine (0.5-1.4) mg/dL Estim Creat Clear Calc Estimated GFR Random Glucose (60-115) mg/dL Calcium (8.4-10.2) mg/dL Total Bilirubin (0.0-1.0) mg/dL Direct Bilirubin (0.0-0.5) mg/dL AST (5-31) U/L ALT (0-31) U/L Alkaline Phosphatase (39-117) U/L C-Reactive Protein (< or = 0.50) mg/dL Total Protein (6.5-8.0) g/dL Albumin (3.5-5.0) g/dL Lipase (8-78) U/L Urine Color Yellow Urine Appearance Cloudy Urine pH 5.5 (5.0-9.0) Ur Specific [place] >= 1.030 H (1.005-1.025) Urine Protein 30 (1+) H (Neg-Trace) mg/dL Urine Glucose (UA) Negative (Negative) mg/dL Urine Ketones 15 (Negative) mg/dL Urine Blood Moderate (2+) H (Negative) Urine Nitrite Positive H (Negative) Ur Leukocyte Esterase Moderate (2+) H (Negative) Urine RBC 11-20 H (0-2) /HPF Urine WBC >50 H (0-5) /HPF Ur Squamous Epith Cells 6-10 (0-2) /HPF Urine Bacteria 4+ (None Seen) Hyaline Casts 0-2 (0-2) /LPF <CATIA Bennett - Last Filed: 03/24/22 11:58> Lab Results 03/24/22 03/24/22 03/24/22 Range/Units 10:27 10:27 10:27 WBC 8.6 (4.8-10.8) X10*3/uL RBC 4.39 (4.20-5.50) X10*6/uL Hgb 10.9 L (12.0-16.0) g/dl Hct 36.0 L (37.0-47.0) % MCV 82.0 (80.0-98.0) fL MCH 24.8 L (27.0-33.0) pg MCHC 30.3 L (31.0-35.0) g/dl RDW 12.5 (11.0-16.0) % Plt Count 405 H (160-400) X10*3/uL MPV 8.7 L (9.4-12.3) fL Immature Gran % (Auto) 0.5 H (0.0-0.4) % Neut % (Auto) 78.8 H (45-73) % Lymph % (Auto) 12.5 L (20-40) % Mathews % (Auto) 7.0 (2-11) % Eos % (Auto) 1.0 (0-4) % Baso % (Auto) 0.2 (0-2) % Lymph # (Auto) 1.1 L (1.2-4.9) X10*3/uL Mathews # (Auto) 0.6 (0.1-1.2) X10*3/uL Eos # (Auto) 0.1 (0.0-0.4) X10*3/uL Baso # (Auto) 0.0 (0.0-0.2) X10*3/uL Abs Immat Gran (auto) 0.04 H (0.00-0.03) X10*3/uL Absolute Neuts (auto) 6.8 (2.0-8.3) x10*3/uL Absolute Nucleated RBC 0.000 (0.0-0.012) X10*3/uL Nucleated RBC % (auto) 0.0 (0.0-0.2) /100WBC ESR 79 H (0-20) MM/HR Sodium 140 (135-145) mmol/L Potassium 3.8 (3.3-5.1) mmol/L Chloride 105 (96-108) mmol/L Carbon Dioxide 26 (22-29) mmol/L Anion Gap 13 (12-20) BUN 9 (9-16) mg/dL Creatinine 0.68 (0.5-1.4) mg/dL Estim Creat Clear Calc 137.4 Estimated GFR > 60 Random Glucose 86 (60-115) mg/dL Calcium 8.5 D (8.4-10.2) mg/dL Total Bilirubin 0.2 (0.0-1.0) mg/dL Direct Bilirubin < 0.2 (0.0-0.5) mg/dL AST 11 (5-31) U/L ALT 12 (0-31) U/L Alkaline Phosphatase 85 (39-117) U/L C-Reactive Protein 6.35 H (< or = 0.50) mg/dL Total Protein 6.7 (6.5-8.0) g/dL Albumin 3.4 L (3.5-5.0) g/dL Lipase 12 (8-78) U/L Urine Color Urine Appearance Urine pH (5.0-9.0) Ur Specific [place] (1.005-1.025) Urine Protein (Neg-Trace) mg/dL Urine Glucose (UA) (Negative) mg/dL Urine Ketones (Negative) mg/dL Urine Blood (Negative) Urine Nitrite (Negative) Ur Leukocyte Esterase (Negative) Urine RBC (0-2) /HPF Urine WBC (0-5) /HPF Ur Squamous Epith Cells (0-2) /HPF Urine Bacteria (None Seen) Hyaline Casts (0-2) /LPF 03/24/22 Range/Units 11:59 WBC (4.8-10.8) X10*3/uL RBC (4.20-5.50) X10*6/uL Hgb (12.0-16.0) g/dl Hct (37.0-47.0) % MCV (80.0-98.0) fL MCH (27.0-33.0) pg MCHC (31.0-35.0) g/dl RDW (11.0-16.0) % Plt Count (160-400) X10*3/uL MPV (9.4-12.3) fL Immature Gran % (Auto) (0.0-0.4) % Neut % (Auto) (45-73) % Lymph % (Auto) (20-40) % Mathews % (Auto) (2-11) % Eos % (Auto) (0-4) % Baso % (Auto) (0-2) % Lymph # (Auto) (1.2-4.9) X10*3/uL Mathews # (Auto) (0.1-1.2) X10*3/uL Eos # (Auto) (0.0-0.4) X10*3/uL Baso # (Auto) (0.0-0.2) X10*3/uL Abs Immat Gran (auto) (0.00-0.03) X10*3/uL Absolute Neuts (auto) (2.0-8.3) x10*3/uL Absolute Nucleated RBC (0.0-0.012) X10*3/uL Nucleated RBC % (auto) (0.0-0.2) /100WBC ESR (0-20) MM/HR Sodium (135-145) mmol/L Potassium (3.3-5.1) mmol/L Chloride (96-108) mmol/L Carbon Dioxide (22-29) mmol/L Anion Gap (12-20) BUN (9-16) mg/dL Creatinine (0.5-1.4) mg/dL Estim Creat Clear Calc Estimated GFR Random Glucose (60-115) mg/dL Calcium (8.4-10.2) mg/dL Total Bilirubin (0.0-1.0) mg/dL Direct Bilirubin (0.0-0.5) mg/dL AST (5-31) U/L ALT (0-31) U/L Alkaline Phosphatase (39-117) U/L C-Reactive Protein (< or = 0.50) mg/dL Total Protein (6.5-8.0) g/dL Albumin (3.5-5.0) g/dL Lipase (8-78) U/L Urine Color Yellow Urine Appearance Cloudy Urine pH 5.5 (5.0-9.0) Ur Specific [place] >= 1.030 H (1.005-1.025) Urine Protein 30 (1+) H (Neg-Trace) mg/dL Urine Glucose (UA) Negative (Negative) mg/dL Urine Ketones 15 (Negative) mg/dL Urine Blood Moderate (2+) H (Negative) Urine Nitrite Positive H (Negative) Ur Leukocyte Esterase Moderate (2+) H (Negative) Urine RBC 11-20 H (0-2) /HPF Urine WBC >50 H (0-5) /HPF Ur Squamous Epith Cells 6-10 (0-2) /HPF Urine Bacteria 4+ (None Seen) Hyaline Casts 0-2 (0-2) /LPF <Aneudy Crooks MD - Last Filed: 03/24/22 15:45> Imaging Data Abdominal x-ray: Radiologist's impression: FINDINGS: Assessment for intra-abdominal free air is limited due to the fact that the right hemidiaphragm is clipped from the [id number] on the upright image. No evidence of large volume free air. No significant air-fluid levels. There is a small amount of gas in nondilated loops of small bowel and transverse colon. Paucity of bowel gas in the lower abdomen and pelvis. No bowel wall thickening. Visualized left lung base is clear. Surgical clips in the right upper quadrant consistent with prior cholecystectomy. No acute osseous injury. XR/XR abdomen min 2V IMPRESSION: 1.? Nonobstructive bowel gas pattern. 2.? No large volume free air-limited assessment as above. 3.? Paucity of bowel gas in the lower abdomen and pelvis. ? <Aneudy Crooks MD - Last Filed: 03/24/22 15:45> Discharge Plan Discharge Clinical Impression: Urinary tract infection, Abdominal pain <CATIA Bennett - Last Filed: 03/24/22 11:58> Patient Disposition: Home, Self-Care <CATIA Bennett - Last Filed: 03/24/22 11:58> Instructions: Urinary Tract Infection in Women (ED), Abdominal Pain (ED) <CATIA Bennett - Last Filed: 03/24/22 11:58> Prescriptions: New cephalexin 500 mg capsule 500 mg PO Q6H 7 Days Qty: 28 0RF No Action lisinopril 30 mg tablet 30 mg PO DAILY 90 Days Qty: 90 1RF albuterol sulfate 90 mcg/actuation aerosol powdr breath activated 2 inh inhalation Q6H PRN (Reason: shortness of breath or wheezing) Qty: 1 3RF ondansetron HCl [Zofran] 4 mg tablet 4 mg PO Q8H PRN (Reason: nausea and vomiting) Qty: 14 0RF infliximab [Remicade] 100 mg recon soln 100 mg IV Q8W Label Comments: Dr. Bowen cyanocobalamin (vitamin B-12) [Vitamin B-12] 1,000 mcg Tablet 1,000 mcg PO DAILY Qty: 90 3RF ketotifen fumarate 0.025 % (0.035 %) drops 1 drp ophthalmic (eye) BID PRN (Reason: Dry Eye(S)) prednisone 5 mg tablet 15 mg PO DAILY <CATIA Bennett - Last Filed: 03/24/22 11:58> Referrals: Hadley Spaulding MD [Primary Care Provider] - 3 days <CATIA Bennett - Last Filed: 03/24/22 11:58>
[2022-03-24 12:17] LABS: Appearance Urine Cloudy; Color Urine Yellow; Glucose Urine UA Negative (Negative); Leukocyte Esterase Urine Moderate (2+) (Negative); Nitrite Urine Positive (Negative); PH 5.5 (5.0-9.0); Specific Gravity - Urine >= 1.030 (1.005-1.025); UMIC TRIGGER UACC YES; Urine Blood Moderate (2+) (Negative); Urine Ketones 15 mg/dL (Negative); Urine Protein 30 (1+) mg/dL (Neg-Trace)
[2022-03-24 12:20] LABS: Bacteria Urine 4+ (None Seen); Hyaline Casts Urine 0-2 /LPF (0-2); UACC Culture Trigger YES; WBC Urine >50 /HPF (0-5)
[2022-03-24 12:23] LABS: Alanine Aminotransferase 12 U/L (0-31); Albumin Level 3.4 g/dL (3.5-5.0); Alkaline Phosphatase 85 U/L (39-117); Aspartate Amino Transferase 11 U/L (5-31); Bilirubin Direct < 0.2 mg/dL (0.0-0.5); Bilirubin Total 0.2 mg/dL (0.0-1.0); C Reactive Protein 6.35 mg/dL (< or = 0.50); Lipase 12 U/L (8-78); Total Protein 6.7 g/dL (6.5-8.0)
--- OUTSIDE RECORDS SUMMARY | 2022-03-24 13:15 | XMS_ITS | Continuity of Care Document ---
:1980 Author Organization [facility] Address Unavailable , Care Team Providers Name Role Phone Hadley Spaulding MD Primary Care Physician Encounter [facility] Date(s): 03/14/21 - 04/13/21 [facility] Attending Physician: Candice Taveras Admitting Physician: Candice Taveras Referring Physician: Candice Taveras Medications Lisinopril By Mouth, Daily, 0 Refills, Maintenance, 03/14/21 14:04:00 EST, Partial fill upon patient request ifthe prescription is for a schedule II opioid drug. Start Date: 03/14/21 Status: OrderedPredniSONE By Mouth, Daily, 0 Refills, Maintenance, 03/14/21 14:04:00 EST, Partial fill upon patient request ifthe prescription is for a schedule II opioid drug. Start Date: 03/14/21 Status: Ordered
--- OUTSIDE RECORDS SUMMARY | 2022-03-24 13:15 | XMS_ITS | Continuity of Care Document ---
:1980 Author Organization [facility] Address Unavailable , Care Team Providers Name Role Phone Jasson BUI, Hadley Moran Primary Care Physician Encounter [facility] Date(s): 03/14/21 - 03/21/21 [facility] Attending Physician: Sixto BUI, Tay Emerson Referring Physician: Cosmo Bowen MD Medications Lisinopril By Mouth, Daily, 0 Refills, Maintenance, 03/14/21 14:04:00 EST, Partial fill upon patient request ifthe prescription is for a schedule II opioid drug. Start Date: 03/14/21 Status: OrderedPredniSONE By Mouth, Daily, 0 Refills, Maintenance, 03/14/21 14:04:00 EST, Partial fill upon patient request ifthe prescription is for a schedule II opioid drug. Start Date: 03/14/21 Status: Ordered Vital Signs Most recent to oldest [Reference Range]: 1 Weight 111.6 kg (03/14/21 1:59 PM) Pulse Rate [55-90 bpm] 99 bpm *H* (03/14/21 1:59 PM) Blood Pressure [90-138/55-84 mm Hg] 165/95 mm Hg *H* (03/14/21 1:59 PM) Temperature [96.8-100.4 DegF] 97.6 DegF (03/14/21 1:59 PM) Blood pressure sites Arm, right (03/14/21 1:59 PM) Temperature Route Temporal (03/14/21 1:59 PM)
--- OUTSIDE RECORDS SUMMARY | 2022-03-24 13:15 | XMS_ITS ---
:1980 Author Organization [facility] Address [address] [place] [address] Care Team Providers Name Role Phone Cosmo Bowen Jr Unavailable Unavailable PROBLEMS Type Condition ICD9-CM QUN92-SO Onset Condition SNOMED Cod e Code Code Dates Status Problem Crohn's disease K50.012 Active 1085 [id number] of small intestine with intestinal obstruction ALLERGIES Substance Reaction Event Type Date Status zuccini Unknown Non Drug Allergy Sep, Active Aspirin Unknown Drug Allergy Sep, Active ENCOUNTERS Encounter Location Date Diagnosis [facility] [address], [facility] [address] [place] [address] [facility] [address] Suite Jan, [place] disease [facility] [address] [place] intestine with i ntestinal [id number] obstruction K50. 012 [facility] [address] Oct, [facility] [address] [place] [address] [facility] [address] Suite Oct, [place] disease of small [facility] [address] [place] intestine with i ntestinal [address] obstruction K50. 012 [place] [address] Suite Sep, [place]'s disease of small [facility] [address] [place] intestine with i ntestinal [address] obstruction K50. 012 [facility] [address] Mar, [facility] [address] [place] [address] [facility] [address] Mar, [facility] [address] [place] [address] [facility] [address] Suite Mar, [place] disease of small [facility] [address] [place] intestine with i ntestinal [address] obstruction K50. 012 [facility] [address] Feb, [facility] [address] [place] [address] [facility] [address] Feb, [facility] [address] [place] [address] [facility] [address] Feb, [facility] [address] [place] [address] [facility] [address] Jan, [facility] [address] [place] [address] [facility] [address] Suite Jan, [place] disease of small [facility] [address] [place] intestine with i ntestinal [address] obstruction K50. 012 [facility] [address] Dec, [facility] [address] [place] [address] [facility] [address] Nov, [facility] [address] [place] [address] [facility] [address] Suite Oct, [place]'s disease of small [facility] [address] [place] intestine with i ntestinal [address] obstruction K50. 012 [facility] [address] [place] [address] Oct, Crohn''s diseas e of small [place] [id number] intestine with intestinal obstruction K50. 012 [facility] [address] Suite Sep, [place] disease of small [facility] [address] [place] intestine with i ntestinal [address] obstruction K50. 012 [facility] [address] Sep, [facility] [address] [place] [address] [facility] [address] Sep, [facility] [address] [place] [address] [facility] [address] Sep, [facility] [address] [place] [address] [facility] [address] Suite August, Cr [place]n's disease of small [facility] [address] [place] intestine with i ntestinal [address] obstruction K50. 012 [facility] [address] August, [facility] [address] [place] [address] [facility] [address] Jul, [facility] [address] [place] [address] [facility] [address] Jul, [facility] [address] [place] [address] [facility] [address] Sep, [facility] [address] [place] [address] [facility] [address] August, [facility] [address] [place] [address] [facility] [address] Jul, [facility] [address] [place] [address] [facility] [address] Jul, [facility] [address] [place] [address] [facility] [address] Apr, [facility] [address] [place] [address] [facility] [address] Jan, [facility] [address] [place] [address] [facility] [address] Suite Jan, Cr [place]ns disease of small [facility] [address] [place] intestine with i ntestinal [address] obstruction K50. 012 [facility] [address] Jan, [facility] [address] [place] [address] [facility] [address] Suite Jul, Cr ohns disease of small [facility] [address] [place] intestine with i ntestinal [address] obstruction K50. 012 [facility] [address] Suite Jan, Cr ohns disease of small [facility] [address] [place] intestine with i ntestinal [address] obstruction K50. 012 [facility] [address] Nov, [facility] [address] [place] [address] [facility] [address] Suite Sep, Cr ohns disease of small [facility] [address] [place] intestine with i ntestinal [address] obstruction K50. 012 [facility] [address] Sep, [facility] [address] [place] [address] [facility] [address] Jul, [facility] [address] [place] [address] [facility] [address] Suite Jul, Cr ohns disease of small [facility] [address] [place] intestine with i ntestinal [address] obstruction K50. 012 [facility] [address] Apr, [facility] [address] [place] [address] [facility] [address] Mar, [facility] [address] [place] [address] [facility] [address] Feb, [facility] [address] [place] [address] [facility] [address] Suite Jan, Cr ohns disease of small [facility] [address] [place] intestine with i ntestinal [address] obstruction K50. 012 [facility] [address] Jan, [facility] [address] [place] [address] [facility] [address] Jan, [facility] [address] [place] [address] [facility] [address] Oct, [facility] [address] [place] [address] [facility] [address] Suite Oct, Cr ohns disease of small [facility] [address] [place] intestine with i ntestinal [address] obstruction K50. 012 [facility] [address] May, [facility] [address] [place] [address] [facility] [address] Apr, [facility] [address] [place] [address] [facility] [address] Suite Apr, Cr ohns disease of small [facility] [address] [place] intestine with i ntestinal [address] obstruction K50. 012 and Ileitis 558.9 [facility] [address] Apr, [facility] [address] [place] [address] [facility] [address] Apr, [facility] [address] [place] [address] [facility] [address] August, [facility] [address] [place] [address] [facility] [address] Suite Apr, Il eitis 558.9 [facility] [address] [place] [address] [facility] [address] Feb, [facility] [address] [place] [address] [facility] [address] Feb, [facility] [address] [place] [address] [facility] [address] Suite Feb, Cr ohns disease of small [facility] [address] [place] intestine with i ntestinal [address] obstruction K50. 012 and Arvizu's esopha maeve without dysplasi a K22.70 [facility] [address] Dec, [facility] [address] [place] [address] [facility] [address] Suite Oct, Il eitis 558.9 [facility] [address] [place] [address] [facility] [address] Feb, [facility] [address] [place] [address] [facility] [address] Suite Feb, Il eitis 558.9 [facility] [address] [place] [address] [facility] [address] Suite August, Il eitis 558.9 [facility] [address] [place] [address] [facility] [address] Suite May, Il eitis 558.9 [facility] [address] [place] [address] [facility] [place] [place] [address] [place] [address] May, Tamia [place] [phone] [facility] [address] May, [facility] [address] [place] [address] [facility] [address] May, [facility] [address] [place] [address] [facility] [address] May, [facility] [address] [place] [address] IMMUNIZATIONS No Known Immunizations SOCIAL HISTORY Never Assessed REASON FOR REFERRAL FUNCTIONAL STATUS PLAN OF CARE Activity Details Follow Up 6 Months Reason: Future Appointment Provider Name:Cosmo michael Jr, 2022-04-02 09:20:00 AM, [address] , [place], [address], Pending Test T SPOT TB Pending Test LIVER PROFILE Pending Test LIPASE Pending Test CRP Pending Test CBC w/o DIFF Pending Test SED RATE (ESR) Pending Test Prometheus ANSER IFX Pending Test MRI ABD W&WO CONTRAST Pending Test T SPOT TB Pending Test ADALIMUMAB LEVEL ADA IBD Pending Test XR GI SMALL BOWEL SERIES Future/Pending Procedure COLONOSCOPY [id number] Future/Pending Procedure COLONOSCOPY [id number] VITAL SIGNS Weight 254 lbs 2021-10-02 Weight 241 lbs 2021-04-04 Weight 244 lbs 2021-01-31 Weight 246 lbs 2020-10-17 Weight 269 lbs 2019-02-23 Weight 273 lbs 2018-08-18 Weight 262 lbs 2018-02-17 Weight 260 lbs 2017-08-19 Weight 259 lbs 2017-02-18 Weight 268 lbs 2016-11-19 Weight 247 lbs 2016-05-07 Weight 261 lbs 2015-03-02 Weight 278 lbs 2014-11-01 Weight 253 lbs 2014-03-10 Weight 252 lbs 2013-09-01 Height 66 in 2021-10-02 Height 66 in 2021-04-04 Height 66 in 2021-01-31 Height 66 in 2020-10-17 Height 66 in 2019-02-23 Height 66 in 2018-08-18 Height 66 in 2018-02-17 Height 66 in 2017-08-19 Height 66 in 2017-02-18 Height 66 in 2016-11-19 Height 66 in 2016-05-07 Height 66 in 2015-03-02 Height 66 in 2014-11-01 Height 66 in 2014-03-10 Height 66 in 2013-09-01 BMI 40.99 kg/m2 2021-10-02 BMI 38.89 kg/m2 2021-04-04 BMI 39.38 kg/m2 2021-01-31 BMI 39.70 kg/m2 2020-10-17 BMI 43.41 kg/m2 2019-02-23 BMI 44.06 kg/m2 2018-08-18 BMI 42.28 kg/m2 2018-02-17 BMI 41.96 kg/m2 2017-08-19 BMI 41.80 kg/m2 2017-02-18 BMI 43.25 kg/m2 2016-11-19 BMI 39.86 kg/m2 2016-05-07 BMI 42.12 kg/m2 2015-03-02 BMI 44.87 kg/m2 2014-11-01 BMI 40.83 kg/m2 2014-03-10 BMI 40.67 kg/m2 2013-09-01 Heart Rate 80 /min 2017-02-18 Heart Rate 80 /min 2013-09-01 Temperature 97.7 degrees Fahrenheit 2021-10-02 Temperature 97.1 degrees Fahrenheit 2021-04-04 Temperature 97.1 degrees Fahrenheit 2021-01-31 Temperature 97.1 degrees Fahrenheit 2020-10-17 Blood pressure systolic 000 mm Hg 2021-10-02 Blood pressure diastolic 00 mm Hg 2021-10-02 MEDICATIONS Medication Instructions Dosage Frequency Start End Duration Statu s Date Date predniSONE 10 4 tablets Jan, Active MG daily for 1 2021 week then taper by 1 tablet weekly predniSONE 5 MG TOME FAITH 30 Active TABLETA POR VIA ORAL TODOS LOS FRAZIER FOR NEXT 4 WEEKS. TAKE WITH 10 MG TABLET. Remicade Active Cephalexin 500 5 Active MG predniSONE 10 TOME DOS 30 Active MG TABLETAS POR VIA ORAL TODOS LOS FRAZIER WITH FOOD OR MILK 30 predniSONE 5 MG Orally Once a 8 24h 27 Mar, 56 days No t-Takin day tablets(40m 2016 g g) daily for 1 week, and then decrease by 1 pill(5mg) per week Furosemide 20 TAKE 1 30 Active MG TABLET BY MOUTH ONCE DAILY NEEDED FOR SWELLING Vitamin D3 1000 Orally Once a 1 capsule 24h Active UNIT day Lisinopril 5 MG take 1 30 Active tablet by mouth once daily Dicyclomine HCl TOME FAITH 90 Active 20 MG TABLETA POR VIA ORAL 2-4 TIMES A DAY Vitamin B 12 Orally Once a 1 lozenge 24h 30 day(s) A ctive 500 MCG day Levbid 0.375 MG Orally every 12 1 tablet 12h 16 Jul, 30 days Active hrs 2020 PROCEDURES Procedure Date Ordered Result Body Site TOBACCO NON-USER August 18, 2018 DOC MEDS VERIFIED W/PT OR RE October 02, 2021 BP SCR PRFRM RCMDD DEFIND SCR INTVL August 18, 2018 PATIENT NOT ELIG D/T ACTIVE DX HTN October 17, 2020 DOC MEDS VERIFIED W/PT OR RE August 18, 2018 DOC RSN FOR NOT SCREEN/REC F/U HBP Apr 04, 2021 DOC MEDS VERIFIED W/PT OR RE October 17, 2020 PATIENT NOT ELIG D/T ACTIVE DX HTN Jan 31, 2021 COLONOSCOPY AND BIOPSY November 09, 2020 Pt scrn tbco id as non user Jan 31, 2021 Pt scrn tbco id as non user October 02, 2021 DOC MEDS VERIFIED W/PT OR RE Apr 04, 2021 DOC MEDS VERIFIED W/PT OR RE Jan 31, 2021 PATIENT NOT ELIG D/T ACTIVE DX HTN October 02, 2021 Pt scrn tbco id as non user October 17, 2020 Pt scrn tbco id as non user Apr 04, 2021 RESULTS Name Result Date Reference Range T Spot TB 2021-12-31 TSpotTB Negative Negative TS Panel A 0 TS Panel B 0 TS Negative Control Passed TS Positive Control Passed Complete Blood Count Auto Diff 2021-11-05 White Blood Count 9.1 4.8-10.8 Red Blood Count 4.45 4.20-5.50 Hemoglobin 11.1 12.0-16.0 Hematocrit 36.7 37.0-47.0 Mean Corpuscular Volume 82.5 80.0-98. 0 Mean Corpuscular Hemoglobin 24.9 27.0 -33.0 Mean Corpuscular HGB Conc 30.2 31.0-3 5.0 Red Cell Distribution Width 13.2 11.0 -16.0 Platelet Count 428 160-400 Mean Platelet Volume 9.4 9.4-12.3 Neutrophils Percent Auto 85.7 45-73 Imm Gran Pct Auto 0.8 0.0-0.4 Lymphocytes Percent Auto 8.6 20-40 Monocytes Percent Auto 4.6 2-11 Eosinophils Percent Auto 0.1 0-4 Basophils Percent Auto 0.2 0-2 NRBC Pct Auto 0.0 0.0-0.2 Neutrophils Absolute Auto 7.8 2.0-8. 3 Imm Gran Abs Auto 0.07 0.00-0.03 Lymphocytes Absolute Auto 0.8 1.2-4. 9 Monocytes Absolute Auto 0.4 0.1-1.2 Eosinophils Absolute Auto 0.0 0.0-0. 4 Basophils Absolute Auto 0.0 0.0-0.2 NRBC Abs Auto 0.000 0.0-0.012 Erythrocyte Sedimentation Rate 2021-11-05 Erythrocyte Sedimentation Rate 51 0 -20 Liver Panel 2021-11-05 Bilirubin Total 0.2 0.0-1.0 Bilirubin Direct < 0.2 0.0-0.5 Aspartate Amino Transferase 10 5-31 Alanine Aminotransferase 19 0-31 Total Protein 7.3 6.5-8.0 Albumin Level 3.7 3.5-5.0 Alkaline Phosphatase 79 39-117 C Reactive Protein 2021-11-05 C Reactive Protein 4.20 < or = 0.50 Immunofixation Pnl, Serum 2021-11-05 IgG 3940 [id number] IgA 326 47-310 IgM 204 50-300 Immunofixation Interpretation SEE NOTE Complete Blood Count Auto Diff 2021-04-16 White Blood Count 11.9 4.8-10.8 Red Blood Count 4.84 4.20-5.50 Hemoglobin 11.5 12.0-16.0 Hematocrit 39.2 37.0-47.0 Mean Corpuscular Volume 81.0 80.0-98. 0 Mean Corpuscular Hemoglobin 23.8 27.0 -33.0 Mean Corpuscular HGB Conc 29.3 31.0-3 5.0 Red Cell Distribution Width 15.9 11.0 -16.0 Platelet Count 430 160-400 Mean Platelet Volume 8.9 9.4-12.3 Neutrophils Percent Auto 86.0 45-73 Imm Gran Pct Auto 0.8 0.0-0.4 Lymphocytes Percent Auto 10.0 20-40 Monocytes Percent Auto 3.0 2-11 Eosinophils Percent Auto 0.0 0-4 Basophils Percent Auto 0.2 0-2 NRBC Pct Auto 0.0 0.0-0.2 Neutrophils Absolute Auto 10.2 2.0-8. 3 Imm Gran Abs Auto 0.10 0.00-0.03 Lymphocytes Absolute Auto 1.2 1.2-4. 9 Monocytes Absolute Auto 0.4 0.1-1.2 Eosinophils Absolute Auto 0.0 0.0-0. 4 Basophils Absolute Auto 0.0 0.0-0.2 NRBC Abs Auto 0.000 0.0-0.012 Erythrocyte Sedimentation Rate 2021-04-16 Erythrocyte Sedimentation Rate 55 0 -20 T Spot TB 2021-01-29 TSpotTB Negative SeeBelow TS Panel A 0 TS Panel B 1 TS Negative Control Passed TS Positive Control Passed Pathology 2020-11-09 Adalimumab+Ab 2020-10-23 Adalimumab Drug Level 1.6 Anti-Adalimumab Antibody <10 <10 Adalimumab Interpretation SEE NOTE Adalimumab Comment SEE NOTE Adalimumab+Ab 2020-09-26 Adalimumab Drug Level 2.9 Anti-Adalimumab Antibody <10 <10 Adalimumab Interpretation SEE NOTE Adalimumab Comment SEE NOTE LIVER PROFILE 2018-08-20 PROTEIN, TOTAL 6.9 6.5-8.0 ALBUMIN 3.9 3.5-5.0 BILIRUBIN, TOTAL 0.4 0.0-1.0 BILIRUBIN, DIRECT 0.2 0.0-0.5 ALK. PHOS. 82 39-117 GOT 15 5-31 GPT 20 0-31 LIPASE 2018-08-20 LIPASE 18 8-78 CBC w/o DIFF 2018-08-20 WBC 7.8 4.8-10.8 RBC 4.64 4.20-5.50 HEMOGLOBIN 11.1 12.0-16.0 HEMATOCRIT 34.8 37-47 MCV 74.9 80-98 MCH 23.8 27.0-33.0 MCHC 31.8 31.0-35.0 PLATELET COUNT 314 160-400 RDW 13.2 11.0-16.0 LIVER PROFILE 2017-08-20 PROTEIN, TOTAL 7.1 6.5-8.0 ALBUMIN 3.8 3.5-5.0 BILIRUBIN, TOTAL 0.3 0.0-1.0 BILIRUBIN, DIRECT < 0.2 0.0-0.5 ALK. PHOS. 101 39-117 GOT 20 5-31 GPT 25 0-31 AMYLASE 2017-08-20 AMYLASE 53 28-100 CRP 2017-08-20 CRP 3.93 < OR = 0.50 CBC w DIFF 2017-08-20 WBC 8.1 4.8-10.8 ABSOLUTE NEUTROPHIL COUNT 5.5 2.2-7. 9 RBC 4.15 4.20-5.50 HEMOGLOBIN 9.6 12.0-16.0 HEMATOCRIT 30.2 37-47 MCV 72.9 80-98 MCH 23.2 27.0-33.0 MCHC 31.9 31.0-35.0 PLATELET COUNT 379 160-400 RDW 14.4 11.0-16.0 NEUTROPHILS 67.6 45-73 LYMPHOCYTES 21.9 20-40 MONOCYTES 7.0 2-11 EOSINOPHILS 2.6 0-4 BASOPHILS 1.0 0-2 SED RATE (ESR) 2017-08-20 SED RATE 62 0-20 PROMETHEUS TPMT GENETICS 2017-08-20 PROM TPMT GENETICS SEE NOTE BASIC METABOLIC PROFILE FAST 2017-04-22 NA 139 135-145 K 3.8 3.3-5.1 CL 109 96-108 CO2 27 22-29 ANION GAP 7 12-20 FASTING BLOOD SUGAR 152 60-99 BUN 11 9-16 CREATININE 0.65 0.5-1.4 ESTIMATED GFR > 60 ESTIMATED CrCl 150.2 CALCIUM 8.7 8.4-10.2 CBC with MANUAL DIFFERENTIAL 2017-04-22 WBC 9.8 4.8-10.8 ABSOLUTE NEUTROPHIL COUNT 8.1 2.2-7. 9 RBC 3.89 4.20-5.50 HEMOGLOBIN 9.5 12.0-16.0 HEMATOCRIT 30.4 37-47 MCV 78.2 80-98 MCH 24.5 27.0-33.0 MCHC 31.3 31.0-35.0 PLATELET COUNT 295 160-400 RDW 13.3 11.0-16.0 SEGS 82 45-73 BANDS 4 3-5 LYMPHOCYTES 9 20-40 MONOCYTES 5 2-11 PLATELET ESTIMATE NORMAL NORMAL PLATELET MORPHOLOGY NORMAL NORMAL RBC MORPHOLOGY 1+ HYPO NORMAL RBC MORPHOLOGY 2+ ANISO NORMAL RBC MORPHOLOGY 1+ MICRO NORMAL BASIC METABOLIC PROFILE FAST 2017-04-21 NA 140 135-145 K 4.0 3.3-5.1 CL 109 96-108 CO2 26 22-29 ANION GAP 9 12-20 FASTING BLOOD SUGAR 172 60-99 BUN 9 9-16 CREATININE 0.64 0.5-1.4 ESTIMATED GFR > 60 ESTIMATED CrCl 152.6 CALCIUM 8.6 8.4-10.2 CRP 2017-04-21 CRP 3.54 < OR = 0.50 CBC with MANUAL DIFFERENTIAL 2017-04-21 WBC 10.8 4.8-10.8 ABSOLUTE NEUTROPHIL COUNT 9.7 2.2-7. 9 RBC 4.21 4.20-5.50 HEMOGLOBIN 10.4 12.0-16.0 HEMATOCRIT 32.9 37-47 MCV 78.2 80-98 MCH 24.7 27.0-33.0 MCHC 31.6 31.0-35.0 PLATELET COUNT 307 160-400 RDW 13.4 11.0-16.0 SEGS 89 45-73 LYMPHOCYTES 6 20-40 MONOCYTES 5 2-11 PLATELET ESTIMATE NORMAL NORMAL PLATELET MORPHOLOGY NORMAL NORMAL RBC MORPHOLOGY 1+ ANISO NORMAL RBC MORPHOLOGY 1+ MICRO NORMAL RBC MORPHOLOGY 1+ POIK NORMAL RBC MORPHOLOGY ELLIPTOCYTES NORMAL RBC MORPHOLOGY 1+ HYPO NORMAL SED RATE (ESR) 2017-04-21 SED RATE 40 0-20 XR ABD UPRIGHT AND CHEST 2017-04-21 ABDOMEN 1 VIEW ONLY 2017-02-07 CBC with MANUAL DIFFERENTIAL 2017-01-21 WBC 9.6 4.8-10.8 ABSOLUTE NEUTROPHIL COUNT 6.5 2.2-7. 9 RBC 4.33 4.20-5.50 HEMOGLOBIN 10.7 12.0-16.0 HEMATOCRIT 33.1 37-47 MCV 76.3 80-98 MCH 24.7 27.0-33.0 MCHC 32.3 31.0-35.0 PLATELET COUNT 306 160-400 RDW 13.2 11.0-16.0 SEGS 71 45-73 LYMPHOCYTES 24 20-40 MONOCYTES 4 2-11 BASOPHILS 1 0-1 PLATELET ESTIMATE NORMAL NORMAL PLATELET MORPHOLOGY NORMAL NORMAL RBC MORPHOLOGY 1+ ANISO NORMAL RBC MORPHOLOGY 1+ MICRO NORMAL RBC MORPHOLOGY 1+ HYPO NORMAL RBC MORPHOLOGY 1+ POIK NORMAL RBC MORPHOLOGY ELLIPTOCYTES NORMAL XR ABD UPRIGHT AND CHEST 2017-01-21 BASIC METABOLIC PROFILE FAST 2014-09-27 NA 140 135-145 K 3.1 3.3-5.1 CL 108 96-108 CO2 23 22-29 ANION GAP 12 12-20 FASTING BLOOD SUGAR 124 60-99 BUN 6 9-16 CREATININE 0.61 0.5-1.4 ESTIMATED GFR > 60 ESTIMATED CrCl 166.7 CALCIUM 8.3 8.4-10.2 CBC with MANUAL DIFFERENTIAL 2014-09-27 WBC 6.8 4.8-10.8 ABSOLUTE NEUTROPHIL COUNT 4.7 2.2-7. 9 RBC 4.18 4.20-5.50 HEMOGLOBIN 9.6 12.0-16.0 HEMATOCRIT 30.0 37-47 MCV 71.8 80-98 MCH 22.9 27.0-33.0 MCHC 31.9 31.0-35.0 PLATELET COUNT 255 160-400 RDW 14.0 11.0-16.0 SEGS 70 45-73 BANDS 1 3-5 LYMPHOCYTES 22 20-40 MONOCYTES 5 2-11 EOSINOPHILS 1 0-4 BASOPHILS 1 0-1 PLATELET ESTIMATE NORMAL NORMAL PLATELET MORPHOLOGY NORMAL NORMAL RBC MORPHOLOGY 1+ ANISO NORMAL RBC MORPHOLOGY 1+ MICRO NORMAL RBC MORPHOLOGY 1+ HYPO NORMAL RBC MORPHOLOGY 1+ POIK NORMAL RBC MORPHOLOGY ELLIPTOCYTES NORMAL BASIC METABOLIC PROFILE FAST 2014-09-26 NA 138 135-145 K 3.5 3.3-5.1 CL 106 96-108 CO2 22 22-29 ANION GAP 14 12-20 FASTING BLOOD SUGAR 117 60-99 BUN 8 9-16 CREATININE 0.60 0.5-1.4 ESTIMATED GFR > 60 ESTIMATED CrCl 169.4 CALCIUM 8.5 8.4-10.2 IRON + IBC (FE) 2014-09-26 IRON 34 30-160 IBC 261 228-428 % SATURATION 13 15-50 FERRITIN 2014-09-26 FERRITIN 41 10-122 CRP 2014-09-26 CRP 2.54 < OR = 0.50 VITAMIN B12 AND FOLATE 2014-09-26 B12 395 200-900 FOLATE 16.0 > OR = 4.0 CBC with MANUAL DIFFERENTIAL 2014-09-26 WBC 6.6 4.8-10.8 ABSOLUTE NEUTROPHIL COUNT 4.7 2.2-7. 9 RBC 4.47 4.20-5.50 HEMOGLOBIN 10.3 12.0-16.0 HEMATOCRIT 32.3 37-47 MCV 72.3 80-98 MCH 23.1 27.0-33.0 MCHC 31.9 31.0-35.0 PLATELET COUNT 308 160-400 RDW 14.1 11.0-16.0 SEGS 67 45-73 BANDS 3 3-5 LYMPHOCYTES 20 20-40 MONOCYTES 9 2-11 EOSINOPHILS 1 0-4 PLATELET ESTIMATE NORMAL NORMAL PLATELET MORPHOLOGY NORMAL NORMAL RBC MORPHOLOGY 1+ ANISO NORMAL RBC MORPHOLOGY 1+ MICRO NORMAL RBC MORPHOLOGY 1+ HYPO NORMAL RBC MORPHOLOGY 1+ POIK NORMAL RBC MORPHOLOGY ELLIPTOCYTES NORMAL SED RATE (ESR) 2014-09-26 SED RATE 34 0-20 XR ABD UPRIGHT AND CHEST 2014-09-26 XR GI HIGH DENSITY SMALL BOWEL 2013-07-06 GI BIOPSY 2013-06-22 G.I. BIOPSY REASON FOR VISIT Patient presents today for crohn's, needs new pa on remicade, would like script for prednisone, labs, needs t spot order, Patient presents today for crohn's, labs, office visit, Patient presents today for crohns disease, Can you put script in Maldivian?, fyi:needs pa renewal on remicade/done, flare up of Crohn's disease, MRI, crohn's, Renew medication , pathology/waiting on insurance, crohn's, patient presents today for colon recall , lab results, prednisone rx, Prednisone , labs, has not received meds, abd right side, Beau Refill, gave verbal for unsuccessful script being sent through fax, requesting r/f on humira, recall colonoscopy, crohn's, colonoscopy, crohn's, r/s colonoscopy with Beau PERRY, 6 month f/u Crohns, ? CURRENT INSURANCE, Patient presents today for a 6 month follow up for Crohns, Patient presents today for crohn''s disease, Crohn's flair up, Beau, would like script for prednisone, Beau PA, Patient presents today for 6 month f/u for Crohn's disease, Prednisone, has some q uestions, PATIENT PRESENTS TODAY FOR follow up Crohn's, Beau dose increase, Crohn's , Put on one year OV follow up, patient presents today for 6 month f/u, 6 month f/u, Beau Yanez, Pt presents today for a Follow up on her Crohns disease., requesting soon appt? , NEXT APPT, Pt no show, 6 month f/u, Wants refill, 6 month f/u, Beau Yanez, Hospital follow up, Follow up from hospital, Hospital f/u , ? if appt needed within one week, F/U Crohn's disease , put on one year OV follow up, FOLLOW UP,follow up, ileitis, abd x-ray , Need to lock hospital note, sign off on colyte prep, Book for colonoscopy Insurance Providers [facility] Health Member Patient Patient Patient Patient Patient Subscriber Subscriber Subscriber Group Insurance Plan Plan Plan Plan ID Relationship Address Phone Name Date of ID Name Date of No Type Insurance Insurance Insurance Coverage to Subscriber Address Phone Name Dates [employer] [phone] [employer] self [place] [id number] [place] [id number] Health RA [facility] ASAF [id number] MEDICAID [address] MEDICAID self [place] [id number] [place] [id number] 00 OF [place] RA [address] [facility] ASAF [id number] [employer] [address] [employer] self [place] [id number] [facility] [id number] Health RA Plan [facility] ASAF [id number]
[2022-03-24 13:20] LABS: Erythrocyte Sedimentation Rate 79 MM/HR (0-20)
[2022-03-24 13:25] VITALS: BP 157/85; PULSE 90; RESP 20; O2SAT 98
[2022-03-24 14:13] VITALS: BP 149/95; PULSE 93; RESP 14; TEMP 36.9; O2SAT 99
[2022-03-24] MEDS: Ketorolac Tromethamine 30 MG/ML VIAL IM (14:31)
[2022-03-24] MEDS: cephALEXin 500 MG CAPSULE PO (14:32)
[2022-03-24 15:35] VITALS: BP 154/89; PULSE 84; RESP 16; TEMP 37.4; O2SAT 98
== END 2022-03-24 15:57 | disposition home or self-care (01) ==
PROVIDERS: Physician Assistant; Emergency Provider Emergency Medicine; PCP Internal Medicine
DX: N39.0 Urinary tract infection, site not specified (principal); B96.20 Unspecified Escherichia coli [E. coli] as the cause of diseases classified elsewhere; R10.9 Unspecified abdominal pain; I10 Essential (primary) hypertension; K50.90 Crohn's disease, unspecified, without complications; Z79.899 Other long term (current) drug therapy
CPT/HCPCS: 36415; 74019; 80048; 80076; 81001; 83690; 85025; 85652; 86140; 87086; 87088; 87186; 96372; 99284; J1885

== ENCOUNTER 2022-04-11 09:53 | Outpatient (REF) | payer OTHER, SELFPAY ==
--- NOTE | ~2022-04-11 | MM_ITS ---
EXAMINATION: MM SCREENING DIGITAL BREAST TOMOSYNTHESIS, BILATERAL CLINICAL INFORMATION: Screening. Asymptomatic. The lifetime risk of breast cancer based on the Tyrer-Cuzick Model is 9%. COMPARISON: Mammography: 04/05/2021 (baseline); right breast ultrasound 04/10/2021. TECHNIQUE: Digital breast tomosynthesis is performed in both the craniocaudal and mediolateral oblique views along with computer-aided detection (CAD). Synthesized 2D images are generated from the tomosynthesis. FINDINGS: There are scattered areas of fibroglandular density (ACR BI-RADS breast composition Category b). The right CC view has subtle nodular asymmetric density anterior outer breast, possibly incompletely compressed glandular tissue or summation artifact. Patient will be recalled for additional imaging. Incidental subdermal cyst anterior medial right breast is borderline increased. The remainder of the bilateral breasts appear similar to baseline exam. No abnormal calcifications. The axilla and skin contours are unremarkable. MM/MM tomosynthesis screening BI IMPRESSION: Right: -Subtle nodular asymmetric density anterior outer breast on CC view, possibly artifact. Left: -No mammographic evidence of malignancy. ASSESSMENT: BI-RADS 0: Incomplete - Need Additional Imaging Evaluation RECOMMENDATION: 1. Additional views of the right breast (spot CC). 2. Targeted ultrasound if warranted after review of the additional views. 3. Radiology department staff will contact the patient for additional imaging. This patient's information was entered into a reminder system with a target due date for their next mammogram.
== END 2022-04-11 09:54 | disposition home or self-care (01) ==
LOC: HO.MAMMO 09:53
PROVIDERS: PCP Internal Medicine; Visit Provider Internal Medicine
DX: Z12.31 Encounter for screening mammogram for malignant neoplasm of breast (principal)
CPT/HCPCS: 77063; 77067

== ENCOUNTER 2022-04-22 08:46 | Outpatient (REF) | payer OTHER, SELFPAY | END 2022-04-22 08:47 | disposition home or self-care (01) | LOC: HO.MDS 08:46 | PROVIDERS: Visit Provider Internal Medicine Gastroenterology | DX: K50.012 Crohn's disease of small intestine with intestinal obstruction (principal) | CPT/HCPCS: 96413; 96415; J1745 ==

== ENCOUNTER 2022-05-01 13:43 | Outpatient (REF) | payer OTHER, SELFPAY ==
--- NOTE | ~2022-05-01 | US_ITS ---
EXAMINATION: MM DIAGNOSTIC DIGITAL BREAST TOMOSYNTHESIS, RIGHT US DIAGNOSTIC ULTRASOUND BREAST, RIGHT CLINICAL INFORMATION: Recall from screening for subtle nodular asymmetric density anterior right breast. The lifetime risk of breast cancer based on the Tyrer-Cuzick Model is 9%. COMPARISON: Mammography: 04/11/2022, 04/05/2021 (baseline); right breast ultrasound 04/10/2021 TECHNIQUE: Digital breast tomosynthesis is performed. 2D images are generated from the tomosynthesis. The following views are obtained: Spot CC x2. Ultrasound right breast is targeted to the anterior upper breast 9:00 through 2:00 position using grayscale imaging and color Doppler without and with harmonics. FINDINGS: There are scattered areas of fibroglandular density (ACR BI-RADS breast composition Category b). The additional spot views confirm subtle nodular asymmetry with smooth partly obscured margins. In retrospect, finding is likely present on baseline exam 04/05/2021 but not as conspicuous due to overlapping fibroglandular densities. There is no architectural abnormality. Ultrasound demonstrates a benign-appearing circumscribed macrolobulated mildly hypoechoic nodule 12:00 position 2 cm from nipple measuring approximately 1.0 x 0.5 cm. There is no increased or decreased through transmission of sound. Results are discussed with the patient at time of visit. The finding most likely represents a benign fibroadenoma, likely obscured by overlapping tissue on initial baseline exam 2020. Given the benign appearance, small size, and probable stability, short interval follow-up right ultrasound in 6 months is recommended. US/US breast RT limited IMPRESSION: -Probable fibroadenoma periareolar 12:00 right breast 1.0 cm. ASSESSMENT: BI-RADS 3: Probably Benign RECOMMENDATION: Right breast ultrasound in 6 months. This patient's information was entered into a reminder system with a target due date for their next mammogram.
== END 2022-05-01 13:44 | disposition home or self-care (01) ==
LOC: HO.MAMMO 13:43
PROVIDERS: PCP Internal Medicine; Visit Provider Internal Medicine
DX: R92.2 Inconclusive mammogram (principal)
CPT/HCPCS: 76642; 77065

== ENCOUNTER 2022-05-23 10:36 | Outpatient (REF) | payer OTHER, SELFPAY ==
[2022-05-23 14:17] LABS: CT PCR NOT DETECTED (Not Detect.); NG PCR NOT DETECTED (Not Detect.)
[2022-05-24 13:23] LABS: BV Int Neg Control Negative (Negative); BV Int Pos Control Positive (Positive)
== END 2022-05-23 10:37 | disposition home or self-care (01) ==
LOC: HO.LNP 10:36
PROVIDERS: PCP Internal Medicine; Visit Provider Advanced Practice Midwife
DX: Z11.3 Encounter for screening for infections with a predominantly sexual mode of transmission (principal); N92.0 Excessive and frequent menstruation with regular cycle; N89.8 Other specified noninflammatory disorders of vagina
CPT/HCPCS: 0353U; 87480; 87510; 87660

== ENCOUNTER 2022-05-31 18:36 | Inpatient (IN) | payer OTHER, SELFPAY ==
--- NOTE | ~2022-05-31 | CT_ITS ---
EXAMINATION: CT ABDOMEN AND PELVIS WITH CONTRAST CLINICAL INFORMATION: Crohn's disease with abdominal pain COMPARISON: Multiple prior CT scans of the abdomen and pelvis the most recent of which was 01/11/2021 TECHNIQUE: Multidetector volumetric images were obtained from the superior aspect of the liver through the pubic symphysis following administration 90 mL of Omnipaque 350 intravenous contrast. Sagittal and coronal reformatted images were obtained on the technologist's workstation. Oral contrast: No This CT examination was performed using dose optimization techniques as appropriate, variously including the following: *Automated exposure control *Adjustment of mA and/or kV according to patient size (this includes techniques or standardized protocols for targeted exams where dose is matched to indication/reason for exam; i.e. extremities or head) *Use of iterative reconstruction technique DLP: 1044 mGy-cm FINDINGS: LUNG BASES: The visualized lung bases are unremarkable. LIVER, GALLBLADDER, AND BILIARY TREE: The liver is enlarged at 20 cm in cephalocaudad dimension and demonstrates decreased attenuation consistent with hepatic steatosis. No focal hepatic lesion or biliary ductal dilatation is present. Status post cholecystectomy. PANCREAS: Unremarkable. SPLEEN: Unremarkable. ADRENAL GLANDS: Unremarkable. KIDNEYS AND URETERS: The kidneys are normal in size, shape, and attenuation. No hydronephrosis, hydroureter, or calculi seen. No perinephric stranding. BLADDER: Unremarkable. GASTROINTESTINAL TRACT: There are abnormally dilated loops of small bowel present involving the distal ileum. Similar diameter as previous study but significantly more loops are dilated. Again seen is a marked inflammatory process involving the cecum and terminal ileum with terminal ileal stricture. Fistulous tracks to other bowel loops could be present but are not well characterized on this study. The most distal small bowel is dilated with a thickened wall and demonstrates fecalization. A small fluid collection is present in the right lower quadrant measuring 2.6 x 2.2 x 3.6 cm but does not contain any air to suggest gross abscess. ABDOMINAL WALL: No significant hernia is appreciated. LYMPH NODES: There are prominent lymph nodes present in the mesentery but no gross retroperitoneal lymphadenopathy. VASCULAR: Unremarkable. 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 A 1.8 cm benign simple left ovarian cyst is present. No significant free fluid present in the pelvis. OSSEOUS STRUCTURES: Unremarkable. The SI joints appear normal. CT/CT abdomen pelvis w IV con IMPRESSION: 1. Marked inflammatory process involving the cecum and terminal ileum with terminal ileal stricture and associated small bowel obstruction as described above. Process appears more extensive than it did on 01/11/2021 2. Incidental note made of enlarged fatty liver, cholecystectomy, bicornuate uterus and benign left ovarian cyst. Fleischner guidelines were followed.
[2022-05-31 18:45] VITALS: BP 165/91; BP 172/108; PULSE 101; PULSE 108; RESP 22; TEMP 36.9; O2SAT 100; O2SAT 98; BMI 40.6
--- NOTE | 2022-05-31 18:49 | ED_ITS ---
HPI - Abdominal Pain General Chief Complaint: Abdominal Pain Stated Complaint: R upper abd pain per EMS Time Seen by Provider: 05/31/22 18:47 Source: patient and EMS Mode of arrival: EMS Limitations: no limitations History of Present Illness HPI narrative: 42-year-old female presents via EMS for 10/10 right upper quadrant abdominal pain with nausea and vomiting. Patient has a history of Crohn's disease, stated the pain started at 01:00 and has not improved. patient is unable to keep fluids or food down because of the pain nausea and vomiting. MD elicited complaint: abdominal pain Pertinent past history: other (Crohn's, history of SBO) Onset (ago): day(s) (1) Pain Consistency: constant Location: diffuse and RUQ Severity: severe Pain scale (0-10): 9 Quality: cramping, aching and fullness Exacerbating factors: eating, movement and other (Palpation) Relieving factors: nothing Context: history of similar episodes Associated symptoms: nausea, vomiting and chills Related Data Home Medications Medication Instructions Recorded Confirmed infliximab 100 mg intravenous 100 mg IV Q8W 05/23/21 05/29/22 solution (Remicade) ketotifen fumarate 0.025 % (0.035 1 drp ophthalmic (eye) BID PRN Dry 02/04/22 05/29/22 %) eye drops Eye(S) Previous Rx's Medication Instructions Recorded ondansetron HCl 4 mg tablet 4 mg PO Q8H PRN nausea and 12/15/20 (Zofran) vomiting #14 tabs cyanocobalamin (vitamin B-12) 1,000 mcg PO DAILY #90 tabs 08/05/21 1,000 mcg tablet (Vitamin B-12) lisinopril 30 mg tablet 30 mg PO DAILY 90 days #90 tabs 09/07/21 albuterol sulfate 90 mcg/actuation 2 inh inhalation Q6H PRN shortness 12/27/21 breath activated powder inhaler of breath or wheezing #1 ea Ventolin HFA 90 mcg/actuation 2 puff inhalation Q6H PRN 05/29/22 aerosol inhaler (albuterol sulfate) shortness of breath or wheezing 30 days #18 grams Allergies Allergy/AdvReac Type Severity Reaction Status Date / Time aspirin [Aspirin] Allergy Mild EYES SWELL Verified 05/29/22 14:16 zucchini Allergy Intermediate Rash Uncoded 05/29/22 14:16 SEASONAL ALLERGIES Allergy Unknown TRIGGERS Uncoded 05/29/22 14:16 ASTHMA ATTACKS Review of Systems Review of Systems Constitutional: No Fever, No Chills Cardiovascular: No Chest Pain, No SOB Respiratory: No Cough, No Dyspnea Gastrointestinal: Positive Nausea, positive Vomiting, No Diarrhea, positive abdominal Pain Genitourinary: No Dysuria, No Hematuria Musculoskeletal: Now joint pain, No Myalgias, No Joint Swelling Skin: No Skin lacerations, No rash Neuro: No Weakness, No Numbness, No Dizziness, No Headache Yes all other systems are reviewed and are negative [facility] Past Medical History Attestation statement: The following information was validated with the patient. Source: old records reviewed Medical History Anemia Asthma Benign essential hypertension Breast nodule Crohn's disease Obesity (BMI 30-39.9) Uterine fibroid Surgical History Hx of section Hx of cholecystectomy Hx of colonoscopy Hx of tubal ligation Family History Family History Mother Diabetes HTN (hypertension) Parkinson disease Father Hyperthyroidism Social History Social History Household Members: Spouse and Children Housing: House Do you presently have visiting nurse or other home services: No Alcohol intake: never Patient Tobacco Use Status: Former Tobacco user Quit Date: 6 YRS AGO Tobacco use type: Cigarette Smoked in Last 30 Days: No Second Hand Smoke Exposure: Yes Use of substances other than those prescribed or required for medical reasons: No Advance Directives: Yes Advance Directives on File: Yes Advance Directives Date on File: 09/21/20 service: No Current occupational status: employed 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 Oriented X3. Moderate distress. Eyes: Pupils equal, round and reactive to light. ENT: Pharynx normal. Neck: Normal inspection. Neck supple. CVS: Normal heart rate and rhythm. Pulses normal. Respiratory: No respiratory distress. Breath sounds normal. Abdomen: Soft and diffusely tender.. Skin: Skin warm and dry. Normal skin color. Normal skin turgor. Extremities: No lower extremity edema. Gait not assessed for safety. Moves all extremities against resistance. Neuro: No motor deficit. No sensory deficit. Cranial nerves 2-12 intact. Course Course Course Narrative: 42-year-old female presents for 10/10 right upper quadrant abdominal pain that s tarted at 01:00 associated with nausea and vomiting. Patient does have a history of Crohn's disease and small bowel obstruction in the past. She does get Remicade infusions every 8 weeks, unsure of the dosage. She has been on Remicade for the past few years. Patient states that this feels like a Crohn's flare. Will order labs, and CT scan of abdomen pelvis. Patient is afebrile, nontoxic, answering questions politely and appropriately. Will give fluids, pain management and Zofran. 20:20 labs still pending. 21:00 labs are unremarkable. COVID is negative. 21:30 CT scan abdomen and pelvis indicates marked inflammatory process involving cecum, and terminal ileum with terminal ileal stricture associated with small bowel obstruction. I did discuss these findings with on-call surgery, Dr. Mello, who defered to hospitalist as well as Gastroenterology. I did discuss this case with the hospitalist, who will admit for Crohn's colitis with suspected bowel obstruction. Discussion with Dr. Wiggins via tiger text, plan of care is for antibiotics and hydrocortisone q.8. Review of MRI on 04/14/2022 indicates [id number] active ileitis involving the terminal ileum over 12 cm segment similar to the prior study, shorter segment of moderate active distal ileum inflammation is seen within the more upstream ileum extending over approximately 7 cm. Thin inflammatory fistulous tracts arising from the sites of the inflamed ileum converging towards a stellate area in the lower mid abd omen pelvis with resultant kinking of small bowels and severe narrowing of the sigmoid colon at 2 different loops. The overall configuration of the stellate area is similar to the prior study however extent of inflammation in this appears mildly decreased. Interval resolution of phlegmonous changes adjacent to the ascending colon. No new phlegmon or abscess. Bilateral probable Bartholin gland cyst measuring up to 2.4 cm on left. This reading was obtained from [facility], given to this LAUNCH ENGINEER by Dr. Wiggins. I did discuss findings with the patient, patient respectfully declines NG tube and stated that she has had significant problems with them in the past. Will continue with IV antibiotics, pain management and antiemetics. Patient will be admitted by the hospitalist for Crohn's colitis and small bowel obstruction. Consultations Consultation #1: Riaz Time: 22:30 Consultation #2: Rosalie Time: 22:39 Consultation #3: Jose Time: 22:30 Medical Decision Making Differential Diagnosis Differential Diagnoses: The differential diagnosis associated with the pre sentation includes Acute abdomen, colitis, Crohn's, pancreatitis, kidney stone, diverticulitis Admission/Observation Consideration of admission/observation: Escalation of care including admission/observation considered Patient will require admission Consult Healthcare Provider Management of the patient was discussed with: Hospitalist and Field Marketing Team Leader General surgery, Gastroenterology Lab Data MDM Lab Attestation statement: I reviewed the patient's lab results. 05/31/22 19:55 05/31/22 19:13 Labs: Lab Results 05/31/22 05/31/22 Range/Units 19:55 20:36 WBC 8.2 (4.8-10.8) X10*3/uL RBC 4.77 (4.20-5.50) X10*6/uL Hgb 11.7 L (12.0-16.0) g/dl Hct 37.8 (37.0-47.0) % MCV 79.2 L (80.0-98.0) fL MCH 24.5 L (27.0-33.0) pg MCHC 31.0 (31.0-35.0) g/dl RDW 13.3 (11.0-16.0) % Plt Count 374 (160-400) X10*3/uL MPV 9.1 L (9.4-12.3) fL Immature Gran % (Auto) 0.2 (0.0-0.4) % Neut % (Auto) 85.2 H (45-73) % Lymph % (Auto) 6.5 L (20-40) % Evans % (Auto) 7.0 (2-11) % Eos % (Auto) 0.9 (0-4) % Baso % (Auto) 0.2 (0-2) % Lymph # (Auto) 0.5 L (1.2-4.9) X10*3/uL Evans # (Auto) 0.6 (0.1-1.2) X10*3/uL Eos # (Auto) 0.1 (0.0-0.4) X10*3/uL Baso # (Auto) 0.0 (0.0-0.2) X10*3/uL Abs Immat Gran (auto) 0.02 (0.00-0.03) X10*3/uL Absolute Neuts (auto) 7.0 (2.0-8.3) x10*3/uL Absolute Nucleated RBC 0.000 (0.0-0.012) X10*3/uL Nucleated RBC % (auto) 0.0 (0.0-0.2) /100WBC Sodium 140 (135-145) mmol/L Potassium 4.1 (3.3-5.1) mmol/L Chloride 106 (96-108) mmol/L Carbon Dioxide 22 (22-29) mmol/L Anion Gap 16 (12-20) BUN 10 (9-16) mg/dL Creatinine 0.68 (0.5-1.4) mg/dL Estim Creat Clear Calc 139.7 Estimated GFR > 60 Random Glucose 114 (60-115) mg/dL Calcium 8.9 (8.4-10.2) mg/dL Magnesium 1.9 (1.6-2.6) mg/dL Independent Interpretation I performed an independent interpretation of an: CT Scan Radiology Impression Discussion of test interpretation with radiology: I have reviewed the radiologist's reading. Radiologist Impression: FINDINGS: LUNG BASES: The visualized lung bases are unremarkable.? LIVER, GALLBLADDER, AND BILIARY TREE: The liver is enlarged at 20 cm in cephalocaudad dimension and demonstrates decreased attenuation consistent with hepatic steatosis. No focal hepatic lesion or biliary ductal dilatation is present. Status post cholecystectomy.? PANCREAS: Unremarkable.? SPLEEN: Unremarkable.? ADRENAL GLANDS: Unremarkable.? KIDNEYS AND URETERS: The kidneys are normal in size, shape, and attenuation. No hydronephrosis, hydroureter, or calculi seen. No perinephric stranding. ? ? BLADDER: Unremarkable.? GASTROINTESTINAL TRACT: There are abnormally dilated loops of small bowel present involving the distal ileum. Similar diameter as previous study but significantly more loops are dilated. Again seen is a marked inflammatory process involving the cecum and terminal ileum with terminal ileal stricture. Fistulous tracks to other bowel loops could be present but are not well characterized on this study. The most distal small bowel is dilated with a thickened wall and demonstrates fecalization. A small fluid collection is present in the right lower quadrant measuring 2.6 x 2.2 x 3.6 cm but does not contain any air to suggest gross abscess. ABDOMINAL WALL: No significant hernia is appreciated.? LYMPH NODES: There are prominent lymph nodes present in the mesentery but no gross retroperitoneal lymphadenopathy. VASCULAR: Unremarkable. 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 A 1.8 cm benign simple left ovarian cyst is present.? No significant free fluid present in the pelvis.? OSSEOUS STRUCTURES: Unremarkable. The SI joints appear normal. CT/CT abdomen pelvis w IV con IMPRESSION: 1.? Marked inflammatory process involving the cecum and terminal ileum with terminal ileal stricture and associated small bowel obstruction as described above. Process appears more extensive than it did on 01/11/2021 2.? Incidental note made of enlarged fatty liver, cholecystectomy, bicornuate uterus and benign left ovarian cyst. ? Fleischner guidelines were followed. External Record Review External record reviewed: Inpatient record, Outpatient record and Prior outpatient labs Prescription Management I considered prescription management with: Pain Medication, Antibiotic and Other (Steroids, antiemetics) Chronic Conditions Patient?s care impacted by: Hypertension and Other (Crohn's) Medications Administered Generic Name Dose Route Start Last Admin Trade Name Freq PRN Reason Stop Dose Admin Hydrocortisone Sodium Succinate 100 mg 05/31/22 23:00 05/31/22 23:27 Hydrocortisone Sod Succ/Pf 100 Mg Vial IVPUSH 100 mg Q8H JEFFERSON Administration Sodium Chloride 3 ml 06/01/22 00:00 05/31/22 23:35 0.9 % Sodium Chloride Flush 3 Ml Syringe IVFLUSH Not Given QSHIFT JEFFERSON Discontinued Medications Generic Name Dose Route Start Last Admin Trade Name Freq PRN Reason Stop Dose Admin Sodium Chloride 1,000 mls @ 999 mls/hr 05/31/22 19:00 05/31/22 20:51 Ns IVCONT 05/31/22 20:00 Infused .Q1H1M JEFFERSON Infusion Metronidazole 500 mg in 100 mls @ 100 mls/hr 05/31/22 21:52 05/31/22 23:27 Flagyl IV 05/31/22 22:51 Infused ONCE ONE Infusion Levofloxacin 750 mg in 150 mls @ 100 mls/hr 05/31/22 21:52 05/31/22 23:27 Levaquin IV 05/31/22 23:21 100 mls/hr ONCE ONE Administration Iohexol 100 ml 05/31/22 20:49 05/31/22 20:49 Iohexol 350 Mg/Ml 100 Ml Infus..Btl IV 05/31/22 20:50 90 ml ONCE ONE Administration Morphine Sulfate 4 mg 05/31/22 18:52 05/31/22 19:21 Morphine Sulfate 4 Mg/Ml Cartridge IVPUSH 05/31/22 18:53 4 mg ONCE ONE Administration Protocol Morphine Sulfate 4 mg 05/31/22 21:53 05/31/22 22:02 Morphine Sulfate 4 Mg/Ml Cartridge IVPUSH 05/31/22 21:54 4 mg ONCE ONE Administration Protocol Ondansetron HCl 4 mg 05/31/22 18:52 05/31/22 19:21 Ondansetron Hcl 4 Mg/2 Ml Vial IVPUSH 05/31/22 18:53 4 mg ONCE ONE Administration Critical Care Time Critical Care Time Critical Care Time: Yes Total Critical Care Time: 50 Attestation: I have personally provided critical care time exclusive of time spent on separately billable procedures. Time includes review of laboratory data, radiology results, discussion with consultants, and monitoring for potential decompensation. Interventions were performed as documented. Discharge Plan Discharge Clinical Impression: Crohn's disease, Small bowel obstruction Patient Disposition: Admitted As Inpatient
[2022-05-31] MEDS: ondansetron HCL 4 MG/2 ML VIAL IVPUSH (19:21)
[2022-05-31] MEDS: Morphine Sulfate 4 MG/ML CARTRIDGE IVPUSH ×2 (19:21→22:02)
[2022-05-31] MEDS: 0.9 % Sodium Chloride 1,000 ML 999 ML IVCONT (19:23)
[2022-05-31 19:38] VITALS: BP 154/88; PULSE 102; RESP 20; TEMP 36.8; O2SAT 95
[2022-05-31 20:01] LABS: Basophils Percent Auto 0.2 % (0-2); Eosinophils Absolute Auto 0.1 X10*3/uL (0.0-0.4); Eosinophils Percent Auto 0.9 % (0-4); Hematocrit 37.8 % (37.0-47.0); Hemoglobin 11.7 g/dl (12.0-16.0); Imm Gran Abs Auto 0.02 X10*3/uL (0.00-0.03); Imm Gran Pct Auto 0.2 % (0.0-0.4); Lymphocytes Absolute Auto 0.5 X10*3/uL (1.2-4.9); Lymphocytes Percent Auto 6.5 % (20-40); Mean Corpuscular Hemoglobin 24.5 pg (27.0-33.0); Mean Corpuscular Volume 79.2 fL (80.0-98.0); Mean Platelet Volume 9.1 fL (9.4-12.3); Monocytes Absolute Auto 0.6 X10*3/uL (0.1-1.2); Neutrophils Percent Auto 85.2 % (45-73); Platelet Count 374 X10*3/uL (160-400); Red Blood Count 4.77 X10*6/uL (4.20-5.50); Red Cell Distribution Width 13.3 % (11.0-16.0); White Blood Count 8.2 X10*3/uL (4.8-10.8)
[2022-05-31 20:05] LABS: MANUAL DIFF FLAG NO
[2022-05-31] MEDS: iohexoL 350 MG/ML 100 ML INFUS..BTL IV (20:49)
[2022-05-31 21:03] LABS: Anion Gap 16 (12-20); Blood Urea Nitrogen 10 mg/dL (9-16); Calcium 8.9 mg/dL (8.4-10.2); Carbon Dioxide 22 mmol/L (22-29); Chloride 106 mmol/L (96-108); Creatinine Clr Calc Pharmacy 139.7; Estimated Glomerular Filt Rate > 60; Glucose Random 114 mg/dL (60-115); Magnesium 1.9 mg/dL (1.6-2.6); Potassium 4.1 mmol/L (3.3-5.1); Sodium 140 mmol/L (135-145)
--- NOTE | 2022-05-31 22:13 | PC.NURSE ---
Pt refusing NG tube insertion. Provider aware.
[2022-05-31] MEDS: metroNIDAZOLE/NS 500 MG/100 ML PIGGYBACK 100 MG IV (22:30)
--- NOTE | 2022-05-31 22:30 | P.HPHOSP_ITS ---
History of Present Illness Date of Service: 05/31/22 Chief Complaint: Abdominal Pain This is a 42-year-old female with pertinent history of Crohn's disease on Remicade, essential hypertension who presents to the emergency department for evaluation of abdominal pain. Patient states she has been having upper abdomi nal pain that started at 01:00 and has been constant, nonradiating, progressive and worse with p.o. intake. Has been having associated nausea and episodes of nonbloody emesis. Her last bowel movement was 1 day prior to presentation. States she has had episodes of SBO due to Crohn's disease in the past. Denies fever, chills, chest discomfort, palpitations, shortness of breath, changes in urinary habits. In the emergency department, imaging with inflammation around the cecum and terminal ileum with associated SBO Review of Systems Constitutional: Constitutional: Reports no additional constitutional complaints Cardiovascular: Cardiovascular: Reports no additional cardiovascular complaints Respiratory: Respiratory: Reports no additional respiratory complaints Gastrointestinal: Gastrointestinal: Reports abdominal pain, Reports nausea and Reports vomiting Genitourinary: Genitourinary: Reports no additional female genitourinary complaints [facility] Medical History Anemia Asthma Benign essential hypertension Breast nodule Crohn's disease Obesity (BMI 30-39.9) Uterine fibroid Family History Mother Diabetes HTN (hypertension) Parkinson disease Father Hyperthyroidism Surgical History Hx of section Hx of cholecystectomy Hx of colonoscopy Hx of tubal ligation Social History Household Members: Spouse and Children Housing: House Do you presently have visiting nurse or other home services: No Alcohol intake: never Patient Tobacco Use Status: Former Tobacco user Quit Date: 6 YRS AGO Tobacco use type: Cigarette Smoked in Last 30 Days: No Second Hand Smoke Exposure: Yes Use of substances other than those prescribed or required for medical reasons: No Advance Directives: Yes Advance Directives on File: Yes Advance Directives Date on File: 09/21/20 service: No Current occupational status: employed 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 Sexual orientation: Straight/Heterosexual Cognitive needs: No Hearing needs: No Vision needs: Yes Meds Allergies Allergy/AdvReac Type Severity Reaction Status Date / Time aspirin [Aspirin] Allergy Mild EYES SWELL Verified 05/29/22 14:16 zucchini Allergy Intermediate Rash Uncoded 05/29/22 14:16 SEASONAL ALLERGIES Allergy Unknown TRIGGERS Uncoded 05/29/22 14:16 ASTHMA ATTACKS Active Medications: Current Medications Acetaminophen (Acetaminophen 325 Mg Tablet) 650 mg PO Q6H PRN PRN Reason: Pain, Mild (Pain Scale 1-3) Metronidazole (Flagyl) 500 mg in 100 mls @ 100 mls/hr IV ONCE ONE Stop: 05/31/22 22:51 Levofloxacin (Levaquin) 750 mg in 150 mls @ 100 mls/hr IV ONCE ONE Stop: 05/31/22 23:21 Melatonin (Melatonin 3 Mg Tablet) 6 mg PO BEDTIME PRN PRN Reason: Insomnia Morphine Sulfate (Morphine Sulfate 4 Mg/Ml Cartridge) 4 mg IVPUSH Q4H PRN; Protocol PRN Reason: Pain, Severe (Pain Scale 7-10) Ondansetron HCl (Ondansetron Hcl 4 Mg/2 Ml Vial) 4 mg IVPUSH Q8H PRN PRN Reason: Nausea and Vomiting Pharmacy Consult (Consult Rx Perform Med Rec) 1 each MISCELLANE ONCE PRN PRN Reason: Consult order Sodium Chloride (0.9 % Sodium Chloride Flush 3 Ml Syringe) [facility]ations Medication Instructions Recorded Confirmed Last Taken Type infliximab 100 mg intravenous 100 mg IV Q8W 05/23/21 05/29/22 Unknown History solution (Remicade) ketotifen fumarate 0.025 % (0.035 1 drp ophthalmic (eye) BID PRN Dry 02/04/22 05/29/22 Unknown History %) eye drops Eye(S) Physical Exam Vital Signs and Narrative: Vital Signs: Last Vital Signs Temp 98.3 F 05/31/22 19:38 Pulse 102 H 05/31/22 19:38 Resp 20 05/31/22 19:38 BP 154/88 H 05/31/22 19:38 Pulse Ox 95 05/31/22 19:38 O2 Del Method 05/31/22 19:38 BMI result Body Mass Index 40.6 Middle-aged female lying in bed in mild distress Neck supple, no JVD Tachycardic with regular rhythm, S1-S2 heard Regular breath sounds bilaterally, no wheezing or crackles appreciated Abdomen with tenderness to mild palpation, no guarding, no rigidity, no rebound tenderness Patient is awake, alert and oriented to self, place, time and person ; no focal motor deficit Psych: Normal mood No pedal edema Results Labs 05/31/22 19:55 05/31/22 20:36 Labs: Laboratory Results - last 24 hr 05/31/22 05/31/22 19:55 20:36 MCV 79.2 L MCH 24.5 L MCHC 31.0 RDW 13.3 Plt Count 374 MPV 9.1 L Immature Gran % (Auto) 0.2 Neut % (Auto) 85.2 H Lymph % (Auto) 6.5 L [place] % (Auto) 7.0 Eos % (Auto) 0.9 Baso % (Auto) 0.2 Lymph # (Auto) 0.5 L [place] # (Auto) 0.6 Eos # (Auto) 0.1 Baso # (Auto) 0.0 Abs Immat Gran (auto) 0.02 Absolute Neuts (auto) 7.0 Absolute Nucleated RBC 0.000 Nucleated RBC % (auto) 0.0 Anion Gap 16 Estim Creat Clear Calc 139.7 Estimated GFR > 60 Random Glucose 114 Calcium 8.9 Magnesium 1.9 Imaging Radiologist's Impressions: Impressions Abdomen/Pelvis CT 05/31/22 20:57 IMPRESSION: 1. Marked inflammatory process involving the cecum and terminal ileum with terminal ileal stricture and associated small bowel obstruction as described above. Process appears more extensive than it did on 01/11/2021 2. Incidental note made of enlarged fatty liver, cholecystectomy, bicornuate uterus and benign left ovarian cyst. Fleischner guidelines were followed. Assessment and Plan (1) Small bowel obstruction: Status: Acute Plan This is a 42-year-old female with pertinent history of Crohn's disease on Remicade, essential hypertension who presents to the emergency department for evaluation of abdominal pain. #. Small-bowel obstruction due to Crohn's flare: Will admit patient and initiate systemic IV steroids. Gastroenterology and surgery were consulted from the ER, appreciate assistance. Patient refused NG tube. Symptomatic management for now. Will keep NPO for bowel rest #. Essential hypertension: Resume lisinopril once able to take p.o. DVT prophylaxis: Mechanical NPO Full code Admit as inpatient and will require two night minimum hospital stay for IV steroids and management of SBO. Specialist consult pending Time Spent With Patient Time: Total time managing care of this patient today ____ minutes. Quality Stroke Does the patient have a stroke diagnosis?: No VTE Prior VTE?: No VTE Risk Level:: Medical - moderate - high VTE Device Contraindication: N/A - Device Ordered VTE Drug Contraindication: Treatment Not Indicated
[2022-05-31 22:38] LABS: Lactic Acid 0.7 mmol/L (0.5-2.0)
[2022-05-31 22:51] LABS: IDNOW Serial# 55D5AD1C
[2022-05-31 22:52] LABS: COVID-19 Test Negative (Negative)
[2022-05-31] MEDS: levoFLOXacin/D5W 750 MG/150 ML PIGGYBACK 100 MG IV (23:27)
[2022-05-31] MEDS: Hydrocortisone Sod Succ/PF 100 MG VIAL IVPUSH (23:27)
[2022-06-01 00:15] VITALS: BP 142/91; PULSE 113; RESP 20; TEMP 36.8; O2SAT 94
[2022-06-01 06:00] VITALS: BP 151/95; PULSE 97; RESP 14; O2SAT 97
[2022-06-01] MEDS: Hydrocortisone Sod Succ/PF 100 MG VIAL IVPUSH (06:15)
--- NOTE | 2022-06-01 06:17 | PC.NURSE ---
pt had a bowel movement, stated it was soft, not and or runny. Color was normal and pt reports no pain with the bowel movement.
[2022-06-01 07:14] LABS: MANUAL DIFF FLAG NO
[2022-06-01 07:21] LABS: Basophils Percent Auto 0.1 % (0-2); Eosinophils Percent Auto 0.1 % (0-4); Hematocrit 36.5 % (37.0-47.0); Imm Gran Abs Auto 0.03 X10*3/uL (0.00-0.03); Imm Gran Pct Auto 0.4 % (0.0-0.4); Lymphocytes Absolute Auto 0.5 X10*3/uL (1.2-4.9); Mean Corpuscular HGB Conc 30.1 g/dl (31.0-35.0); Mean Corpuscular Hemoglobin 24.1 pg (27.0-33.0); Mean Platelet Volume 9.3 fL (9.4-12.3); Monocytes Absolute Auto 0.4 X10*3/uL (0.1-1.2); Monocytes Percent Auto 6.1 % (2-11); Neutrophils Absolute Auto 5.8 x10*3/uL (2.0-8.3); Neutrophils Percent Auto 86.3 % (45-73); Platelet Count 398 X10*3/uL (160-400); Red Blood Count 4.56 X10*6/uL (4.20-5.50); Red Cell Distribution Width 13.4 % (11.0-16.0); White Blood Count 6.7 X10*3/uL (4.8-10.8)
--- NOTE | 2022-06-01 07:40 | PC.NURSE ---
assumed care of this pt at 0700am, denies any pain at this time and is passing gas. will continue to monitor. waiting on surgical consult.
[2022-06-01 07:50] LABS: Anion Gap 14 (12-20); Blood Urea Nitrogen 11 mg/dL (9-16); Calcium 8.9 mg/dL (8.4-10.2); Carbon Dioxide 23 mmol/L (22-29); Chloride 106 mmol/L (96-108); Creatinine Clr Calc Pharmacy 133.8; Estimated Glomerular Filt Rate > 60; Glucose Random 128 mg/dL (60-115); Potassium 4.6 mmol/L (3.3-5.1); Sodium 138 mmol/L (135-145)
[2022-06-01 08:23] VITALS: BP 170/101; PULSE 89; TEMP 36.9; O2SAT 97
[2022-06-01] MEDS: 0.9 % Sodium Chloride Flush 3 ML SYRINGE IVFLUSH (08:49)
--- NOTE | 2022-06-01 09:04 | PHA.MEDREC ---
Pharmacy Consult ? Medication Reconciliation Pharmacy has completed the medication reconciliation.
--- NOTE | 2022-06-01 10:00 | MHC.CM.PN ---
PT REPORTS SHE LIVES WITH HER AND TWO CHILDREN SHE IS INDEPENDENT WITH CARE, HAS NO DME AND NO SERVICES PT SAYS SHE IS COVID VAX SHE DECLINED TO COMPLETE A HCP TODAY BUT SAYS SHE WILL THINK ABOUT IT PCP: BHARTI LITTLE DCP: HOME NO SERVICES VIA FAMILY TRANSPORT
--- NOTE | 2022-06-01 10:22 | HO.PM.IMPN ---
Subjective Subjective Date of Service: 06/01/22 Interval History: crohn;s flare, psbo having flatus, no abdominal pain Physical Exam Vital Signs: Vital Signs: Last Vital Signs Temp 98.4 F 06/01/22 08:23 Pulse 89 06/01/22 08:23 Resp 14 06/01/22 06:00 BP 170/101 H 06/01/22 08:23 Pulse Ox 97 06/01/22 08:23 O2 Del Method 06/01/22 08:23 BMI result Body Mass Index 40.6 Const: Other: General: AO X 3, no acute distress Resp: CTA bilateral CVS: S1,S2,RRR GI: -/+BS, NT, no distention Skin: No rash Neuro: motor grossly intact Psych: appropriate affect Objective Data Active Medications Acetaminophen (Acetaminophen 325 Mg Tablet) 650 mg PO Q6H PRN PRN Reason: Pain, Mild (Pain Scale 1-3) Hydrocortisone Sodium Succinate (Hydrocortisone Sod Succ/Pf 100 Mg Vial) 100 mg IVPUSH Q8H [facility] Last Admin: 06/01/22 06:15 Dose: 100 mg Documented By: DANIELLE Melatonin (Melatonin 3 Mg Tablet) 6 mg PO BEDTIME PRN PRN Reason: Insomnia Morphine Sulfate (Morphine Sulfate 4 Mg/Ml Cartridge) 4 mg IVPUSH Q4H PRN; Protocol PRN Reason: Pain, Severe (Pain Scale 7-10) Ondansetron HCl (Ondansetron Hcl 4 Mg/2 Ml Vial) 4 mg IVPUSH Q8H PRN PRN Reason: Nausea and Vomiting Pharmacy Consult (Consult Rx Perform Med Rec) 1 each MISCELLANE ONCE PRN PRN Reason: Consult order Sodium Chloride (0.9 % Sodium Chloride Flush 3 Ml Syringe) 3 ml IVFLUSH QSHIFT [facility] Last Admin: 06/01/22 08:49 Dose: 3 ml Documented By: BEATRIZ Labs 06/01/22 06:51 06/01/22 06:51 Labs: Laboratory Results - last 24 hr 05/31/22 05/31/22 05/31/22 19:55 20:36 22:23 MCV 79.2 L MCH 24.5 L MCHC 31.0 RDW 13.3 Plt Count 374 MPV 9.1 L Immature Gran % (Auto) 0.2 Neut % (Auto) 85.2 H Lymph % (Auto) 6.5 L [place] % (Auto) 7.0 Eos % (Auto) 0.9 Baso % (Auto) 0.2 Lymph # (Auto) 0.5 L [place] # (Auto) 0.6 Eos # (Auto) 0.1 Baso # (Auto) 0.0 Abs Immat Gran (auto) 0.02 Absolute Neuts (auto) 7.0 Absolute Nucleated RBC 0.000 Nucleated RBC % (auto) 0.0 Anion Gap 16 Estim Creat Clear Calc 139.7 Estimated GFR > 60 Random Glucose 114 Lactic Acid 0.7 Calcium 8.9 Magnesium 1.9 COVID-19 ([facility]I) COVID-19 Clin Com 05/31/22 06/01/22 06/01/22 22:26 06:51 06:51 MCV 80.0 MCH 24.1 L MCHC 30.1 L RDW 13.4 Plt Count 398 MPV 9.3 L Immature Gran % (Auto) 0.4 Neut % (Auto) 86.3 H Lymph % (Auto) 7.0 L [place] % (Auto) 6.1 Eos % (Auto) 0.1 Baso % (Auto) 0.1 Lymph # (Auto) 0.5 L [place] # (Auto) 0.4 Eos # (Auto) 0.0 Baso # (Auto) 0.0 Abs Immat Gran (auto) 0.03 Absolute Neuts (auto) 5.8 Absolute Nucleated RBC 0.000 Nucleated RBC % (auto) 0.0 Anion Gap 14 Estim Creat Clear Calc 133.8 Estimated GFR > 60 Random Glucose 128 H Lactic Acid Calcium 8.9 Magnesium COVID-19 ([facility]I) Negative COVID-19 Clin Com See Note Assessment and Plan (1) Small bowel obstruction: Status: Acute Plan 42-year-old female with pertinent history of Crohn's disease on Remicade, essential hypertension who presents to the emergency department for evaluation of abdominal pain. #. Small-bowel obstruction due to Crohn's flare: NPO, GI and Surgery eval #. Essential hypertension: Resume. DVT prophylaxis: Lovenox NPO Full code need for inpatient: crhon's flare Time Spent With Patient Time: Total time managing care of this patient today ____ minutes. Quality Stroke Does the patient have a stroke diagnosis?: No VTE Prior VTE?: No VTE Risk Level:: Medical - moderate - high VTE Device Contraindication: N/A - Device Ordered VTE Drug Contraindication: Treatment Not Indicated
[2022-06-01] MEDS: lisinopriL 10 MG TABLET 30 MG PO (10:44)
[2022-06-01] MEDS: Omeprazole 20 MG CAPSULE.DR PO (10:44)
--- NOTE | 2022-06-01 11:40 | P.CONGS_ITS ---
History of Present Illness Consult details Consult date: 06/01/22 Narrative: The patient is a 42-year-old woman with a history of Crohn's disease currently on Remicade. She is being managed by Dr. Bowen and Dr. Arnold. She is admitted in the hospitalist service through the emergency department because of another Crohn's flare and on CT he noted to have partial small-bowel obstruc tion. The patient requested Dr. Arnold. She also notes that she is not interested in having operations because she had previously seen him as well as another surgeon who advised her that if her resection occurs an ileostomy may be required. Patient reports crampy abdominal pain associated with nausea and vomiting that started about a day and a half prior to admission. She states she is passing a little bit of gas and that the pain is improved since admission. Review of Systems Review of Systems: Yes all other systems are reviewed and are negative Constitutional: Constitutional: Reports as per [facility] Past Medical History Medical History Anemia Asthma Benign essential hypertension Breast nodule Crohn's disease Obesity (BMI 30-39.9) Uterine fibroid Family History Family History Mother Diabetes HTN (hypertension) Parkinson disease Father Hyperthyroidism Surgical History Surgical History Hx of section Hx of cholecystectomy Hx of colonoscopy Hx of tubal ligation Social History Social History Household Members: Spouse and Children Housing: House Do you presently have visiting nurse or other home services: No Alcohol intake: never Patient Tobacco Use Status: Former Tobacco user Quit Date: 6 YRS AGO Tobacco use type: Cigarette Smoked in Last 30 Days: No Second Hand Smoke Exposure: Yes Use of substances other than those prescribed or required for medical reasons: No Advance Directives: Yes Advance Directives on File: Yes Advance Directives Date on File: 09/21/20 service: No Current occupational status: employed 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 Sexual orientation: Straight/Heterosexual Cognitive needs: No Hearing needs: No Vision needs: Yes Meds Allergies Allergy/AdvReac Type Severity Reaction Status Date / Time aspirin [Aspirin] Allergy Mild EYES SWELL Verified 05/29/22 14:16 zucchini Allergy Intermediate Rash Uncoded 05/29/22 14:16 SEASONAL ALLERGIES Allergy Unknown TRIGGERS Uncoded 05/29/22 14:16 ASTHMA ATTACKS Active Medications: Current Medications Acetaminophen (Acetaminophen 325 Mg Tablet) 650 mg PO Q6H PRN PRN Reason: Pain, Mild (Pain Scale 1-3) Albuterol Sulfate (Albuterol Sulfate 90 Mcg 8 Gm Inhaler) 2 puff INHALE Q6H PRN PRN Reason: shortness of breath or wheezing Cyanocobalamin (Cyanocobalamin (Vitamin B-12) 1,000 Mcg Tablet) 1,000 mcg PO DAILY [facility] Enoxaparin Sodium (Enoxaparin Sodium 40 Mg/0.4 Ml Syringe) 40 mg SUBCUT Q24H [facility] Furosemide (Furosemide 20 Mg Tablet) 20 mg PO DAILY PRN; Protocol PRN Reason: swelling Hydrocortisone Sodium Succinate (Hydrocortisone Sod Succ/Pf 100 Mg Vial) 100 mg IVPUSH Q8H [facility] Last Admin: 06/01/22 06:15 Dose: 100 mg Ketotifen Fumarate (Ketotifen Fumarate 0.025% Oph 5 Ml Drpbtl) 1 drop EYE-BOTH BID PRN PRN Reason: Dry Eye(S) Lisinopril (Lisinopril 10 Mg Tablet) 30 mg PO DAILY [facility]; Protocol Last Admin: 06/01/22 10:44 Dose: 30 mg Melatonin (Melatonin 3 Mg Tablet) 6 mg PO BEDTIME PRN PRN Reason: Insomnia Morphine Sulfate (Morphine Sulfate 4 Mg/Ml Cartridge) 4 mg IVPUSH Q4H PRN; Protocol PRN Reason: Pain, Severe (Pain Scale 7-10) Omeprazole (Omeprazole 20 Mg Capsule.Dr) 20 mg PO DAILY [facility] Last Admin: 06/01/22 10:44 Dose: 20 mg Ondansetron HCl (Ondansetron Hcl 4 Mg/2 Ml Vial) 4 mg IVPUSH Q8H PRN PRN Reason: Nausea and Vomiting Pharmacy Consult (Consult Rx Perform Med Rec) 1 each MISCELLANE ONCE PRN PRN Reason: Consult order Sodium Chloride (0.9 % Sodium Chloride Flush 3 Ml Syringe) 3 ml IVFLUSH QSHIFT [facility] Last Admin: 06/01/22 08:49 Dose: 3 ml Home Medications Medication Instructions Recorded Confirmed Last Taken Type infliximab 100 mg intravenous 100 mg IV Q8W 05/23/21 06/01/22 Unknown History solution (Remicade) ketotifen fumarate 0.025 % (0.035 1 drp ophthalmic (eye) BID PRN Dry 02/04/22 06/01/22 05/31/22 History %) eye drops Eye(S) cyanocobalamin (vitamin B-12) 1 tab PO DAILY 06/01/22 06/01/22 05/31/22 History 1,000 mcg tablet (Vitamin B-12) furosemide 20 mg tablet 1 tab PO DAILY PRN swelling 06/01/22 06/01/22 05/31/22 History omeprazole 20 mg capsule,delayed 1 cap PO QAM 06/01/22 06/01/22 05/31/22 History release Physical Exam Vital Signs: Vital Signs: Last Vital Signs Temp 98.4 F 06/01/22 08:23 Pulse 89 06/01/22 08:23 Resp 14 06/01/22 06:00 BP 170/101 H 06/01/22 08:23 Pulse Ox 97 06/01/22 08:23 O2 Del Method 06/01/22 08:23 BMI result Body Mass Index 40.6 The patient is non-toxic & in good spirits NC/AT, PERRLA, EOMI Mood, affect & judgment all appear appropriate Sclera anicteric conjunctiva pink and moist Oropharynx is clear with no aphthous ulcers, Mallampati class 4, mucous membranes moist Neck is supple with no masses, adenopathy or bruits Thyroid is nontender and free of dominant masses Heart is regular, normal S1-S2 no rubs or murmurs Lungs are clear and equal anteriorly with no audible wheezing, rubs or dullness to percussion Abdomen is obese with no demonstrable hernias. Mild diffuse tenderness is noted with more on the right side of her abdomen. No HSM, rebound, rigidity, guar ding, masses or bruits are present. Rectal exam is deferred Skin has good turgor and is free of rashes Extremities free of cyanosis clubbing edema Results Labs 06/01/22 06:51 06/01/22 06:51 Labs: Abnormal lab results 05/31/22 06/01/22 06/01/22 Range/Units 19:55 06:51 06:51 Hgb 11.7 L 11.0 L (12.0-16.0) g/dl Hct 36.5 L (37.0-47.0) % MCV 79.2 L (80.0-98.0) fL MCH 24.5 L 24.1 L (27.0-33.0) pg MCHC 30.1 L (31.0-35.0) g/dl MPV 9.1 L 9.3 L (9.4-12.3) fL Neut % (Auto) 85.2 H 86.3 H (45-73) % Lymph % (Auto) 6.5 L 7.0 L (20-40) % Lymph # (Auto) 0.5 L 0.5 L (1.2-4.9) X10*3/uL Random Glucose 128 H (60-115) mg/dL Short CBC 05/31/22 06/01/22 Range/Units 19:55 06:51 WBC 8.2 6.7 (4.8-10.8) X10*3/uL Hgb 11.7 L 11.0 L (12.0-16.0) g/dl Hct 37.8 36.5 L (37.0-47.0) % Plt Count 374 398 (160-400) X10*3/uL BMP 05/31/22 06/01/22 20:36 06:51 Sodium 140 138 Potassium 4.1 4.6 Chloride 106 106 Carbon Dioxide 22 23 BUN 10 11 Creatinine 0.68 0.71 Calcium 8.9 8.9 All other labs normal. Imaging Abdomen CT scan report/results: report reviewed and image reviewed CT scan - pelvis: report reviewed and image reviewed Assessment and Plan (1) Small bowel obstruction: Status: Acute (2) Morbid obesity with BMI of 40.0-44.9, adult: Status: Acute (3) Obesity (BMI 30-39.9): Status: Acute (4) Crohn's disease: Status: Acute Plan The patient does not have an acute surgical abdomen this time. I am not sure that there is any additional medical management that could be added, but the patient's city council member will see her during this hospitalization. Will ask Dr. Arnold to assume care. I did explain to the patient that ileostomy may be required and any resection for safety reasons. Time Spent With Patient Time: Total time managing care of this patient today ____ minutes. Procedures Date of Service Date of Service: 06/01/22
--- NOTE | 2022-06-01 12:06 | P.DS_ITS ---
DS: Providers Provider Date of Service: 06/01/22 Date of admission: 05/31/22 21:58 Primary care physician: Unknown Physician Consults: 05/31/22 21:55 Consult to General Surgery Stat Consulting Provider: Hernandez Mello Reason for consultation: sbo Has provider been notified: Yes 05/31/22 21:57 Consult to Gastroenterology Stat Consulting Provider: Roosevelt Wiggins Reason for consultation: crohns sbo Has provider been notified: Yes DS: Diagnosis Discharge Diagnosis (1) Small bowel obstruction: Status: Acute (2) Morbid obesity with BMI of 40.0-44.9, adult: Status: Acute (3) Obesity (BMI 30-39.9): Status: Acute (4) Crohn's disease: Status: Acute DS: Summary Hospital Course Hospital Course: Chief Complaint: Abdominal Pain This is a 42-year-old female with pertinent history of Crohn's disease on Remicade, essential hypertension who presents to the emergency department for evaluation of abdominal pain.? Patient states she has been having upper abdominal pain that started at 01:00 and has been constant, nonradiating, progressive and worse with p.o. intake.? Has been having associated nausea and episodes of nonbloody emesis.? Her last bowel movement was 1 day prior to presentation.? States she has had episodes of SBO due to Crohn's disease in the past.? Denies fever, chills, chest discomfort, palpitations, shortness of breath, changes in urinary habits. Hospital course:Patient was admitted for management of bwerl osbtruction related to crohn's and while still been treated and evaluated, she has decided that she doesn't want to be in the hospital aneymore, that she feels better and wants to go home, surgeon Dr. Mello has seen her and was going to have Dr. Arnold, pt's surgeon reassess tomorrow, additionally GI was to see the patient for further management. I could not convince her to stay, she's of a sound laisha at this time, alert oriented to self, place and time and undertand the circumstances of her being here, she's able to repeat everything back in her own words, she understand her condition (bowel obstruction) can get worse and endangering her her health and life yet proceededto leave. Time Spent with Patient Time attestation: Total time managing care of this patient today ____ minutes. Discharge coordination time: Greater than 30 minutes Quality: Safe Use of Opioids Does Pt have an Active Cancer Diagnosis on the Problem List?: No Quality: Stroke Does the patient have a stroke diagnosis?: No Physical Exam Vital Signs: Vital Signs: Last Vital Signs Temp 98.4 F 06/01/22 08:23 Pulse 89 06/01/22 08:23 Resp 14 06/01/22 06:00 BP 170/101 H 06/01/22 08:23 Pulse Ox 97 06/01/22 08:23 O2 Del Method 06/01/22 08:23 BMI result Body Mass Index 40.6 DS: Data Data Completed and Pending Labs on day of discharge: Laboratory Results - last 24 hr 05/31/22 05/31/22 05/31/22 19:55 20:36 22:23 WBC 8.2 RBC 4.77 Hgb 11.7 L Hct 37.8 MCV 79.2 L MCH 24.5 L MCHC 31.0 RDW 13.3 Plt Count 374 MPV 9.1 L Immature Gran % (Auto) 0.2 Neut % (Auto) 85.2 H Lymph % (Auto) 6.5 L [place] % (Auto) 7.0 Eos % (Auto) 0.9 Baso % (Auto) 0.2 Lymph # (Auto) 0.5 L [place] # (Auto) 0.6 Eos # (Auto) 0.1 Baso # (Auto) 0.0 Abs Immat Gran (auto) 0.02 Absolute Neuts (auto) 7.0 Absolute Nucleated RBC 0.000 Nucleated RBC % (auto) 0.0 Sodium 140 Potassium 4.1 Chloride 106 Carbon Dioxide 22 Anion Gap 16 BUN 10 Creatinine 0.68 Estim Creat Clear Calc 139.7 Estimated GFR > 60 Random Glucose 114 Lactic Acid 0.7 Calcium 8.9 Magnesium 1.9 COVID-19 ([facility]I) COVID-19 Clin Com 05/31/22 06/01/22 06/01/22 22:26 06:51 06:51 WBC 6.7 RBC 4.56 Hgb 11.0 L Hct 36.5 L MCV 80.0 MCH 24.1 L MCHC 30.1 L RDW 13.4 Plt Count 398 MPV 9.3 L Immature Gran % (Auto) 0.4 Neut % (Auto) 86.3 H Lymph % (Auto) 7.0 L [place] % (Auto) 6.1 Eos % (Auto) 0.1 Baso % (Auto) 0.1 Lymph # (Auto) 0.5 L [place] # (Auto) 0.4 Eos # (Auto) 0.0 Baso # (Auto) 0.0 Abs Immat Gran (auto) 0.03 Absolute Neuts (auto) 5.8 Absolute Nucleated RBC 0.000 Nucleated RBC % (auto) 0.0 Sodium 138 Potassium 4.6 Chloride 106 Carbon Dioxide 23 Anion Gap 14 BUN 11 Creatinine 0.71 Estim Creat Clear Calc 133.8 Estimated GFR > 60 Random Glucose 128 H Lactic Acid Calcium 8.9 Magnesium COVID-19 ([facility]JI) Negative COVID-19 Clin Com See Note Discharge Plan Discharge Anticipated Discharge Date/Time: 06/01/22 12:00 Patient Disposition: Left Against Medical Advice Discharge Diagnosis: bowel obstruction due to crohn's Referrals: Physician,Unknown J [Primary Care Provider] - 1 Week Discharge Medications: Continued lisinopril 30 mg tablet 30 mg PO DAILY 90 Days Qty: 90 1RF albuterol sulfate 90 mcg/actuation aerosol powdr breath activated 2 inh inhalation Q6H PRN (Reason: shortness of breath or wheezing) Qty: 1 3RF infliximab [Remicade] 100 mg recon soln 100 mg IV Q8W Label Comments: Dr. Bowen ketotifen fumarate 0.025 % (0.035 %) drops 1 drp ophthalmic (eye) BID PRN (Reason: Dry Eye(S)) omeprazole 20 mg capsule,delayed release(DR/EC) 1 cap PO QAM furosemide 20 mg tablet 1 tab PO DAILY PRN (Reason: swelling) cyanocobalamin (vitamin B-12) [Vitamin B-12] 1,000 mcg tablet 1 tab PO DAILY Discharge Orders: Discharge Order (Routine); Ordered 06/01/22 Ordered By: Singh Grubbs Diet: unable to advise Activity on Discharge: As tolerated Stand Alone Forms: Against Medical Advice Care Plan Goals: AMA Health Concerns: AMA Plan of Treatment: You understand you are leaving against medical advice as we discussed and advised you to stay, you are assuming all risks, including the risk of worsening bowel obstruction and even the possibility of follow up with your doctor and Dr. Valencia, your GI doctor, you may call 911 or return to the emergency at any time, especially if you feel your condition is getting worse. Assessment: as above
--- NOTE | 2022-06-01 19:43 | PM.EVENT ---
Event Note Date of Service: 06/01/22 Event Note: GI-I came by to see the patient for a consult but she apparently left AMA earlier today. I reviewed Dr. Grubbs's note. I discussed this with the nursing staff and they confirmed that she is no longer here. I will make Dr. Bowen aware of her admission and need for follow up. Thanks Time Spent With Patient Time: Total time managing care of this patient today ____ minutes.
== END 2022-06-01 12:00 | disposition left against medical advice (07) | DRG 245 ==
LOC: HO.ED 22:14 → HO.EDOVER 22:21
PROVIDERS: Nurse Practitioner Family; Admitting Provider Student in an Organized Health Care Education/Training Program; Emergency Provider Internal Medicine; PCP Internal Medicine; Visit Provider Internal Medicine
DX: K50.912 Crohn's disease, unspecified, with intestinal obstruction (principal); E66.01 Morbid (severe) obesity due to excess calories; I10 Essential (primary) hypertension; Z20.822 Contact with and (suspected) exposure to COVID-19; Z68.41 Body mass index [BMI] 40.0-44.9, adult; Z87.891 Personal history of nicotine dependence; Z88.6 Allergy status to analgesic agent; Z79.620 Long term (current) use of immunosuppressive biologic; Z79.899 Other long term (current) drug therapy
CPT/HCPCS: 36415; 74177; 80048; 83605; 83735; 85025; 87040; 87635; 99285; J1956; J2270; J2405; Q9967

== ENCOUNTER 2022-06-16 08:13 | Outpatient (REF) | payer OTHER, SELFPAY | END 2022-06-16 08:14 | disposition home or self-care (01) | LOC: HO.LAB 08:13 | PROVIDERS: PCP Internal Medicine; Visit Provider Internal Medicine Gastroenterology | DX: K50.012 Crohn's disease of small intestine with intestinal obstruction (principal) | CPT/HCPCS: 36415; 80230; 81401; 82542; 83520; 88346; 88350 ==

== ENCOUNTER 2022-06-17 08:25 | Outpatient (REF) | payer OTHER, SELFPAY | END 2022-06-17 08:26 | disposition home or self-care (01) | LOC: HO.MDS 08:25 | PROVIDERS: Visit Provider Internal Medicine Gastroenterology | DX: K50.012 Crohn's disease of small intestine with intestinal obstruction (principal) | CPT/HCPCS: 96413; 96415; J1745 ==

== ENCOUNTER 2022-08-12 08:36 | Outpatient (REF) | payer OTHER, SELFPAY | END 2022-08-12 08:37 | disposition home or self-care (01) | LOC: HO.MDS 08:36 | PROVIDERS: Visit Provider Internal Medicine Gastroenterology | DX: K50.90 Crohn's disease, unspecified, without complications (principal) | CPT/HCPCS: 96413; 96415; J1745 ==

== ENCOUNTER 2022-09-08 11:45 | Outpatient (REF) | payer OTHER, SELFPAY ==
--- NOTE | ~2022-09-08 | XR_ITS ---
EXAMINATION: XR ABDOMEN COMPLETE CLINICAL INDICATION: Crohn's disease of the small intestine without obstruction COMPARISON: Previous CT of the abdomen and pelvis most recent May 2022 TECHNIQUE: 2 views of the abdomen. FINDINGS: There are dilated loops of small bowel with air-fluid levels. There is no evidence of free air. No calcifications. Post cholecystectomy. Bony structures are unremarkable. XR/XR abdomen min 2V IMPRESSION: Dilated small bowel with air-fluid levels. Differential would include small bowel obstruction and ileus. Imaging follow-up recommended.
[2022-09-08 12:49] LABS: Hematocrit 37.7 % (37.0-47.0); Hemoglobin 11.6 g/dl (12.0-16.0); Mean Corpuscular HGB Conc 30.8 g/dl (31.0-35.0); Mean Corpuscular Hemoglobin 24.3 pg (27.0-33.0); Mean Platelet Volume 9.1 fL (9.4-12.3); Platelet Count 465 X10*3/uL (160-400); Red Blood Count 4.77 X10*6/uL (4.20-5.50); Red Cell Distribution Width 13.6 % (11.0-16.0); White Blood Count 9.9 X10*3/uL (4.8-10.8)
[2022-09-08 13:19] LABS: Alanine Aminotransferase 18 U/L (0-31); Albumin Level 3.8 g/dL (3.5-5.0); Alkaline Phosphatase 81 U/L (39-117); Aspartate Amino Transferase 16 U/L (5-31); Bilirubin Direct 0.2 mg/dL (0.0-0.5); Bilirubin Total 0.5 mg/dL (0.0-1.0); C Reactive Protein 5.94 mg/dL (< or = 0.50); Lipase 13 U/L (8-78); Total Protein 7.1 g/dL (6.5-8.0)
[2022-09-08 13:27] LABS: Erythrocyte Sedimentation Rate 62 MM/HR (0-20)
== END 2022-09-08 11:46 | disposition home or self-care (01) ==
LOC: HO.XRAY 11:45
PROVIDERS: Visit Provider Internal Medicine Gastroenterology
DX: K50.012 Crohn's disease of small intestine with intestinal obstruction (principal)
CPT/HCPCS: 36415; 74019; 80076; 83690; 85027; 85652; 86140

== ENCOUNTER 2022-10-07 08:22 | Outpatient (REF) | payer OTHER, SELFPAY ==
[2022-10-07 08:46] LABS: MANUAL DIFF FLAG NO
[2022-10-07 08:59] LABS: Basophils Percent Auto 0.2 % (0-2); Eosinophils Absolute Auto 0.1 X10*3/uL (0.0-0.4); Eosinophils Percent Auto 0.8 % (0-4); Hematocrit 38.2 % (37.0-47.0); Hemoglobin 11.4 g/dl (12.0-16.0); Imm Gran Abs Auto 0.05 X10*3/uL (0.00-0.03); Imm Gran Pct Auto 0.5 % (0.0-0.4); Lymphocytes Percent Auto 10.5 % (20-40); Mean Corpuscular HGB Conc 29.8 g/dl (31.0-35.0); Mean Corpuscular Hemoglobin 24.6 pg (27.0-33.0); Mean Corpuscular Volume 82.3 fL (80.0-98.0); Mean Platelet Volume 9.7 fL (9.4-12.3); Monocytes Absolute Auto 0.5 X10*3/uL (0.1-1.2); Monocytes Percent Auto 5.7 % (2-11); Neutrophils Absolute Auto 7.5 x10*3/uL (2.0-8.3); Neutrophils Percent Auto 82.3 % (45-73); Platelet Count 308 X10*3/uL (160-400); Red Blood Count 4.64 X10*6/uL (4.20-5.50); Red Cell Distribution Width 13.5 % (11.0-16.0); White Blood Count 9.2 X10*3/uL (4.8-10.8)
[2022-10-07 09:25] LABS: Alanine Aminotransferase 14 U/L (0-31); Albumin Level 3.6 g/dL (3.5-5.0); Alkaline Phosphatase 63 U/L (39-117); Aspartate Amino Transferase 7 U/L (5-31); Bilirubin Direct 0.1 mg/dL (0.0-0.5); Bilirubin Total 0.4 mg/dL (0.0-1.0); C Reactive Protein 3.66 mg/dL (< or = 0.50); Lipase 16 U/L (8-78); Total Protein 7.3 g/dL (6.5-8.0)
[2022-10-07 09:37] LABS: Erythrocyte Sedimentation Rate 30 MM/HR (0-20)
== END 2022-10-07 08:23 | disposition home or self-care (01) ==
LOC: HO.LAB 08:22
PROVIDERS: PCP Internal Medicine; Visit Provider Internal Medicine Gastroenterology
DX: K50.012 Crohn's disease of small intestine with intestinal obstruction (principal)
CPT/HCPCS: 36415; 80076; 80230; 82542; 83690; 85025; 85652; 86140

== ENCOUNTER 2022-10-07 08:46 | Outpatient (REF) | payer OTHER, SELFPAY | END 2022-10-07 08:47 | disposition home or self-care (01) | LOC: HO.MDS 08:46 | PROVIDERS: Visit Provider Internal Medicine Gastroenterology | DX: K50.90 Crohn's disease, unspecified, without complications (principal) | CPT/HCPCS: 96413; 96415; J1745 ==

== ENCOUNTER 2022-10-27 23:55 | Emergency (ER) | payer OTHER, SELFPAY ==
[2022-10-27 23:59] VITALS: BP 189/103; PULSE 104; RESP 20; TEMP 36.8; O2SAT 96; BMI 41.0
[2022-10-28 01:47] LABS: Alanine Aminotransferase 20 U/L (0-31); Albumin Level 3.6 g/dL (3.5-5.0); Alkaline Phosphatase 74 U/L (39-117); Anion Gap 13 (12-20); Aspartate Amino Transferase 16 U/L (5-31); Bilirubin Total 0.3 mg/dL (0.0-1.0); Blood Urea Nitrogen 9 mg/dL (9-16); Calcium 9.2 mg/dL (8.4-10.2); Carbon Dioxide 26 mmol/L (22-29); Chloride 108 mmol/L (96-108); Creatinine Clr Calc Pharmacy 114.9; Estimated Glomerular Filt Rate > 60; Glucose Random 124 mg/dL (60-115); Potassium 3.5 mmol/L (3.3-5.1); Sodium 143 mmol/L (135-145); Total Protein 7.3 g/dL (6.5-8.0)
[2022-10-28 03:12] VITALS: O2SAT 97
[2022-10-28 03:30] VITALS: BP 174/108; PULSE 102; RESP 20; TEMP 37.4; O2SAT 97
--- NOTE | 2022-10-28 03:54 | PC.NURSE ---
Pt A&Ox4, denies any pain, reports dry cough, SOB x Thursday denies any sick contact. Lung sounds clear, RR 20, O2 sat 97% on RA, no respiratory distress noted, Pt sitting up on stretcher. Pt ambulated independently to .
--- NOTE | 2022-10-28 05:54 | ED.URI ---
HPI - URI/Sore Throat General Chief Complaint: Upper Respiratory Symptoms Stated Complaint: Cough/Asthma Time Seen by Provider: 10/28/22 05:41 Source: patient Mode of arrival: ambulatory Limitations: no limitations History of Present Illness HPI Narrative: Patient comes emergency room complaining of dry cough, shortness of breath after coughing spells. Patient states she has been coughing for about 4 days now. Denies wheezing, no chest pain. Related Data Home Medications Medication Instructions Recorded Confirmed infliximab 100 mg intravenous 100 mg IV Q8W 05/23/21 08/04/22 solution (Remicade) ketotifen fumarate 0.025 % (0.035 1 drp ophthalmic (eye) BID PRN Dry 02/04/22 08/04/22 %) eye drops Eye(S) cyanocobalamin (vitamin B-12) 1 tab PO DAILY 06/01/22 08/04/22 1,000 mcg tablet (Vitamin B-12) furosemide 20 mg tablet 1 tab PO DAILY PRN swelling 06/01/22 08/04/22 omeprazole 20 mg capsule,delayed 1 cap PO QAM 06/01/22 08/04/22 release Previous Rx's Medication Instructions Recorded lisinopril 30 mg tablet 30 mg PO DAILY 90 days #90 tabs 09/07/21 albuterol sulfate 90 mcg/actuation 2 inh inhalation Q6H PRN shortness 12/27/21 breath activated powder inhaler of breath or wheezing #1 ea ferrous sulfate 325 mg (65 mg 325 mg PO DAILY 30 days #30 tabs 06/24/22 iron) tablet doxycycline hyclate 100 mg capsule 100 mg PO BID #14 caps 10/28/22 Allergies Allergy/AdvReac Type Severity Reaction Status Date / Time aspirin [Aspirin] Allergy Mild EYES SWELL Verified 05/29/22 14:16 [email or web address] Allergy Intermediate Rash Uncoded 05/29/22 14:16 SEASONAL ALLERGIES Allergy Unknown TRIGGERS Uncoded 05/29/22 14:16 ASTHMA ATTACKS Review of Systems Review of Systems: Constitutional : No Weight loss, No Fever, No Chills, No Night Sweats, No Fatigue, No Malaise ENT/Mouth : No Hearing loss, No Ear Pain, No Nasal Congestion, No Sinus Pain, No Hoarseness, No sore throat, No Rhinorrhea, No Swallowing Difficulty Eyes: No Eye Pain, No Swelling, No Redness, No Foreign Body, No Discharge, No Vision Changes Cardiovascular : No Chest Pain, No SOB, No Dyspnea on Exertion, No Orthopnea, No Edema, No Palpitations Respiratory : Complaining of dry cough, no wheezing, shortness of breath after heavy coughing Gastrointestinal : No Nausea, No Vomiting, No Diarrhea, No Constipation, No abdominal Pain, No Hematochezia, No Melena Genitourinary : no irregular bleeding, No Dysuria, No Urinary Frequency, No Hematuria, No Urinary Incontinence, No Urgency, No Flank Pain, No Urinary Flow Changes, No Hesitancy Musculoskeletal : No joint pain, No Myalgias, No Joint Swelling Skin : No Skin Lesions, No rash Neuro : No Weakness, No Numbness, No Paresthesias, No Loss of Consciousness, No Dizziness, No Headache Psych : No Anxiety/Panic, No Depression, No SI/HI/AH/VH, No Social Issues, Heme/Lymph: No Bruising, No Bleeding,No Lymphadenopathy Endocrine : No Polyuria, No Polydipsia, No Temperature Intolerance PMFSH Past Medical History Medical History Anemia Asthma Benign essential hypertension Breast nodule Crohn's disease Obesity (BMI 30-39.9) Uterine fibroid Surgical History Hx of section Hx of cholecystectomy Hx of colonoscopy Hx of tubal ligation Family History Family History Mother Diabetes HTN (hypertension) Parkinson disease Father Hyperthyroidism Social History Social History Household Members: Spouse and Children Housing: House Do you presently have visiting nurse or other home services: No Alcohol intake: never Patient Tobacco Use Status: Former Tobacco user Quit Date: 6 YRS AGO Tobacco use type: Cigarette Smoked in Last 30 Days: No Second Hand Smoke Exposure: Yes Use of substances other than those prescribed or required for medical reasons: No Advance Directives: Yes Advance Directives on File: Yes Advance Directives Date on File: 09/21/20 Patient : No service: No Current occupational status: employed Current occupation: [employer] Sexual orientation: Straight/Heterosexual Cognitive needs: No Hearing needs: No Vision needs: Yes Physical Exam Vital Signs: Vital Signs: Last Vital Signs Temp 99.3 F 10/28/22 03:30 Pulse 102 H 10/28/22 03:30 Resp 20 10/28/22 03:30 BP 174/108 H 10/28/22 03:30 Pulse Ox 97 10/28/22 03:30 O2 Del Method Room Air 10/28/22 03:30 BMI result Body Mass Index 41.0 Const: Other: Appearance: Alert. Oriented X3. No acute distress. Eyes: Pupils equal, round and reactive to light. ENT: Pharynx normal. Neck: Normal inspection. Neck supple. No lymph nodes noted. No crepitus CVS: Normal heart rate and rhythm. Pulses normal. Normal S1 and S2 Respiratory: No respiratory distress. Breath sounds normal. No Wheezing. No rales Abdomen: Soft and nontender. No rigidity. No distention. Skin: Skin warm and dry. Normal skin color. Normal skin turgor. Extremities: No lower extremity edema. No Lacerations. No Rash Neuro: Oriented X 3. No motor deficit. No sensory deficit. Moving all extremities. No slurred speech. CN 2 through 12 grossly intact Psych: calm, cooperative, normal affect Medical Decision Making Medical Decision Making [facility] Narrative: -my interpretation of chest x-ray: Possible left lower lobe pneumonia -patient given 1 dose of doxycycline -patient's oxygen saturation remains at 96% Differential Diagnosis Differential Diagnoses: The differential diagnosis associated with the presentation includes (Asthma exacerbation, pneumonia, viral syndrome) Lab Data [facility] Lab Attestation statement: I reviewed the patient's lab results. 10/28/22 01:25 10/28/22 01:25 Labs: Lab Results 10/28/22 10/28/22 10/28/22 Range/Units 01:25 01:25 01:25 WBC 6.0 (4.8-10.8) X10*3/uL RBC 4.38 (4.20-5.50) X10*6/uL Hgb 10.6 L (12.0-16.0) g/dl Hct 35.8 L (37.0-47.0) % MCV 81.7 (80.0-98.0) fL MCH 24.2 L (27.0-33.0) pg MCHC 29.6 L (31.0-35.0) g/dl RDW 13.2 (11.0-16.0) % Plt Count 303 (160-400) X10*3/uL MPV 9.0 L (9.4-12.3) fL Immature Gran % (Auto) 0.5 H (0.0-0.4) % Neut % (Auto) 79.4 H (45-73) % Lymph % (Auto) 7.7 L (20-40) % [place] % (Auto) 10.7 (2-11) % Eos % (Auto) 1.2 (0-4) % Baso % (Auto) 0.5 (0-2) % Lymph # (Auto) 0.5 L (1.2-4.9) X10*3/uL [place] # (Auto) 0.6 (0.1-1.2) X10*3/uL Eos # (Auto) 0.1 (0.0-0.4) X10*3/uL Baso # (Auto) 0.0 (0.0-0.2) X10*3/uL Abs Immat Gran (auto) 0.03 (0.00-0.03) X10*3/uL Absolute Neuts (auto) 4.8 (2.0-8.3) x10*3/uL Absolute Nucleated RBC 0.000 (0.0-0.012) X10*3/uL Nucleated RBC % (auto) 0.0 (0.0-0.2) /100WBC Sodium 143 (135-145) mmol/L Potassium 3.5 D (3.3-5.1) mmol/L Chloride 108 (96-108) mmol/L Carbon Dioxide 26 (22-29) mmol/L Anion Gap 13 (12-20) BUN 9 (9-16) mg/dL Creatinine 0.83 (0.5-1.4) mg/dL Estim Creat Clear Calc 114.9 Estimated GFR > 60 Random Glucose 124 H (60-115) mg/dL Calcium 9.2 (8.4-10.2) mg/dL Total Bilirubin 0.3 (0.0-1.0) mg/dL AST 16 (5-31) U/L ALT 20 (0-31) U/L Alkaline Phosphatase 74 (39-117) U/L Total Protein 7.3 (6.5-8.0) g/dL Albumin 3.6 (3.5-5.0) g/dL Influenza Type A (PCR) NEGATIVE (Negative) Influenza Type B (PCR) NEGATIVE (Negative) RSV RNA Qual (PCR) NEGATIVE (Negative) SARS-CoV-2 RNA (RT-PCR) NEGATIVE (Negative) Radiology Impression Discussion of test interpretation with radiology: I have reviewed the radiologist's reading. Radiologist Impression: INDINGS: New patchy consolidation is present in the left lower lobe with some increased density seen in the right lower lobe as well. Heart size normal. No evidence CHF. No pleural effusions. XR/XR chest 2V IMPRESSION: Left lower lobe pneumonia. Some additional opacity at the lung bases may represent atelectasis. Discharge Plan Discharge Clinical Impression: Pneumonia Patient Disposition: Home, Self-Care Instructions: Pneumonia (ED) Additional Instructions: Please follow-up with your primary care physician tomorrow. If you have any worsening or new symptoms, please return to the emergency room or call 911 Prescriptions: New doxycycline hyclate 100 mg capsule 100 mg PO BID Qty: 14 0RF No Action lisinopril 30 mg tablet 30 mg PO DAILY 90 Days Qty: 90 1RF albuterol sulfate 90 mcg/actuation aerosol powdr breath activated 2 inh inhalation Q6H PRN (Reason: shortness of breath or wheezing) Qty: 1 3RF ferrous sulfate 325 mg (65 mg iron) tablet 325 mg PO DAILY 30 Days Qty: 30 5RF infliximab [Remicade] 100 mg recon soln 100 mg IV Q8W Patient Comments: Dr. Bowen ketotifen fumarate 0.025 % (0.035 %) drops 1 drp ophthalmic (eye) BID PRN (Reason: Dry Eye(S)) omeprazole 20 mg capsule,delayed release(DR/EC) 1 cap PO QAM furosemide 20 mg tablet 1 tab PO DAILY PRN (Reason: swelling) cyanocobalamin (vitamin B-12) [Vitamin B-12] 1,000 mcg tablet 1 tab PO DAILY
[2022-10-28 06:00] VITALS: BP 179/104; PULSE 105; RESP 18; TEMP 36.8; O2SAT 94
== END 2022-10-28 06:11 | disposition home or self-care (01) ==
PROVIDERS: Emergency Provider Emergency Medicine; PCP Internal Medicine
DX: J18.9 Pneumonia, unspecified organism (principal); R05.9 Cough, unspecified; R06.02 Shortness of breath; Z79.899 Other long term (current) drug therapy; Z20.822 Contact with and (suspected) exposure to COVID-19
CPT/HCPCS: 0241U; 71046; 80053; 85025; 99283; 99284

== ENCOUNTER 2022-11-06 12:46 | Inpatient (IN) | payer MEDICAID, SELFPAY ==
--- NOTE | ~2022-11-06 | CT_ITS ---
EXAMINATION: CT ABDOMEN AND PELVIS WITH CONTRAST CLINICAL INFORMATION: Abdominal pain with history of Crohn's disease COMPARISON: CT abdomen pelvis 05/31/2022 TECHNIQUE: Multidetector volumetric images were obtained from the superior aspect of the liver through the pubic symphysis following administration 85 mL of Omnipaque 350 intravenous contrast. Sagittal and coronal reformatted images were obtained on the technologist's workstation. Oral contrast: No This CT examination was performed using dose optimization techniques as appropriate, variously including the following: *Automated exposure control *Adjustment of mA and/or kV according to patient size (this includes techniques or standardized protocols for targeted exams where dose is matched to indication/reason for exam; i.e. extremities or head) *Use of iterative reconstruction technique DLP: 962 mGy-cm FINDINGS: LUNG BASES: Bibasilar atelectasis is present, left greater than right. No pleural effusions are cyst LIVER, GALLBLADDER, AND BILIARY TREE: Again seen is hepatomegaly with the liver measuring about 21 cm in greatest length. No liver masses or bile duct dilatation is seen. Status post cholecystectomy PANCREAS: Unremarkable. SPLEEN: Unremarkable. ADRENAL GLANDS: Unremarkable. KIDNEYS AND URETERS: The kidneys are normal in size, shape, and attenuation. There is a single ill-defined area of low attenuation in the mid left kidney which was also seen previously and is of questionable significance (3:37). No worrisome renal masses are seen. There is a single 1 to 2 mm nonobstructing calculus present at the lower pole of the left kidney not appreciated previously (4:334). No hydronephrosis, hydroureter, or additional calculi seen. No perinephric stranding. BLADDER: Unremarkable. GASTROINTESTINAL TRACT: Once again seen are abnormally dilated loops of small bowel involving the distal ileum. At the time of the prior study, significantly more loops of small bowel were dilated. The cause of this is again noted to be a marked inflammatory process involving the cecum and terminal ileum with redemonstration of the terminal ileal stricture (7:52). Fistulous tracks to other bowel loops could be present but are not well characterized on this study. A number of small bowel loops appear to be tethered together in the pelvis, similar to prior, with thickened chandler. Enteric fistula cannot be excluded. 2 small loculated fluid collections in the pelvis are unchanged compared to the prior study, the largest measuring about 3.7 cm with no air or surrounding inflammatory change to suggest an abscess. No free intraperitoneal air. ABDOMINAL WALL: No significant hernia is appreciated. LYMPH NODES: No retroperitoneal lymphadenopathy. VASCULAR: Unremarkable. No portal venous gas. PELVIC VISCERA: An anteverted uterus is present with a calcified 1.5 cm fundal fibroid, unchanged. A 1.8 cm benign left adnexal cyst is again noted and unremarkable An abnormal adnexal mass or free intraperitoneal fluid is not seen. OSSEOUS STRUCTURES: Unremarkable. The SI joints appear normal. CT/CT abdomen pelvis w IV con IMPRESSION: 1. There is small bowel obstruction secondary to inflammatory process involving the cecum and terminal ileum with terminal ileal stricture. However, appearances are not nearly as bad as they were on the 05/31/2022 study. 2. 2 small loculated fluid collections in the pelvis are unchanged. 3. Other incidental findings as described above including hepatomegaly, cholecystectomy, benign left adnexal cyst and calcified uterine fibroid. Fleischner guidelines were followed.
[2022-11-06 13:10] VITALS: BP 220/113; PULSE 90
[2022-11-06 13:19] VITALS: BP 180/101; PULSE 94; RESP 18; TEMP 37.1; O2SAT 96; BMI 40.5
--- NOTE | 2022-11-06 13:32 | ED.ABDPAIN ---
HPI - Abdominal Pain General Chief Complaint: Abdominal Pain Stated Complaint: buq pain,h/o crohn's per ems Time Seen by Provider: 11/06/22 13:26 Source: patient Limitations: no limitations History of Present Illness HPI narrative: This is 42 years old female with history of Crohn's disease presented to the emergency department complaining of abdominal pain ongoing for a couple of days, she denies any vomiting any diarrhea any fever. She is on Remicade that she takes twice a month. MD elicited complaint: abdominal pain Onset (ago): day(s) (2) Pain Consistency: constant Location: diffuse Severity: moderate Quality: cramping Migration to: no migration Related Data Home Medications Medication Instructions Recorded Confirmed infliximab 100 mg intravenous 100 mg IV Q6W 05/23/21 11/06/22 solution (Remicade) ketotifen fumarate 0.025 % (0.035 1 drp ophthalmic (eye) BID PRN Dry 02/04/22 11/06/22 %) eye drops Eye(S) cyanocobalamin (vitamin B-12) 1 tab PO DAILY 06/01/22 11/06/22 1,000 mcg tablet (Vitamin B-12) furosemide 20 mg tablet 1 tab PO DAILY PRN swelling 06/01/22 11/06/22 omeprazole 20 mg capsule,delayed 1 cap PO DAILY@0630 06/01/22 11/06/22 release acetaminophen 500 mg tablet 1,000 mg PO Q6H PRN Pain 11/06/22 11/06/22 cholecalciferol (vitamin D3) 25 25 mcg PO DAILY 11/06/22 11/06/22 mcg (1,000 unit) tablet (Vitamin D3) fexofenadine 180 mg tablet 180 mg PO DAILY PRN Allergy 11/06/22 11/06/22 ([place] Allergy) Symptoms Previous Rx's Medication Instructions Recorded lisinopril 30 mg tablet 30 mg PO DAILY 90 days #90 tabs 09/07/21 albuterol sulfate 90 mcg/actuation 2 inh inhalation Q6H PRN shortness 12/27/21 breath activated powder inhaler of breath or wheezing #1 ea Allergies Allergy/AdvReac Type Severity Reaction Status Date / Time aspirin [Aspirin] Allergy Mild EYES SWELL Verified 11/06/22 13:18 zucchini Allergy Intermediate Rash Uncoded 05/29/22 14:16 SEASONAL ALLERGIES Allergy Unknown TRIGGERS Uncoded 05/29/22 14:16 ASTHMA ATTACKS Review of Systems Constitutional: Reports no additional constitutional complaints Cardiovascular: Reports no additional cardiovascular complaints Gastrointestinal: Reports abdominal pain PMFSH Past Medical History Attestation statement: The following information was validated with the patient. Medical History Anemia Asthma Benign essential hypertension Breast nodule Crohn's disease Obesity (BMI 30-39.9) Uterine fibroid Surgical History Hx of section Hx of cholecystectomy Hx of colonoscopy Hx of tubal ligation Family History Family History Mother Diabetes HTN (hypertension) Parkinson disease Father Hyperthyroidism Social History Social History Household Members: Spouse and Children Housing: House Do you presently have visiting nurse or other home services: No Alcohol intake: never Patient Tobacco Use Status: Former Tobacco user Quit Date: 6 YRS AGO Tobacco use type: Cigarette Second Hand Smoke Exposure: Yes Advance Directives: Yes Advance Directives on File: Yes Advance Directives Date on File: 09/21/20 service: No Current occupational status: employed 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 Sexual orientation: Straight/Heterosexual Cognitive needs: No Hearing needs: No Vision needs: Yes Physical Exam ED Vital Signs: Vital Signs - 24 hr 11/06/22 13:19 11/06/22 14:39 11/06/22 16:04 Temperature 98.7 F 97.3 F Pulse Rate 94 86 90 Respiratory Rate 18 12 18 Blood Pressure 180/101 H 163/90 H 167/97 H Pulse Oximetry 96 98 93 Oxygen Delivery Method Room Air Room Air Room Air BMI result Body Mass Index 40.5 Const General: cooperative Nutritional Appearance: well nourished Orientation/consciousness: patient oriented x3 Limitations: no limitations HENMT Head: Yes normal to inspection General nose exam: Normal external nose present Face and sinus: Yes normal facial exam Mouth: Normal oral and palatal mucosa present Neck Neck: Yes normal visual inspection and Yes full ROM Chest Chest palpation & inspection: normal inspection of the chest Resp Effort & Inspection: normal respiratory effort and able to speak in complete sentences Auscultation: clear to auscultation bilaterally Cardio Jugular venous distension: no JVD Rate: regular rate Rhythm: regular rhythm GI Palpation (GI): Soft to palpation, not firm, nontender and no guarding Skin General skin exam: no rashes or lesions noted, elasticity normal and turgor normal Lesions: no lesions Rashes: no rashes Neuro General: patient oriented x3 Course Reevaluation(s) Reevaluation #1: spoke with Dr Rowell to admit to medicine Time: 17:17 Reevaluation #2: spoke with CHANG Ram Time: 17:36 Medical Decision Making Medical Decision Making [facility] Narrative: Patient presented with abdominal pain and she has history of Crohn's disease again labs I think we should get imaging as well she had bowel obstruction in the past and the last scan was in May Differential Diagnosis Differential Diagnoses: The differential diagnosis associated with the presentation includes Exacerbation of Crohn's/small bowel obstruction, perforated bowels Admission/Observation Consideration of admission/observation: Escalation of care including admission/observation considered Consult Healthcare Provider Management of the patient was discussed with: Hospitalist and Ride Operator spoke with surgeon/ GI/Hospitalist Lab Data [facility] Lab Attestation statement: I reviewed the patient's lab results. 11/06/22 14:18 / 14:18 Labs: Lab Results 11/06/22 11/06/22 11/06/22 Range/Units 14:18 14:18 14:18 WBC 12.0 H (4.8-10.8) X10*3/uL RBC 4.59 (4.20-5.50) X10*6/uL Hgb 11.3 L (12.0-16.0) g/dl Hct 36.5 L (37.0-47.0) % MCV 79.5 L (80.0-98.0) fL MCH 24.6 L (27.0-33.0) pg MCHC 31.0 (31.0-35.0) g/dl RDW 13.2 (11.0-16.0) % Plt Count 383 D (160-400) X10*3/uL MPV 9.2 L (9.4-12.3) fL Immature Gran % (Auto) 0.5 H (0.0-0.4) % Neut % (Auto) 85.3 H (45-73) % Lymph % (Auto) 7.5 L (20-40) % [place] % (Auto) 6.1 (2-11) % Eos % (Auto) 0.3 (0-4) % Baso % (Auto) 0.3 (0-2) % Lymph # (Auto) 0.9 L (1.2-4.9) X10*3/uL [place] # (Auto) 0.7 (0.1-1.2) X10*3/uL Eos # (Auto) 0.0 (0.0-0.4) X10*3/uL Baso # (Auto) 0.0 (0.0-0.2) X10*3/uL Abs Immat Gran (auto) 0.06 H (0.00-0.03) X10*3/uL Absolute Neuts (auto) 10.2 H (2.0-8.3) x10*3/uL Absolute Nucleated RBC 0.000 (0.0-0.012) X10*3/uL Nucleated RBC % (auto) 0.0 (0.0-0.2) /100WBC Sodium 140 (135-145) mmol/L Potassium 3.7 (3.3-5.1) mmol/L Chloride 108 (96-108) mmol/L Carbon Dioxide 24 (22-29) mmol/L Anion Gap 12 (12-20) BUN 11 (9-16) mg/dL Creatinine 0.67 (0.5-1.4) mg/dL Estim Creat Clear Calc 141.4 Estimated GFR > 60 Random Glucose 96 (60-115) mg/dL Calcium 9.4 (8.4-10.2) mg/dL Total Bilirubin 0.4 (0.0-1.0) mg/dL AST 10 (5-31) U/L ALT 11 (0-31) U/L Alkaline Phosphatase 66 (39-117) U/L C-Reactive Protein 2.93 H (< or = 0.50) mg/dL Total Protein 7.4 (6.5-8.0) g/dL Albumin 3.5 (3.5-5.0) g/dL Lipase 10 (8-78) U/L Beta HCG, Quant < 2 mIU/mL Urine Color Urine Appearance Urine pH (5.0-9.0) Ur Specific [place] (1.005-1.025) Urine Protein (Neg-Trace) mg/dL Urine Glucose (UA) (Negative) mg/dL Urine Ketones (Negative) mg/dL Urine Blood (Negative) Urine Nitrite (Negative) Ur Leukocyte Esterase (Negative) Urine RBC (0-2) /HPF Urine WBC (0-5) /HPF Ur Squamous Epith Cells (0-2) /HPF Urine Bacteria (None Seen) Hyaline Casts (0-2) /LPF 11/06/22 Range/Units 14:28 WBC (4.8-10.8) X10*3/uL RBC (4.20-5.50) X10*6/uL Hgb (12.0-16.0) g/dl Hct (37.0-47.0) % MCV (80.0-98.0) fL MCH (27.0-33.0) pg MCHC (31.0-35.0) g/dl RDW (11.0-16.0) % Plt Count (160-400) X10*3/uL MPV (9.4-12.3) fL Immature Gran % (Auto) (0.0-0.4) % Neut % (Auto) (45-73) % Lymph % (Auto) (20-40) % [place] % (Auto) (2-11) % Eos % (Auto) (0-4) % Baso % (Auto) (0-2) % Lymph # (Auto) (1.2-4.9) X10*3/uL [place] # (Auto) (0.1-1.2) X10*3/uL Eos # (Auto) (0.0-0.4) X10*3/uL Baso # (Auto) (0.0-0.2) X10*3/uL Abs Immat Gran (auto) (0.00-0.03) X10*3/uL Absolute Neuts (auto) (2.0-8.3) x10*3/uL Absolute Nucleated RBC (0.0-0.012) X10*3/uL Nucleated RBC % (auto) (0.0-0.2) /100WBC Sodium (135-145) mmol/L Potassium (3.3-5.1) mmol/L Chloride (96-108) mmol/L Carbon Dioxide (22-29) mmol/L Anion Gap (12-20) BUN (9-16) mg/dL Creatinine (0.5-1.4) mg/dL Estim Creat Clear Calc Estimated GFR Random Glucose (60-115) mg/dL Calcium (8.4-10.2) mg/dL Total Bilirubin (0.0-1.0) mg/dL AST (5-31) U/L ALT (0-31) U/L Alkaline Phosphatase (39-117) U/L C-Reactive Protein (< or = 0.50) mg/dL Total Protein (6.5-8.0) g/dL Albumin (3.5-5.0) g/dL Lipase (8-78) U/L Beta HCG, Quant mIU/mL Urine Color RED Urine Appearance Hazy Urine pH 6.5 (5.0-9.0) Ur Specific [place] 1.020 (1.005-1.025) Urine Protein 30 (1+) H (Neg-Trace) mg/dL Urine Glucose (UA) Negative (Negative) mg/dL Urine Ketones Trace (Negative) mg/dL Urine Blood Large (3+) H (Negative) Urine Nitrite Negative (Negative) Ur Leukocyte Esterase Negative (Negative) Urine RBC >20 H (0-2) /HPF Urine WBC 0-5 (0-5) /HPF Ur Squamous Epith Cells 3-5 (0-2) /HPF Urine Bacteria None Seen (None Seen) Hyaline Casts 0-2 (0-2) /LPF Independent Interpretation I performed an independent interpretation of an: CT Scan Interpretation: Reviwed and interpreted the CT scan myself Radiology Impression Discussion of test interpretation with radiology: I have reviewed the radiologist's reading. External Record Review External record reviewed: Inpatient record Chronic Conditions Chrohns Medications Administered Generic Name Dose Route Start Last Admin Trade Name Freq PRN Reason Stop Dose Admin Lactated Ringer's 1,000 mls @ 100 mls/hr 11/06/22 18:00 11/06/22 18:10 Lr IVCONT 100 mls/hr .Q10H JEFFERSON Administration Lidocaine 1 patch 11/06/22 18:00 11/06/22 18:09 Lidocaine 4 % Patch Adh..Patch TRANSDERMA 1 patch DAILY JEFFERSON Administration Protocol Methylprednisolone Sodium Succinate 60 mg 11/06/22 18:00 11/06/22 18:09 Methylprednisolone Sod Succ 125 Mg/2 Ml Vial IVPUSH 60 mg DAILY JEFFERSON Administration Discontinued Medications Generic Name Dose Route Start Last Admin Trade Name Alexey PRN Reason Stop Dose Admin Hydromorphone HCl 0.5 mg 11/06/22 17:07 11/06/22 17:48 Hydromorphone Hcl 0.5 Mg/0.5 Ml Syringe IVPUSH 11/06/22 17:08 0.5 mg ONCE ONE Administration Protocol Sodium Chloride 1,000 mls @ 999 mls/hr 11/06/22 13:30 11/06/22 15:59 Ns IVCONT 11/06/22 14:30 Infused .Q1H1M JEFFERSON Infusion Iohexol 100 ml 11/06/22 15:30 11/06/22 15:30 Iohexol 350 Mg/Ml 100 Ml Infus..Btl IV 11/06/22 15:31 85 ml ONCE ONE Administration Morphine Sulfate 4 mg 11/06/22 13:30 11/06/22 14:32 Morphine Sulfate 4 Mg/Ml Cartridge IVPUSH 11/06/22 13:31 4 mg ONCE ONE Administration Protocol Discharge Plan Discharge Clinical Impression: SBO (small bowel obstruction), Crohn's disease Patient Disposition: Admitted As Inpatient
[2022-11-06 14:23] LABS: MANUAL DIFF FLAG NO
[2022-11-06 14:26] LABS: Basophils Percent Auto 0.3 % (0-2); Eosinophils Percent Auto 0.3 % (0-4); Hematocrit 36.5 % (37.0-47.0); Hemoglobin 11.3 g/dl (12.0-16.0); Imm Gran Abs Auto 0.06 X10*3/uL (0.00-0.03); Imm Gran Pct Auto 0.5 % (0.0-0.4); Lymphocytes Absolute Auto 0.9 X10*3/uL (1.2-4.9); Lymphocytes Percent Auto 7.5 % (20-40); Mean Corpuscular Hemoglobin 24.6 pg (27.0-33.0); Mean Corpuscular Volume 79.5 fL (80.0-98.0); Mean Platelet Volume 9.2 fL (9.4-12.3); Monocytes Absolute Auto 0.7 X10*3/uL (0.1-1.2); Monocytes Percent Auto 6.1 % (2-11); Neutrophils Absolute Auto 10.2 x10*3/uL (2.0-8.3); Neutrophils Percent Auto 85.3 % (45-73); Platelet Count 383 X10*3/uL (160-400); Red Blood Count 4.59 X10*6/uL (4.20-5.50); Red Cell Distribution Width 13.2 % (11.0-16.0)
[2022-11-06] MEDS: Morphine Sulfate 4 MG/ML CARTRIDGE IVPUSH ×2 (14:32→22:20)
[2022-11-06] MEDS: 0.9 % Sodium Chloride 1,000 ML 999 ML IVCONT (14:33)
[2022-11-06 14:39] VITALS: BP 163/90; PULSE 86; RESP 12; O2SAT 98
[2022-11-06 14:40] LABS: Alanine Aminotransferase 11 U/L (0-31); Albumin Level 3.5 g/dL (3.5-5.0); Alkaline Phosphatase 66 U/L (39-117); Anion Gap 12 (12-20); Aspartate Amino Transferase 10 U/L (5-31); Bilirubin Total 0.4 mg/dL (0.0-1.0); Blood Urea Nitrogen 11 mg/dL (9-16); Calcium 9.4 mg/dL (8.4-10.2); Carbon Dioxide 24 mmol/L (22-29); Chloride 108 mmol/L (96-108); Creatinine Clr Calc Pharmacy 141.4; Estimated Glomerular Filt Rate > 60; Glucose Random 96 mg/dL (60-115); Lipase 10 U/L (8-78); Potassium 3.7 mmol/L (3.3-5.1); Sodium 140 mmol/L (135-145); Total Protein 7.4 g/dL (6.5-8.0)
[2022-11-06 14:46] LABS: Appearance Urine Hazy; Color Urine RED; Glucose Urine UA Negative (Negative); Leukocyte Esterase Urine Negative (Negative); Nitrite Urine Negative (Negative); PH 6.5 (5.0-9.0); UMIC TRIGGER UACC YES; Urine Blood Large (3+) (Negative); Urine Ketones Trace mg/dL (Negative); Urine Protein 30 (1+) mg/dL (Neg-Trace)
[2022-11-06 14:49] LABS: HCG Quantitative < 2 mIU/mL
[2022-11-06 14:50] LABS: Bacteria Urine None Seen (None Seen); Hyaline Casts Urine 0-2 /LPF (0-2); RBC Urine >20 /HPF (0-2); WBC Urine 0-5 /HPF (0-5)
[2022-11-06] MEDS: iohexoL 350 MG/ML 100 ML INFUS..BTL IV (15:30)
[2022-11-06 16:04] VITALS: BP 167/97; PULSE 90; RESP 18; TEMP 36.3; O2SAT 93
[2022-11-06] MEDS: HYDROmorphone HCl 0.5 MG/0.5 ML SYRINGE IVPUSH (17:48)
--- NOTE | 2022-11-06 17:55 | PHA.MEDREC ---
Pharmacy Consult ? Medication Reconciliation Pharmacy has completed the medication reconciliation. Spoke to patient to confirm meds.
[2022-11-06 17:57] VITALS: BP 171/100; PULSE 89; RESP 18; TEMP 36.2; O2SAT 95
--- NOTE | 2022-11-06 18:04 | PM.IMHP ---
History of Present Illness Date of Service: 11/06/22 Attending physician on admission: Stephanie Villaseñor Chief Complaint: Nausea vomiting, abdominal pain. 42-year-old female with pertinent history of Crohn's disease on Remicade, essential hypertension who presents to the emergency department for evaluation of abdominal pain.? Patient states she has been having upper abdominal pain this morning, she says pain has been constant, nonradiating, progressive and worse with p.o. intake.? Has been having associated nausea and episodes of nonbloody emesis.? Her last bowel movement was 1 day prior to presentation.? States she has had episodes of SBO due to Crohn's disease in the past.? She says that she was in the hospital few months back with similar episode that time she signed out against the medical advice afterwards she got steroids from her primary GI and subsequently was feeling better afterwards, but today morning suddenly her abdominal pain started again and had nausea vomiting as above so decided to come to the hospital. Denies fever, chills, chest discomfort, palpitations, shortness of breath, changes in urinary habits. Lab imaging reviewed: Mild white count of 12 Sodium 140 potassium 3.7 BUN and creatinine normal. CT/CT abdomen pelvis w IV con IMPRESSION: 1.? There is small bowel obstruction secondary to inflammatory process involving the cecum and terminal ileum with terminal ileal stricture. However, appearances are not nearly as bad as they were on the 05/31/2022 study. 2.? 2 small loculated fluid collections in the pelvis are unchanged. 3.? Other incidental findings as described above including hepatomegaly, cholecystectomy, benign left adnexal cyst and calcified uterine fibroid. ED physician discussed the case with surgery and GI: Currently recommended to start steroids, pain management and monitor clinically. Review of Systems Review of Systems: As above. [facility] Medical History Anemia Asthma Benign essential hypertension Breast nodule Crohn's disease Obesity (BMI 30-39.9) Uterine fibroid Family History Mother Diabetes HTN (hypertension) Parkinson disease Father Hyperthyroidism Surgical History Hx of section Hx of cholecystectomy Hx of colonoscopy Hx of tubal ligation Social History Household Members: Spouse and Children Housing: House Do you presently have visiting nurse or other home services: No Alcohol intake: never Patient Tobacco Use Status: Former Tobacco user Quit Date: 6 YRS AGO Tobacco use type: Cigarette Second Hand Smoke Exposure: Yes Advance Directives: Yes Advance Directives on File: Yes Advance Directives Date on File: 09/21/20 service: No Current occupational status: employed 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 Sexual orientation: Straight/Heterosexual Cognitive needs: No Hearing needs: No Vision needs: Yes Meds Allergies Allergy/AdvReac Type Severity Reaction Status Date / Time aspirin [Aspirin] Allergy Mild EYES SWELL Verified 11/06/22 13:18 zucchini Allergy Intermediate Rash Uncoded 05/29/22 14:16 SEASONAL ALLERGIES Allergy Unknown TRIGGERS Uncoded 05/29/22 14:16 ASTHMA ATTACKS Active Medications: Current Medications Capsaicin (Capsaicin 0.025% Cream 60 Gm Tube) 1 appl TOPICAL QID JEFFERSON; Protocol Lactated Ringer's (Lr) 1,000 mls @ 100 mls/hr IVCONT .Q10H JEFFERSON Lidocaine (Lidocaine 4 % Patch Adh..Patch) 1 patch TRANSDERMA DAILY JEFFERSON; Protocol Methylprednisolone Sodium Succinate (Methylprednisolone Sod Succ 125 Mg/2 Ml Vial) 60 mg IVPUSH DAILY [facility] Morphine Sulfate (Morphine Sulfate 4 Mg/Ml Cartridge) 4 mg IVPUSH Q8H PRN; Protocol PRN Reason: Pain, Mild (Pain Scale 1-3) Ondansetron HCl (Ondansetron Hcl 4 Mg/2 Ml Vial) 4 mg IVPUSH Q4H PRN PRN Reason: nausea Pharmacy Consult (Consult Rx Perform Med Rec) 1 each MISCELLANE ONCE PRN PRN Reason: Consult order Sodium Chloride (0.9 % Sodium Chloride Flush 3 Ml Syringe) 3 ml IVFLUSH QSHIFT [facility] Home Medications Medication Instructions Recorded Confirmed Last Taken Type infliximab 100 mg intravenous 100 mg IV Q6W 05/23/21 11/06/22 10/07/22 History solution (Remicade) ketotifen fumarate 0.025 % (0.035 1 drp ophthalmic (eye) BID PRN Dry 02/04/22 11/06/22 05/31/22 History %) eye drops Eye(S) cyanocobalamin (vitamin B-12) 1 tab PO DAILY 06/01/22 11/06/22 11/05/22 History 1,000 mcg tablet (Vitamin B-12) furosemide 20 mg tablet 1 tab PO DAILY PRN swelling 06/01/22 11/06/22 05/31/22 History omeprazole 20 mg capsule,delayed 1 cap PO DAILY@0630 06/01/22 11/06/22 11/05/22 History release acetaminophen 500 mg tablet 1,000 mg PO Q6H PRN Pain 11/06/22 11/06/22 Unknown History cholecalciferol (vitamin D3) 25 25 mcg PO DAILY 11/06/22 11/06/22 11/05/22 History mcg (1,000 unit) tablet (Vitamin D3) fexofenadine 180 mg tablet 180 mg PO DAILY PRN Allergy 11/06/22 11/06/22 Unknown History ([place] Allergy) Symptoms Physical Exam Vital Signs and Narrative: Vital Signs: Last Vital Signs Temp 97.1 F 11/06/22 17:57 Pulse 89 11/06/22 17:57 Resp 18 11/06/22 17:57 BP 171/100 H 11/06/22 17:57 Pulse Ox 95 11/06/22 17:57 O2 Del Method Room Air 11/06/22 17:57 BMI result Body Mass Index 40.5 Appearance: Alert.? Oriented X3.? not in distress.? Eyes: Pupils equal, round and reactive to light.? Sclera nonicteric.? ENT: Pharynx normal.? Moist mucous membranes. cvs: rrr, [id number] , no murmur res: clear to auscultation ,no rhonchii or wheezing abd: upper Abdomen with tenderness to mild palpation, no guarding, no rigidity, no rebound tenderness ext pulses present , no cyanosis neuro: axo3 , nonfocal. Results Labs 11/06/22 14:18 11/06/22 14:18 Labs: Laboratory Results - last 24 hr 11/06/22 11/06/22 11/06/22 14:18 14:18 14:18 MCV 79.5 L MCH 24.6 L MCHC 31.0 RDW 13.2 Plt Count 383 D MPV 9.2 L Immature Gran % (Auto) 0.5 H Neut % (Auto) 85.3 H Lymph % (Auto) 7.5 L Kane % (Auto) 6.1 Eos % (Auto) 0.3 Baso % (Auto) 0.3 Lymph # (Auto) 0.9 L [place] # (Auto) 0.7 Eos # (Auto) 0.0 Baso # (Auto) 0.0 Abs Immat Gran (auto) 0.06 H Absolute Neuts (auto) 10.2 H Absolute Nucleated RBC 0.000 Nucleated RBC % (auto) 0.0 Anion Gap 12 Estim Creat Clear Calc 141.4 Estimated GFR > 60 Random Glucose 96 Calcium 9.4 Total Bilirubin 0.4 AST 10 ALT 11 Alkaline Phosphatase 66 Total Protein 7.4 Albumin 3.5 Lipase 10 Beta HCG, Quant < 2 Urine Color Urine Appearance Urine pH Ur Specific [place] Urine Protein Urine Glucose (UA) Urine Ketones Urine Blood Urine Nitrite Ur Leukocyte Esterase Urine RBC Urine WBC Ur Squamous Epith Cells Urine Bacteria Hyaline Casts 11/06/22 14:28 MCV MCH MCHC RDW Plt Count MPV Immature Gran % (Auto) Neut % (Auto) Lymph % (Auto) [place] % (Auto) Eos % (Auto) Baso % (Auto) Lymph # (Auto) [place] # (Auto) Eos # (Auto) Baso # (Auto) Abs Immat Gran (auto) Absolute Neuts (auto) Absolute Nucleated RBC Nucleated RBC % (auto) Anion Gap Estim Creat Clear Calc Estimated GFR Random Glucose Calcium Total Bilirubin AST ALT Alkaline Phosphatase Total Protein Albumin Lipase Beta HCG, Quant Urine Color RED Urine Appearance Hazy Urine pH 6.5 Ur Specific [place] 1.020 Urine Protein 30 (1+) H Urine Glucose (UA) Negative Urine Ketones Trace Urine Blood Large (3+) H Urine Nitrite Negative Ur Leukocyte Esterase Negative Urine RBC >20 H Urine WBC 0-5 Ur Squamous Epith Cells 3-5 Urine Bacteria None Seen Hyaline Casts 0-2 Imaging Radiologist's Impressions: Impressions Abdomen/Pelvis CT 11/06/22 15:25 IMPRESSION: 1. There is small bowel obstruction secondary to inflammatory process involving the cecum and terminal ileum with terminal ileal stricture. However, appearances are not nearly as bad as they were on the 05/31/2022 study. 2. 2 small loculated fluid collections in the pelvis are unchanged. 3. Other incidental findings as described above including hepatomegaly, cholecystectomy, benign left adnexal cyst and calcified uterine fibroid. Fleischner guidelines were followed. Assessment and Plan (1) SBO (small bowel obstruction): Status: Acute (2) Crohn's disease: Status: Acute Plan 42-year-old female with pertinent history of Crohn's disease on Remicade, essential hypertension who presents to the emergency department for evaluation of abdominal pain. ? Small-bowel obstruction likely due to Crohn's flare:? initiate systemic IV steroids,iv fluids,zofran,morphine ,ngt suction if needed, Patient refused NG tube. ? Gastroenterology and surgery were consulted from the ER, appreciate assistance.?? Symptomatic management for now.? Will keep NPO for bowel rest. Essential hypertension:?elevated due to pain also if needed can use iv hydralazine Resume lisinopril once able to take p.o. DVT prophylaxis:? Mechanical NPO Full code Admit as inpatient and will require two night minimum hospital stay for IV steroids and management of SBO.? Specialist (surgery+GI)consult pending Time Spent With Patient Time: Total time managing care of this patient today ____ minutes. Quality Stroke Does the patient have a stroke diagnosis?: No VTE Prior VTE?: No VTE Risk Level:: Medical - moderate - high VTE Device Contraindication: N/A - Device Ordered VTE Drug Contraindication: N/A - Med Ordered
[2022-11-06] MEDS: methylPREDNISolone Sod Succ 125 MG/2 ML VIAL 60 MG IVPUSH (18:09)
[2022-11-06] MEDS: Lidocaine 4 % Patch ADH..PATCH 1 PATCH TRANSDERMA (18:09)
[2022-11-06] MEDS: Lactated Ringers 1,000 ML 100 ML IVCONT (18:10)
[2022-11-06 18:43] LABS: C Reactive Protein 2.93 mg/dL (< or = 0.50)
[2022-11-06 19:16] LABS: Erythrocyte Sedimentation Rate 44 MM/HR (0-20)
--- NOTE | 2022-11-06 19:37 | PC.NURSE ---
Pt resting in bed at this time, complaining of 5/10 pain in the lower abdomen. Pt was informed she is NPO and understands that she can not have anything by mouth. Pt is waiting a room assignment at this time. Report given to Dixie ANDERSON, pt will be moved to overflow bed 4.
[2022-11-06 19:59] VITALS: BP 170/96; PULSE 98; RESP 17; TEMP 36.2; O2SAT 95
[2022-11-07] VITALS (7 sets, daily range): BP systolic 163–186; BP diastolic 97–108; PULSE 95–110; RESP 16–20; TEMP 36.2–36.9; O2SAT 90–95
[2022-11-07] MEDS: Lactated Ringers 1,000 ML 100 ML IVCONT ×2 (03:58→14:23)
[2022-11-07] MEDS: Morphine Sulfate 4 MG/ML CARTRIDGE IVPUSH (04:13)
[2022-11-07 06:35] LABS: MANUAL DIFF FLAG NO
[2022-11-07 06:46] LABS: Basophils Percent Auto 0.2 % (0-2); Hematocrit 38.5 % (37.0-47.0); Hemoglobin 11.4 g/dl (12.0-16.0); Imm Gran Abs Auto 0.06 X10*3/uL (0.00-0.03); Imm Gran Pct Auto 0.7 % (0.0-0.4); Lymphocytes Absolute Auto 0.8 X10*3/uL (1.2-4.9); Lymphocytes Percent Auto 8.5 % (20-40); Mean Corpuscular HGB Conc 29.6 g/dl (31.0-35.0); Mean Corpuscular Hemoglobin 24.3 pg (27.0-33.0); Mean Corpuscular Volume 81.9 fL (80.0-98.0); Mean Platelet Volume 9.6 fL (9.4-12.3); Monocytes Absolute Auto 0.5 X10*3/uL (0.1-1.2); Monocytes Percent Auto 5.5 % (2-11); Neutrophils Absolute Auto 7.6 x10*3/uL (2.0-8.3); Neutrophils Percent Auto 85.1 % (45-73); Platelet Count 469 X10*3/uL (160-400); Red Cell Distribution Width 13.2 % (11.0-16.0); White Blood Count 8.9 X10*3/uL (4.8-10.8)
[2022-11-07 07:03] LABS: Anion Gap 15 (12-20); Blood Urea Nitrogen 11 mg/dL (9-16); C Reactive Protein 4.39 mg/dL (< or = 0.50); Calcium 9.5 mg/dL (8.4-10.2); Carbon Dioxide 23 mmol/L (22-29); Chloride 105 mmol/L (96-108); Creatinine Clr Calc Pharmacy 133.5; Estimated Glomerular Filt Rate > 60; Glucose Random 121 mg/dL (60-115); Sodium 139 mmol/L (135-145)
[2022-11-07 07:42] LABS: Erythrocyte Sedimentation Rate 54 MM/HR (0-20)
[2022-11-07] MEDS: Albuterol/Iprat 2.5/0.5MG 3 ML AMPUL.NEB INHALE ×4 (08:03→20:13)
[2022-11-07] MEDS: Lidocaine 4 % Patch ADH..PATCH 1 PATCH TRANSDERMA (08:43)
[2022-11-07] MEDS: methylPREDNISolone Sod Succ 125 MG/2 ML VIAL 60 MG IVPUSH (08:44)
--- NOTE | 2022-11-07 08:55 | PC.NURSE ---
called over the OR regarding patient's increased pain 10/[address] Cleaning is in OR today and message will be given per sales secretary. Has MS wilheml
[2022-11-07] MEDS: hydrALAZINE HCl 20 MG/ML VIAL 5 MG IVPUSH (09:31)
[2022-11-07] MEDS: HYDROmorphone HCl 1 MG/ML SYRINGE IVPUSH (09:40)
--- NOTE | 2022-11-07 09:40 | P.CONGS_ITS ---
History of Present Illness Consult details Consult date: 11/07/22 Narrative: Patient presents with a recurrence of her Crohn's disease symptoms. Patient has had longstanding history of inflammatory bowel disease/Crohn's involving the terminal ileum. Multiple admissions for flare ups which resolved with conservative/medical therapy. Chart was reviewed, patient evaluated. [facility] Past Medical History Medical History Anemia Asthma Benign essential hypertension Breast nodule Crohn's disease Obesity (BMI 30-39.9) Uterine fibroid Family History Family History Mother Diabetes HTN (hypertension) Parkinson disease Father Hyperthyroidism Surgical History Surgical History Hx of section Hx of cholecystectomy Hx of colonoscopy Hx of tubal ligation Social History Social History Household Members: Spouse and Children Housing: House Do you presently have visiting nurse or other home services: No Alcohol intake: never Patient Tobacco Use Status: Former Tobacco user Quit Date: 6 YRS AGO Tobacco use type: Cigarette Second Hand Smoke Exposure: Yes Advance Directives: Yes Advance Directives on File: Yes Advance Directives Date on File: 09/21/20 service: No Current occupational status: employed Current occupation: [employer] Sexual orientation: Straight/Heterosexual Cognitive needs: No Hearing needs: No Vision needs: Yes Meds Allergies Allergy/AdvReac Type Severity Reaction Status Date / Time aspirin [Aspirin] Allergy Mild EYES SWELL Verified 11/06/22 13:18 zucchini Allergy Intermediate Rash Uncoded 05/29/22 14:16 SEASONAL ALLERGIES Allergy Unknown TRIGGERS Uncoded 05/29/22 14:16 ASTHMA ATTACKS Active Medications: Current Medications Albuterol/Ipratropium (Albuterol/Iprat 2.5/0.5mg 3 Ml Ampul.Neb) 3 ml INHALE RQ4H [facility] Last Admin: 11/07/22 08:03 Dose: 3 ml Capsaicin (Capsaicin 0.025% Cream 60 Gm Tube) 1 appl TOPICAL QID [facility]; Protocol Last Admin: 11/07/22 04:00 Dose: Not Given Hydralazine HCl (Hydralazine Hcl 20 Mg/Ml Vial) 10 mg IVPUSH Q4H PRN; Protocol PRN Reason: htn Hydromorphone HCl (Hydromorphone Hcl 0.5 Mg/0.5 Ml Syringe) 0.5 mg IVPUSH Q4H PRN; Protocol PRN Reason: Pain, Mild (Pain Scale 1-3) Lactated Ringer's (Lr) 1,000 mls @ 100 mls/hr IVCONT .Q10H [facility] Last Admin: 11/07/22 03:58 Dose: 100 mls/hr Labetalol HCl (Labetalol Hcl 100 Mg Tablet) 100 mg PO BID [facility]; Protocol Lidocaine (Lidocaine 4 % Patch Adh..Patch) 1 patch TRANSDERMA DAILY [facility]; Protocol Last Admin: 11/07/22 08:43 Dose: 1 patch Methylprednisolone Sodium Succinate (Methylprednisolone Sod Succ 125 Mg/2 Ml Vial) 60 mg IVPUSH DAILY [facility] Last Admin: 11/07/22 08:44 Dose: 60 mg Ondansetron HCl (Ondansetron Hcl 4 Mg/2 Ml Vial) 4 mg IVPUSH Q4H PRN PRN Reason: nausea Pantoprazole Sodium (Pantoprazole Sodium 40 Mg/10 Ml Vial) 40 mg IVPUSH DAILY@06 [facility] Pharmacy Consult (Consult Rx Perform Med Rec) 1 each MISCELLANE ONCE PRN PRN Reason: Consult order Sodium Chloride (0.9 % Sodium Chloride Flush 3 Ml Syringe) 3 ml IVFLUSH QSHIFT [facility] Last Admin: 11/07/22 08:49 Dose: Not Given Home Medications Medication Instructions Recorded Confirmed Last Taken Type infliximab 100 mg intravenous 100 mg IV Q6W 05/23/21 11/06/22 10/07/22 History solution (Remicade) ketotifen fumarate 0.025 % (0.035 1 drp ophthalmic (eye) BID PRN Dry 02/04/22 11/06/22 05/31/22 History %) eye drops Eye(S) cyanocobalamin (vitamin B-12) 1 tab PO DAILY 06/01/22 11/06/22 11/05/22 History 1,000 mcg tablet (Vitamin B-12) furosemide 20 mg tablet 1 tab PO DAILY PRN swelling 06/01/22 11/06/22 05/31/22 History omeprazole 20 mg capsule,delayed 1 cap PO DAILY@0630 06/01/22 11/06/22 11/05/22 History release acetaminophen 500 mg tablet 1,000 mg PO Q6H PRN Pain 11/06/22 11/06/22 Unknown History cholecalciferol (vitamin D3) 25 25 mcg PO DAILY 11/06/22 11/06/22 11/05/22 History mcg (1,000 unit) tablet (Vitamin D3) fexofenadine 180 mg tablet 180 mg PO DAILY PRN Allergy 11/06/22 11/06/22 Unknown History ([place] Allergy) Symptoms Physical Exam Vital Signs: Vital Signs: Last Vital Signs Temp 97.2 F 11/07/22 06:19 Pulse 108 H 11/07/22 08:05 Resp 20 11/07/22 08:05 BP 163/102 H 11/07/22 06:19 Pulse Ox 93 11/07/22 06:19 O2 Del Method Room Air 11/07/22 06:19 BMI result Body Mass Index 40.5 GI: Other: Abdomen; corpulent, soft. Right mid abdomen/right lower quadrant localized tenderness. Results Labs 11/07/22 05:50 11/07/22 05:50 Labs: Abnormal lab results 11/06/22 11/06/22 11/06/22 Range/Units 14:18 14:18 14:18 WBC 12.0 H (4.8-10.8) X10*3/uL Hgb 11.3 L (12.0-16.0) g/dl Hct 36.5 L (37.0-47.0) % MCV 79.5 L (80.0-98.0) fL MCH 24.6 L (27.0-33.0) pg MCHC (31.0-35.0) g/dl Plt Count (160-400) X10*3/uL MPV 9.2 L (9.4-12.3) fL Immature Gran % (Auto) 0.5 H (0.0-0.4) % Neut % (Auto) 85.3 H (45-73) % Lymph % (Auto) 7.5 L (20-40) % Lymph # (Auto) 0.9 L (1.2-4.9) X10*3/uL Abs Immat Gran (auto) 0.06 H (0.00-0.03) X10*3/uL Absolute Neuts (auto) 10.2 H (2.0-8.3) x10*3/uL ESR 44 H (0-20) MM/HR Random Glucose (60-115) mg/dL C-Reactive Protein 2.93 H (< or = 0.50) mg/dL Urine Protein (Neg-Trace) mg/dL Urine Blood (Negative) Urine RBC (0-2) /HPF 11/06/22 11/07/22 11/07/22 Range/Units 14:28 05:50 05:50 WBC (4.8-10.8) X10*3/uL Hgb 11.4 L (12.0-16.0) g/dl Hct (37.0-47.0) % MCV (80.0-98.0) fL MCH 24.3 L (27.0-33.0) pg MCHC 29.6 L (31.0-35.0) g/dl Plt Count 469 H (160-400) X10*3/uL MPV (9.4-12.3) fL Immature Gran % (Auto) 0.7 H (0.0-0.4) % Neut % (Auto) 85.1 H (45-73) % Lymph % (Auto) 8.5 L (20-40) % Lymph # (Auto) 0.8 L (1.2-4.9) X10*3/uL Abs Immat Gran (auto) 0.06 H (0.00-0.03) X10*3/uL Absolute Neuts (auto) (2.0-8.3) x10*3/uL ESR (0-20) MM/HR Random Glucose 121 H (60-115) mg/dL C-Reactive Protein 4.39 H (< or = 0.50) mg/dL Urine Protein 30 (1+) H (Neg-Trace) mg/dL Urine Blood Large (3+) H (Negative) Urine RBC >20 H (0-2) /HPF 11/07/22 Range/Units 05:50 WBC (4.8-10.8) X10*3/uL Hgb (12.0-16.0) g/dl Hct (37.0-47.0) % MCV (80.0-98.0) fL MCH (27.0-33.0) pg MCHC (31.0-35.0) g/dl Plt Count (160-400) X10*3/uL MPV (9.4-12.3) fL Immature Gran % (Auto) (0.0-0.4) % Neut % (Auto) (45-73) % Lymph % (Auto) (20-40) % Lymph # (Auto) (1.2-4.9) X10*3/uL Abs Immat Gran (auto) (0.00-0.03) X10*3/uL Absolute Neuts (auto) (2.0-8.3) x10*3/uL ESR 54 H (0-20) MM/HR Random Glucose (60-115) mg/dL C-Reactive Protein (< or = 0.50) mg/dL Urine Protein (Neg-Trace) mg/dL Urine Blood (Negative) Urine RBC (0-2) /HPF Short CBC 11/06/22 11/07/22 Range/Units 14:18 05:50 WBC 12.0 H 8.9 (4.8-10.8) X10*3/uL Hgb 11.3 L 11.4 L (12.0-16.0) g/dl Hct 36.5 L 38.5 (37.0-47.0) % Plt Count 383 D 469 H (160-400) X10*3/uL BMP 11/06/22 11/07/22 14:18 05:50 Sodium 140 139 Potassium 3.7 4.0 Chloride 108 105 Carbon Dioxide 24 23 BUN 11 11 Creatinine 0.67 0.71 Calcium 9.4 9.5 Liver Function 11/06/22 Range/Units 14:18 Total Bilirubin 0.4 (0.0-1.0) mg/dL AST 10 (5-31) U/L ALT 11 (0-31) U/L Alkaline Phosphatase 66 (39-117) U/L Albumin 3.5 (3.5-5.0) g/dL Urine 11/06/22 Range/Units 14:28 Urine Color RED Urine Appearance Hazy Urine pH 6.5 (5.0-9.0) Ur Specific [place] 1.020 (1.005-1.025) Urine Protein 30 (1+) H (Neg-Trace) mg/dL Urine Glucose (UA) Negative (Negative) mg/dL All other labs normal. Assessment and Plan (1) Crohn's disease: Status: Acute (2) SBO (small bowel obstruction): Status: Acute Plan Crohn's disease flare up. Patient undergo restorative measures and GI consultation along with her medical management for this. At this time, no acute surgical issues. Will follow. Time Spent With Patient Time: Total time managing care of this patient today ____ minutes. Procedures Date of Service Date of Service: 11/07/22
[2022-11-07] MEDS: Pantoprazole Sodium 40 MG/10 ML VIAL IVPUSH (10:19)
[2022-11-07] MEDS: Labetalol HCL 100 MG TABLET PO ×2 (10:43→22:41)
[2022-11-07] MEDS: Capsaicin 0.025% Cream 60 GM TUBE 1 APPL TOPICAL ×2 (10:43→22:40)
--- NOTE | 2022-11-07 10:47 | PC.NURSE ---
abdomen is large round and firm with BS present in all 4 quadrants.
--- NOTE | 2022-11-07 11:50 | P.CDIM_ITS ---
PROVIDER RESPONSE TEXT: To clarify, the appropriate diagnosis supported by the clinical indicators: Morbid obesity QUERY TEXT: PHYSICIAN'S DOCUMENTATION REQUEST Date of Query: 11/07/2022 10:28 AM EDT Patient Name: Dirk Bolivar Admit Date: 11/06/2022 Dear Stephanie Villaseñor, A review of the medical record indicates additional documentation may be needed. Please review below and update the documentation accordingly. Clinical Indicators: BMI: 40.5 113.852kg 5ft 6in If possible, please provide an associated diagnosis related to the abnormal BMI, such as: Morbid obesity Obesity Due to other cause Specify the other cause Other Other (explain)Clinically unable to determine (explain)Thank you, Nicole Rangel, CCS, CDIS Use of terms such as suspected, likely, concern for, or probable (associated with a specific diagnosi s that is being evaluated, monitored, or treated as if it exists) are acceptable and can be coded in the inpatient se tting, when documented at the time of discharge. Please use your independent medical judgment in providing your response. THIS QUERY IS PART OF THE PERMANENT MEDICAL RECORD
--- NOTE | 2022-11-07 13:41 | HO.PM.IMPN ---
Subjective Subjective Date of Service: 11/07/22 Interval History: sbo Review of Systems Patient still has abdominal pain similar to yesterday, Not passing gases, denies any nausea vomiting. Physical Exam Vital Signs: Vital Signs: Last Vital Signs Temp 97.4 F 11/07/22 10:49 Pulse 110 H 11/07/22 11:15 Resp 16 11/07/22 11:15 BP 173/97 H 11/07/22 10:49 Pulse Ox 90 L 11/07/22 10:49 O2 Del Method Room Air 11/07/22 10:49 BMI result Body Mass Index 40.5 Appearance: Alert.? Oriented X3.? has abd pain cvs: rrr, [id number] . res: clear to auscultation ,no rhonchii or wheezing abd: no rebound or guarding ,nt, bs present. ext pulses present , no cyanosis . neuro: axo3 , nonfocal. Objective Data Active Medications Albuterol/Ipratropium (Albuterol/Iprat 2.5/0.5mg 3 Ml Ampul.Neb) 3 ml INHALE RQ4H [facility] Last Admin: 11/07/22 11:14 Dose: 3 ml Documented By: CHALO Capsaicin (Capsaicin 0.025% Cream 60 Gm Tube) 1 appl TOPICAL QID [facility]; Protocol Last Admin: 11/07/22 13:38 Dose: Not Given Documented By: BEATRIZ Non-Admin Reason: Patient Refused Hydralazine HCl (Hydralazine Hcl 20 Mg/Ml Vial) 10 mg IVPUSH Q4H PRN; Protocol PRN Reason: htn Hydromorphone HCl (Hydromorphone Hcl 0.5 Mg/0.5 Ml Syringe) 0.5 mg IVPUSH Q4H PRN; Protocol PRN Reason: Pain, Mild (Pain Scale 1-3) Lactated Ringer's (Lr) 1,000 mls @ 100 mls/hr IVCONT .Q10H [facility] Last Admin: 11/07/22 03:58 Dose: 100 mls/hr Documented By: LIZETT Labetalol HCl (Labetalol Hcl 100 Mg Tablet) 100 mg PO BID [facility]; Protocol Last Admin: 11/07/22 10:43 Dose: 100 mg Documented By: BEATRIZ Lidocaine (Lidocaine 4 % Patch Adh..Patch) 1 patch TRANSDERMA DAILY [facility]; Protocol Last Admin: 11/07/22 08:43 Dose: 1 patch Documented By: BEATRIZ Methylprednisolone Sodium Succinate (Methylprednisolone Sod Succ 125 Mg/2 Ml Vial) 60 mg IVPUSH DAILY [facility] Last Admin: 11/07/22 08:44 Dose: 60 mg Documented By: BEATRIZ Ondansetron HCl (Ondansetron Hcl 4 Mg/2 Ml Vial) 4 mg IVPUSH Q4H PRN PRN Reason: nausea Pantoprazole Sodium (Pantoprazole Sodium 40 Mg/10 Ml Vial) 40 mg IVPUSH DAILY@0630 [facility] Last Admin: 11/07/22 10:19 Dose: 40 mg Documented By: BEATRIZ Pharmacy Consult (Consult Rx Perform Med Rec) 1 each MISCELLANE ONCE PRN PRN Reason: Consult order Sodium Chloride (0.9 % Sodium Chloride Flush 3 Ml Syringe) 3 ml IVFLUSH QSHIFT [facility] Last Admin: 11/07/22 08:49 Dose: Not Given Documented By: BEATRIZ Non-Admin Reason: IV Running Labs 11/07/22 05:50 11/07/22 05:50 Labs: Laboratory Results - last 24 hr 11/06/22 11/06/22 11/06/22 14:18 14:18 14:18 MCV 79.5 L MCH 24.6 L MCHC 31.0 RDW 13.2 Plt Count 383 D MPV 9.2 L Immature Gran % (Auto) 0.5 H Neut % (Auto) 85.3 H Lymph % (Auto) 7.5 L [place] % (Auto) 6.1 Eos % (Auto) 0.3 Baso % (Auto) 0.3 Lymph # (Auto) 0.9 L [place] # (Auto) 0.7 Eos # (Auto) 0.0 Baso # (Auto) 0.0 Abs Immat Gran (auto) 0.06 H Absolute Neuts (auto) 10.2 H Absolute Nucleated RBC 0.000 Nucleated RBC % (auto) 0.0 ESR Anion Gap 12 Estim Creat Clear Calc 141.4 Estimated GFR > 60 Random Glucose 96 Calcium 9.4 Total Bilirubin 0.4 AST 10 ALT 11 Alkaline Phosphatase 66 C-Reactive Protein 2.93 H Total Protein 7.4 Albumin 3.5 Lipase 10 Beta HCG, Quant < 2 Urine Color Urine Appearance Urine pH Ur Specific [place] Urine Protein Urine Glucose (UA) Urine Ketones Urine Blood Urine Nitrite Ur Leukocyte Esterase Urine RBC Urine WBC Ur Squamous Epith Cells Urine Bacteria Hyaline Casts 11/06/22 11/06/22 11/07/22 14:18 14:28 05:50 MCV 81.9 MCH 24.3 L MCHC 29.6 L RDW 13.2 Plt Count 469 H MPV 9.6 Immature Gran % (Auto) 0.7 H Neut % (Auto) 85.1 H Lymph % (Auto) 8.5 L [place] % (Auto) 5.5 Eos % (Auto) 0.0 Baso % (Auto) 0.2 Lymph # (Auto) 0.8 L [place] # (Auto) 0.5 Eos # (Auto) 0.0 Baso # (Auto) 0.0 Abs Immat Gran (auto) 0.06 H Absolute Neuts (auto) 7.6 Absolute Nucleated RBC 0.000 Nucleated RBC % (auto) 0.0 ESR 44 H Anion Gap Estim Creat Clear Calc Estimated GFR Random Glucose Calcium Total Bilirubin AST ALT Alkaline Phosphatase C-Reactive Protein Total Protein Albumin Lipase Beta HCG, Quant Urine Color RED Urine Appearance Hazy Urine pH 6.5 Ur Specific [place] 1.020 Urine Protein 30 (1+) H Urine Glucose (UA) Negative Urine Ketones Trace Urine Blood Large (3+) H Urine Nitrite Negative Ur Leukocyte Esterase Negative Urine RBC >20 H Urine WBC 0-5 Ur Squamous Epith Cells 3-5 Urine Bacteria None Seen Hyaline Casts 0-2 11/07/22 11/07/22 05:50 05:50 MCV MCH MCHC RDW Plt Count MPV Immature Gran % (Auto) Neut % (Auto) Lymph % (Auto) [place] % (Auto) Eos % (Auto) Baso % (Auto) Lymph # (Auto) [place] # (Auto) Eos # (Auto) Baso # (Auto) Abs Immat Gran (auto) Absolute Neuts (auto) Absolute Nucleated RBC Nucleated RBC % (auto) ESR 54 H Anion Gap 15 Estim Creat Clear Calc 133.5 Estimated GFR > 60 Random Glucose 121 H Calcium 9.5 Total Bilirubin AST ALT Alkaline Phosphatase C-Reactive Protein 4.39 H Total Protein Albumin Lipase Beta HCG, Quant Urine Color Urine Appearance Urine pH Ur Specific [place] Urine Protein Urine Glucose (UA) Urine Ketones Urine Blood Urine Nitrite Ur Leukocyte Esterase Urine RBC Urine WBC Ur Squamous Epith Cells Urine Bacteria Hyaline Casts Assessment and Plan (1) SBO (small bowel obstruction): Status: Acute (2) Crohn's disease: Status: Acute Plan 42-year-old female with pertinent history of Crohn's disease on Remicade, essential hypertension who presents to the emergency department for evaluation of abdominal pain. ? Small-bowel obstruction( possible complete)likely due to? Crohn's flare:? initiate systemic IV steroids,iv fluids,zofran,morphine ,ngt suction if needed, Patient refused NG tube. Gastroenterology and surgery were consulted from the ER, appreciate assistance.?? Symptomatic management for now.? Will keep NPO for bowel rest. ?Essential hypertension:?elevated due to pain also started labetelol ?Resume lisinopril once able to take p.o. DVT prophylaxis:? Mechanical NPO Full code Admit as inpatient and will require two night minimum hospital stay for IV steroids and management of SBO.? Specialist (surgery+GI)consult pending Time Spent With Patient Time: Total time managing care of this patient today ____ minutes. Quality Stroke Does the patient have a stroke diagnosis?: No VTE Prior VTE?: No VTE Risk Level:: Medical - moderate - high VTE Device Contraindication: N/A - Device Ordered VTE Drug Contraindication: N/A - Med Ordered
--- NOTE | 2022-11-07 13:51 | MHC.CM.PN ---
this science writer met with patient for CM assessment. From home, no services prior to hospitalization. Verified PCP. Requested copy of HCP. D/C plan-home, no services, family to transport.
--- NOTE | 2022-11-07 16:17 | P.CDIM_ITS ---
PROVIDER RESPONSE TEXT: To clarify, the appropriate diagnosis supported by the clinical indicators: Complete small bowel obstruction QUERY TEXT: PHYSICIAN'S DOCUMENTATION REQUEST Date of Query: 11/07/2022 12:27 PM EDT Patient Name: Dirk Bolivar Admit Date: 11/06/2022 Dear Stephanie Villaseñor, A review of the medical record indicates additional documentation may be needed. Please review below and update the documentation accordingly. Clinical Indicators: Patient with upper abdominal pain, constant, progressive and worse with p.o. intake. Having nausea and episodes of non bloody emesis. Dx: SBO - small bowel obstruction likely due to Crohn's flare. IV steroids, IV fluids, zofran, morphine, ngt suction if needed. Keep NPO for bowel rest. Based on the above, could you clarify the appropriate diagnosis, if significant, that supports the ab ove abnormalities and additional evaluation, monitoring, and/or treatment rendered: Partial small bowel obstruction Complete small bowel obstruction Incomplete small bowel obstruction Other Please specify Other (explain)Clinically unable to determine (explain)Thank you, Nicole Rangel, CCS, CDIS Use of terms such as suspected, likely, concern for, or probable (associated with a specific diagnosi s that is being evaluated, monitored, or treated as if it exists) are acceptable and can be coded in the inpatient se tting, when documented at the time of discharge. Please use your independent medical judgment in providing your response. THIS QUERY IS PART OF THE PERMANENT MEDICAL RECORD
[2022-11-08] MEDS: Lactated Ringers 1,000 ML 100 ML IVCONT (01:11)
[2022-11-08] MEDS: 0.9 % Sodium Chloride Flush 3 ML SYRINGE IVFLUSH (01:18)
--- NOTE | 2022-11-08 01:18 | PC.NURSE ---
patient in bed with eyes open patient receiving IV medications with no issues at this time patient have no distress at this time patient will continue to be monitored for safety
[2022-11-08 06:04] VITALS: BP 170/86; PULSE 91; RESP 17; TEMP 36.7; O2SAT 95
[2022-11-08] MEDS: Lidocaine 4 % Patch ADH..PATCH 1 PATCH TRANSDERMA (08:03)
[2022-11-08] MEDS: Capsaicin 0.025% Cream 60 GM TUBE 1 APPL TOPICAL (08:06)
--- NOTE | 2022-11-08 08:07 | PC.NURSE ---
BP 180/89, patient state this is usual baseline, pending medication from pharmacy now.
[2022-11-08] MEDS: Labetalol HCL 100 MG TABLET PO (08:40)
[2022-11-08] MEDS: methylPREDNISolone Sod Succ 125 MG/2 ML VIAL 60 MG IVPUSH (08:40)
--- NOTE | 2022-11-08 10:46 | P.DS_ITS ---
DS: Providers Provider Date of Service: 11/08/22 Date of admission: 11/06/22 17:52 Date of discharge: 11/08/22 Primary care physician: Hadley Spaulding MD Consults: 11/06/22 18:01 Consult to Gastroenterology Routine Consulting Provider: Cosmo Bowen Reason for consultation: sbo in setting of crohn dis. Has provider been notified: No Consult to General Surgery Routine Consulting Provider: [facility] General Surgeons Reason for consultation: sbo in setting of crohn dis Has provider been notified: No Attending physician on discharge: Stephanie Villaseñor Discharging clinician: Stephanie Villaseñor DS: Diagnosis Discharge Diagnosis (1) SBO (small bowel obstruction): Status: Acute (2) Crohn's disease: Status: Acute DS: Summary Hospital Course Hospital Course: 42-year-old female with pertinent history of Crohn's disease on Remicade, essential hypertension who presents to the emergency department for evaluation of abdominal pain.? Patient states she has been having upper abdominal pain this morning, she says pain? has been constant, nonradiating, progressive and worse with p.o. intake.? Has been having associated nausea and episodes of nonbloody emesis.? Her last bowel movement was 1 day prior to presentation.? States she has had episodes of SBO due to Crohn's disease in the past.? She says that she was in the hospital few months back with similar episode that time she signed out against the medical advice afterwards she got steroids from her primary GI and subsequently was feeling better afterwards, but today morning suddenly her abdominal pain started again and had nausea vomiting as above so decided to come to the hospital. Denies fever, chills, chest discomfort, palpitations, shortness of breath, changes in urinary habits. Lab imaging reviewed: Mild white count of 12 Sodium 140 potassium 3.7 BUN and creatinine normal. CT/CT abdomen pelvis w IV con IMPRESSION: 1.? There is small bowel obstruction secondary to inflammatory process involving the cecum and terminal ileum with terminal ileal stricture. However, appearances are not nearly as bad as they were on the 05/31/2022 study. 2.? 2 small loculated fluid collections in the pelvis are unchanged. 3.? Other incidental findings as described above including hepatomegaly, cholecystectomy, benign left adnexal cyst and calcified uterine fibroid. ED physician discussed the case with surgery and GI:? Currently recommended to start steroids, pain management and monitor clinically. Hospital course: Patient came to the hospital due to abdominal pain-further workup revealed small bowel obstruction likely due to Crohn flare: Patient was started on IV steroids, bowel rest, IV fluid: Patient seems to be improved-passing BM, tolerating diet. Patient was seen by GI: Recommended tongue prednisone taper which is ordered and discussed with the patient in detail length. Seen by surgery also: Patient is passing bowels, abdominal pain resolved: Going home with p.o. prednisone. Follow-up outpatient with GI. plan: complete course of po prednisone as prescribed(start with 60 mg po and taper by 10 mg q weekly). follow up with GI and surgery outpatient. Above management discussed the patient detail length she understand and in agreement with the above plan, time spent 50 minute. Time Spent with Patient Time attestation: Total time managing care of this patient today ____ minutes. Discharge coordination time: Greater than 30 minutes Quality: Safe Use of Opioids Does Pt have an Active Cancer Diagnosis on the Problem List?: No Quality: Stroke Does the patient have a stroke diagnosis?: No Physical Exam Vital Signs: Vital Signs: Last Vital Signs Temp 98.1 F 11/08/22 06:04 Pulse 91 11/08/22 06:04 Resp 17 11/08/22 06:04 BP 170/86 H 11/08/22 06:04 Pulse Ox 95 11/08/22 06:04 O2 Del Method Room Air 11/08/22 06:04 BMI result Body Mass Index 40.5 Appearance: Alert.? Oriented X3.? has abd pain cvs: rrr, [id number] . res: clear to auscultation ,no rhonchii or wheezing abd: no rebound or guarding ,nt, bs present. ext pulses present , no cyanosis . neuro: axo3 , nonfocal. DS: Data Imaging Chest x-ray: Radiologist's impression: ITS Impressions Abdomen/Pelvis CT 11/06/22 15:25 IMPRESSION: 1. There is small bowel obstruction secondary to inflammatory process involving the cecum and terminal ileum with terminal ileal stricture. However, appearances are not nearly as bad as they were on the 05/31/2022 study. 2. 2 small loculated fluid collections in the pelvis are unchanged. 3. Other incidental findings as described above including hepatomegaly, cholecystectomy, benign left adnexal cyst and calcified uterine fibroid. Fleischner guidelines were followed. Discharge Plan Discharge Anticipated Discharge Date/Time: 11/08/22 10:33 Patient Disposition: Home, Self-Care Discharge Diagnosis: crohn dis flare Referrals: Hadley Spaulding MD [Primary Care Provider] - 1 Week Cosmo Bowen [Physician] - 1 Week Camilo Rowell MD [Physician] - 1 Week Discharge Medications: New prednisone 10 mg tablet See Rx Instructions .ROUTE .COMPLEX Qty: 135 0RF Rx Instructions: see taper instructions-take prednisone 60 mg for 5days, then switched to 50 mg 1 week, then 40 mg 1 week, then 30 mg 1 week, then 20 mg 1 week, 10 mg 1 week. Continued lisinopril 30 mg tablet 30 mg PO DAILY 90 Days Qty: 90 1RF albuterol sulfate 90 mcg/actuation aerosol powdr breath activated 2 inh inhalation Q6H PRN (Reason: shortness of breath or wheezing) Qty: 1 3RF infliximab [Remicade] 100 mg recon soln 100 mg IV Q6W Patient Comments: Dr. Bowen Rx Instructions: NEXT DOSE: 11/18/22 ketotifen fumarate 0.025 % (0.035 %) drops 1 drp ophthalmic (eye) BID PRN (Reason: Dry Eye(S)) furosemide 20 mg tablet 1 tab PO DAILY PRN (Reason: swelling) cyanocobalamin (vitamin B-12) [Vitamin B-12] 1,000 mcg tablet 1 tab PO DAILY fexofenadine [[place] Allergy] 180 mg Tablet 180 mg PO DAILY PRN (Reason: Allergy Symptoms) acetaminophen 500 mg Tablet 1,000 mg PO Q6H PRN (Reason: Pain) cholecalciferol (vitamin D3) [Vitamin D3] 25 mcg (1,000 unit) Tablet 25 mcg PO DAILY Changed omeprazole 20 mg capsule,delayed release(DR/EC) 1 cap PO BID Qty: 60 0RF Discharge Orders: Discharge Order (Routine); Ordered 11/08/22 Ordered By: Stephanie Villaseñor Diet: Advance to usual diet Activity on Discharge: As tolerated Stand Alone Forms: Patient Portal Discharge page Care Plan Goals: Patient came to the hospital due to abdominal pain-further workup revealed small bowel obstruction likely due to Crohn flare: Patient was started on IV steroids, bowel rest, IV fluid: Patient seems to be improved-passing BM, tolerating diet. Patient was seen by GI: Recommended tongue prednisone taper which is ordered and discussed with the patient in detail length. Patient is passing bowels, abdominal pain resolved: Going home with p.o. prednisone. Seen by surgery also: continue po prednisone ,further management outpatient. Follow-up outpatient with GI and surgery. Health Concerns: As above. Plan of Treatment: As above. Assessment: As above.
--- NOTE | 2022-11-08 10:47 | PM.GIPN ---
Subjective Subjective Date of Service: 11/08/22 Interval History: feels better no vomiting moving bowels ok Critical Care Time (minutes): 0 Physical Exam Vital Signs: Vital Signs: Last Vital Signs Temp 98.1 F 11/08/22 06:04 Pulse 91 11/08/22 06:04 Resp 17 11/08/22 06:04 BP 170/86 H 11/08/22 06:04 Pulse Ox 95 11/08/22 06:04 O2 Del Method Room Air 11/08/22 06:04 BMI result Body Mass Index 40.5 GI: Other: abdomen is soft and nontender Objective Data Labs 11/07/22 05:50 11/07/22 05:50 Procedures Date of Service Date of Service: 11/08/22 Progress Note: A&P Assessment and plan (1) Crohn's disease: Status: Acute Assessment and Plan: doing well can d/c later if tolerates solids prednisone 40 mg daily, taper by 5 mg weekly bext remicade infusion in 2 weeks, now on 10mg/kg q 6weeks. Time Spent With Patient Time: Total time managing care of this patient today ____ minutes. Quality Stroke Does the patient have a stroke diagnosis?: No VTE Prior VTE?: No VTE Risk Level:: Medical - moderate - high VTE Device Contraindication: N/A - Device Ordered VTE Drug Contraindication: N/A - Med Ordered
--- NOTE | 2022-11-08 16:57 | P.PNGS_ITS ---
Subjective Subjective Date of Service: 11/08/22 Interval history: pt looks good, no pain, eating and hungry had bowel movement, anxious to go home Physical Exam Vital Signs: Vital Signs: Last Vital Signs Temp 98.1 F 11/08/22 06:04 Pulse 91 11/08/22 06:04 Resp 17 11/08/22 06:04 BP 170/86 H 11/08/22 06:04 Pulse Ox 95 11/08/22 06:04 O2 Del Method Room Air 11/08/22 06:04 BMI result Body Mass Index 40.5 GI: Other: abdo snft nondistended obese non tender Objective Data Active Medications Albuterol/Ipratropium (Albuterol/Iprat 2.5/0.5mg 3 Ml Ampul.Neb) 3 ml INHALE RQ4H [facility] Last Admin: 11/08/22 15:27 Dose: Not Given Documented By: JELANI Non-Admin Reason: Patient Refused Capsaicin (Capsaicin 0.025% Cream 60 Gm Tube) 1 appl TOPICAL QID [facility]; Protocol Last Admin: 11/08/22 08:06 Dose: 1 appl Documented By: BERNA Hydralazine HCl (Hydralazine Hcl 20 Mg/Ml Vial) 10 mg IVPUSH Q4H PRN; Protocol PRN Reason: htn Hydromorphone HCl (Hydromorphone Hcl 0.5 Mg/0.5 Ml Syringe) 0.5 mg IVPUSH Q4H PRN; Protocol PRN Reason: Pain, Mild (Pain Scale 1-3) Labetalol HCl (Labetalol Hcl 100 Mg Tablet) 100 mg PO BID [facility]; Protocol Last Admin: 11/08/22 08:40 Dose: 100 mg Documented By: BERNA Lidocaine (Lidocaine 4 % Patch Adh..Patch) 1 patch TRANSDERMA DAILY [facility]; Protocol Last Admin: 11/08/22 08:03 Dose: 1 patch Documented By: BERNA Methylprednisolone Sodium Succinate (Methylprednisolone Sod Succ 125 Mg/2 Ml Vial) 60 mg IVPUSH DAILY [facility] Last Admin: 11/08/22 08:40 Dose: 60 mg Documented By: BERNA Ondansetron HCl (Ondansetron Hcl 4 Mg/2 Ml Vial) 4 mg IVPUSH Q4H PRN PRN Reason: nausea Pantoprazole Sodium (Pantoprazole Sodium 40 Mg/10 Ml Vial) 40 mg IVPUSH DAILY@0630 [facility] Last Admin: 11/08/22 09:42 Dose: Not Given Documented By: BERNA Non-Admin Reason: pulled per pyxis information, this RN not giv Pharmacy Consult (Consult Rx Perform Med Rec) 1 each MISCELLANE ONCE PRN PRN Reason: Consult order Sodium Chloride (0.9 % Sodium Chloride Flush 3 Ml Syringe) 3 ml IVFLUSH QSHIFT [facility] Last Admin: 11/08/22 09:42 Dose: Not Given Documented By: BERNA Non-Admin Reason: given with med administration Labs 11/07/22 05:50 11/07/22 05:50 Procedures Date of Service Date of Service: 11/08/22 Progress Note: A&P Assessment and plan (1) SBO (small bowel obstruction): Status: Acute Assessment and Plan: Pt with Crohn's disease done well with medical management- plan to dc home and fu with GI - no acute surgical need but may need elective surgery at ti if this area is consistently causing obstructive sx requiring hospitalization Time Spent With Patient Time: Total time managing care of this patient today ____ minutes. Quality Stroke Does the patient have a stroke diagnosis?: No VTE Prior VTE?: No VTE Risk Level:: Medical - moderate - high VTE Device Contraindication: N/A - Device Ordered VTE Drug Contraindication: N/A - Med Ordered
--- NOTE | 2022-11-10 17:55 | CONS_ITS ---
DATE OF SERVICE: 11/07/2022 REFERRING PHYSICIAN: Dr. Villaseñor REASON FOR CONSULTATION: Crohn disease with obstruction. HISTORY OF PRESENT ILLNESS: The patient is a pleasant 42-year-old woman, well known to me from recent evaluation. She has a longstanding history of Crohn disease involving the small intestine and recurrent small bowel obstructions. She developed right upper quadrant pain the day before admission, which became more severe and was associated with 1 episode of nausea and nonbloody emesis. She presented to the emergency room and was evaluated with imaging studies that showed changes consistent with her Crohn's and a small bowel obstruction. She was admitted to the hospital and started on steroids. Since admission, she has felt somewhat better and has had no further vomiting. PAST MEDICAL HISTORY: 1. Crohn disease with small bowel obstructions involving the small intestine. She is currently being treated with Remicade and has had her dose increased and her intervals decreased to attempt to obtain adequate levels. 2. Elevated BMI. 3. Cholecystectomy. 4. Anemia. 5. Asthma. 6. Hypertension. 7. Uterine fibroids. CURRENT MEDICATIONS: Her current medication list is reviewed in the chart. ALLERGIES: ASPIRIN. FAMILY HISTORY: This is reviewed with the patient and is noncontributory. SOCIAL HISTORY: There is no current tobacco, alcohol, or substance abuse review. REVIEW OF SYSTEMS: SKIN: No pruritus. HEENT: Negative. CARDIOPULMONARY: She denies shortness of breath or chest pain. GASTROINTESTINAL: As above. GENITOURINARY: Negative. NEUROPSYCHIATRIC: Negative. PHYSICAL EXAMINATION: GENERAL: Shows a pleasant female, lying comfortably in bed. VITAL SIGNS: Reviewed in the electronic medical record and are stable. SKIN: Anicteric. HEENT: Shows no scleral icterus. NECK: Without lymphadenopathy or thyromegaly. LUNGS: Clear. HEART: Shows regular rate and rhythm. S1, S2. No murmur. ABDOMEN: Protuberant and soft. Bowel sounds are present. No organomegaly is noted. There is mild right upper quadrant tenderness to palpation. EXTREMITIES: Without edema. DIAGNOSTIC DATA: Laboratory data and CT imaging are reviewed. IMPRESSION: Crohn disease and small bowel obstruction. At this time, I agree with treating her with intravenous steroids. She is continuing on her Remicade therapy every 6 weeks at 10 mg/kg. This will be continued as well. I would recommend starting her on clear liquids and advancing her diet as tolerated. Thanks for asking me to see her. I will follow her in the hospital with you. MD ERIKA Giron/JULISSA / [id number]
== END 2022-11-08 15:23 | disposition home or self-care (01) | DRG 245 ==
LOC: HO.ED 17:25 → HO.EDOVER 18:09
PROVIDERS: Admitting Provider Internal Medicine; Emergency Provider Emergency Medicine; PCP Internal Medicine; Visit Provider Internal Medicine
DX: K50.012 Crohn's disease of small intestine with intestinal obstruction (principal); E66.01 Morbid (severe) obesity due to excess calories; I10 Essential (primary) hypertension; Z87.891 Personal history of nicotine dependence; Z68.41 Body mass index [BMI] 40.0-44.9, adult; Z79.899 Other long term (current) drug therapy
CPT/HCPCS: 36415; 74177; 80048; 80053; 81001; 83690; 84702; 85025; 85652; 86140; 94640; 99285; J1170; J2270; J2930; Q9967

== ENCOUNTER → 2022-11-06 17:52 | Outpatient (BNV) | payer MEDICAID, OTHER, SELFPAY | PROVIDERS: Admitting Provider Internal Medicine; Emergency Provider Emergency Medicine; PCP Internal Medicine; Visit Provider Surgery | DX: K50.90 Crohn's disease, unspecified, without complications (principal); K56.609 Unspecified intestinal obstruction, unspecified as to partial versus complete obstruction | CPT/HCPCS: 99222; 99231 ==

== ENCOUNTER → 2022-11-06 17:52 | Outpatient (BNV) | payer MEDICAID, OTHER, SELFPAY | PROVIDERS: Admitting Provider Internal Medicine; Emergency Provider Emergency Medicine; PCP Internal Medicine; Visit Provider Internal Medicine | DX: K56.609 Unspecified intestinal obstruction, unspecified as to partial versus complete obstruction (principal); K50.90 Crohn's disease, unspecified, without complications | CPT/HCPCS: 99222; 99232; 99239 ==

== ENCOUNTER 2022-11-18 08:27 | Outpatient (REF) | payer OTHER, SELFPAY | END 2022-11-18 08:28 | disposition home or self-care (01) | LOC: HO.MDS 08:27 | PROVIDERS: Visit Provider Internal Medicine Gastroenterology | DX: K50.90 Crohn's disease, unspecified, without complications (principal) | CPT/HCPCS: 96365; 96366; J1745 ==

== ENCOUNTER 2022-11-21 12:30 | Outpatient (REF) | payer OTHER, SELFPAY ==
--- NOTE | ~2022-11-21 | US_ITS ---
EXAMINATION: US DIAGNOSTIC ULTRASOUND BREAST, RIGHT CLINICAL INFORMATION: Patient presents for recommended short interval follow-up of a solid mass in the right breast the 2:00 position, 2 cm from the nipple.. COMPARISON: This study is compared with the prior mammographic and sonographic imaging from April 2022. TECHNIQUE: Ultrasound of the breast is performed with real-time [place] scale imaging and color Doppler. FINDINGS: Targeted sonography of the 12:00 region of the right breast, 2 cm from the nipple was performed. In this location, there is a loculated, oval 11 mm x 7 mm x 4 mm mass with. Arterial and venous vasculature. This is provider relations representative of 3 contiguous, normal intramammary lymph nodes with thin, almost imperceptible cortices. This is a normal finding in the breast. No further follow-up is necessary. Results are discussed with the patient at time of visit. US/US breast RT limited mamm only IMPRESSION: 11 mm mass consisting of 3 small, normal, contiguous intramammary lymph nodes in the 12:00 position of the right breast, 2 cm from the nipple. This is a normal finding. ASSESSMENT: BI-RADS 1: Negative RECOMMENDATION: Routine bilateral annual mammography screening is due in April 2023. This patient's information was entered into a reminder system with a target due date for their next mammogram.
== END 2022-11-21 12:31 | disposition home or self-care (01) ==
LOC: HO.MAMMO 12:30
PROVIDERS: PCP Internal Medicine; Visit Provider Internal Medicine
DX: N63.15 Unspecified lump in the right breast, overlapping quadrants (principal)
CPT/HCPCS: 76642

== ENCOUNTER → 2022-11-21 13:00 | Outpatient (BNV) | payer OTHER, SELFPAY | PROVIDERS: PCP Internal Medicine; Visit Provider Radiology Diagnostic Radiology | DX: N63.12 Unspecified lump in the right breast, upper inner quadrant (principal) | CPT/HCPCS: 76642 ==

== ENCOUNTER 2022-12-31 07:35 | Outpatient (REF) | payer OTHER, SELFPAY | END 2022-12-31 07:36 | disposition home or self-care (01) | LOC: HO.MDS 07:35 | PROVIDERS: Visit Provider Internal Medicine Gastroenterology | DX: K50.90 Crohn's disease, unspecified, without complications (principal) | CPT/HCPCS: 96365; 96366; J1745 ==

== ENCOUNTER 2023-02-11 07:29 | Outpatient (REF) | payer OTHER, SELFPAY ==
[2023-02-13 22:23] LABS: TS Negative Control Passed; TS Panel A 0; TS Panel B 0; TS Positive Control Passed; TSpotTB Negative (Negative)
== END 2023-02-11 07:30 | disposition home or self-care (01) ==
LOC: HO.MDS 07:29
PROVIDERS: Visit Provider Internal Medicine Gastroenterology
DX: K50.90 Crohn's disease, unspecified, without complications (principal); Z11.1 Encounter for screening for respiratory tuberculosis
CPT/HCPCS: 36415; 86481; 96365; 96366; J1745

== ENCOUNTER 2023-02-17 08:16 | Outpatient (REF) | payer OTHER, SELFPAY | END 2023-02-17 08:17 | disposition home or self-care (01) | LOC: HO.MDS 08:16 | PROVIDERS: Visit Provider Internal Medicine | DX: D50.8 Other iron deficiency anemias (principal) | CPT/HCPCS: 96365; J1756 ==

== ENCOUNTER 2023-02-24 08:20 | Outpatient (REF) | payer OTHER, SELFPAY | END 2023-02-24 08:21 | disposition home or self-care (01) | LOC: HO.MDS 08:20 | PROVIDERS: Visit Provider Internal Medicine | DX: D50.8 Other iron deficiency anemias (principal) | CPT/HCPCS: 96365; J1756 ==

== ENCOUNTER 2023-03-03 08:20 | Outpatient (REF) | payer OTHER, SELFPAY | END 2023-03-03 08:21 | disposition home or self-care (01) | LOC: HO.MDS 08:20 | PROVIDERS: Visit Provider Internal Medicine | DX: D50.8 Other iron deficiency anemias (principal) | CPT/HCPCS: 96365; J1756 ==

== ENCOUNTER 2023-03-04 01:57 | Inpatient (IN) | payer OTHER, SELFPAY ==
[2023-03-04] VITALS (8 sets, daily range): BP systolic 146–192; BP diastolic 83–98; PULSE 87–121; RESP 16–18; TEMP 36.2–36.6; O2SAT 94–99; BMI 40.7; BMI 41.7
--- NOTE | ~2023-03-04 | CT_ITS ---
EXAMINATION: CT ABDOMEN AND PELVIS WITH CONTRAST CLINICAL INFORMATION: Abdominal pain. COMPARISON: 11/06/2022 TECHNIQUE: Multidetector volumetric images were obtained from the superior aspect of the liver through the pubic symphysis following administration 100 mL of Omnipaque 350 intravenous contrast. Sagittal and coronal reformatted images were obtained on the technologist's workstation. Oral contrast: No This CT examination was performed using dose optimization techniques as appropriate, variously including the following: *Automated exposure control *Adjustment of mA and/or kV according to patient size (this includes techniques or standardized protocols for targeted exams where dose is matched to indication/reason for exam; i.e. extremities or head) *Use of iterative reconstruction technique DLP: 939 mGy-cm FINDINGS: LUNG BASES: There is scarring at the left lung base. LIVER, GALLBLADDER, AND BILIARY TREE: The liver is normal in size, shape, and attenuation. No focal hepatic lesion or biliary ductal dilatation is present. There has been a prior cholecystectomy. PANCREAS: Unremarkable. SPLEEN: Unremarkable. ADRENAL GLANDS: Unremarkable. KIDNEYS AND URETERS: The kidneys are normal in size, shape, and attenuation. No hydronephrosis, hydroureter, or calculi seen. No perinephric stranding. BLADDER: Unremarkable. GASTROINTESTINAL TRACT: There are dilated proximal to mid small bowel loops transitioning to apparent thickened areas of distal small bowel with multiple areas of apparent bowel stricture/narrowing. The appendix is not identified. ABDOMINAL WALL: No significant hernia is appreciated. LYMPH NODES: Normal. VASCULAR: There is a 2.8 cm left vaginal cyst. PELVIC VISCERA: Unremarkable. OSSEOUS STRUCTURES: Unremarkable. CT/CT abdomen pelvis w IV con IMPRESSION: There is distal small bowel thickening with multiple areas of apparent stricture/narrowing/scarring right lower quadrant/distal small bowel with dilated proximal and mid small bowel. Findings are consistent with early or partial small bowel obstruction. Findings likely related to patient's known Crohn's disease. Similar change was present previously. Fleischner guidelines were followed.
--- NOTE | 2023-03-04 02:13 | PC.NURSE ---
Pt BIBA, reporting 10/10 sharp/burning epigastric pain radiating to right abd, Reporting Nausea/vomiting and not being able to tolerate food. Denies SOB/CP/burning with urination. lose BMs yesterday. Tender to touch to epigastric region, + bowel sounds x 4 quadrants. Hx of Crohns
[2023-03-04 02:27] LABS: Basophils Percent Auto 0.1 % (0-2); Hematocrit 34.8 % (37.0-47.0); Hemoglobin 10.4 g/dl (12.0-16.0); Imm Gran Abs Auto 0.03 X10*3/uL (0.00-0.03); Imm Gran Pct Auto 0.4 % (0.0-0.4); Lymphocytes Absolute Auto 0.5 X10*3/uL (1.2-4.9); Lymphocytes Percent Auto 6.4 % (20-40); MANUAL DIFF FLAG NO; Mean Corpuscular HGB Conc 29.9 g/dl (31.0-35.0); Mean Corpuscular Hemoglobin 22.3 pg (27.0-33.0); Mean Corpuscular Volume 74.5 fL (80.0-98.0); Mean Platelet Volume 9.3 fL (9.4-12.3); Monocytes Absolute Auto 0.2 X10*3/uL (0.1-1.2); Monocytes Percent Auto 3.1 % (2-11); Neutrophils Absolute Auto 6.7 x10*3/uL (2.0-8.3); Platelet Count 412 X10*3/uL (160-400); Red Blood Count 4.67 X10*6/uL (4.20-5.50); Red Cell Distribution Width 14.9 % (11.0-16.0); White Blood Count 7.5 X10*3/uL (4.8-10.8)
[2023-03-04] MEDS: ondansetron HCL 4 MG/2 ML VIAL IVPUSH (02:39)
[2023-03-04] MEDS: Morphine Sulfate 10 MG/ML CARTRIDGE 6 MG IVPUSH (02:39)
[2023-03-04] MEDS: 0.9 % Sodium Chloride 1,000 ML 999 ML IV (02:41)
--- NOTE | 2023-03-04 02:42 | ED.GENADULT ---
HPI - General Adult General Chief complaint: General Medical Stated complaint: abd pain, vomiting Time Seen by Provider: 03/04/23 02:22 Source: patient and old records reviewed Mode of arrival: EMS Limitations: no limitations History of Present Illness HPI narrative: 43 yo female with PMH of Crohns disease on remicaide, SBO, asthma, UTI, anemia, HTN here with c/o abdominal distention, pain, nausea and lack of BM and flatus since yesterday. No fevers, no blood stools, follows with Dr. Bowen. complaint: abdominal pain Onset (ago): day(s) (1) Location: abdomen Radiation: non-radiation Severity: moderate Quality: aching and constant Pain Consistency: constant Relieving factors: none Exacerbating factors: movement Associated symptoms: loss of appetite, malaise and nausea/vomiting Treatments prior to arrival: none Related Data Home Medications Medication Instructions Recorded Confirmed infliximab 100 mg intravenous 100 mg IV Q6W 05/23/21 02/06/23 solution (Remicade) ketotifen fumarate 0.025 % (0.035 1 drp ophthalmic (eye) BID PRN Dry 02/04/22 02/06/23 %) eye drops Eye(S) furosemide 20 mg tablet 1 tab PO DAILY PRN swelling 06/01/22 02/06/23 acetaminophen 500 mg tablet 1,000 mg PO Q6H PRN Pain 11/06/22 02/06/23 cholecalciferol (vitamin D3) 25 25 mcg PO DAILY 11/06/22 02/06/23 mcg (1,000 unit) tablet (Vitamin D3) fexofenadine 180 mg tablet 180 mg PO DAILY PRN Allergy 11/06/22 02/06/23 ([place] Allergy) Symptoms Previous Rx's Medication Instructions Recorded lisinopril 30 mg tablet 30 mg PO DAILY 90 days #90 tabs 09/07/21 albuterol sulfate 90 mcg/actuation 2 inh inhalation Q6H PRN shortness 12/27/21 breath activated powder inhaler of breath or wheezing #1 ea omeprazole 20 mg capsule,delayed 1 cap PO BID #60 caps 11/08/22 release cyanocobalamin (vitamin B-12) 1 tab PO DAILY 01/01/23 1,000 mcg tablet (Vitamin B-12) Allergies Allergy/AdvReac Type Severity Reaction Status Date / Time aspirin [Aspirin] Allergy Mild EYES SWELL Verified 02/06/23 09:13 [email or web address] Allergy Intermediate Rash Uncoded 02/06/23 09:13 SEASONAL ALLERGIES Allergy Unknown TRIGGERS Uncoded 02/06/23 09:13 ASTHMA ATTACKS Review of Systems Review of Systems: Constitutional : No Weight loss, No Fever, No Chills ENT/Mouth : No sore throat, No Rhinorrhea Eyes: No Swelling, No Redness Cardiovascular : No Chest Pain, No SOB, NoEdema Respiratory : No Cough, No Sputum, No Wheezing Gastrointestinal : Positive Nausea, Positive Vomiting, no Diarrhea, positive abdominal Pain, No Hematochezia, No Melena Genitourinary : No Dysuria, No Urinary Frequency, No Hematuria, No Urgency Musculoskeletal : No joint pain, No Myalgias, No Joint Swelling Skin : No Skin Lesions, No rash Neuro : No Weakness, No Numbness, No Dizziness, No Headache Psych : No Anxiety/Panic, No Depression Heme/Lymph: No Bruising, No Lymphadenopathy Endocrine : No Polyuria, No Polydipsia All other systems reviewed and are negative. [facility] Past Medical History Attestation statement: The following information was validated with the patient. Source: old records reviewed Medical History Uterine fibroid Breast nodule Asthma Obesity (BMI 30-39.9) Crohn's disease Benign essential hypertension Anemia Surgical History Hx of colonoscopy Hx of tubal ligation Hx of section Hx of cholecystectomy Family History Family History Mother Diabetes HTN (hypertension) Parkinson disease Father Hyperthyroidism Social History Social History Household Members: Spouse and Children Housing: House Do you presently have visiting nurse or other home services: No Alcohol intake: never Patient Tobacco Use Status: Former Tobacco user Quit Date: 6 YRS AGO Tobacco use type: Cigarette Smoked in Last 30 Days: No Second Hand Smoke Exposure: Yes Use of substances other than those prescribed or required for medical reasons: No Advance Directives: Yes Advance Directives on File: Yes Advance Directives Date on File: 09/21/20 Patient : No service: No Current occupational status: employed 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 Oriented X3. No acute distress. Eyes: Pupils equal, round and reactive to light. ENT: Pharynx normal. Neck: Normal inspection. Neck supple. CVS: Normal heart rate and rhythm. Pulses normal. Respiratory: No respiratory distress. Breath sounds normal. Abdomen: Soft and distended with ttp in upper abdomen Skin: Skin warm and dry. Normal skin color. Normal skin turgor. Extremities: No lower extremity edema. No calf ttp Neuro: Oriented X 3. No motor deficit. No sensory deficit. Medications Administered Discontinued Medications Generic Name Dose Route Start Last Admin Trade Name Freq PRN Reason Stop Dose Admin Sodium Chloride 1,000 mls @ 999 mls/hr 03/04/23 02:45 03/04/23 03:42 Ns IV 03/04/23 03:45 Infused .Q1H1M [place] Infusion Iohexol 100 ml 03/04/23 03:08 03/04/23 03:08 Iohexol 350 Mg/Ml 100 Ml Infus..Btl IV 03/04/23 03:09 100 ml ONCE ONE Administration Morphine Sulfate 6 mg 03/04/23 02:33 03/04/23 02:39 Morphine Sulfate 10 Mg/Ml Cartridge IVPUSH 03/04/23 02:34 6 mg ONCE ONE Administration Protocol Ondansetron HCl 4 mg 03/04/23 02:33 03/04/23 02:39 Ondansetron Hcl 4 Mg/2 Ml Vial IVPUSH 03/04/23 02:34 4 mg ONCE ONE Administration Medical Decision Making Medical Decision Making MDM Narrative: 43 yo female with PMH of Crohns disease on remicaide, SBO, asthma, UTI, anemia, HTN here with 1 day of abdominal pain lack of BM and flatus as well as n/v but no fevers or bloody stools. At this time will need basic labs, IVF, IV morphine for pain and CT scan for SBO or Crohns exacerbation. Differential Diagnosis Differential Diagnoses: The differential diagnosis associated with the presentation includes SBO, Crohns Admission/Observation Consideration of admission/observation: Escalation of care including admission/observation considered admit for further management Consult Healthcare Provider Management of the patient was discussed with: Hospitalist (will admit) Lab Data MDM Lab Attestation statement: I reviewed the patient's lab results. 03/04/23 02:18 03/04/23 02:18 Labs: Lab Results 03/04/23 Range/Units 02:18 WBC 7.5 (4.8-10.8) X10*3/uL RBC 4.67 (4.20-5.50) X10*6/uL Hgb 10.4 L (12.0-16.0) g/dl Hct 34.8 L (37.0-47.0) % MCV 74.5 L (80.0-98.0) fL MCH 22.3 L (27.0-33.0) pg MCHC 29.9 L (31.0-35.0) g/dl RDW 14.9 (11.0-16.0) % Plt Count 412 H (160-400) X10*3/uL MPV 9.3 L (9.4-12.3) fL Immature Gran % (Auto) 0.4 (0.0-0.4) % Neut % (Auto) 90.0 H (45-73) % Lymph % (Auto) 6.4 L (20-40) % [place] % (Auto) 3.1 (2-11) % Eos % (Auto) 0.0 (0-4) % Baso % (Auto) 0.1 (0-2) % Lymph # (Auto) 0.5 L (1.2-4.9) X10*3/uL [place] # (Auto) 0.2 (0.1-1.2) X10*3/uL Eos # (Auto) 0.0 (0.0-0.4) X10*3/uL Baso # (Auto) 0.0 (0.0-0.2) X10*3/uL Abs Immat Gran (auto) 0.03 (0.00-0.03) X10*3/uL Absolute Neuts (auto) 6.7 (2.0-8.3) x10*3/uL Absolute Nucleated RBC 0.000 (0.0-0.012) X10*3/uL Nucleated RBC % (auto) 0.0 (0.0-0.2) /100WBC ESR 55 H (0-20) MM/HR Sodium 138 (135-145) mmol/L Potassium 3.9 (3.3-5.1) mmol/L Chloride 105 (96-108) mmol/L Carbon Dioxide 22 (22-29) mmol/L Anion Gap 15 (12-20) BUN 13 (9-16) mg/dL Creatinine 0.82 (0.5-1.4) mg/dL Estim Creat Clear Calc 114.8 Estimated GFR > 60 Random Glucose 155 H (60-115) mg/dL Calcium 9.4 (8.4-10.2) mg/dL Total Bilirubin 0.4 (0.0-1.0) mg/dL AST 24 (5-31) U/L ALT 20 (0-31) U/L Alkaline Phosphatase 103 (39-117) U/L C-Reactive Protein 8.31 H (< or = 0.50) mg/dL Total Protein 8.0 (6.5-8.0) g/dL Albumin 3.8 (3.5-5.0) g/dL Lipase 12 (8-78) U/L Independent Interpretation I performed an independent interpretation of an: CT Scan (early SBO) Radiology Impression Discussion of test interpretation with radiology: I have reviewed the radiologist's reading. External Record Review External record reviewed: Inpatient record Critical Care Time Critical Care Time Critical Care Time: Yes Total Critical Care Time: 35 Attestation: pain improved with IV morphine I attest to this time spent taking care of the patient Discharge Plan Discharge Clinical Impression: Partial small bowel obstruction Crohn's disease Qualifiers: Gastrointestinal tract location: unspecified location Digestive disease complication type: with intestinal obstruction Qualified Code(s): K50.912 - Crohn's disease, unspecified, with intestinal obstruction Patient Disposition: Admitted As Inpatient Prescriptions: No Action lisinopril 30 mg tablet 30 mg PO DAILY 90 Days Qty: 90 1RF albuterol sulfate 90 mcg/actuation aerosol powdr breath activated 2 inh inhalation Q6H PRN (Reason: shortness of breath or wheezing) Qty: 1 3RF cyanocobalamin (vitamin B-12) [Vitamin B-12] 1,000 mcg tablet 1 tab PO DAILY 11RF infliximab [Remicade] 100 mg recon soln 100 mg IV Q6W Patient Comments: Dr. Bowen Rx Instructions: NEXT DOSE: 11/18/22 ketotifen fumarate 0.025 % (0.035 %) drops 1 drp ophthalmic (eye) BID PRN (Reason: Dry Eye(S)) furosemide 20 mg tablet 1 tab PO DAILY PRN (Reason: swelling) fexofenadine [[place] Allergy] 180 mg Tablet 180 mg PO DAILY PRN (Reason: Allergy Symptoms) acetaminophen 500 mg Tablet 1,000 mg PO Q6H PRN (Reason: Pain) cholecalciferol (vitamin D3) [Vitamin D3] 25 mcg (1,000 unit) Tablet 25 mcg PO DAILY omeprazole 20 mg capsule,delayed release(DR/EC) 1 cap PO BID Qty: 60 0RF
[2023-03-04 02:47] LABS: Alanine Aminotransferase 20 U/L (0-31); Albumin Level 3.8 g/dL (3.5-5.0); Alkaline Phosphatase 103 U/L (39-117); Anion Gap 15 (12-20); Aspartate Amino Transferase 24 U/L (5-31); Bilirubin Total 0.4 mg/dL (0.0-1.0); Blood Urea Nitrogen 13 mg/dL (9-16); Calcium 9.4 mg/dL (8.4-10.2); Carbon Dioxide 22 mmol/L (22-29); Chloride 105 mmol/L (96-108); Creatinine Clr Calc Pharmacy 114.8; Estimated Glomerular Filt Rate > 60; Glucose Random 155 mg/dL (60-115); Potassium 3.9 mmol/L (3.3-5.1); Sodium 138 mmol/L (135-145)
[2023-03-04 02:59] LABS: C Reactive Protein 8.31 mg/dL (< or = 0.50); Lipase 12 U/L (8-78)
[2023-03-04] MEDS: iohexoL 350 MG/ML 100 ML INFUS..BTL IV (03:08)
[2023-03-04 03:22] LABS: Erythrocyte Sedimentation Rate 55 MM/HR (0-20)
--- NOTE | 2023-03-04 05:22 | P.HPHOSP_ITS ---
History of Present Illness Date of Service: 03/04/23 Chief Complaint: Abdominal Pain This is a 43-year-old female with pertinent history of Crohn's disease on Remicade, essential hypertension who presents to the emergency department for evaluation of abdominal pain. Patient states she has been having upper abdominal pain that started 3 days prior to presentation and has been constant, nonradiating, progressive and worse with p.o. intake. Has been having associated nausea and multiple episodes of nonbloody emesis. Her last bowel movement was 1 day prior to presentation. Not passing gas. States she has had episodes of SBO due to Crohn's disease in the past. Denies fever, chills, chest discomfort, palpitations, shortness of breath, changes in urinary habits. In the emergency department, imaging concerning with early or partial SBO Review of Systems 2 Constitutional: Constitutional: Reports no additional constitutional complaints Cardiovascular: Cardiovascular: Reports no additional cardiovascular complaints Respiratory: Respiratory: Reports no additional respiratory complaints Gastrointestinal: Gastrointestinal: Reports abdominal pain, Reports nausea and Reports vomiting Genitourinary: Genitourinary: Reports no additional female genitourinary complaints [facility] Medical History Uterine fibroid Breast nodule Asthma Obesity (BMI 30-39.9) Crohn's disease Benign essential hypertension Anemia Family History Mother Diabetes HTN (hypertension) Parkinson disease Father Hyperthyroidism Surgical History Hx of colonoscopy Hx of tubal ligation Hx of section Hx of cholecystectomy Social History Household Members: Spouse and Children Housing: House Do you presently have visiting nurse or other home services: No Alcohol intake: never Patient Tobacco Use Status: Former Tobacco user Quit Date: 6 YRS AGO Tobacco use type: Cigarette Smoked in Last 30 Days: No Second Hand Smoke Exposure: Yes Use of substances other than those prescribed or required for medical reasons: No Advance Directives: Yes Advance Directives on File: Yes Advance Directives Date on File: 09/21/20 Patient : No service: No Current occupational status: employed 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 Sexual orientation: Straight/Heterosexual Cognitive needs: No Hearing needs: No Vision needs: Yes Meds Allergies Allergy/AdvReac Type Severity Reaction Status Date / Time aspirin [Aspirin] Allergy Mild EYES SWELL Verified 02/06/23 09:13 [email or web address] Allergy Intermediate Rash Uncoded 02/06/23 09:13 SEASONAL ALLERGIES Allergy Unknown TRIGGERS Uncoded 02/06/23 09:13 ASTHMA ATTACKS Active Medications: Current Medications Sodium Chloride (Ns) 1,000 mls @ 100 mls/hr IVCONT .Q10H [facility] Home Medications Medication Instructions Recorded Confirmed Last Taken Type infliximab 100 mg intravenous 100 mg IV Q6W 05/23/21 02/06/23 10/07/22 History solution (Remicade) ketotifen fumarate 0.025 % (0.035 1 drp ophthalmic (eye) BID PRN Dry 02/04/22 02/06/23 05/31/22 History %) eye drops Eye(S) furosemide 20 mg tablet 1 tab PO DAILY PRN swelling 06/01/22 02/06/23 05/31/22 History acetaminophen 500 mg tablet 1,000 mg PO Q6H PRN Pain 11/06/22 02/06/23 Unknown History cholecalciferol (vitamin D3) 25 25 mcg PO DAILY 11/06/22 02/06/23 11/05/22 History mcg (1,000 unit) tablet (Vitamin D3) fexofenadine 180 mg tablet 180 mg PO DAILY PRN Allergy 11/06/22 02/06/23 Unknown History ([place] Allergy) Symptoms Physical Exam 2 Vital Signs and Narrative: Vital Signs: Last Vital Signs Pulse 88 03/04/23 04:03 Resp 16 03/04/23 04:03 BP 158/86 H 03/04/23 04:03 Pulse Ox 97 03/04/23 04:03 O2 Del Method Room Air 03/04/23 04:03 BMI result Body Mass Index 40.7 Middle-aged female lying in bed in mild distress Neck supple, no JVD Regular rate with regular rhythm, S1-S2 heard Regular breath sounds bilaterally, no wheezing or crackles appreciated Abdomen with tenderness to mild palpation, no guarding, no rigidity, no rebound tenderness Patient is awake, alert and oriented to self, place, time and person ; no focal motor deficit Psych: Normal mood No pedal edema Results Labs 03/04/23 02:18 03/04/23 02:18 Labs: Laboratory Results - last 24 hr 03/04/23 02:18 MCV 74.5 L MCH 22.3 L MCHC 29.9 L RDW 14.9 Plt Count 412 H MPV 9.3 L Immature Gran % (Auto) 0.4 Neut % (Auto) 90.0 H Lymph % (Auto) 6.4 L [place] % (Auto) 3.1 Eos % (Auto) 0.0 Baso % (Auto) 0.1 Lymph # (Auto) 0.5 L [place] # (Auto) 0.2 Eos # (Auto) 0.0 Baso # (Auto) 0.0 Abs Immat Gran (auto) 0.03 Absolute Neuts (auto) 6.7 Absolute Nucleated RBC 0.000 Nucleated RBC % (auto) 0.0 ESR 55 H Anion Gap 15 Estim Creat Clear Calc 114.8 Estimated GFR > 60 Random Glucose 155 H Calcium 9.4 Total Bilirubin 0.4 AST 24 ALT 20 Alkaline Phosphatase 103 C-Reactive Protein 8.31 H Total Protein 8.0 Albumin 3.8 Lipase 12 Imaging Radiologist's Impressions: Impressions Abdomen/Pelvis CT 03/04/23 03:09 IMPRESSION: There is distal small bowel thickening with multiple areas of apparent stricture/narrowing/scarring right lower quadrant/distal small bowel with dilated proximal and mid small bowel. Findings are consistent with early or partial small bowel obstruction. Findings likely related to patient's known Crohn's disease. Similar change was present previously. Fleischner guidelines were followed. Assessment and Plan (1) Crohn's disease: Qualifiers: Digestive disease complication type: with intestinal obstruction G astrointestinal tract location: unspecified location Qualified Code(s): K50.912 - Crohn's disease, unspecified, with intestinal obstruction Status: Acute (2) SBO (small bowel obstruction): Status: Acute Plan This is a 42-year-old female with pertinent history of Crohn's disease on Remicade, essential hypertension who presents to the emergency department for evaluation of abdominal pain. #. Small-bowel obstruction due to Crohn's flare: Will admit patient and initiate systemic IV steroids. Gastroenterology and surgery were consulted from the ER, appreciate assistance. Patient refused NG tube. Symptomatic management for now. Will keep NPO for bowel rest #. Essential hypertension: Resume lisinopril once able to take p.o. DVT prophylaxis: Mechanical NPO Full code Admit as inpatient and will require two night minimum hospital stay for IV steroids and management of SBO (as above). Specialist consult pending Quality Stroke Does the patient have a stroke diagnosis?: No VTE Prior VTE?: No VTE Risk Level:: Medical - moderate - high VTE Device Contraindication: N/A - Device Ordered VTE Drug Contraindication: Treatment Not Indicated
[2023-03-04] MEDS: 0.9 % Sodium Chloride 1,000 ML 100 ML IVCONT ×3 (05:28→19:37)
[2023-03-04] MEDS: HYDROmorphone HCl 0.5 MG/0.5 ML SYRINGE IVPUSH (05:29)
[2023-03-04] MEDS: methylPREDNISolone Sod Succ 125 MG/2 ML VIAL 60 MG IVPUSH ×2 (05:41→07:47)
--- NOTE | 2023-03-04 07:59 | PHA.MEDREC ---
Pharmacy Consult ? Medication Reconciliation Pharmacy has completed the medication reconciliation Verified lisinopril dose with patient. States she takes it daily, even though not supported with claim history. Brittany
--- NOTE | 2023-03-04 08:19 | MHC.CM.PN ---
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
--- NOTE | 2023-03-04 10:51 | PC.NURSE ---
Report received from Cari RN & care transferred at this time. Pt currently appears in NAD. VSS. RR even and unlabored bilaterally on RA. Pt admitted - awaiting bed assignment. WCTA
--- NOTE | 2023-03-04 11:55 | HO.PM.IMPN ---
Subjective Subjective Date of Service: 03/04/23 Interval History: feeling better, ready for clears Physical Exam Vital Signs: Vital Signs: Last Vital Signs Temp 97.5 F 03/04/23 09:51 Pulse 91 03/04/23 09:49 Resp 18 03/04/23 09:49 BP 153/83 H 03/04/23 09:49 Pulse Ox 95 03/04/23 09:49 O2 Del Method Room Air 03/04/23 09:49 BMI result Body Mass Index 40.7 General: AO X 3, no acute distress Resp: CTA bilateral, no accessory muscles used CVS: S1,S2,RRR GI: soft, non tender, non distended Neuro: motor grossly intact, alert Psych: appropriate affect, appropriate insight Objective Data Active Medications Acetaminophen (Acetaminophen 325 Mg Tablet) 650 mg PO Q6H PRN PRN Reason: Pain, Mild (Pain Scale 1-3) Acetaminophen (Acetaminophen Supp 650 Mg Supp.Rect) 650 mg FL Q6H PRN PRN Reason: Pain, Mild (Pain Scale 1-3) Cyanocobalamin (Cyanocobalamin (Vitamin B-12) 1,000 Mcg Tablet) 1,000 mcg PO DAILY [facility] Sodium Chloride (Ns) 1,000 mls @ 100 mls/hr IVCONT .Q10H [facility] Last Admin: 03/04/23 05:28 Dose: 100 mls/hr Documented By: IRASEMA Ketotifen Fumarate (Ketotifen Fumarate 0.025% Oph 5 Ml Drpbtl) 1 drop EYE-BOTH BID PRN PRN Reason: Dry Eye(S) Lisinopril (Lisinopril 10 Mg Tablet) 30 mg PO DAILY [facility]; Protocol Methylprednisolone Sodium Succinate (Methylprednisolone Sod Succ 125 Mg/2 Ml Vial) 60 mg IVPUSH DAILY [facility] Last Admin: 03/04/23 07:47 Dose: 60 mg Documented By: COOPEClaribel Morphine Sulfate (Morphine Sulfate 4 Mg/Ml Cartridge) 4 mg IVPUSH Q6H PRN; Protocol PRN Reason: Pain, Severe (Pain Scale 7-10) Omeprazole (Omeprazole 20 Mg Capsule.Dr) 20 mg PO DAILY@0630 [facility] Ondansetron HCl (Ondansetron Hcl 4 Mg/2 Ml Vial) 4 mg IVPUSH Q8H PRN PRN Reason: Nausea and Vomiting Sodium Chloride (0.9 % Sodium Chloride Flush 3 Ml Syringe) 3 ml IVFLUSH QSHIFT [facility] Last Admin: 03/04/23 07:47 Dose: Not Given Documented By: KINA Non-Admin Reason: IV Running Vitamin D (Cholecalciferol (Vitamin D3) 25 Mcg Tablet) 25 mcg PO DAILY [facility] Labs 03/04/23 02:18 03/04/23 02:18 Labs: Laboratory Results - last 24 hr 03/04/23 02:18 MCV 74.5 L MCH 22.3 L MCHC 29.9 L RDW 14.9 Plt Count 412 H MPV 9.3 L Immature Gran % (Auto) 0.4 Neut % (Auto) 90.0 H Lymph % (Auto) 6.4 L [place] % (Auto) 3.1 Eos % (Auto) 0.0 Baso % (Auto) 0.1 Lymph # (Auto) 0.5 L [place] # (Auto) 0.2 Eos # (Auto) 0.0 Baso # (Auto) 0.0 Abs Immat Gran (auto) 0.03 Absolute Neuts (auto) 6.7 Absolute Nucleated RBC 0.000 Nucleated RBC % (auto) 0.0 ESR 55 H Anion Gap 15 Estim Creat Clear Calc 114.8 Estimated GFR > 60 Random Glucose 155 H Calcium 9.4 Total Bilirubin 0.4 AST 24 ALT 20 Alkaline Phosphatase 103 C-Reactive Protein 8.31 H Total Protein 8.0 Albumin 3.8 Lipase 12 Assessment and Plan (1) Crohn's disease: Status: Acute Plan 42F PMH crohns disease, htn, obesity, presented with abd pain Crohn's disease with acute flare IV steroids, advance to clears, GI and surgery eval Hypertension Lisinopril Obesity Weight loss recommended dvt prophylaxis - lovenox full code reason for continued hospitalization:advancing diet, awaiting tolerance Quality Stroke Does the patient have a stroke diagnosis?: No VTE Prior VTE?: No VTE Risk Level:: Medical - moderate - high VTE Device Contraindication: N/A - Device Ordered VTE Drug Contraindication: Treatment Not Indicated
[2023-03-04] MEDS: Enoxaparin Sodium 40 MG/0.4 ML SYRINGE SUBCUT (12:08)
[2023-03-04] MEDS: 0.9 % Sodium Chloride Flush 3 ML SYRINGE IVFLUSH (15:50)
--- NOTE | 2023-03-04 16:01 | CONS_ITS ---
DATE OF SERVICE: 03/04/2023 REFERRING PHYSICIAN: Clara Garcia MD REASON FOR CONSULTATION: Crohn disease with small bowel obstruction. HISTORY OF PRESENT ILLNESS: The patient is a pleasant 43-year-old woman with Crohn disease involving the small intestine, admitted with small bowel obstructive symptoms. She has had a long history of small bowel Crohn disease with intermittent intestinal obstructions requiring hospitalization and treatment with intravenous steroids as an outpatient. She is on Remicade every 6 weeks. Her last Remicade level and antibody testing showed no antibodies and a trough level of 2.8 mcg/mL. Her dose has been adjusted to increase her trough levels. She presented to the emergency room early this morning with a two-day history of abdominal pain in the right upper quadrant with some associated nonbloody emesis. She was evaluated with CT scanning, which showed changes consistent with a small bowel obstruction and admitted to the hospital. She feels better this morning and has been started on clear liquids. She has had no vomiting since admission. PAST MEDICAL HISTORY: 1. Crohn disease involving the small bowel with recurrent obstructions. 2. Anemia, for which she has been getting iron infusions. 3. Elevated BMI. 4. Asthma. 5. Hypertension. 6. Uterine fibroids. 7. Cholecystectomy. CURRENT MEDICATIONS: Her current medication list is reviewed in the chart. ALLERGIES: ASPIRIN. FAMILY HISTORY: This is reviewed with the patient and is negative for inflammatory bowel disease. SOCIAL HISTORY: There is no current tobacco, alcohol, or substance abuse. REVIEW OF SYSTEMS: SKIN: No pruritus. HEENT: Negative. CARDIOPULMONARY: No shortness of breath or chest pain. GASTROINTESTINAL: As above. GENITOURINARY: Negative. NEUROPSYCHIATRIC: Negative. PHYSICAL EXAMINATION: GENERAL: Shows a pleasant female, lying comfortably in bed. VITAL SIGNS: Reviewed in the electronic medical record and are stable. SKIN: Anicteric. HEENT: Shows no scleral icterus. NECK: Without lymphadenopathy or thyromegaly. LUNGS: Clear. HEART: Shows a regular rate and rhythm. S1, S2. No murmur. ABDOMEN: Protuberant with no focal guarding, tenderness, or rebound. Bowel sounds are diminished, but present. EXTREMITIES: Without edema. LABORATORY DATA AND IMAGING STUDIES: Reviewed. IMPRESSION: Crohn disease with small bowel obstruction. I agree with treating her with intravenous steroids when she is taking oral medication. She can be switched to 40 mg daily and taper by 5 mg weekly. She will continue outpatient Remicade infusions and have appropriate levels checked and adjustments made as necessary. Followup will be a regularly scheduled appointment. Thanks for asking me to see her. I will follow her in the hospital with you. MD ERIKA Giron/JULISSA / [phone]
--- NOTE | 2023-03-04 18:04 | PC.NURSE ---
Report given to Lucille ANDERSON, preparing pt for transport.
[2023-03-05 03:23] VITALS: BP 159/83; PULSE 105; RESP 16; TEMP 36.1; O2SAT 97
[2023-03-05] MEDS: 0.9 % Sodium Chloride 1,000 ML 100 ML IVCONT (05:37)
[2023-03-05] MEDS: Omeprazole 20 MG CAPSULE.DR PO (06:00)
[2023-03-05 06:23] LABS: MANUAL DIFF FLAG NO
[2023-03-05 06:34] LABS: Basophils Percent Auto 0.3 % (0-2); Eosinophils Percent Auto 0.1 % (0-4); Hematocrit 29.5 % (37.0-47.0); Hemoglobin 8.7 g/dl (12.0-16.0); Imm Gran Abs Auto 0.03 X10*3/uL (0.00-0.03); Imm Gran Pct Auto 0.4 % (0.0-0.4); Lymphocytes Percent Auto 12.3 % (20-40); Mean Corpuscular HGB Conc 29.5 g/dl (31.0-35.0); Mean Corpuscular Hemoglobin 22.1 pg (27.0-33.0); Mean Corpuscular Volume 75.1 fL (80.0-98.0); Mean Platelet Volume 9.8 fL (9.4-12.3); Monocytes Absolute Auto 0.8 X10*3/uL (0.1-1.2); Neutrophils Absolute Auto 5.9 x10*3/uL (2.0-8.3); Neutrophils Percent Auto 76.9 % (45-73); Platelet Count 343 X10*3/uL (160-400); Red Blood Count 3.93 X10*6/uL (4.20-5.50); Red Cell Distribution Width 14.8 % (11.0-16.0); White Blood Count 7.7 X10*3/uL (4.8-10.8)
[2023-03-05 06:59] LABS: Anion Gap 10 (12-20); Blood Urea Nitrogen 12 mg/dL (9-16); Calcium 8.1 mg/dL (8.4-10.2); Carbon Dioxide 24 mmol/L (22-29); Chloride 111 mmol/L (96-108); Creatinine Clr Calc Pharmacy 136.2; Estimated Glomerular Filt Rate > 60; Glucose Fasting 102 mg/dL (60-99); Potassium 3.5 mmol/L (3.3-5.1); Sodium 141 mmol/L (135-145)
[2023-03-05 08:00] VITALS: BP 155/76; PULSE 93; RESP 16; TEMP 36.3; O2SAT 96
[2023-03-05] MEDS: Cholecalciferol (Vitamin D3) 25 MCG TABLET PO (08:43)
[2023-03-05] MEDS: Cyanocobalamin (Vitamin B-12) 1,000 MCG TABLET 1000 MCG PO (08:43)
[2023-03-05] MEDS: methylPREDNISolone Sod Succ 125 MG/2 ML VIAL 60 MG IVPUSH (08:43)
[2023-03-05] MEDS: lisinopriL 10 MG TABLET 30 MG PO (08:43)
--- NOTE | 2023-03-05 10:46 | P.DS_ITS ---
DS: Providers Provider Date of Service: 03/05/23 Date of admission: 03/04/23 05:21 Primary care physician: Hadley Spaulding MD Consults: 03/04/23 05:14 Consult to Gastroenterology Stat Consulting Provider: Roosevelt Wiggins Reason for consultation: Crohns with pain and early SBO Has provider been notified: No Consult to General Surgery Stat Consulting Provider: [facility] Surgeons Reason for consultation: early SBO Has provider been notified: No DS: Diagnosis Discharge Diagnosis (1) Crohn's disease: Status: Acute DS: Summary Hospital Course Hospital Course: from initial hpi: 43-year-old female with pertinent history of Crohn's disease on Remicade, essential hypertension who presents to the emergency department for evaluation of abdominal pain. Patient states she has been having upper abdominal pain that started 3 days prior to presentation and has been constant, nonradiating, progressive and worse with p.o. intake. Has been having associated nausea and multiple episodes of nonbloody emesis. Her last bowel movement was 1 day prior to presentation. Not passing gas. States she has had episodes of SBO due to Crohn's disease in the past. Denies fever, chills, chest discomfort, palpitations, shortness of breath, changes in urinary habits. In the emergency department, imaging concerning with early or partial SBO hospital course: Patient was admitted for Crohn's disease with acute flare possible partial small-bowel obstruction. She was treated IV steroids in diet was advanced. She was tolerating solids. Was seen by Gastroenterology who recommended prolonged prednisone taper 40 mg daily and taper by 5 mg every week. She will continue Remicade as outpatient follow-up with GI. For hypertension was continue on lisinopril. For obesity weight loss recommended. Patient is feeling better will be discharged home. Time Attestation Discharge coordination time: Greater than 30 minutes Quality: Safe Use of Opioids Does Pt have an Active Cancer Diagnosis on the Problem List?: No Quality: Stroke Does the patient have a stroke diagnosis?: No Physical Exam Vital Signs: Vital Signs: Last Vital Signs Temp 97.4 F 03/05/23 08:00 Pulse 93 03/05/23 08:00 Resp 16 03/05/23 08:00 BP 155/76 H 03/05/23 08:00 Pulse Ox 96 03/05/23 08:00 O2 Del Method Room Air 03/05/23 08:00 BMI result Body Mass Index 41.7 General: AO X 3, no acute distress Resp: CTA bilateral, no accessory muscles used CVS: S1,S2,RRR GI: soft, non tender, non distended Neuro: motor grossly intact, alert Psych: appropriate affect, appropriate insight DS: Data Data Completed and Pending Labs on day of discharge: Laboratory Results - last 24 hr 03/05/23 03/05/23 03/05/23 06:00 06:00 06:00 WBC 7.7 RBC 3.93 L Hgb 8.7 L Hct 29.5 L MCV 75.1 L MCH 22.1 L MCHC 29.5 L RDW 14.8 Plt Count 343 MPV 9.8 Immature Gran % (Auto) 0.4 Neut % (Auto) 76.9 H Lymph % (Auto) 12.3 L Mathews % (Auto) 10.0 Eos % (Auto) 0.1 Baso % (Auto) 0.3 Lymph # (Auto) 1.0 L Mathews # (Auto) 0.8 Eos # (Auto) 0.0 Baso # (Auto) 0.0 Abs Immat Gran (auto) 0.03 Absolute Neuts (auto) 5.9 Absolute Nucleated RBC 0.000 Nucleated RBC % (auto) 0.0 Sodium Cancelled 141 Potassium Cancelled 3.5 Chloride Cancelled Carbon Dioxide Anion Gap BUN Creatinine Estim Creat Clear Calc Estimated GFR Random Glucose Fasting Glucose Calcium 03/05/23 03/05/23 03/05/23 06:00 06:00 06:00 WBC RBC Hgb Hct MCV MCH MCHC RDW Plt Count MPV Immature Gran % (Auto) Neut % (Auto) Lymph % (Auto) Mathews % (Auto) Eos % (Auto) Baso % (Auto) Lymph # (Auto) Mathews # (Auto) Eos # (Auto) Baso # (Auto) Abs Immat Gran (auto) Absolute Neuts (auto) Absolute Nucleated RBC Nucleated RBC % (auto) Sodium Potassium Chloride 111 H Carbon Dioxide Cancelled 24 Anion Gap Cancelled 10 L BUN Cancelled Creatinine Estim Creat Clear Calc Estimated GFR Random Glucose Fasting Glucose Calcium 03/05/23 03/05/23 03/05/23 06:00 06:00 06:00 WBC RBC Hgb Hct MCV MCH MCHC RDW Plt Count MPV Immature Gran % (Auto) Neut % (Auto) Lymph % (Auto) Mathews % (Auto) Eos % (Auto) Baso % (Auto) Lymph # (Auto) Mathews # (Auto) Eos # (Auto) Baso # (Auto) Abs Immat Gran (auto) Absolute Neuts (auto) Absolute Nucleated RBC Nucleated RBC % (auto) Sodium Potassium Chloride Carbon Dioxide Anion Gap BUN 12 Creatinine Cancelled 0.70 Estim Creat Clear Calc Cancelled 136.2 Estimated GFR Cancelled Random Glucose Fasting Glucose Calcium 03/05/23 03/05/23 06:00 06:00 WBC RBC Hgb Hct MCV MCH MCHC RDW Plt Count MPV Immature Gran % (Auto) Neut % (Auto) Lymph % (Auto) Mathews % (Auto) Eos % (Auto) Baso % (Auto) Lymph # (Auto) Mathews # (Auto) Eos # (Auto) Baso # (Auto) Abs Immat Gran (auto) Absolute Neuts (auto) Absolute Nucleated RBC Nucleated RBC % (auto) Sodium Potassium Chloride Carbon Dioxide Anion Gap BUN Creatinine Estim Creat Clear Calc Estimated GFR > 60 Random Glucose Cancelled Fasting Glucose 102 H Calcium Cancelled 8.1 L D Discharge Plan Discharge Anticipated Discharge Date/Time: 03/05/23 10:36 Patient Disposition: Home, Self-Care Discharge Diagnosis: crohns Referrals: Hadley Spaulding MD [Primary Care Provider] - 1 Week Roosevelt Wiggins MD [Physician] - 1 Week Discharge Medications: New prednisone 5 mg tablet 40 mg PO DIRECTED Qty: 252 0RF Rx Instructions: 40mg daily, tapers by 5mg daily every week Continued lisinopril 30 mg tablet 30 mg PO DAILY 90 Days Qty: 90 1RF albuterol sulfate 90 mcg/actuation aerosol powdr breath activated 2 inh inhalation Q6H PRN (Reason: shortness of breath or wheezing) Qty: 1 3RF cyanocobalamin (vitamin B-12) [Vitamin B-12] 1,000 mcg tablet 1 tab PO DAILY 11RF infliximab [Remicade] 100 mg recon soln 600 mg IV Q6W Patient Comments: Dr. Bowen ketotifen fumarate 0.025 % (0.035 %) drops 1 drp ophthalmic (eye) BID PRN (Reason: Dry Eye(S)) furosemide 20 mg tablet 1 tab PO DAILY PRN (Reason: swelling) fexofenadine [[place] Allergy] 180 mg Tablet 180 mg PO DAILY PRN (Reason: Allergy Symptoms) acetaminophen 500 mg Tablet 1,000 mg PO Q6H PRN (Reason: Pain) cholecalciferol (vitamin D3) [Vitamin D3] 25 mcg (1,000 unit) Tablet 25 mcg PO DAILY omeprazole 20 mg capsule,delayed release(DR/EC) 1 cap PO DAILY@0630 Discharge Orders: Discharge Order (Routine); Ordered 03/05/23 Ordered By: Himanshu Westfall Diet: Advance to usual diet Activity on Discharge: As tolerated Stand Alone Forms: Patient Portal Discharge page Care Plan Goals: manage crohns Health Concerns: crohns Plan of Treatment: prednisone taper, follow up with gi Assessment: see above
--- NOTE | 2023-03-05 11:21 | MHC.CM.PN ---
Patient discharged to home self care. She will arrange transport home.
[2023-03-05] MEDS: Enoxaparin Sodium 40 MG/0.4 ML SYRINGE SUBCUT (11:27)
== END 2023-03-05 14:04 | disposition home or self-care (01) | DRG 245 ==
LOC: HO.ED 05:03 → HO.EDOVER 05:26 → HO.S3 16:56
PROVIDERS: Admitting Provider Student in an Organized Health Care Education/Training Program; Emergency Provider Emergency Medicine; PCP Internal Medicine; Visit Provider Internal Medicine
DX: K50.012 Crohn's disease of small intestine with intestinal obstruction (principal); E66.9 Obesity, unspecified; I10 Essential (primary) hypertension; Z68.41 Body mass index [BMI] 40.0-44.9, adult; Z87.891 Personal history of nicotine dependence; Z79.899 Other long term (current) drug therapy
CPT/HCPCS: 36415; 74177; 80048; 80053; 83690; 85025; 85652; 86140; 99285; J1170; J1650; J2270; J2405; J2930; Q9967

== ENCOUNTER → 2023-03-04 05:21 | Outpatient (BNV) | payer OTHER, SELFPAY | PROVIDERS: Admitting Provider Student in an Organized Health Care Education/Training Program; Emergency Provider Emergency Medicine; Visit Provider Student in an Organized Health Care Education/Training Program | DX: K50.912 Crohn's disease, unspecified, with intestinal obstruction (principal) | CPT/HCPCS: 99222; 99239; 99499 ==

== ENCOUNTER 2023-03-10 08:26 | Outpatient (REF) | payer OTHER, SELFPAY | END 2023-03-10 08:27 | disposition home or self-care (01) | LOC: HO.MDS 08:26 | PROVIDERS: Visit Provider Internal Medicine | DX: D50.8 Other iron deficiency anemias (principal) | CPT/HCPCS: 96365; J1756 ==

== ENCOUNTER 2023-03-17 08:27 | Outpatient (REF) | payer OTHER, SELFPAY | END 2023-03-17 08:28 | disposition home or self-care (01) | LOC: HO.MDS 08:27 | PROVIDERS: Visit Provider Internal Medicine | DX: D50.8 Other iron deficiency anemias (principal) | CPT/HCPCS: 96365; J1756 ==

== ENCOUNTER 2023-03-25 07:31 | Outpatient (REF) | payer OTHER, SELFPAY | END 2023-03-25 07:32 | disposition home or self-care (01) | LOC: HO.MDS 07:31 | PROVIDERS: Visit Provider Internal Medicine Gastroenterology | DX: K50.90 Crohn's disease, unspecified, without complications (principal) | CPT/HCPCS: 96365; 96366; J1745 ==

== ENCOUNTER 2023-05-04 10:19 | Outpatient (REF) | payer OTHER, SELFPAY ==
[2023-05-04 11:10] LABS: Hematocrit 38.1 % (37.0-47.0); Hemoglobin 11.6 g/dl (12.0-16.0); Mean Corpuscular HGB Conc 30.4 g/dl (31.0-35.0); Mean Corpuscular Volume 78.9 fL (80.0-98.0); Mean Platelet Volume 9.4 fL (9.4-12.3); Platelet Count 395 X10*3/uL (160-400); Red Blood Count 4.83 X10*6/uL (4.20-5.50); Red Cell Distribution Width 17.8 % (11.0-16.0)
== END 2023-05-04 10:20 | disposition home or self-care (01) ==
LOC: HO.LAB 10:19
PROVIDERS: PCP Internal Medicine; Visit Provider Internal Medicine Gastroenterology
DX: Z00.00 Encounter for general adult medical examination without abnormal findings (principal); E78.00 Pure hypercholesterolemia, unspecified; E55.9 Vitamin D deficiency, unspecified; K50.012 Crohn's disease of small intestine with intestinal obstruction
CPT/HCPCS: 36415; 80076; 80230; 82542; 83690; 85027; 85652; 86140

== ENCOUNTER 2023-05-06 07:29 | Outpatient (REF) | payer OTHER, SELFPAY | END 2023-05-06 07:30 | disposition home or self-care (01) | LOC: HO.MDS 07:29 | PROVIDERS: Visit Provider Internal Medicine Gastroenterology | DX: K50.90 Crohn's disease, unspecified, without complications (principal) | CPT/HCPCS: 96365; 96366; J1745 ==

== ENCOUNTER 2023-05-26 10:01 | Outpatient (REF) | payer OTHER, SELFPAY ==
[2023-05-26 10:19] LABS: MANUAL DIFF FLAG NO
[2023-05-26 10:48] LABS: Basophils Percent Auto 0.3 % (0-2); Eosinophils Percent Auto 0.2 % (0-4); Hematocrit 36.7 % (37.0-47.0); Hemoglobin 11.4 g/dl (12.0-16.0); Imm Gran Abs Auto 0.09 X10*3/uL (0.00-0.03); Lymphocytes Absolute Auto 0.7 X10*3/uL (1.2-4.9); Lymphocytes Percent Auto 7.5 % (20-40); Mean Corpuscular HGB Conc 31.1 g/dl (31.0-35.0); Mean Corpuscular Hemoglobin 25.6 pg (27.0-33.0); Mean Corpuscular Volume 82.3 fL (80.0-98.0); Mean Platelet Volume 9.3 fL (9.4-12.3); Monocytes Absolute Auto 0.4 X10*3/uL (0.1-1.2); Monocytes Percent Auto 4.4 % (2-11); Neutrophils Absolute Auto 8.1 x10*3/uL (2.0-8.3); Neutrophils Percent Auto 86.6 % (45-73); Platelet Count 280 X10*3/uL (160-400); Red Blood Count 4.46 X10*6/uL (4.20-5.50); Red Cell Distribution Width 16.4 % (11.0-16.0); White Blood Count 9.4 X10*3/uL (4.8-10.8)
[2023-05-26 10:58] LABS: Estimated Average Glucose 117 mg/dL; Hemoglobin A1c % 5.7 % (<6.0)
[2023-05-26 11:27] LABS: Alanine Aminotransferase 23 U/L (0-31); Albumin Level 3.5 g/dL (3.5-5.0); Alkaline Phosphatase 68 U/L (39-117); Anion Gap 13 (12-20); Aspartate Amino Transferase 8 U/L (5-31); Bilirubin Total 0.2 mg/dL (0.0-1.0); Blood Urea Nitrogen 15 mg/dL (9-16); Calcium 9.1 mg/dL (8.4-10.2); Carbon Dioxide 26 mmol/L (22-29); Chloride 104 mmol/L (96-108); Cholesterol 162 mg/dL (<200); Estimated Glomerular Filt Rate > 60; Glucose Fasting 156 mg/dL (60-99); HDL Cholesterol 57 mg/dL (>40); LDL Cholesterol Calculated 83 mg/dL (<100); Potassium 3.8 mmol/L (3.3-5.1); Sodium 139 mmol/L (135-145); Triglycerides 110 mg/dL (<150)
[2023-05-26 11:44] LABS: TSH reflex Free T4 0.56 uIU/mL (0.32-4.0); Vitamin D 25-OH Total 17.7 ng/mL (>30)
== END 2023-05-26 10:02 | disposition home or self-care (01) ==
LOC: HO.LAB 10:01
PROVIDERS: PCP Internal Medicine; Visit Provider Internal Medicine
DX: Z00.00 Encounter for general adult medical examination without abnormal findings (principal); E11.9 Type 2 diabetes mellitus without complications; I10 Essential (primary) hypertension; E78.00 Pure hypercholesterolemia, unspecified; E55.9 Vitamin D deficiency, unspecified
CPT/HCPCS: 36415; 80053; 80061; 82306; 83036; 84443; 85025

== ENCOUNTER 2023-05-27 14:05 | Outpatient (REF) | payer OTHER, SELFPAY ==
[2023-05-27 14:36] LABS: Appearance Urine Cloudy; Color Urine Yellow; Glucose Urine UA Negative (Negative); Leukocyte Esterase Urine Small (1+) (Negative); Nitrite Urine Negative (Negative); PH 5.5 (5.0-9.0); UMIC TRIGGER UACC YES; Urine Blood Small (1+) (Negative); Urine Ketones Negative (Negative); Urine Protein Negative (Neg-Trace)
[2023-05-27 15:06] LABS: Bacteria Urine 4+ (None Seen); Hyaline Casts Urine 0-2 /LPF (0-2); RBC Urine 0-2 /HPF (0-2); UACC Culture Trigger YES
== END 2023-05-27 14:06 | disposition home or self-care (01) ==
LOC: HO.LNP 14:05
PROVIDERS: Visit Provider Internal Medicine
DX: Z00.00 Encounter for general adult medical examination without abnormal findings (principal); R30.0 Dysuria
CPT/HCPCS: 81001; 87086; 87088; 87186

== ENCOUNTER 2023-06-01 12:14 | Outpatient (AMB) | payer OTHER, SELFPAY ==
[2023-06-01 12:32] VITALS: BP 168/110; PULSE 85; O2SAT 98; BMI 43.6
--- NOTE | 2023-06-01 12:32 | MHC.PC.OV ---
Vital Signs 06/01/23 12:32 Height 5 ft 5 in Weight 262 lb BMI 43.6 BP 168/110 H Blood Pressure Location Lt brachial Position Sitting Pulse 85 Pulse Source Pulse Oximeter Pulse Oximetry (%) 98 Oxygen Delivery Method Room Air Intake Visit Reasons: pe Network Development Coordinator Required: No Accompanied by: Self / Same As Patient Allergies aspirin [Aspirin] Allergy (Mild, Verified 06/01/23 12:57) EYES SWELL zucchini Allergy (Intermediate, Uncoded 06/01/23 12:57) Rash SEASONAL ALLERGIES Allergy (Unknown, Uncoded 06/01/23 12:57) TRIGGERS ASTHMA ATTACKS Medication List - Last Reconciled 06/01/23 by Hadley Spaulding MD acetaminophen 1,000 mg PO Q6H PRN albuterol sulfate 90 mcg/actuation 2 inhalations inhalation Q6H PRN cholecalciferol (vitamin D3) (Vitamin D3) 25 mcg PO DAILY cyanocobalamin (vitamin B-12) (Vitamin B-12) 1 tab PO DAILY fexofenadine ([place] Allergy) 180 mg PO DAILY PRN furosemide 1 tab PO DAILY PRN infliximab (Remicade) 600 mg IV Q6W ketotifen fumarate 0.025%(0.035%) 1 drp ophthalmic (eye) BID PRN lisinopril 30 mg PO DAILY 90 days omeprazole 1 cap PO DAILY@0630 prednisone 40 mg (8 x 5 mg) PO DIRECTED Tobacco use date assessed: 06/01/23 Dental Screening Dental Screen Date: 06/01/23 Did you have a dental visit in the last 12 months?: No Did you have a dental problem in the last 6 months where you did not have access to dental care?: No Was dental information given to patient?: No HPI pe HPI Details Patient comes in today for her annual physical examination States that she feels okay Denies any headaches or dizziness Denies any chest pains, no SOB No nausea/vomiting, no abdominal pain No change in bowel habits noted Recently had a flare up of her Crohn's disease and she is currently still on oral Prednisone taper, which is why her blood pressure has been high lately Denies any acute urinary symptoms Had her follow up labs done last week - to discuss her results Her yearly mammogram was due last month (April 2023) and she is scheduled for her next pap smear and gynecology exam in a couple of weeks [facility] Medical History (Updated 06/01/23 @ 13:17 by Hadley Spaulding MD) Vitamin D deficiency Uterine fibroid Breast nodule Asthma Obesity (BMI 30-39.9) Crohn's disease Benign essential hypertension Anemia Surgical History Hx of colonoscopy Hx of tubal ligation Hx of section Hx of cholecystectomy Family History Mother Diabetes HTN (hypertension) Parkinson disease Father Hyperthyroidism Social History Household Members: Family Housing: House Do you presently have visiting nurse or other home services: No Alcohol intake: never Patient Tobacco Use Status: Former Tobacco user Quit Date: 2013 Tobacco use type: Cigarette Second Hand Smoke Exposure: No Advance Directives Date on File: 09/21/20 service: No Current occupational status: employed 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 1. Little interest or pleasure in doing things: not at all 2. Feeling down, depressed, or hopeless: several days 3. Trouble falling or staying asleep, or sleeping too much: not at all 4. Feeling tired or having little energy: not at all 5. Poor appetite or overeating: not at all 6. Feeling bad about yourself - or that you are a failure or have let yourself or your family down: not at all 7. Trouble concentrating on things, such as reading the newspaper or watching television: not at all 8. Moving or speaking so slowly that other people could have noticed. Or the opposite - being so fidgety or restless that you have been moving around a lot more than usual: not at all 9. Thoughts that you would be better off or of hurting yourself in some way: not at all Total score: 1 Depression Screening Interpretation: Negative Depression Screening Done: Yes 25056 - PHQ-9 Billing: Yes Source: Developed by Drs. Roosevelt L. Paola Eubanks Kurt Kroenke and colleagues, with an educational rajesh from [employer]. Thrive Questionnaire Date Thrive assessed: 06/01/23 I am a: Patient What is your living situation today?: I have a steady place to live Within the past 12 months, did the food you bought not last and you didn't have the money to get more?: Never true Within the past 12 months, did you worry whether your food would run out before you got money to buy more?: Never true Do you have trouble paying for medicines?: No Do you have trouble getting transportation to medical appointments?: No Do you have trouble paying your heating and electricity bill?: No Do you have trouble taking care of your child, family member or friend?: No Do you have trouble with day-to-day activities such as bathing, preparing meals, shopping, managing finances, etc.?: No Are you currently unemployed and looking for a job?: No Are you interested in more education?: No Please select the resources that you would like help with: None Currently or been in a relationship where the following occur: no concerns reported THRIVE Score: 0 AUDIT C Alcohol Use Questionnaire (AUDIT-C) 1. How often do you have a drink containing alcohol?: Never 3. How often do you have six or more drinks on one occasion?: Never Total Score: 0 Score Reviewed/Action Taken: Yes RAJAT-7 AMB Questionnaire RAJAT-7 Date RAJAT - 7 assessed: 06/01/23 Feeling nervous, anxious, or on edge: 1 = Several days Not being able to stop or control worryin = Not at all Worrying too much about different things: 0 = Not at all Trouble relaxin = Not at all Being so restless that it is hard to sit still: 0 = Not at all Becoming easily annoyed or irritable: 0 = Not at all Feeling afraid as if something awful might happen: 0 = Not at all Total RAJAT-7 score (0-4 normal; 5-9 mild; 10-14 moderate; 15-21 severe): 1 Source: Developed by Paola Montemayor Kurt Kroenke and colleagues, with an educational rajesh from [employer]. Review of Systems Const Denies chills, Denies fatigue, Denies fever(s), Denies headache(s) and Denies malaise Eyes Denies blurry vision, Denies change in vision, Denies irritation and Denies itchy eyes ENT Denies dysphagia, Denies dizziness, Denies otalgia, Denies headache(s), Denies nasal congestion, Denies neck pain, Denies odynophagia, Denies sinus pain and Denies sore throat Card Denies chest pain, Denies rapid heart rate, Denies irregular heart rhythm, Denies palpitations and Denies dyspnea Resp Denies chest congestion, Denies cough, Denies dyspnea and Denies wheezing GI Denies abdominal pain, Denies bloating, Reports constipation (recurrent - better controlled lately), Denies dysphagia, Denies heartburn, Denies diarrhea, Denies nausea, Denies odynophagia and Denies vomiting Denies hematuria, Denies urinary frequency, Denies dysuria, Denies urinary incontinence and Denies urinary urgency Musc Denies back pain, Denies arthralgias, Denies joint swelling, Denies muscle weakness and Denies neck pain Skin/Breast Denies breast pain, Denies breast mass, Denies change in pigmentation, Denies lesions, Denies rash and Denies unusual bruising Neuro Denies dizziness, Denies headache(s) and Denies paresthesias Psych Denies anxiety and Denies depression Endo Denies fatigue and Denies palpitations Mendez/Lymph Denies easy bruising Aller/Immun Denies itchy eyes and Denies wheezing Physical exam (Primary Care) Vital Signs: Last Vital Signs Pulse 85 06/01/23 12:32 BP 168/110 H 06/01/23 12:32 Pulse Ox 98 06/01/23 12:32 Oxygen Delivery Method Room Air 06/01/23 12:32 BMI result Body Mass Index 43.6 Tobacco/Smoking Status: Tobacco use Status Tobacco use date assessed 06/01/23 06/01/23 12:39 Patient Tobacco Use Status Former Tobacco user 06/01/23 12:39 Tobacco use type Cigarette 06/01/23 12:39 PHQ-9: PHQ-9 Score PHQ-9: Total score 1 06/01/23 12:39 Depression Screening Interpretation: Negative Thrive Assessment: Date of Thrive Assessment Date Thrive assessed 06/01/23 06/01/23 12:39 Currently or been in a relationship where the following occur: no concerns reported Const General: no acute distress, alert and awake Orientation/consciousness: patient oriented x3 HENMT Head: Yes normocephalic and Yes atraumatic Ears: external ears normal, TM's normal bilaterally and EAC's normal General nose exam: No nasal discharge present Face and sinus: Yes normal facial exam and Yes sinuses nontender Teeth and gingiva: dentition normal Throat: Yes posterior oropharynx normal and Yes tonsils normal (no TP congestion) Eyes Eyelids: Yes eyelids normal Conjunctivae: conjunctivae normal Pupils: Equal, round and reactive pupils present EOM: EOMs intact bilaterally Neck Neck: Yes no lymphadenopathy and Yes supple Thyroid: Thyroid normal Resp Auscultation: clear to auscultation bilaterally, no rales and no wheezes Cardio Rate: regular rate Rhythm: regular rhythm Heart sounds: no murmurs GI Palpation (GI): Soft to palpation, nontender and No hepatosplenomegaly present Auscultation: normal bowel sounds General: Yes no CVA tenderness Back/Spine/Pelvis Back: no CVA tenderness Thoracic/Lumbar Spine: thoracic and lumbar spine normal to inspection Skin Lesions: no lesions Rashes: no rashes Neuro General: patient oriented x3, moves all extremities, no focal motor deficits and CN's II-XI intact bilaterally Cranial nerves: Yes Equal, round and reactive pupils present Cognition (Neuro): normal cognition Gait exam (Neuro): Normal gait present Extrem General: Yes no clubbing, cyanosis or edema Results Reviewed Results Reviewed: Laboratory Tests 05/26/23 05/27/23 10:15 10:38 WBC 9.4 Hgb 11.4 L Hct 36.7 L Plt Count 280 D Sodium 139 Potassium 3.8 Creatinine 0.79 Estimated GFR > 60 Fasting Glucose 156 H Hemoglobin A1c % 5.7 Calcium 9.1 D AST 8 ALT 23 Triglycerides 110 Cholesterol 162 LDL Cholesterol, Calc 83 HDL Cholesterol 57 25-OH Vitamin D Total 17.7 L TSH 0.56 Ur Specific [place] 1.020 Urine Protein Negative Urine Glucose (UA) Negative Urine Blood Small (1+) H Urine Nitrite Negative Ur Leukocyte Esterase Small (1+) H Assessment and Plan Assessment & Plan (1) Annual physical exam: Code(s): Z00.00 - Encounter for general adult medical examination without abnormal findings Plan: Results of her labs done last week reviewed and discussed with patient She is scheduled for her annual gynecology exam and pap smear in a couple of weeks Was due for her annual mammogram last month but patient states that she was never contacted or scheduled - routine mammogram ordered (2) Benign essential hypertension: Code(s): I10 - Essential (primary) hypertension Plan: Reinforced low sodium diet - goal is systolic BP of 120 mm or less States that her blood pressure has been high lately as she is still on her oral Prednisone taper for a flare up of her Crohn's recently Continue Lisinopril 30 mg QD for now - Rx refilled Patient is reminded to continue monitoring her blood pressure regularly (3) Crohn's disease: Code(s): K50.90 - Crohn's disease, unspecified, without complications Qualifiers: Gastrointestinal tract location: unspecified location Digestive disease complication type: without complication Qualified Code(s): K50.90 - Crohn's disease, unspecified, without complications Plan: States that her Crohn's disease has been better controlled on Remicade although she had a flare up recently Continue Remicade 600 mg IV every 6 weeks and Prednisone 40 mg QD Follow up with GI (Dr. Bowen) as scheduled (4) Asthma: Comment: WELL CONTROLLED WITH ALLERGY SHOTS Code(s): J45.909 - Unspecified asthma, uncomplicated Qualifiers: Asthma severity: mild Asthma persistence: intermittent Asthma complication type: unspecified Qualified Code(s): J45.20 - Mild intermittent asthma, uncomplicated Plan: Notes that her asthma has been well controlled since she started receiving allergy injections from [facility] a couple of years ago (sees Dr. Puga) States that she has not had to use her rescue inhaler in a while now; continue Albuterol HFA 1 to 2 inhalations Q 6 hours PRN only Is also taking Fexofenadine 180 mg QD PRN (5) Impaired fasting glucose: Code(s): R73.01 - Impaired fasting glucose Plan: HgbA1c was normal at 5.7% on her recent labs Reinforced low calorie diet/exercise as tolerated (6) Arthralgia: Code(s): M25.50 - Pain in unspecified joint Qualifiers: Joint pain location: unspecified Qualified Code(s): M25.50 - Pain in unspecified joint Plan: X-rays of both hands done in September 2021 came out normal Arthralgia work ups done last year also came out normal (7) Vitamin D deficiency: Code(s): E55.9 - Vitamin D deficiency, unspecified Plan: Is advised that her Vitamin D level was still low on her recent labs Will start her back on Vitamin D3 but increase dose to 2000 units QD (8) Anemia: Comment: Unable to tolerate oral iron tablets (severe constipation) Code(s): D64.9 - Anemia, unspecified Qualifiers: Anemia type: iron deficiency Iron deficiency anemia type: inadequate dietary iron intake Qualified Code(s): D50.8 - Other iron deficiency anemias Plan: H/H was at 11.4/36.7 on her recent labs done last week States that she receives infusion of IV as needed (is unable to tolerate oral iron supplements) Follow up with hematology (Dr. Kaplan) as scheduled (9) Morbid obesity with BMI of 40.0-44.9, adult: Code(s): E66.01 - Morbid (severe) obesity due to excess calories; Z68.41 - Body mass index [BMI] 40.0-44.9, adult Plan: Reinforced diet/exercise as tolerated/lose weight (10) Breast cancer screening by mammogram: Code(s): Z12.31 - Encounter for screening mammogram for malignant neoplasm of breast Plan: Will send her for her annual mammogram Plan Follow up in 4 months Orders: Orders MM tomosynthesis screen imp Today Z12.31 - Encounter for screening mammogram for malignant neoplasm of breast Medications: Changed From cholecalciferol (vitamin D3) (Vitamin D3) 25 mcg PO DAILY To cholecalciferol (vitamin D3) 50 mcg PO DAILY 90 days 90 tabs 3RF Refilled lisinopril 30 mg PO DAILY 90 days 90 tabs 1RF I10 - Essential (primary) hypertension Coding Level of Care Code Est Pt Prev Care 40-64y(03550) Diagnoses Annual physical exam Z00.00 Benign essential hypertension I10 Crohn's disease without complication, unspecified gastrointestinal tract location K50.90 Gastrointestinal tract location: unspecified location Digestive disease complication type: without complication Mild intermittent asthma, unspecified whether complicated J45.20 Asthma severity: mild Asthma persistence: intermittent Asthma complication type: unspecified Impaired fasting glucose R73.01 Arthralgia, unspecified joint M25.50 Joint pain location: unspecified Vitamin D deficiency E55.9 Iron 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 intake D50.8 Anemia type: iron deficiency Iron deficiency anemia type: inadequate dietary iron intake Morbid obesity with BMI of 40.0-44.9, adult E66.01; Z68.41 Breast cancer screening by mammogram Z12.31
== END 2023-06-01 13:08 | disposition home or self-care (01) ==
PROVIDERS: PCP Internal Medicine; Visit Provider Internal Medicine
DX: Z00.00 Encounter for general adult medical examination without abnormal findings (principal); K50.90 Crohn's disease, unspecified, without complications; E66.01 Morbid (severe) obesity due to excess calories; Z68.41 Body mass index [BMI] 40.0-44.9, adult; I10 Essential (primary) hypertension; J45.20 Mild intermittent asthma, uncomplicated; R73.01 Impaired fasting glucose; M25.50 Pain in unspecified joint; E55.9 Vitamin D deficiency, unspecified; D50.8 Other iron deficiency anemias; Z12.31 Encounter for screening mammogram for malignant neoplasm of breast
CPT/HCPCS: 99396

== ENCOUNTER 2023-06-11 09:30 | Outpatient (REF) | payer OTHER, SELFPAY | END 2023-06-11 09:31 | disposition home or self-care (01) | LOC: HO.MAMMO 09:30 | PROVIDERS: PCP Internal Medicine; Visit Provider Internal Medicine | DX: Z12.31 Encounter for screening mammogram for malignant neoplasm of breast (principal) | CPT/HCPCS: 77063; 77067 ==

== ENCOUNTER → 2023-06-11 09:45 | Outpatient (BNV) | payer OTHER, SELFPAY | PROVIDERS: PCP Internal Medicine; Visit Provider Radiology Diagnostic Radiology | DX: Z12.31 Encounter for screening mammogram for malignant neoplasm of breast (principal) | CPT/HCPCS: 77063; 77067 ==

== ENCOUNTER 2023-06-13 08:30 | Inpatient (IN) | payer OTHER, SELFPAY ==
[2023-06-13] VITALS (7 sets, daily range): BP systolic 147–190; BP diastolic 79–108; PULSE 106–116; RESP 14–20; TEMP 36.6–37.2; O2SAT 94–97; BMI 44.0; BMI 44.3
--- NOTE | ~2023-06-13 | CT_ITS ---
EXAMINATION: CT abdomen pelvis w IV con CLINICAL INFORMATION: Reason for Exam Abd pain, hx of chron's, SBO COMPARISON: Prior CT February 2023 TECHNIQUE: Multidetector volumetric imaging was performed from the superior aspect of the liver through the pubic symphysis 85 mL of Omnipaque 350 injected Sagittal and coronal reformatted images were obtained on the technologist's workstation. This CT examination was performed using dose optimization techniques as appropriate, variously including the following: *Automated exposure control *Adjustment of mA and/or kV according to patient size (this includes techniques or standardized protocols for targeted exams where dose is matched to indication/reason for exam; i.e. extremities or head) *Use of iterative reconstruction technique DLP: 959 mGy-cm FINDINGS: LOWER THORAX: Included lung bases are clear. HEPATOBILIARY: No focal hepatic lesions. No biliary ductal dilatation. GALLBLADDER: Gallbladder has been removed, there are surgical clips in place. SPLEEN: Spleen is normal in size. PANCREAS: No focal mass or ductal dilatation. STOMACH AND GASTROINTESTINAL TRACT: Stomach is grossly unremarkable. There is diffuse small bowel dilatation suggesting small bowel obstruction transition zone in the right lower quadrant, segments of thickened small bowel loops, scarring and tethering which involve the distal ileum and ileocecal junction. There is extensive scarring, desmoplastic reaction surrounding soft tissue opacity in the right lower quadrant roughly measures 2.4 cm although could be scarring from patient's known Crohn's disease cannot rule out the possibility of tumor including carcinoid tumor. Refer image 71 series of 3 ADRENALS: No adrenal nodules. KIDNEYS/URETERS: No hydronephrosis, stones or solid mass lesions. URINARY BLADDER: Partially decompressed. PELVIC VISCERA: Bulky uterus, calcified uterine mass likely necrotic uterine fibroid. There is left pelvic soft tissue structure adjacent to the iliac vessel measure about 2 cm in diameter, possibly an enlarged pathologic lymph node or mesenteric seeding. This has not changed from prior exam. PERITONEUM: No free air or fluid. LYMPH NODES: No lymphadenopathy. VASCULAR:Abdominal aorta normal in size, no aneurysm found. BONES, ABDOMINAL WALL AND SOFT TISSUES: Age-appropriate changes of the spine and skeletal system, no destructive osteolytic or osteosclerotic bone lesion found CT/CT abdomen pelvis w IV con IMPRESSION: 1. Diffuse small bowel dilatation suggesting small bowel obstruction, transition zone in the right lower quadrant. No evidence of bowel perforation. 2. There is extensive scarring, tethering/desmoplastic reaction surrounding soft tissue mass 2.4 cm in the right lower quadrant, involving and including the area distal ileum. Possibly scarring from patient's known Crohn's disease, however cannot rule out the possibility of tumor including carcinoid tumor. 3. There is left pelvic soft tissue structure left pelvis adjacent to the iliac vessel measure about 2 cm in diameter possibly an enlarged lymph node or mesenteric seeding. This has not changed. This could be targeted for CT-guided tissue sampling if clinically indicated. Other noncritical findings as above.
--- NOTE | 2023-06-13 08:40 | ED_ITS ---
HPI - Abdominal Pain General Chief Complaint: Nausea/Vomiting/Diarrhea Stated Complaint: CROHNS FLARE UP VOMITING Time Seen by Provider: 06/13/23 08:35 Source: patient and RN notes reviewed Mode of arrival: ambulatory Limitations: no limitations History of Present Illness HPI narrative: This is a 43-year-old female, with a past medical history Crohn's disease on Remicade, SBO, asthma, anemia, and hypertension, presenting to the emergency department for evaluation of abdominal pain x2 days. Patient reports that she felt a burning sensation in her abdomen 2 days ago which was intermittent however states now that she is having episodic episodes of right upper and right-sided abdominal pain which last for several minutes and resolved on its own. States that the pain worsens with eating. She endorses nausea, and vomiting. Last moved her bowels 2 days ago. No diarrhea or constipation. Denies any fevers, chills, chest pain, shortness for breath, or urinary symptoms. She has a history of Crohn's disease in symptoms feel slightly similar. Denies taking any nausea or pain medication prior to her arrival. No other complaints or concerns at this time. MD elicited complaint: abdominal pain Pertinent past history: other (Crohn's, SBO) Onset (ago): day(s) Pain Consistency: constant Location: epigastric, RUQ and RLQ Severity: severe Pain scale (0-10): 10 Quality: burning Radiation: none Migration to: no migration Exacerbating factors: eating Relieving factors: nothing Context: history of similar episodes Associated symptoms: nausea and vomiting Related Data Home Medications Medication Instructions Recorded Confirmed infliximab 100 mg intravenous 600 mg IV Q5W 05/23/21 06/13/23 solution (Remicade) ketotifen fumarate 0.025 % (0.035 1 drp ophthalmic (eye) BID PRN Dry 02/04/22 06/13/23 %) eye drops Eye(S) furosemide 20 mg tablet 1 tab PO DAILY 06/01/22 06/13/23 acetaminophen 500 mg tablet 1,000 mg PO Q6H PRN Pain 11/06/22 06/13/23 fexofenadine 180 mg tablet 180 mg PO DAILY PRN Allergy 11/06/22 06/13/23 ([place] [facility]) Symptoms omeprazole 20 mg capsule,delayed 1 cap PO DAILY@0630 03/04/23 06/13/23 release Previous Rx's Medication Instructions Recorded albuterol sulfate 90 mcg/actuation 2 inh inhalation Q6H PRN shortness 12/27/21 breath activated powder inhaler of breath or wheezing #1 ea cyanocobalamin (vitamin B-12) 1 tab PO DAILY 01/01/23 1,000 mcg tablet (Vitamin B-12) cholecalciferol (vitamin D3) 50 50 mcg PO DAILY 90 days #90 tabs 06/01/23 mcg (2,000 unit) tablet lisinopril 30 mg tablet 30 mg PO DAILY 90 days #90 tabs 06/01/23 Allergies Allergy/AdvReac Type Severity Reaction Status Date / Time aspirin [Aspirin] Allergy Mild EYES SWELL Verified 06/13/23 08:43 zucchini Allergy Intermediate Rash Uncoded 06/13/23 08:43 SEASONAL ALLERGIES Allergy Unknown TRIGGERS Uncoded 06/13/23 08:43 ASTHMA ATTACKS Review of Systems Review of Systems Yes all other systems are reviewed and are negative Constitutional: Reports as per HPI [facility] Past Medical History Medical History Vitamin D deficiency Uterine fibroid Breast nodule Asthma Obesity (BMI 30-39.9) Crohn's disease Benign essential hypertension Anemia Surgical History Hx of colonoscopy Hx of tubal ligation Hx of section Hx of cholecystectomy Family History Family History Mother Diabetes HTN (hypertension) Parkinson disease Father Hyperthyroidism Social History Social History Household Members: Family Housing: House Do you presently have visiting nurse or other home services: No Alcohol intake: never Patient Tobacco Use Status: Former Tobacco user Quit Date: 2013 Tobacco use type: Cigarette Smoked in Last 30 Days: No Second Hand Smoke Exposure: No Use of substances other than those prescribed or required for medical reasons: No Advance Directives: Yes Advance Directives on File: Yes Advance Directives Date on File: 09/21/20 Patient : No service: No Current occupational status: employed Current occupation: [employer] Sexual orientation: Straight/Heterosexual Cognitive needs: No Hearing needs: No Vision needs: Yes Physical Exam ED Vital Signs: Vital Signs - 24 hr 06/13/23 08:38 06/13/23 11:12 06/13/23 13:45 Temperature 98.3 F 98.3 F 98.5 F Pulse Rate 106 H 107 H 110 H Respiratory Rate 20 16 18 Blood Pressure 168/104 H 147/79 H 152/94 H Pulse Oximetry 96 97 94 Oxygen Delivery Method Room Air Room Air Room Air BMI result Body Mass Index 44.0 Const General: cooperative, comfortable and no acute distress Orientation/consciousness: patient oriented x3 Limitations: no limitations [facility] Head: Yes normal to inspection, Yes normocephalic and Yes atraumatic Ears: hearing grossly normal bilaterally General nose exam: Normal external nose present Face and sinus: Yes normal facial exam Mouth: Normal oral and palatal mucosa present, oropharynx normal and moist mucous membranes Throat: Yes posterior oropharynx normal Eyes General: appearance normal, both eyes and all related structures Eyelids: Yes eyelids normal Conjunctivae: conjunctivae normal Sclerae: sclerae normal Pupils: Equal, round and reactive pupils present EOM: EOMs intact bilaterally Neck Neck: Yes normal visual inspection, Yes full ROM and Yes no lymphadenopathy Lymphatic: no lymphadenopathy noted Chest Chest palpation & inspection: normal inspection of the chest Resp Effort & Inspection: normal respiratory effort and able to speak in complete sentences Auscultation: clear to auscultation bilaterally, no crackles, no rales, no rhonchi and no wheezes Cardio Rate: regular rate Rhythm: regular rhythm Heart sounds: S1 normal heart sound present and S2 normal heart sound present GI Other: Abdomen is soft, with exquisite tenderness to palpation in the epigastrium, right upper quadrant and right mid quadrant, no suprapubic or right lower quadrant pain. No rebound. Hypoactive bowel sounds present Inspection: Yes normal to inspection Skin General skin exam: no rashes or lesions noted Trauma: no lacerations or abrasions Wounds: no wounds Neuro General: patient oriented x3 and moves all extremities Cranial nerves: Yes Equal, round and reactive pupils present Extrem General: Yes normal to inspection Right upper extremity: normal to inspection Left upper extremity: normal to inspection Right lower extremity: normal to inspection Left lower extremity: normal to inspection Course Reevaluation(s) Reevaluation #1: Patient re-evaluated, patient has slight leukocytosis at 11.1, H&H stable. Chemistry within normal limits. Urine is contaminated given that she is asymptomatic. CT abdomen and pelvis pending Time: 10:59 Reevaluation #2: CT scan returns showing diffuse small bowel dilatation suggesting small bowel obstruction, small as 2.4 cm soft tissue mass involving the distal ileum, questionable scarring from known Crohn's disease however can not rule out the possibility of tumor including carcinoid tumor. There is also a left pelvic soft tissue structure left pelvis adjacent to the iliac vessel measuring about 2 cm this is not changed from previous CT scan. Reached out to Dr. Arnold for consult Time: 13:13 Reevaluation #3: Dr. Arnold reviewed Case, unlikely surgical intervention needed at this time. She was previously admitted to the hospital service, will consult hospitalist team for possible transfer of care. She remains comfortable, will continue to closely monitor Time: 14:58 Consultations Consultation #1: See above Medical Decision Making Medical Decision Making [facility] Narrative: This is a 43-year-old female, with a history of Crohn's disease and SBO, presenting to the emergency department for evaluation of abdominal pain, nausea and vomiting x2 days. On arrival, patient hypertensive at 168/104, pulse 106, patient is afebrile, nontoxic appearing. Abdomen is soft however with exquisite tenderness in the right upper quadrant, 12 right side of abdomen, no lower abdominal pain. Differential diagnoses include Crohn's disease, diverticulitis, diverticulosis, SBO. Less likely mesenteric ischemia. Patient has previously had small bowel obstruction therefore this is on differential. Plan: Labs, UA, IV fluids, IV Zofran, EKG, CT abdomen and pelvis Differential Diagnosis Differential Diagnoses: The differential diagnosis associated with the presentation includes See above Admission/Observation Consideration of admission/observation: Escalation of care including admission/observation considered Consult Healthcare Provider Management of the patient was discussed with: Hospitalist and Relief Pilot Dr. Arnold, surgeon Lab Data [facility] Lab Attestation statement: I reviewed the patient's lab results. See MDM 06/13/23 09:45 06/13/23 09:45 Labs: Lab Results 06/13/23 06/13/23 Range/Units 09:45 09:58 WBC 11.1 H (4.8-10.8) X10*3/uL RBC 4.89 (4.20-5.50) X10*6/uL Hgb 12.2 (12.0-16.0) g/dl Hct 39.8 (37.0-47.0) % MCV 81.4 (80.0-98.0) fL MCH 24.9 L (27.0-33.0) pg MCHC 30.7 L (31.0-35.0) g/dl RDW 14.4 (11.0-16.0) % Plt Count 328 (160-400) X10*3/uL MPV 9.2 L (9.4-12.3) fL Immature Gran % (Auto) 0.8 H (0.0-0.4) % Neut % (Auto) 87.2 H (45-73) % Lymph % (Auto) 4.4 L (20-40) % [place] % (Auto) 7.3 (2-11) % Eos % (Auto) 0.1 (0-4) % Baso % (Auto) 0.2 (0-2) % Lymph # (Auto) 0.5 L (1.2-4.9) X10*3/uL [place] # (Auto) 0.8 (0.1-1.2) X10*3/uL Eos # (Auto) 0.0 (0.0-0.4) X10*3/uL Baso # (Auto) 0.0 (0.0-0.2) X10*3/uL Abs Immat Gran (auto) 0.09 H (0.00-0.03) X10*3/uL Absolute Neuts (auto) 9.7 H (2.0-8.3) x10*3/uL Absolute Nucleated RBC 0.000 (0.0-0.012) X10*3/uL Nucleated RBC % (auto) 0.0 (0.0-0.2) /100WBC Sodium 137 (135-145) mmol/L Potassium 4.5 (3.3-5.1) mmol/L Chloride 105 (96-108) mmol/L Carbon Dioxide 23 (22-29) mmol/L Anion Gap 14 (12-20) BUN 15 (9-16) mg/dL Creatinine 0.78 (0.5-1.4) mg/dL Estim Creat Clear Calc 121.9 Estimated GFR > 60 Random Glucose 138 H (60-115) mg/dL Calcium 9.3 (8.4-10.2) mg/dL Magnesium 2.0 (1.6-2.6) mg/dL Total Bilirubin 0.5 (0.0-1.0) mg/dL Direct Bilirubin 0.2 (0.0-0.5) mg/dL AST 24 (5-31) U/L ALT 25 (0-31) U/L Alkaline Phosphatase 73 (39-117) U/L Troponin I High Sens < 2.7 (<3.5-17.0) ng/L Total Protein 7.6 (6.5-8.0) g/dL Albumin 3.5 (3.5-5.0) g/dL Lipase 14 (8-78) U/L Beta HCG, Quant < 2 mIU/mL Urine Color Yellow Urine Appearance Cloudy Urine pH 7.5 (5.0-9.0) Ur Specific [place] 1.025 (1.005-1.025) Urine Protein 30 (1+) H (Neg-Trace) mg/dL Urine Glucose (UA) Negative (Negative) mg/dL Urine Ketones 15 (Negative) mg/dL Urine Blood Moderate (2+) H (Negative) Urine Nitrite Positive H (Negative) Ur Leukocyte Esterase Small (1+) H (Negative) Urine RBC 11-20 H (0-2) /HPF Urine WBC 11-20 H (0-5) /HPF Ur Squamous Epith Cells 11-20 (0-2) /HPF Urine Bacteria 4+ (None Seen) Hyaline Casts 0-2 (0-2) /LPF Radiology Impression Discussion of test interpretation with radiology: I have reviewed the radiologist's reading. Radiologist Impression: EXAMINATION: CT abdomen pelvis w IV con CLINICAL INFORMATION: Reason for Exam Abd pain, hx of chron's, SBO COMPARISON: Prior CT February 2023 TECHNIQUE: Multidetector volumetric imaging was performed from the superior aspect of the liver through the pubic symphysis 85 mL of Omnipaque 350 injected Sagittal and coronal reformatted images were obtained on the technologist's workstation. This CT examination was performed using dose optimization techniques as appropriate, variously including the following: *Automated exposure control *Adjustment of mA and/or kV according to patient size (this includes techniques or standardized protocols for targeted exams where dose is matched to indication/reason for exam; i.e. extremities or head) *Use of iterative reconstruction technique DLP: 959 mGy-cm FINDINGS: LOWER THORAX: Included lung bases are clear. HEPATOBILIARY: No focal hepatic lesions. No biliary ductal dilatation. GALLBLADDER: Gallbladder has been removed, there are surgical clips in place. SPLEEN: Spleen is normal in size. PANCREAS: No focal mass or ductal dilatation. STOMACH AND GASTROINTESTINAL TRACT: Stomach is grossly unremarkable. There is diffuse small bowel dilatation suggesting small bowel obstruction transition zone in the right lower quadrant, segments of thickened small bowel loops, scarring and tethering which involve the distal ileum and ileocecal junction. There is extensive scarring, desmoplastic reaction surrounding soft tissue opacity in the right lower quadrant roughly measures 2.4 cm although could be scarring from patient's known Crohn's disease cannot rule out the possibility of tumor including carcinoid tumor. Refer image 71 series of 3 ADRENALS: No adrenal nodules. KIDNEYS/URETERS: No hydronephrosis, stones or solid mass lesions. URINARY BLADDER: Partially decompressed. PELVIC VISCERA: Bulky uterus, calcified uterine mass likely necrotic uterine fibroid. There is left pelvic soft tissue structure adjacent to the iliac vessel measure about 2 cm in diameter, possibly an enlarged pathologic lymph node or mesenteric seeding. This has not changed from prior exam. PERITONEUM: No free air or fluid. LYMPH NODES: No lymphadenopathy. VASCULAR:Abdominal aorta normal in size, no aneurysm found. BONES, ABDOMINAL WALL AND SOFT TISSUES: Age-appropriate changes of the spine and skeletal system, no destructive osteolytic or osteosclerotic bone lesion found CT/CT abdomen pelvis w IV con IMPRESSION: 1. Diffuse small bowel dilatation suggesting small bowel obstruction, transition zone in the right lower quadrant. No evidence of bowel perforation. 2. There is extensive scarring, tethering/desmoplastic reaction surrounding soft tissue mass 2.4 cm in the right lower quadrant, involving and including the area distal ileum. Possibly scarring from patient's known Crohn's disease, however cannot rule out the possibility of tumor including carcinoid tumor. 3. There is left pelvic soft tissue structure left pelvis adjacent to the iliac vessel measure about 2 cm in diameter possibly an enlarged lymph node or mesenteric seeding. This has not changed. This could be targeted for CT-guided tissue sampling if clinically indicated. Other noncritical findings as above. Dictated By: Talat Mayo MD Medications Administered Generic Name Dose Route Start Last Admin Trade Name Freq PRN Reason Stop Dose Admin Heparin Sodium (Porcine) 5,000 unit 06/13/23 16:00 06/13/23 16:19 Heparin Sodium,Porcine 5,000 Unit/Ml Vial SUBCUT 5,000 unit Q12H [place] Administration Sodium Chloride 1,000 mls @ 100 mls/hr 06/13/23 15:30 06/13/23 16:19 Ns IVCONT 100 mls/hr .Q10H [place] Administration Morphine Sulfate 2 mg 06/13/23 15:24 06/13/23 16:25 Morphine Sulfate 4 Mg/Ml Cartridge IVPUSH 2 mg Q4H PRN Administration Pain, Severe (Pain Scale 7-10) Protocol Sodium Chloride 3 ml 06/13/23 16:00 06/13/23 16:21 0.9 % Sodium Chloride Flush 3 Ml Syringe IVFLUSH Not Given QSHIFT [facility] Discontinued Medications Generic Name Dose Route Start Last Admin Trade Name Freq PRN Reason Stop Dose Admin Sodium Chloride 1,000 mls @ 999 mls/hr 06/13/23 08:51 06/13/23 11:47 Ns IV 06/13/23 09:51 Infused .Q1H1M ONE Infusion Iohexol 85 ml 06/13/23 10:54 06/13/23 10:54 Iohexol 350 Mg/Ml 100 Ml Infus..Btl IV 06/13/23 10:55 85 ml ONCE ONE Administration Morphine Sulfate 4 mg 06/13/23 08:51 06/13/23 09:57 Morphine Sulfate 4 Mg/Ml Cartridge IVPUSH 06/13/23 08:52 4 mg ONCE ONE Administration Protocol Morphine Sulfate 4 mg 06/13/23 10:59 06/13/23 11:08 Morphine Sulfate 4 Mg/Ml Cartridge IVPUSH 06/13/23 11:00 4 mg ONCE ONE Administration Protocol Ondansetron HCl 4 mg 06/13/23 08:51 06/13/23 09:56 Ondansetron Hcl 4 Mg/2 Ml Vial IVPUSH 06/13/23 08:52 4 mg ONCE ONE Administration Discharge Plan Discharge Clinical Impression: Small bowel obstruction Patient Disposition: Admitted As Inpatient
--- NOTE | 2023-06-13 08:51 | ECG_ITS ---
Test Reason : EPIGASTRIC PAIN Blood Pressure : / mmHG Vent. Rate : 105 BPM Atrial Rate : 105 BPM P-R Int : 136 ms QRS Dur : 080 ms QT Int : 344 ms P-R-T Axes : 018 -17 018 degrees QTc Int : 454 ms Sinus tachycardia Minimal voltage criteria for LVH, may be normal variant ( R in aVL ) Borderline ECG No previous ECGs available Referred By: Nila Flynn Electronically Signed By:Kiet Weir
[2023-06-13 09:49] LABS: MANUAL DIFF FLAG NO
[2023-06-13] MEDS: ondansetron HCL 4 MG/2 ML VIAL IVPUSH (09:56)
[2023-06-13] MEDS: 0.9 % Sodium Chloride 1,000 ML 999 ML IV (09:56)
[2023-06-13] MEDS: Morphine Sulfate 4 MG/ML CARTRIDGE IVPUSH ×2 (09:57→11:08)
[2023-06-13 10:01] LABS: Basophils Percent Auto 0.2 % (0-2); Eosinophils Percent Auto 0.1 % (0-4); Hematocrit 39.8 % (37.0-47.0); Hemoglobin 12.2 g/dl (12.0-16.0); Imm Gran Abs Auto 0.09 X10*3/uL (0.00-0.03); Imm Gran Pct Auto 0.8 % (0.0-0.4); Lymphocytes Absolute Auto 0.5 X10*3/uL (1.2-4.9); Lymphocytes Percent Auto 4.4 % (20-40); Mean Corpuscular HGB Conc 30.7 g/dl (31.0-35.0); Mean Corpuscular Hemoglobin 24.9 pg (27.0-33.0); Mean Corpuscular Volume 81.4 fL (80.0-98.0); Mean Platelet Volume 9.2 fL (9.4-12.3); Monocytes Absolute Auto 0.8 X10*3/uL (0.1-1.2); Monocytes Percent Auto 7.3 % (2-11); Neutrophils Absolute Auto 9.7 x10*3/uL (2.0-8.3); Neutrophils Percent Auto 87.2 % (45-73); Platelet Count 328 X10*3/uL (160-400); Red Blood Count 4.89 X10*6/uL (4.20-5.50); Red Cell Distribution Width 14.4 % (11.0-16.0); White Blood Count 11.1 X10*3/uL (4.8-10.8)
[2023-06-13 10:06] LABS: Appearance Urine Cloudy; Color Urine Yellow; Glucose Urine UA Negative (Negative); Leukocyte Esterase Urine Small (1+) (Negative); Nitrite Urine Positive (Negative); PH 7.5 (5.0-9.0); Specific Gravity - Urine 1.025 (1.005-1.025); UMIC TRIGGER UACC YES; Urine Blood Moderate (2+) (Negative); Urine Ketones 15 mg/dL (Negative); Urine Protein 30 (1+) mg/dL (Neg-Trace)
[2023-06-13 10:10] LABS: Bacteria Urine 4+ (None Seen); Hyaline Casts Urine 0-2 /LPF (0-2); UACC Culture Trigger YES
[2023-06-13 10:30] LABS: Alanine Aminotransferase 25 U/L (0-31); Albumin Level 3.5 g/dL (3.5-5.0); Alkaline Phosphatase 73 U/L (39-117); Anion Gap 14 (12-20); Aspartate Amino Transferase 24 U/L (5-31); Bilirubin Direct 0.2 mg/dL (0.0-0.5); Bilirubin Total 0.5 mg/dL (0.0-1.0); Blood Urea Nitrogen 15 mg/dL (9-16); Calcium 9.3 mg/dL (8.4-10.2); Carbon Dioxide 23 mmol/L (22-29); Chloride 105 mmol/L (96-108); Creatinine Clr Calc Pharmacy 121.9; Estimated Glomerular Filt Rate > 60; Glucose Random 138 mg/dL (60-115); Lipase 14 U/L (8-78); Potassium 4.5 mmol/L (3.3-5.1); Sodium 137 mmol/L (135-145); Total Protein 7.6 g/dL (6.5-8.0)
[2023-06-13 10:40] LABS: HCG Quantitative < 2 mIU/mL; Troponin-I High Sensitivity < 2.7 ng/L (<3.5-17.0)
[2023-06-13] MEDS: iohexoL 350 MG/ML 100 ML INFUS..BTL 85 ML IV (10:54)
--- NOTE | 2023-06-13 15:03 | P.CONGS_ITS ---
History of Present Illness Consult details Consult date: 06/13/23 Narrative: 43-year-old female here in the ER for right-sided abdominal pain. She says that she has had this on and off for about 2 days now. She describes this as episodic and would happened for a few minutes. She also has some nausea and vomiting She is well known to the hospital for multiple previous admissions for Crohn's disease. She has had similar pain with flare up of Crohn's disease as well as partial small-bowel obstruction. She has says that her pain is the same as her previous episodes She says she has been passing flatus today. She has had a history of tubal ligation in the past. She is being followed by Dr. Bowen for Crohn's disease and she says she is actually supposed to see him next week. She says currently her pain is ?okay? Review of Systems 2 Constitutional: Constitutional: Denies chills and Denies fever(s) Cardiovascular: Cardiovascular: Denies chest pain, Denies dyspnea and Denies dyspnea on exertion Respiratory: Respiratory: Denies cough, Denies dyspnea and Denies dyspnea on exertion Gastrointestinal: Gastrointestinal: Denies hematochezia, Denies change in bowel habits and Reports vomiting Genitourinary: Genitourinary: Denies hematuria Musculoskeletal: Musculoskeletal: Denies back pain and Denies limited range of motion Neurologic: Denies focal weakness and Denies convulsions Psychiatric: Psychiatric: Denies depression and Denies mood swings PMFSH Past Medical History Medical History Vitamin D deficiency Uterine fibroid Breast nodule Asthma Obesity (BMI 30-39.9) Crohn's disease Benign essential hypertension Anemia Family History Family History Mother Diabetes HTN (hypertension) Parkinson disease Father Hyperthyroidism Surgical History Surgical History Hx of colonoscopy Hx of tubal ligation Hx of section Hx of cholecystectomy Social History Social History Household Members: Family Household Members Other:: 3 Housing: House Do you presently have visiting nurse or other home services: No Alcohol intake: never Patient Tobacco Use Status: Former Tobacco user Quit Date: 2012 Tobacco use type: Cigarette Cigarettes Per Day: 4 e-Cigarette/Vaping Use: Never Used Second Hand Smoke Exposure: No Advance Directives Date on File: 09/21/20 service: No Current occupational status: employed 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 Sexual orientation: Straight/Heterosexual Cognitive needs: No Hearing needs: No Vision needs: Yes Meds Allergies Allergy/AdvReac Type Severity Reaction Status Date / Time aspirin [Aspirin] Allergy Mild EYES SWELL Verified 06/13/23 08:43 zucchini Allergy Intermediate Rash Uncoded 06/13/23 08:43 SEASONAL ALLERGIES Allergy Unknown TRIGGERS Uncoded 06/13/23 08:43 ASTHMA ATTACKS Home Medications Medication Instructions Recorded Confirmed Last Taken Type infliximab 100 mg intravenous 600 mg IV Q5W 05/23/21 06/13/23 10/07/22 History solution (Remicade) ketotifen fumarate 0.025 % (0.035 1 drp ophthalmic (eye) BID PRN Dry 02/04/22 06/13/23 05/31/22 History %) eye drops Eye(S) furosemide 20 mg tablet 1 tab PO DAILY 06/01/22 06/13/23 05/31/22 History acetaminophen 500 mg tablet 1,000 mg PO Q6H PRN Pain 11/06/22 06/13/23 Unknown History fexofenadine 180 mg tablet 180 mg PO DAILY PRN Allergy 11/06/22 06/13/23 Unknown History ([place] Allergy) Symptoms omeprazole 20 mg capsule,delayed 1 cap PO DAILY@0630 03/04/23 06/13/23 03/03/23 History release Physical Exam 2 Vital Signs: Vital Signs: Last Vital Signs Temp 98.5 F 06/13/23 13:45 Pulse 110 H 06/13/23 13:45 Resp 18 06/13/23 13:45 BP 152/94 H 06/13/23 13:45 Pulse Ox 94 06/13/23 13:45 O2 Del Method Room Air 06/13/23 13:45 BMI result Body Mass Index 44.0 Const: Other: Currently she says she is comfortable General: comfortable and no acute distress Orientation/consciousness: p atient oriented x3 Neck: Neck: Yes no lymphadenopathy Resp: Auscultation: clear to auscultation bilaterally Cardio: Rhythm: regular rhythm GI: Other: Mild tenderness on the right side Palpation (GI): Soft to palpation, Tenderness to palpation present (GI) and no guarding Neuro: General: patient oriented x3 Results Labs 06/14/23 05:51 06/14/23 05:51 Labs: Abnormal lab results 06/13/23 06/13/23 Range/Units 09:45 09:58 WBC 11.1 H (4.8-10.8) X10*3/uL MCH 24.9 L (27.0-33.0) pg MCHC 30.7 L (31.0-35.0) g/dl MPV 9.2 L (9.4-12.3) fL Immature Gran % (Auto) 0.8 H (0.0-0.4) % Neut % (Auto) 87.2 H (45-73) % Lymph % (Auto) 4.4 L (20-40) % Lymph # (Auto) 0.5 L (1.2-4.9) X10*3/uL Abs Immat Gran (auto) 0.09 H (0.00-0.03) X10*3/uL Absolute Neuts (auto) 9.7 H (2.0-8.3) x10*3/uL Random Glucose 138 H (60-115) mg/dL Urine Protein 30 (1+) H (Neg-Trace) mg/dL Urine Blood Moderate (2+) H (Negative) Urine Nitrite Positive H (Negative) Ur Leukocyte Esterase Small (1+) H (Negative) Urine RBC 11-20 H (0-2) /HPF Urine WBC 11-20 H (0-5) /HPF Short CBC 06/13/23 Range/Units 09:45 WBC 11.1 H (4.8-10.8) X10*3/uL Hgb 12.2 (12.0-16.0) g/dl Hct 39.8 (37.0-47.0) % Plt Count 328 (160-400) X10*3/uL BMP 06/13/23 09:45 Sodium 137 Potassium 4.5 Chloride 105 Carbon Dioxide 23 BUN 15 Creatinine 0.78 Calcium 9.3 Liver Function 06/13/23 Range/Units 09:45 Total Bilirubin 0.5 (0.0-1.0) mg/dL Direct Bilirubin 0.2 (0.0-0.5) mg/dL AST 24 (5-31) U/L ALT 25 (0-31) U/L Alkaline Phosphatase 73 (39-117) U/L Albumin 3.5 (3.5-5.0) g/dL Urine 06/13/23 Range/Units 09:58 Urine Color Yellow Urine Appearance Cloudy Urine pH 7.5 (5.0-9.0) Ur Specific [place] 1.025 (1.005-1.025) Urine Protein 30 (1+) H (Neg-Trace) mg/dL Urine Glucose (UA) Negative (Negative) mg/dL All other labs normal. Imaging Abdomen CT scan report/results: report reviewed CT scan - pelvis: report reviewed and image reviewed Additional studies: Laboratory Results WBC 11.1 X10*3/uL (4.8-10.8) H 06/13/23 09:45 RBC 4.89 X10*6/uL (4.20-5.50) 06/13/23 09:45 Hgb 12.2 g/dl (12.0-16.0) 06/13/23 09:45 Hct 39.8 % (37.0-47.0) 06/13/23 09:45 MCV 81.4 fL (80.0-98.0) 06/13/23 09:45 MCH 24.9 pg (27.0-33.0) L 06/13/23 09:45 MCHC 30.7 g/dl (31.0-35.0) L 06/13/23 09:45 RDW 14.4 % (11.0-16.0) 06/13/23 09:45 Plt Count 328 X10*3/uL (160-400) 06/13/23 09:45 MPV 9.2 fL (9.4-12.3) L 06/13/23 09:45 Immature Gran % (Auto) 0.8 % (0.0-0.4) H 06/13/23 09:45 Neut % (Auto) 87.2 % (45-73) H 06/13/23 09:45 Lymph % (Auto) 4.4 % (20-40) L 06/13/23 09:45 Cross % (Auto) 7.3 % (2-11) 06/13/23 09:45 Eos % (Auto) 0.1 % (0-4) 06/13/23 09:45 Baso % (Auto) 0.2 % (0-2) 06/13/23 09:45 Lymph # (Auto) 0.5 X10*3/uL (1.2-4.9) L 06/13/23 09:45 Cross # (Auto) 0.8 X10*3/uL (0.1-1.2) 06/13/23 09:45 Eos # (Auto) 0.0 X10*3/uL (0.0-0.4) 06/13/23 09:45 Baso # (Auto) 0.0 X10*3/uL (0.0-0.2) 06/13/23 09:45 Abs Immat Gran (auto) 0.09 X10*3/uL (0.00-0.03) H 06/13/23 09:45 Absolute Neuts (auto) 9.7 x10*3/uL (2.0-8.3) H 06/13/23 09:45 Absolute Nucleated RBC 0.000 X10*3/uL (0.0-0.012) 06/13/23 09:45 Nucleated RBC % (auto) 0.0 /100WBC (0.0-0.2) 06/13/23 09:45 Sodium 137 mmol/L (135-145) 06/13/23 09:45 Potassium 4.5 mmol/L (3.3-5.1) 06/13/23 09:45 Chloride 105 mmol/L (96-108) 06/13/23 09:45 Carbon Dioxide 23 mmol/L (22-29) 06/13/23 09:45 Anion Gap 14 (12-20) 06/13/23 09:45 BUN 15 mg/dL (9-16) 06/13/23 09:45 Creatinine 0.78 mg/dL (0.5-1.4) 06/13/23 09:45 Estim Creat Clear Calc 121.9 06/13/23 09:45 Estimated GFR > 60 06/13/23 09:45 Random Glucose 138 mg/dL (60-115) H 06/13/23 09:45 Calcium 9.3 mg/dL (8.4-10.2) 06/13/23 09:45 Magnesium 2.0 mg/dL (1.6-2.6) 06/13/23 09:45 Total Bilirubin 0.5 mg/dL (0.0-1.0) 06/13/23 09:45 Direct Bilirubin 0.2 mg/dL (0.0-0.5) 06/13/23 09:45 AST 24 U/L (5-31) 06/13/23 09:45 ALT 25 U/L (0-31) 06/13/23 09:45 Alkaline Phosphatase 73 U/L (39-117) 06/13/23 09:45 Troponin I High Sens < 2.7 ng/L (<3.5-17.0) 06/13/23 09:45 Total Protein 7.6 g/dL (6.5-8.0) 06/13/23 09:45 Albumin 3.5 g/dL (3.5-5.0) 06/13/23 09:45 Lipase 14 U/L (8-78) 06/13/23 09:45 Beta HCG, Quant < 2 mIU/mL 06/13/23 09:45 Urine Color Yellow 06/13/23 09:58 Urine Appearance Cloudy 06/13/23 09:58 Urine pH 7.5 (5.0-9.0) 06/13/23 09:58 Ur Specific [place] 1.025 (1.005-1.025) 06/13/23 09:58 Urine Protein 30 (1+) mg/dL (Neg-Trace) H 06/13/23 09:58 Urine Glucose (UA) Negative mg/dL (Negative) 06/13/23 09:58 Urine Ketones 15 mg/dL (Negative) 06/13/23 09:58 Urine Blood Moderate (2+) (Negative) H 06/13/23 09:58 Urine Nitrite Positive (Negative) H 06/13/23 09:58 Ur Leukocyte Esterase Small (1+) (Negative) H 06/13/23 09:58 Urine RBC 11-20 /HPF (0-2) H 06/13/23 09:58 Urine WBC 11-20 /HPF (0-5) H 06/13/23 09:58 Ur Squamous Epith Cells 11-20 /HPF (0-2) 06/13/23 09:58 Urine Bacteria 4+ (None Seen) 06/13/23 09:58 Hyaline Casts 0-2 /LPF (0-2) 06/13/23 09:58 Impressions Abdomen/Pelvis CT 06/13/23 11:24 IMPRESSION: 1. Diffuse small bowel dilatation suggesting small bowel obstruction, transition zone in the right lower quadrant. No evidence of bowel perforation. 2. There is extensive scarring, tethering/desmoplastic reaction surrounding soft tissue mass 2.4 cm in the right lower quadrant, involving and including the area distal ileum. Possibly scarring from patient's known Crohn's disease, however cannot rule out the possibility of tumor including carcinoid tumor. 3. There is left pelvic soft tissue structure left pelvis adjacent to the iliac vessel measure about 2 cm in diameter possibly an enlarged lymph node or mesenteric seeding. This has not changed. This could be targeted for CT-guided tissue sampling if clinically indicated. Other noncritical findings as above. Assessment and Plan (1) Partial small bowel obstruction: Status: Acute She came in with complaints of right-sided abdominal pain as well as nausea and vomiting. I have reviewed her CAT scan. This is similar to her multiple other previous CT scans for same complaints. This is suggestive of some partial small-bowel obstruction from changes with regards to her chronic Crohn's disease. There is a question of a vague mass next to the distal ileum likely secondary to fibrotic changes from her previous multiple episodes of Crohn's disease with inflammation She has not had any vomiting since she was here in the ER. She is refusing NG tube She should be hydrated. I explained to her that there is is a small possibility she require laparotomy if she does not improve or clinically worsens. She says she is aware of this as she has had multiple admissions before she is. She is being followed by Dr. Bowen and is supposed to see him next week. It may be best to get opinion from the payroll human resources assistant service as well. I will follow along closely while she is in the hospital. (2) Crohn's disease: Qualifiers: Digestive disease complication type: with intestinal obstruction G astrointestinal tract location: unspecified location Qualified Code(s): K50.912 - Crohn's disease, unspecified, with intestinal obstruction Status: Acute Procedures Date of Service Date of Service: 06/15/23
--- NOTE | 2023-06-13 15:29 | P.HPHOSP_ITS ---
History of Present Illness Date of Service: 06/13/23 <CATIA Nathan - Last Filed: 06/13/23 15:51> Attending physician on admission: Camron Diaz <CATIA Nathan - Last Filed: 06/13/23 15:51> Chief Complaint: abd pain <CATIA Nathan - Last Filed: 06/13/23 15:51> 43-year-old female with history hypertension, Crohn's disease, history of SBO, asthma, who is morbidly obese presents to the ED earlier today for evaluation of left upper quadrant epigastric pain ongoing for 2 days that worsened acutely last night. There has been associated nausea and vomiting but she has not vomited in several hours. She has not been able to tolerate p.o.. She is also reporting chronic constipation but did move her bowels last night. No melena or hematochezia. She has been afebrile and denies any sick contacts. Denies eating any bad foods. She follows with Dr. Bowen in Gastroenterology reports last Crohn's flare was 1 year ago. Prior abdominal surgeries include a tubal ligation. She is passing flatus. On arrival, vitals show tachycardia of 106, otherwise stable. Mild leukocytosis of 11.1. Renal function normal, electrolyte levels normal. Urinalysis shows 1+ leukocytes, positive nitrites, 2+ blood, positive urinary sediment, 4+ bacteria. Patient denies any urinary symptoms. CT abdomen/pelvis shows diffuse small bowel dilatation suggesting small bowel obstruction with transition zone in the right lower quadrant without evidence of perforation. There was extensive scarring, tethering/desmoplastic reaction surrounding soft tissue mass 2.4 cm in the right lower quadrant involving including distal ileum. Possibly due to scarring from known Crohn's disease but tumor including carcinoid tumor can not rule out. There is also a pelvic soft tissue structure in the left pelvis adjacent to the iliac vessel likely enlarged lymph node or mesenteric seeding that remains unchanged. Evaluated by General surgery in the ED who does not feel she requires surgical intervention at this time but is recommending NG tube. However patient is adamantly opposed to NG tube due to prior adverse effect. She has received several doses of IV morphine, 1 L IV NS, and ondansetron in the ED. Currently reporting 8/10 upper abdominal pain but no nausea or vomiting. <CATIA Nathan - Last Filed: 06/13/23 15:51> Review of Systems 2 Review of Systems: General: No fevers, malaise, unintentional weight loss HEENT: No blurred vision, diplopia. No sore throat, nasal congestion, rhinorrhea, sinus pain, ear pain Cardiovascular: No chest pain, palpitations, or leg edema Respiratory: No shortness of breath, wheezing, cough GI:+abd pain, +n/v. No diarrhea, constipation, melena, hematochezia : No dysuria, hematuria, increased urinary frequency, decreased urinary output MSK: No myalgia, back pain Neuro: No headaches, weakness, paresthesias Skin: No rashes or lesions <CATIA Nathan - Last Filed: 06/13/23 15:51> [facility] Medical History: Medical History Vitamin D deficiency Uterine fibroid Breast nodule Asthma Obesity (BMI 30-39.9) Crohn's disease Benign essential hypertension Anemia <CATIA Nathan - Last Filed: 06/13/23 15:51> Family History: Family History Mother Diabetes HTN (hypertension) Parkinson disease Father Hyperthyroidism <CATIA Nathan - Last Filed: 06/13/23 15:51> Surgical History: Surgical History Hx of colonoscopy Hx of tubal ligation Hx of section Hx of cholecystectomy <CATIA Nathan - Last Filed: 06/13/23 15:51> Social History: Social History Household Members: Family Housing: House Do you presently have visiting nurse or other home services: No Alcohol intake: never Patient Tobacco Use Status: Former Tobacco user Quit Date: 2013 Tobacco use type: Cigarette Smoked in Last 30 Days: No Second Hand Smoke Exposure: No Use of substances other than those prescribed or required for medical reasons: No Advance Directives: Yes Advance Directives on File: Yes Advance Directives Date on File: 09/21/20 Patient : No service: No Current occupational status: employed 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 Sexual orientation: Straight/Heterosexual Cognitive needs: No Hearing needs: No Vision needs: Yes <CATIA Nathan - Last Filed: 06/13/23 15:51> Meds Allergies/Adverse reactions: Allergies Allergy/AdvReac Type Severity Reaction Status Date / Time aspirin [Aspirin] Allergy Mild EYES SWELL Verified 06/13/23 08:43 zucchini Allergy Intermediate Rash Uncoded 06/13/23 08:43 SEASONAL ALLERGIES Allergy Unknown TRIGGERS Uncoded 06/13/23 08:43 ASTHMA ATTACKS <CATIA Nathan - Last Filed: 06/13/23 15:51> Home medications: Home Medications Medication Instructions Recorded Confirmed Last Taken Type infliximab 100 mg intravenous 600 mg IV Q6W 05/23/21 06/01/23 10/07/22 History solution (Remicade) ketotifen fumarate 0.025 % (0.035 1 drp ophthalmic (eye) BID PRN Dry 02/04/22 06/01/23 05/31/22 History %) eye drops Eye(S) furosemide 20 mg tablet 1 tab PO DAILY PRN swelling 06/01/22 06/01/23 05/31/22 History acetaminophen 500 mg tablet 1,000 mg PO Q6H PRN Pain 11/06/22 06/01/23 Unknown History fexofenadine 180 mg tablet 180 mg PO DAILY PRN Allergy 11/06/22 06/01/23 Unknown History ([place] Allergy) Symptoms omeprazole 20 mg capsule,delayed 1 cap PO DAILY@0630 03/04/23 06/01/23 03/03/23 History release <CATIA Nathan - Last Filed: 06/13/23 15:51> Physical Exam 2 Vital Signs and Narrative: Vital Signs: Last Vital Signs Temp 98.5 F 06/13/23 13:45 Pulse 110 H 06/13/23 13:45 Resp 18 06/13/23 13:45 BP 152/94 H 06/13/23 13:45 Pulse Ox 94 06/13/23 13:45 O2 Del Method Room Air 06/13/23 13:45 BMI result Body Mass Index 44.0 <CATIA Nathan Last Filed: 06/13/23 15:51> Constitutional - Awake and Alert, No apparent distress Eyes - PERRLA, EOMI Cardiovascular - S1S2, RRR, No edema Respiratory - Normal lung expansion, Normal respiratory effort, No respiratory distress, CTA bilaterally Gastrointestinal - mild distension, LUQ/epigastric ttp. +BS; No rebound or guarding Extremities - no calf tenderness bilaterally, no swelling Skin - Warm/Dry Neurological - Alert & oriented x3 Psychological - Appropriate affect <CATIA Nathan - Last Filed: 06/13/23 15:51> Results Labs CBC and Chem 7: 06/13/23 09:45 06/13/23 09:45 <CATIA Nathan - Last Filed: 06/13/23 15:51> Labs: Laboratory Results - last 24 hr 06/13/23 06/13/23 09:45 09:58 MCV 81.4 MCH 24.9 L MCHC 30.7 L RDW 14.4 Plt Count 328 MPV 9.2 L Immature Gran % (Auto) 0.8 H Neut % (Auto) 87.2 H Lymph % (Auto) 4.4 L [place] % (Auto) 7.3 Eos % (Auto) 0.1 Baso % (Auto) 0.2 Lymph # (Auto) 0.5 L [place] # (Auto) 0.8 Eos # (Auto) 0.0 Baso # (Auto) 0.0 Abs Immat Gran (auto) 0.09 H Absolute Neuts (auto) 9.7 H Absolute Nucleated RBC 0.000 Nucleated RBC % (auto) 0.0 Anion Gap 14 Estim Creat Clear Calc 121.9 Estimated GFR > 60 Random Glucose 138 H Calcium 9.3 Magnesium 2.0 Total Bilirubin 0.5 Direct Bilirubin 0.2 AST 24 ALT 25 Alkaline Phosphatase 73 Troponin I High Sens < 2.7 Total Protein 7.6 Albumin 3.5 Lipase 14 Beta HCG, Quant < 2 Urine Color Yellow Urine Appearance Cloudy Urine pH 7.5 Ur Specific [place] 1.025 Urine Protein 30 (1+) H Urine Glucose (UA) Negative Urine Ketones 15 Urine Blood Moderate (2+) H Urine Nitrite Positive H Ur Leukocyte Esterase Small (1+) H Urine RBC 11-20 H Urine WBC 11-20 H Ur Squamous Epith Cells 11-20 Urine Bacteria 4+ Hyaline Casts 0-2 <CATIA Nathan - Last Filed: 06/13/23 15:51> Imaging Radiologist's Impressions: Impressions Abdomen/Pelvis CT 06/13/23 11:24 IMPRESSION: 1. Diffuse small bowel dilatation suggesting small bowel obstruction, transition zone in the right lower quadrant. No evidence of bowel perforation. 2. There is extensive scarring, tethering/desmoplastic reaction surrounding soft tissue mass 2.4 cm in the right lower quadrant, involving and including the area distal ileum. Possibly scarring from patient's known Crohn's disease, however cannot rule out the possibility of tumor including carcinoid tumor. 3. There is left pelvic soft tissue structure left pelvis adjacent to the iliac vessel measure about 2 cm in diameter possibly an enlarged lymph node or mesenteric seeding. This has not changed. This could be targeted for CT-guided tissue sampling if clinically indicated. Other noncritical findings as above. <CATIA Nathan - Last Filed: 06/13/23 15:51> Assessment and Plan (1) Small bowel obstruction: Status: Acute <CATIA Nathan - Last Filed: 06/13/23 15:51> 43-year-old female with history hypertension, Crohn's disease, history of SBO, asthma, who is morbidly obese admitted for SBO. #SBO -likely r/t scarring from Crohns disease -CT diffuse small bowel dilatation suggestive of SBO with transition zone in the right lower quadrant but no evidence of perforation. There is extensive scarring noted with soft tissue mass 2.4 cm in the right lower quadrant involving including area distal ileum likely scarring from patient's known Crohn's disease however can not rule out possibility of tumor -Per gen surgery, no surgical intervention at this time -Pt refusing NG tube, no vomiting x several hours (once in ED earlier today) -Keep NPO -antiemetics -pain medication prn -gastroenterology consult #Crohns disease -does not appear to have acute crohns flare, defer steroids at this time -GI consult #HTN -bp reasonably controlled -continue lisinopril #Mild intermittent asthma -no acute exacerbation -albuterol prn # morbid obesity with BMI greater than 44 -weight loss efforts encouraged DVT prophylaxis- heparin full code pt requires inpt stay at least 2 midnights due to SBO currently NPO with possible surgical intervention if no clinical improvement and requires close observation for clinical decompession, also requiring expert consultation <CATIA Nathan - Last Filed: 06/13/23 15:51> 43-year-old female with history hypertension, Crohn's disease, history of SBO, asthma, who is morbidly obese admitted for SBO. #SBO -likely r/t scarring from Crohns disease -CT diffuse small bowel dilatation suggestive of SBO with transition zone in the right lower quadrant but no evidence of perforation. There is extensive scarring noted with soft tissue mass 2.4 cm in the right lower quadrant involving including area distal ileum likely scarring from patient's known Crohn's disease however can not rule out possibility of tumor -Per gen surgery, no surgical intervention at this time -Pt refusing NG tube, no vomiting x several hours (once in ED earlier today) -Keep NPO -antiemetics -pain medication prn -gastroenterology consult #Crohns disease -does not appear to have acute crohns flare, defer steroids at this time -GI consult #HTN -bp reasonably controlled -continue lisinopril #Mild intermittent asthma -no acute exacerbation -albuterol prn DVT prophyalaxis <Camron Diaz MD - Last Filed: 06/13/23 15:52> Quality Stroke Does the patient have a stroke diagnosis?: No <CATIA Nathan - Last Filed: 06/13/23 15:51> VTE Prior VTE?: No <CATIA Nathan - Last Filed: 06/13/23 15:51> VTE Risk Level:: Medical - moderate - high <CATIA Nathan - Last Filed: 06/13/23 15:51> VTE Device Contraindication: Treatment Not Indicated <CATIA Nathan - Last Filed: 06/13/23 15:51> VTE Drug Contraindication: N/A - Med Ordered <CATIA Nathan - Last Filed: 06/13/23 15:51>
--- NOTE | 2023-06-13 16:06 | PHA.MEDREC ---
Pharmacy Consult ? Medication Reconciliation Pharmacy has completed the medication reconciliation. spoke with patient to confirm medications. She reported that her next remicade infusion is on thursday. She reports that she did not take any meds today.
[2023-06-13] MEDS: Heparin Sodium,Porcine 5,000 UNIT/ML VIAL 5000 UNIT SUBCUT (16:19)
[2023-06-13] MEDS: 0.9 % Sodium Chloride 1,000 ML 100 ML IVCONT (16:19)
[2023-06-13] MEDS: Morphine Sulfate 4 MG/ML CARTRIDGE 2 MG IVPUSH ×2 (16:25→22:08)
--- NOTE | 2023-06-13 17:22 | PC.NURSE ---
late entry: assumed care of pt at 1100. pt a&o x4, pleasant, calm, and cooperative. pt has 20G IV to left forearm, patent. ambulates to bathroom independently with steady gait. speaking in full complete sentences. reports 10/10 epigastric and RUQ pain, treated with prn morphine with positive effect. rr even/unlabored. call soriano within reach. awaiting transport to inpatient room.
--- NOTE | 2023-06-13 17:32 | PC.NURSE ---
BP elevated 174/98. CATIA Gandara notified.
[2023-06-13] MEDS: amLODIPine Besylate 5 MG TABLET PO (17:44)
[2023-06-14 02:07] VITALS: BP 180/93; PULSE 113; RESP 17; TEMP 36.6; O2SAT 93
[2023-06-14] MEDS: 0.9 % Sodium Chloride 1,000 ML 100 ML IVCONT ×2 (02:10→11:04)
[2023-06-14] MEDS: Morphine Sulfate 4 MG/ML CARTRIDGE 2 MG IVPUSH ×2 (02:14→10:00)
[2023-06-14 03:14] VITALS: BP 170/93; PULSE 107
[2023-06-14 03:31] VITALS: BP 157/90; PULSE 107
[2023-06-14] MEDS: Heparin Sodium,Porcine 5,000 UNIT/ML VIAL 5000 UNIT SUBCUT ×2 (03:31→16:25)
[2023-06-14 06:02] LABS: MANUAL DIFF FLAG NO
[2023-06-14 06:05] LABS: Basophils Percent Auto 0.3 % (0-2); Eosinophils Percent Auto 0.6 % (0-4); Hematocrit 36.9 % (37.0-47.0); Hemoglobin 11.1 g/dl (12.0-16.0); Imm Gran Abs Auto 0.05 X10*3/uL (0.00-0.03); Imm Gran Pct Auto 0.7 % (0.0-0.4); Lymphocytes Absolute Auto 0.9 X10*3/uL (1.2-4.9); Lymphocytes Percent Auto 12.8 % (20-40); Mean Corpuscular HGB Conc 30.1 g/dl (31.0-35.0); Mean Corpuscular Hemoglobin 25.1 pg (27.0-33.0); Mean Corpuscular Volume 83.5 fL (80.0-98.0); Mean Platelet Volume 8.9 fL (9.4-12.3); Monocytes Absolute Auto 0.9 X10*3/uL (0.1-1.2); Monocytes Percent Auto 12.8 % (2-11); Neutrophils Percent Auto 72.8 % (45-73); Platelet Count 300 X10*3/uL (160-400); Red Blood Count 4.42 X10*6/uL (4.20-5.50); Red Cell Distribution Width 14.4 % (11.0-16.0); White Blood Count 6.9 X10*3/uL (4.8-10.8)
[2023-06-14 06:21] LABS: Anion Gap 11 (12-20); Blood Urea Nitrogen 11 mg/dL (9-16); Carbon Dioxide 23 mmol/L (22-29); Chloride 110 mmol/L (96-108); Creatinine Clr Calc Pharmacy 128.9; Estimated Glomerular Filt Rate > 60; Glucose Random 103 mg/dL (60-115); Potassium 3.8 mmol/L (3.3-5.1); Sodium 140 mmol/L (135-145)
[2023-06-14 06:50] VITALS: BP 158/78; PULSE 101; RESP 16; O2SAT 93
--- NOTE | 2023-06-14 07:47 | P.PNIM_ITS ---
Subjective Subjective Date of Service: 06/14/23 Interval History: Seen in follow up for SBO Interval history: improvement in abdominal pain, still 7/10. Now having non-bloody diarrhea. No n/v. hungry Review of Systems Review of Systems: Yes all other systems are reviewed and are negative Physical Exam 2 Vital Signs: Vital Signs: Last Vital Signs Temp 97.8 F 06/14/23 02:07 Pulse 101 H 06/14/23 06:50 Resp 16 06/14/23 06:50 BP 158/78 H 06/14/23 06:50 Pulse Ox 93 06/14/23 06:50 O2 Del Method Room Air 06/14/23 06:50 BMI result Body Mass Index 44.3 Constitutional - Awake and Alert, No apparent distress Eyes - PERRLA, EOMI Cardiovascular - S1S2, RRR, No edema Respiratory - Normal lung expansion, Normal respiratory effort, No respiratory distress, CTA bilaterally Gastrointestinal - moderate upper abd distension with ttp, +BS; No rebound or guarding Extremities - no calf tenderness bilaterally, no swelling Skin - Warm/Dry Neurological - Alert & oriented x3 Psychological - Appropriate affect Objective Data Active Medications Acetaminophen (Acetaminophen 325 Mg Tablet) 650 mg PO Q6H PRN PRN Reason: Pain, Mild (Pain Scale 1-3) Heparin Sodium (Porcine) (Heparin Sodium,Porcine 5,000 Unit/Ml Vial) 5,000 unit SUBCUT Q12H [facility] Last Admin: 06/14/23 03:31 Dose: 5,000 unit Documented By: AZEB Sodium Chloride (Ns) 1,000 mls @ 100 mls/hr IVCONT .Q10H [facility] Last Admin: 06/14/23 02:10 Dose: 100 mls/hr Documented By: AZEB Morphine Sulfate (Morphine Sulfate 4 Mg/Ml Cartridge) 2 mg IVPUSH Q4H PRN; Protocol PRN Reason: Pain, Severe (Pain Scale 7-10) Last Admin: 06/14/23 02:14 Dose: 2 mg Documented By: AZEB Ondansetron HCl (Ondansetron Hcl 4 Mg/2 Ml Vial) 4 mg IVPUSH Q8H PRN PRN Reason: Nausea and Vomiting Senna (Sennosides 8.6 Mg Tablet) 17.2 mg PO BEDTIME PRN PRN Reason: Constipation Sodium Chloride (0.9 % Sodium Chloride Flush 3 Ml Syringe) 3 ml IVFLUSH QSHIFT [facility] Last Admin: 06/14/23 07:19 Dose: Not Given Documented By: VIRGINIA Non-Admin Reason: IV Running Labs 06/14/23 05:51 06/14/23 05:51 Labs: Laboratory Results - last 24 hr 06/13/23 06/13/23 06/14/23 09:45 09:58 05:51 MCV 81.4 83.5 MCH 24.9 L 25.1 L MCHC 30.7 L 30.1 L RDW 14.4 14.4 Plt Count 328 300 MPV 9.2 L 8.9 L Immature Gran % (Auto) 0.8 H 0.7 H Neut % (Auto) 87.2 H 72.8 Lymph % (Auto) 4.4 L 12.8 L Crockett % (Auto) 7.3 12.8 H Eos % (Auto) 0.1 0.6 Baso % (Auto) 0.2 0.3 Lymph # (Auto) 0.5 L 0.9 L Cro[place] # (Auto) 0.8 0.9 Eos # (Auto) 0.0 0.0 Baso # (Auto) 0.0 0.0 Abs Immat Gran (auto) 0.09 H 0.05 H Absolute Neuts (auto) 9.7 H 5.0 Absolute Nucleated RBC 0.000 0.000 Nucleated RBC % (auto) 0.0 0.0 Anion Gap 14 11 L Estim Creat Clear Calc 121.9 128.9 Estimated GFR > 60 > 60 Random Glucose 138 H 103 Calcium 9.3 8.0 L D Magnesium 2.0 Total Bilirubin 0.5 Direct Bilirubin 0.2 AST 24 ALT 25 Alkaline Phosphatase 73 Troponin I High Sens < 2.7 Total Protein 7.6 Albumin 3.5 Lipase 14 Beta HCG, Quant < 2 Urine Color Yellow Urine Appearance Cloudy Urine pH 7.5 Ur Specific Se[place] 1.025 Urine Protein 30 (1+) H Urine Glucose (UA) Negative Urine Ketones 15 Urine Blood Moderate (2+) H Urine Nitrite Positive H Ur Leukocyte Esterase Small (1+) H Urine RBC 11-20 H Urine WBC 11-20 H Ur Squamous Epith Cells 11-20 Urine Bacteria 4+ Hyaline Casts 0-2 Assessment and Plan (1) Small bowel obstruction: Status: Acute (2) Crohn's disease: Status: Acute Plan 43-year-old female with history hypertension, Crohn's disease, history of SBO, asthma, who is morbidly obese admitted for SBO, clinically improving #SBO -likely r/t scarring from Crohns disease -CT diffuse small bowel dilatation suggestive of SBO with transition zone in the right lower quadrant but no evidence of perforation. There is extensive scarring noted with soft tissue mass 2.4 cm in the right lower quadrant involving including area distal ileum likely scarring from patient's known Crohn's disease however can not rule out possibility of tumor -Per gen surgery, no surgical intervention at this time -Pt refusing NG tube, no vomiting -advance to clears -antiemetics -pain medication prn -Gi and general surgery input appreciated #Crohns disease -Now with diarrhea, initiate solumedrol 20mg TID per GI -advance to clears -GI input appreciated #HTN -bp reasonably controlled -continue lisinopril #Mild intermittent asthma -no acute exacerbation -albuterol prn # morbid obesity with BMI greater than 44 -weight loss efforts encouraged DVT prophylaxis- heparin full code pt requires ongoing inpt stay due to SBO with crohns flare requiring diet advancement, iv steroids, and expert consultation Quality Stroke Does the patient have a stroke diagnosis?: No VTE Prior VTE?: No VTE Risk Level:: Medical - moderate - high VTE Device Contraindication: Treatment Not Indicated VTE Drug Contraindication: N/A - Med Ordered
--- NOTE | 2023-06-14 10:58 | P.PNGS_ITS ---
Subjective Subjective Date of Service: 06/18/23 Interval history: She says she feels better States she has been passing flatus and actually had BMs Has had no further vomiting Pain still present but much improved Physical Exam 2 Vital Signs: Vital Signs: Last Vital Signs Temp 97.8 F 06/14/23 02:07 Pulse 101 H 06/14/23 06:50 Resp 16 06/14/23 06:50 BP 158/78 H 06/14/23 06:50 Pulse Ox 93 06/14/23 06:50 O2 Del Method Room Air 06/14/23 06:50 BMI result Body Mass Index 44.3 Const: General: comfortable and no acute distress Resp: Effort & Inspection: normal respiratory effort Cardio: Rate: regular rate GI: Palpation (GI): Soft to palpation, not firm, Tenderness to palpation present (GI) (Mild tenderness mostly in the right) and no guarding Objective Data Active Medications Acetaminophen (Acetaminophen 325 Mg Tablet) 650 mg PO Q6H PRN PRN Reason: Pain, Mild (Pain Scale 1-3) Heparin Sodium (Porcine) (Heparin Sodium,Porcine 5,000 Unit/Ml Vial) 5,000 unit SUBCUT Q12H [facility] Last Admin: 06/14/23 03:31 Dose: 5,000 unit Documented By: AZEB Sodium Chloride (Ns) 1,000 mls @ 100 mls/hr IVCONT .Q10H [facility] Last Admin: 06/14/23 02:10 Dose: 100 mls/hr Documented By: AZBE Morphine Sulfate (Morphine Sulfate 4 Mg/Ml Cartridge) 2 mg IVPUSH Q4H PRN; Protocol PRN Reason: Pain, Severe (Pain Scale 7-10) Last Admin: 06/14/23 10:00 Dose: 2 mg Documented By: VIRGINIA Ondansetron HCl (Ondansetron Hcl 4 Mg/2 Ml Vial) 4 mg IVPUSH Q8H PRN PRN Reason: Nausea and Vomiting Senna (Sennosides 8.6 Mg Tablet) 17.2 mg PO BEDTIME PRN PRN Reason: Constipation Sodium Chloride (0.9 % Sodium Chloride Flush 3 Ml Syringe) 3 ml IVFLUSH QSHIFT [facility] Last Admin: 06/14/23 07:19 Dose: Not Given Documented By: VIRGINIA Non-Admin Reason: IV Running Labs 06/14/23 05:51 06/14/23 05:51 Labs: Laboratory Results - last 24 hr 06/14/23 05:51 MCV 83.5 MCH 25.1 L MCHC 30.1 L RDW 14.4 Plt Count 300 MPV 8.9 L Immature Gran % (Auto) 0.7 H Neut % (Auto) 72.8 Lymph % (Auto) 12.8 L Mitchell % (Auto) 12.8 H Eos % (Auto) 0.6 Baso % (Auto) 0.3 Lymph # (Auto) 0.9 L Mitchell # (Auto) 0.9 Eos # (Auto) 0.0 Baso # (Auto) 0.0 Abs Immat Gran (auto) 0.05 H Absolute Neuts (auto) 5.0 Absolute Nucleated RBC 0.000 Nucleated RBC % (auto) 0.0 Anion Gap 11 L Estim Creat Clear Calc 128.9 Estimated GFR > 60 Random Glucose 103 Calcium 8.0 L D Procedures Date of Service Date of Service: 06/18/23 Progress Note: A&P Assessment and plan (1) Partial small bowel obstruction: Status: Acute Assessment and Plan: Likely from chronic fibrotic changes from her Crohn's disease Looks well today Abdomen soft and benign She says she is passing flatus, no vomiting Okay to try clear liquids Dr. Bowen is seeing the patient Patient apparently is following a surgeon in [facility] for IBD Time Spent With Patient Time: Total time managing care of this patient today ____ minutes. Quality Stroke Does the patient have a stroke diagnosis?: No VTE Prior VTE?: No VTE Risk Level:: Medical - moderate - high VTE Device Contraindication: Treatment Not Indicated VTE Drug Contraindication: N/A - Med Ordered
--- NOTE | 2023-06-14 11:08 | PM.EVENT ---
Event Note Date of Service: 06/14/23 Event Note: GI consult dictated Crohns with sbo start solumedrol trial of clear liquids Time Spent With Patient Time: Total time managing care of this patient today ____ minutes.
[2023-06-14] MEDS: Cholecalciferol (Vitamin D3) 25 MCG TABLET 50 MCG PO (11:51)
[2023-06-14] MEDS: Omeprazole 20 MG CAPSULE.DR PO (11:51)
[2023-06-14] MEDS: methylPREDNISolone Sod Succ 40 MG/ML VIAL 20 MG IVPUSH ×2 (11:51→19:26)
[2023-06-14] MEDS: lisinopriL 10 MG TABLET 30 MG PO (11:51)
[2023-06-14] MEDS: Furosemide 20 MG TABLET PO (11:52)
[2023-06-14] MEDS: Cyanocobalamin (Vitamin B-12) 1,000 MCG TABLET 1000 MCG PO (11:52)
--- NOTE | 2023-06-14 11:56 | CONS_ITS ---
DATE OF SERVICE: 06/14/2023 REFERRING PHYSICIAN: CATIA Nathan REASON FOR CONSULTATION: Crohn disease, small bowel obstruction. HISTORY OF PRESENT ILLNESS: The patient is a pleasant 43-year-old woman with Crohn disease who has a history of recurrent small-bowel obstructions, admitted with the same problem. She has been treated in the past as an outpatient with Remicade and has her dose adjusted to produce acceptable levels. She developed abdominal pain for 2 days prior to admission with vomiting which was nonbloody and presented to the Emergency Department. There was no associated fevers or chills. She was evaluated and had CT scanning as well as laboratory studies, showing findings consistent with a recurrent small bowel obstruction, where her known stenosing Crohn disease is present in the ileum. She has been admitted to the hospital and treated with pain medications. She has had no further vomiting since admission. PAST MEDICAL HISTORY: 1. Crohn disease. 2. Anemia. 3. Elevated BMI. 4. Asthma. 5. Hypertension. 6. Fibroids. 7. Cholecystectomy. CURRENT MEDICATIONS: Current medication list is reviewed in the chart. ALLERGIES: ALLERGIES ARE REVIEWED. FAMILY HISTORY: This is reviewed with the patient and is negative for laboratory bowel disease. SOCIAL HISTORY: There is no current tobacco, alcohol, or substance abuse. REVIEW OF SYSTEMS: SKIN: No pruritus. HEENT: Negative. CARDIOPULMONARY: No shortness of breath or chest pain. GASTROINTESTINAL: As above. GENITOURINARY: Negative. NEUROPSYCHIATRIC: Negative. PHYSICAL EXAMINATION: GENERAL: Shows a pleasant female, lying comfortably in bed. VITAL SIGNS: Reviewed in electronic medical record and are stable. SKIN: Anicteric. HEENT: Shows no scleral icterus. NECK: Without lymphadenopathy or thyromegaly. LUNGS: Clear. ABDOMEN: Soft without focal masses or tenderness. Bowel sounds are present. There is no guarding, tenderness, or rebound. EXTREMITIES: Without edema. DIAGNOSTIC DATA: Laboratory data and CT scanning are reviewed. IMPRESSION: Crohn disease with small bowel obstruction. At this time, I would recommend starting Solu-Medrol. This has been ordered. Her diet can be advanced to clear liquids and as tolerated at the time of discharge. She should begin taking prednisone 40 mg daily and can be tapering this by 5 mg weekly. This was discussed with the patient. She may require treatment with a different biologic agent, pending evaluation and drug levels. We discussed this today. Thanks for asking me to see her. I will follow her in the hospital with you. MD ERIKA Giron/JULISSA / [phone]
--- NOTE | 2023-06-14 15:18 | MHC.CM.PN ---
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
[2023-06-14 19:19] VITALS: BP 156/82; PULSE 97; RESP 20; TEMP 36.2; O2SAT 97
[2023-06-14] MEDS: 0.9 % Sodium Chloride Flush 3 ML SYRINGE IVFLUSH (19:27)
[2023-06-15 03:29] VITALS: BP 163/72; PULSE 100; RESP 18; TEMP 36.1; O2SAT 96
[2023-06-15] MEDS: Heparin Sodium,Porcine 5,000 UNIT/ML VIAL 5000 UNIT SUBCUT (03:40)
[2023-06-15] MEDS: methylPREDNISolone Sod Succ 40 MG/ML VIAL 20 MG IVPUSH ×2 (03:40→10:43)
[2023-06-15] MEDS: Omeprazole 20 MG CAPSULE.DR PO (06:02)
[2023-06-15 07:17] VITALS: BP 179/87; PULSE 94; RESP 16; TEMP 36.6; O2SAT 95
--- NOTE | 2023-06-15 07:36 | P.PNIM_ITS ---
Subjective Subjective Date of Service: 06/15/23 Physical Exam 2 Vital Signs: Vital Signs: Last Vital Signs Temp 97.8 F 06/15/23 07:17 Pulse 94 06/15/23 07:17 Resp 16 06/15/23 07:17 BP 179/87 H 06/15/23 07:17 Pulse Ox 95 06/15/23 07:17 O2 Del Method Room Air 06/15/23 07:17 BMI result Body Mass Index 44.3 Objective Data Active Medications Acetaminophen (Acetaminophen 325 Mg Tablet) 650 mg PO Q6H PRN PRN Reason: Pain, Mild (Pain Scale 1-3) Albuterol Sulfate (Albuterol Sulfate 90 Mcg 8 Gm Inhaler) 2 puff INHALE Q6H PRN PRN Reason: shortness of breath or wheezing Cyanocobalamin (Cyanocobalamin (Vitamin B-12) 1,000 Mcg Tablet) 1,000 mcg PO DAILY [facility] Last Admin: 06/14/23 11:52 Dose: 1,000 mcg Documented By: VIR[place]IA Furosemide (Furosemide 20 Mg Tablet) 20 mg PO DAILY [facility]; Protocol Last Admin: 06/14/23 11:52 Dose: 20 mg Documented By: VIRGINIA Heparin Sodium (Porcine) (Heparin Sodium,Porcine 5,000 Unit/Ml Vial) 5,000 unit SUBCUT Q12H [facility] Last Admin: 06/15/23 03:40 Dose: 5,000 unit Documented By: GABY Ketotifen Fumarate (Ketotifen Fumarate 0.025% Oph 5 Ml Drpbtl) 1 drop EYE-BOTH BID PRN PRN Reason: Dry Eye(S) Lisinopril (Lisinopril 10 Mg Tablet) 30 mg PO DAILY [facility]; Protocol Last Admin: 06/14/23 11:51 Dose: 30 mg Documented By: VIRGINIA Methylprednisolone Sodium Succinate (Methylprednisolone Sod Succ 40 Mg/Ml Vial) 20 mg IVPUSH Q8H [facility] Last Admin: 06/15/23 03:40 Dose: 20 mg Documented By: GABY Morphine Sulfate (Morphine Sulfate 4 Mg/Ml Cartridge) 2 mg IVPUSH Q4H PRN; Protocol PRN Reason: Pain, Severe (Pain Scale 7-10) Last Admin: 06/14/23 10:00 Dose: 2 mg Documented By: VIRGINIA Omeprazole (Omeprazole 20 Mg Capsule.Dr) 20 mg PO DAILY@0630 [facility] Last Admin: 06/15/23 06:02 Dose: 20 mg Documented By: GABY Ondansetron HCl (Ondansetron Hcl 4 Mg/2 Ml Vial) 4 mg IVPUSH Q8H PRN PRN Reason: Nausea and Vomiting Senna (Sennosides 8.6 Mg Tablet) 17.2 mg PO BEDTIME PRN PRN Reason: Constipation Sodium Chloride (0.9 % Sodium Chloride Flush 3 Ml Syringe) 3 ml IVFLUSH QSHIFT [facility] Last Admin: 06/14/23 19:27 Dose: 3 ml Documented By: GABY Vitamin D (Cholecalciferol (Vitamin D3) 25 Mcg Tablet) 50 mcg PO DAILY [facility] Last Admin: 06/14/23 11:51 Dose: 50 mcg Documented By: WILLIESK Labs 06/14/23 05:51 06/14/23 05:51 Microbiology Microbiology Results: Microbiology 06/13/23 Unknown Urine Culture - Preliminary Urine clean catch - Urine [place] top Gram negative pranay Quality Stroke Does the patient have a stroke diagnosis?: No VTE Prior VTE?: No VTE Risk Level:: Medical - moderate - high VTE Device Contraindication: Treatment Not Indicated VTE Drug Contraindication: N/A - Med Ordered
[2023-06-15] MEDS: lisinopriL 10 MG TABLET 30 MG PO (07:42)
[2023-06-15] MEDS: Furosemide 20 MG TABLET PO (07:43)
[2023-06-15] MEDS: Cyanocobalamin (Vitamin B-12) 1,000 MCG TABLET 1000 MCG PO (07:43)
[2023-06-15] MEDS: Cholecalciferol (Vitamin D3) 25 MCG TABLET 50 MCG PO (07:43)
[2023-06-15] MEDS: 0.9 % Sodium Chloride Flush 3 ML SYRINGE IVFLUSH (07:43)
--- NOTE | 2023-06-15 08:48 | PM.PNGS ---
Subjective Subjective Date of Service: 06/15/23 Interval history: says she feels well states abdl pain resolved passing flatus and BMs Physical Exam Vital Signs: Vital Signs: Last Vital Signs Temp 97.8 F 06/15/23 07:17 Pulse 94 06/15/23 07:17 Resp 16 06/15/23 07:17 BP 179/87 H 06/15/23 07:17 Pulse Ox 95 06/15/23 07:17 O2 Del Method Room Air 06/15/23 07:17 BMI result Body Mass Index 44.3 Const: General: comfortable and no acute distress Resp: Effort & Inspection: normal respiratory effort Cardio: Rate: regular rate GI: Palpation (GI): Soft to palpation, not firm and nontender Objective Data Active Medications Acetaminophen (Acetaminophen 325 Mg Tablet) 650 mg PO Q6H PRN PRN Reason: Pain, Mild (Pain Scale 1-3) Albuterol Sulfate (Albuterol Sulfate 90 Mcg 8 Gm Inhaler) 2 puff INHALE Q6H PRN PRN Reason: shortness of breath or wheezing Cyanocobalamin (Cyanocobalamin (Vitamin B-12) 1,000 Mcg Tablet) 1,000 mcg PO DAILY [facility] Last Admin: 06/15/23 07:43 Dose: 1,000 mcg Documented By: CATHERINE Furosemide (Furosemide 20 Mg Tablet) 20 mg PO DAILY [facility]; Protocol Last Admin: 06/15/23 07:43 Dose: 20 mg Documented By: CATHERINE Heparin Sodium (Porcine) (Heparin Sodium,Porcine 5,000 Unit/Ml Vial) 5,000 unit SUBCUT Q12H [facility] Last Admin: 06/15/23 03:40 Dose: 5,000 unit Documented By: GABY Ketotifen Fumarate (Ketotifen Fumarate 0.025% Oph 5 Ml Drpbtl) 1 drop EYE-BOTH BID PRN PRN Reason: Dry Eye(S) Lisinopril (Lisinopril 10 Mg Tablet) 30 mg PO DAILY [facility]; Protocol Last Admin: 06/15/23 07:42 Dose: 30 mg Documented By: CATHERINE Methylprednisolone Sodium Succinate (Methylprednisolone Sod Succ 40 Mg/Ml Vial) 20 mg IVPUSH Q8H [facility] Last Admin: 06/15/23 03:40 Dose: 20 mg Documented By: GABY Morphine Sulfate (Morphine Sulfate 4 Mg/Ml Cartridge) 2 mg IVPUSH Q4H PRN; Protocol PRN Reason: Pain, Severe (Pain Scale 7-10) Last Admin: 06/14/23 10:00 Dose: 2 mg Documented By: VIRGINIA Omeprazole (Omeprazole 20 Mg Capsule.Dr) 20 mg PO DAILY@0630 [facility] Last Admin: 06/15/23 06:02 Dose: 20 mg Documented By: GABY Ondansetron HCl (Ondansetron Hcl 4 Mg/2 Ml Vial) 4 mg IVPUSH Q8H PRN PRN Reason: Nausea and Vomiting Senna (Sennosides 8.6 Mg Tablet) 17.2 mg PO BEDTIME PRN PRN Reason: Constipation Sodium Chloride (0.9 % Sodium Chloride Flush 3 Ml Syringe) 3 ml IVFLUSH QSHIFT [facility] Last Admin: 06/15/23 07:43 Dose: 3 ml Documented By: CATHERINE Vitamin D (Cholecalciferol (Vitamin D3) 25 Mcg Tablet) 50 mcg PO DAILY [facility] Last Admin: 06/15/23 07:43 Dose: 50 mcg Documented By: CATHERINE Labs 06/14/23 05:51 06/14/23 05:51 Microbiology Microbiology Results: Microbiology 06/13/23 Unknown Urine Culture - Final Urine clean catch - Urine [place] top Escherichia coli Procedures Date of Service Date of Service: 06/15/23 Progress Note: A&P Assessment and plan (1) Partial small bowel obstruction: Status: Acute Assessment and Plan: with Crohns ds appears to have 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 Quality Stroke Does the patient have a stroke diagnosis?: No VTE Prior VTE?: No VTE Risk Level:: Medical - moderate - high VTE Device Contraindication: Treatment Not Indicated VTE Drug Contraindication: N/A - Med Ordered
[2023-06-15 10:23] VITALS: BP 160/80
[2023-06-15] MEDS: amLODIPine Besylate 5 MG TABLET PO (10:43)
--- NOTE | 2023-06-15 11:20 | P.PNGI_ITS ---
Subjective Subjective Date of Service: 06/15/23 Interval History: tolerating liquids Critical Care Time (minutes): 0 Physical Exam 2 Vital Signs: Vital Signs: Last Vital Signs Temp 97.8 F 06/15/23 07:17 Pulse 94 06/15/23 07:17 Resp 16 06/15/23 07:17 BP 160/80 H 06/15/23 10:23 Pulse Ox 95 06/15/23 07:17 O2 Del Method Room Air 06/15/23 07:17 BMI result Body Mass Index 44.3 Const: General: cooperative GI: Other: abdomen is soft and nontender Objective Data Labs 06/14/23 05:51 06/14/23 05:51 Microbiology Microbiology Results: Microbiology 06/13/23 Unknown Urine clean catch - Urine [place] top Urine Culture - Final Escherichia coli Procedures Date of Service Date of Service: 06/15/23 Progress Note: A&P Assessment and plan (1) Crohn's disease: Start date: 06/15/23 Status: Acute Assessment and Plan: doing well f/u as outpt prednisone taper continue remicade Time Spent With Patient Time: Total time managing care of this patient today ____ minutes. Quality Stroke Does the patient have a stroke diagnosis?: No VTE Prior VTE?: No VTE Risk Level:: Medical - moderate - high VTE Device Contraindication: Treatment Not Indicated VTE Drug Contraindication: N/A - Med Ordered
[2023-06-15] MEDS: cefuroxime axetiL 250 MG TABLET PO (11:41)
[2023-06-15 12:51] VITALS: BP 148/82
[2023-06-15] MEDS: predniSONE 20 MG TABLET 40 MG PO (12:57)
--- NOTE | 2023-06-15 18:06 | PM.DS ---
DS: Providers Provider Date of Service: 06/15/23 Date of admission: 06/13/23 15:25 Date of discharge: 06/15/23 Primary care physician: Hadley Spaulding MD Admitting clinician: Nichol Edward Attending physician on admission: Camron Joe Consults: 06/13/23 15:24 Consult to Gastroenterology Routine Consulting Provider: Cosmo Bowen Reason for consultation: crohns flare 06/14/23 11:40 Consult to General Surgery Routine Consulting Provider: [facility] [place] [facility] Reason for consultation: sbo Attending physician on discharge: [facility] Discharging clinician: Nichol Edward DS: Diagnosis Discharge Diagnosis (1) Crohn's disease: Status: Acute DS: Summary Hospital Course Hospital Course: HPI on admission by this provider 06/13: 43-year-old female with history hypertension, Crohn's disease, history of SBO, asthma, who is morbidly obese presents to the ED earlier today for evaluation of left upper quadrant epigastric pain ongoing for 2 days that worsened acutely last night. There has been associated nausea and vomiting but she has not vomited in several hours. She has not been able to tolerate p.o.. She is also reporting chronic constipation but did move her bowels last night. No melena or hematochezia. She has been afebrile and denies any sick contacts. Denies eating any bad foods. She follows with Dr. Bowen in Gastroenterology reports last Crohn's flare was 1 year ago. Prior abdominal surgeries include a tubal ligation. She is passing flatus. On arrival, vitals show tachycardia of 106, otherwise stable. Mild leukocytosis of 11.1. Renal function normal, electrolyte levels normal. Urinalysis shows 1+ leukocytes, positive nitrites, 2+ blood, positive urinary sediment, 4+ bacteria. Patient denies any urinary symptoms. CT abdomen/pelvis shows diffuse small bowel dilatation suggesting small bowel obstruction with transition zone in the right lower quadrant without evidence of perforation. There was extensive scarring, tethering/desmoplastic reaction surrounding soft tissue mass 2.4 cm in the right lower quadrant involving including distal ileum. Possibly due to scarring from known Crohn's disease but tumor including carcinoid tumor can not rule out. There is also a pelvic soft tissue structure in the left pelvis adjacent to the iliac vessel likely enlarged lymph node or mesenteric seeding that remains unchanged. Evaluated by General surgery in the ED who does not feel she requires surgical intervention at this time but is recommending NG tube. However patient is adamantly opposed to NG tube due to prior adverse effect. She has received several doses of IV morphine, 1 L IV NS, and ondansetron in the ED. Currently reporting 8/10 upper abdominal pain but no nausea or vomiting. Hospital course: Pt admitted to med/surg for further management of SBO due to scarring from crohns disease. NG tube was recommended by general surgery and no surgical intervention was recommended. Pt refused NG tube and was no longer actively vomiting. She was kept NPO. Did develop non bloody diarrhea. Evaluated by gastroenterology recommending initiation of steroids with improvement in symptoms. Bowel movements became more formed and continued passing flatus. abd exam benign. Diet was advanced with good tolerance. She will be discharged on prednisone taper and advised to follow up with gastroenterology outpt as scheduled. Blood pressures were elevated during hospitalization (and noted previoulsy in chart). Amlodipine 5mg daily added to lisinopril 30mg daily. Follow up with pcp. Status at Discharge Functional status at discharge: independent ambulation Overall status at discharge: patient is progressing back to baseline Time Attestation Discharge coordination time: Greater than 30 minutes Quality: Safe Use of Opioids Does Pt have an Active Cancer Diagnosis on the Problem List?: No Quality: Stroke Does the patient have a stroke diagnosis?: No Physical Exam Vital Signs: Vital Signs: Last Vital Signs Temp 97.8 F 06/15/23 07:17 Pulse 94 06/15/23 07:17 Resp 16 06/15/23 07:17 BP 148/82 H 06/15/23 12:51 Pulse Ox 95 06/15/23 07:17 O2 Del Method Room Air 06/15/23 07:17 BMI result Body Mass Index 44.3 Discharge Plan Discharge Anticipated Discharge Date/Time: 06/15/23 11:34 Patient Disposition: Home, Self-Care Discharge Diagnosis: sbo, crohns flare Referrals: Hadley Spaulding MD [Primary Care Provider] - 1 Week Discharge Medications: New cefuroxime axetil 250 mg Tablet 250 mg PO Q12H Qty: 9 0RF prednisone 5 mg tablet 5 mg PO DIRECTED Qty: 252 0RF Rx Instructions: Take 40mg (8 tabs) daily x7 days, then take 35mg (7 tabs) daily x 7 days, then [id number] (6 tabs) daily x7 days, then take 25mg daily (5 tabs) x 7 days, then take 20mg (4 tabs) daily x 7 days, then take 15mg (3 tabs) daily x 7 days, then take 10mg (2 tabs) daily x 7 days, then take 5mg (1 tab) daily x 7 days amlodipine 5 mg Tablet 5 mg PO DAILY Qty: 90 0RF Protocol: Hold for SBP< HOLD for SBP < : 90 Continued albuterol sulfate 90 mcg/actuation aerosol powdr breath activated 2 inh inhalation Q6H PRN (Reason: shortness of breath or wheezing) Qty: 1 3RF cyanocobalamin (vitamin B-12) [Vitamin B-12] 1,000 mcg tablet 1 tab PO DAILY 11RF infliximab [Remicade] 100 mg recon soln 600 mg IV Q5W Patient Comments: Dr. Bowen ketotifen fumarate 0.025 % (0.035 %) drops 1 drp ophthalmic (eye) BID PRN (Reason: Dry Eye(S)) furosemide 20 mg tablet 1 tab PO DAILY fexofenadine [[facility] Allergy] 180 mg Tablet 180 mg PO DAILY PRN (Reason: Allergy Symptoms) acetaminophen 500 mg Tablet 1,000 mg PO Q6H PRN (Reason: Pain) omeprazole 20 mg capsule,delayed release(DR/EC) 1 cap PO DAILY@0630 lisinopril 30 mg tablet 30 mg PO DAILY 90 Days Qty: 90 1RF cholecalciferol (vitamin D3) 50 mcg (2,000 unit) tablet 50 mcg PO DAILY 90 Days Qty: 90 3RF Discharge Orders: Discharge Order (Routine); Ordered 06/15/23 Ordered By: Nichol Edward Diet: Advance to usual diet Activity on Discharge: As tolerated Stand Alone Forms: Patient Portal Discharge page Care Plan Goals: Recover from Crohns flare Prevent recurrent symptoms Health Concerns: SBO Crohns disease Plan of Treatment: SBO -advance diet ad tolerated -FOllow up with GI Crohns flare -Take prednisone taper as prescribed -Follow up with GI in office Urine culture also positive for UTI -take cefuroxime 250mg every 12 hours x9 additional doses Hyptertension -blood pressures uncontrolled during hospital admissions. Amlodipine 5mg daily added to the lisinopril 30mg daily you have been taking -follow up with pcp Assessment: See discharge summary Discharge Date/Time: 06/15/23 13:54
== END 2023-06-15 13:54 | disposition home or self-care (01) | DRG 245 ==
LOC: HO.ED 15:01 → HO.EDOVER 15:32 → HO.S3 16:35
PROVIDERS: Physician Assistant Medical; Admitting Provider Physician Assistant; Emergency Provider Internal Medicine; PCP Internal Medicine; Visit Provider Physician Assistant
DX: K50.912 Crohn's disease, unspecified, with intestinal obstruction (principal); E66.01 Morbid (severe) obesity due to excess calories; J45.20 Mild intermittent asthma, uncomplicated; Z68.41 Body mass index [BMI] 40.0-44.9, adult; Z79.620 Long term (current) use of immunosuppressive biologic; Z87.891 Personal history of nicotine dependence; Z79.899 Other long term (current) drug therapy
CPT/HCPCS: 36415; 74177; 80048; 80076; 81001; 83690; 83735; 84484; 84702; 85025; 87086; 87088; 87186; 93005; 99285; J1644; J2270; J2405; J2920; Q9967

== ENCOUNTER → 2023-06-13 08:51 | Outpatient (BNV) | payer OTHER, SELFPAY | PROVIDERS: Admitting Provider Physician Assistant; Emergency Provider Internal Medicine; PCP Internal Medicine; Visit Provider Internal Medicine Cardiovascular Disease | DX: R10.13 Epigastric pain (principal) | CPT/HCPCS: 93010 ==

== ENCOUNTER → 2023-06-13 15:25 | Outpatient (BNV) | payer OTHER, SELFPAY | PROVIDERS: Admitting Provider Physician Assistant; Emergency Provider Internal Medicine; PCP Internal Medicine; Visit Provider Surgery | DX: K56.600 Partial intestinal obstruction, unspecified as to cause (principal) | CPT/HCPCS: 99222; 99232 ==

== ENCOUNTER → 2023-06-13 15:25 | Outpatient (BNV) | payer OTHER, SELFPAY | PROVIDERS: Admitting Provider Physician Assistant; Emergency Provider Internal Medicine; PCP Internal Medicine; Visit Provider Physician Assistant | DX: K50.912 Crohn's disease, unspecified, with intestinal obstruction (principal) | CPT/HCPCS: 99223; 99232; 99238 ==

== ENCOUNTER 2023-06-17 07:18 | Outpatient (REF) | payer OTHER, SELFPAY | END 2023-06-17 07:19 | disposition home or self-care (01) | LOC: HO.MDS 07:18 | PROVIDERS: Visit Provider Internal Medicine Gastroenterology | DX: K50.90 Crohn's disease, unspecified, without complications (principal) | CPT/HCPCS: 96365; 96366; J1745 ==

== ENCOUNTER 2023-07-22 07:31 | Outpatient (REF) | payer OTHER, SELFPAY ==
[2023-07-22] VITALS (7 sets, daily range): BP systolic 152–173; BP diastolic 92–103; PULSE 74–100; RESP 18–20; TEMP 36.6; O2SAT 98
[2023-07-22] MEDS: Acetaminophen 325 MG TABLET 975 MG PO (07:57)
== END 2023-07-22 07:32 | disposition home or self-care (01) ==
LOC: HO.MDS 07:31
PROVIDERS: Visit Provider Internal Medicine Gastroenterology
DX: K50.90 Crohn's disease, unspecified, without complications (principal)
CPT/HCPCS: 96365; 96366; J1745

== ENCOUNTER 2023-08-06 07:42 | Outpatient (REF) | payer OTHER, SELFPAY ==
[2023-08-06 17:12] LABS: CT PCR NOT DETECTED (Not Detect.); NG PCR NOT DETECTED (Not Detect.)
[2023-08-07 13:09] LABS: BV Int Neg Control Negative (Negative); BV Int Pos Control Positive (Positive)
== END 2023-08-06 07:43 | disposition home or self-care (01) ==
LOC: HO.LAB 07:42
PROVIDERS: Visit Provider Advanced Practice Midwife
DX: Z01.419 Encounter for gynecological examination (general) (routine) without abnormal findings (principal); N89.8 Other specified noninflammatory disorders of vagina
CPT/HCPCS: 0353U; 87480; 87510; 87660; 99396

== ENCOUNTER 2023-08-06 07:42 | Outpatient (AMB) | payer OTHER, SELFPAY ==
--- NOTE | 2023-08-06 07:51 | MHC.OFFVIS ---
Intake Vital Signs 08/06/23 07:56 Height 5 ft 5 in Weight 271 lb BMI 45.1 BP 152/100 H Intake Visit Reasons: Annual [employer]: [employer] Present (Ingrid) Allergies aspirin [Aspirin] Allergy (Mild, Verified 08/06/23 07:56) EYES SWELL zucchini Allergy (Intermediate, Uncoded 06/13/23 08:43) Rash SEASONAL ALLERGIES Allergy (Unknown, Uncoded 06/13/23 08:43) TRIGGERS ASTHMA ATTACKS Is last menstrual period known: Yes Last menstrual period: 06/13/23 HPI HPI Comments History of Present Illness Details She is a premenopausal woman presenting for annual examination. Doing well with no concerns. She tries to eat healthy when posssible, and stays active with walking. She reports irregular menses-skip a cycle then bleeds 2-3weeks, heavy with clots since January. Currently is sexually active. She reports a vaginal odor, she feels like BV again. STI screening offered; she accepts. Denies family history of breast, ovarian or colon cancer. Last pap smear 2020, negative. Mammogram: 2023. [facility] Medical History Vitamin D deficiency Uterine fibroid Breast nodule Asthma Obesity (BMI 30-39.9) Crohn's disease Benign essential hypertension Anemia Surgical History Hx of colonoscopy Hx of tubal ligation Hx of section Hx of cholecystectomy Family History Mother Diabetes HTN (hypertension) Parkinson disease Father Hyperthyroidism Social History Household Members: Family Household Members Other:: 3 Housing: House Do you presently have visiting nurse or other home services: No Alcohol intake: never Patient Tobacco Use Status: Former Tobacco user Quit Date: 2012 Tobacco use type: Cigarette Cigarettes Per Day: 4 e-Cigarette/Vaping Use: Never Used Second Hand Smoke Exposure: No Advance Directives Date on File: 09/21/20 service: No Current occupational status: employed 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 Sexual orientation: Straight/Heterosexual Cognitive needs: No Hearing needs: No Vision needs: Yes Female Reproductive History Menstrual Age of Menarche: 12 Date of last menstrual period: 06/13/23 control method: permanent sterilization Permanent Sterilization: BTL Total pregnancies: 3 Full term: 3 Number of Living Children: 3 Date of last pap smear: 03/05/21 (neg pap and hpv) Date of Mammogram: 06/11/23 (Birad 1) Review of Systems Const All systems reviewed & are unremarkable except as noted in HPI and below Reports as per HPI Eyes Reports no additional complaints ENT Reports no additional complaints Card Reports no additional complaints Resp Reports no additional complaints GI Reports as per HPI and Reports no additional complaints Reports as per HPI Musc Reports no additional complaints Skin/Breast Reports as per HPI Neuro Reports no additional complaints Psych Reports no additional complaints Endo Reports no additional complaints Mendez/Lymph Reports no additional complaints Aller/Immun Reports no additional complaints Physical Exam Vital Signs: Last Vital Signs BP 152/100 H 08/06/23 07:56 BMI result Body Mass Index 45.1 Const General: cooperative, healthy appearing, no acute distress, well developed and alert Orientation/consciousness: patient oriented x3 HEENT Head: Yes normal to inspection Eyes General: appearance normal, both eyes and all related structures Neck Neck: Yes normal visual inspection Thyroid: Thyroid normal Chest Chest palpation & inspection: normal inspection of the chest and other (no puckering, dimpling, peau de orange, retraction, discharge, masses) Breast/axilla inspection: normal inspection of the breasts Breast/axilla palpation: normal palpation of the breasts Resp Effort & Inspection: normal respiratory effort GI Inspection: Yes normal to inspection and Yes obesity Palpation (GI): Soft to palpation Rectal Exam - Female: deferred General: Yes bladder normal to palpation External Female Exam: normal external appearance and normal appearance of the urethra Speculum Exam - Vagina: normal appearance of the vagina, normal palpation and normal vaginal discharge Speculum Exam - Cervix: normal appearance of the cervix and normal palpation Bimanual exam- vagina & uterus: normal bimanual exam, normal palpation, uterine size normal, bladder normal to palpation, normal palpation and non-tender Bimanual Exam- Adnexa, other: no masses Skin General skin exam: no rashes or lesions noted Rashes: no rashes Neuro General: patient oriented x3 Cognition (Neuro): normal cognition Extrem General: Yes normal to inspection Psych Attitude: cooperative Thought process: Normal thought process present Assessment & Plan Assessment & Plan (1) Encounter for well woman exam with routine gynecological exam: Code(s): Z01.419 - Encounter for gynecological examination (general) (routine) without abnormal findings Plan Discussed: Current recommendations for pap smears per ASCCP guidelines. Breast awareness and periodic breast exams. Maintain a healthy lifestyle including a well balanced diet and routine exercise. Mammogram yearly. Current CT findings from her ED admission in May with a calcified uterine mass suggested of a necrotic uterine fibroid and left pelvic soft tissue adjacent to the iliac vessel measuring 2 cm possibly an enlarge pathologic lymph node or mesenteric seeding. Discussed findings with Dr. Weinberg, plan is to obtain an MRI. EMB at her follow-up due to AUB. Advised to call if there is any heavy prolonged bleeding episodes. Patient verbalizes understanding and agrees to the plan of care. She was given opportunity to ask questions and all questions were answered to the best of my ability. RTO in one year for annual emergency medicine nurse practitioner examination. This note is constructed using voice recognition software. While every effort has been made to ensure accuracy, systems test analyst errors may have been included. Orders: Orders Bacterial Vaginosis Panel Today N89.8 - Other specified noninflammatory disorders of vagina CT NG by PCR Today N89.8 - Other specified noninflammatory disorders of vagina MR pelvis wo/w con Today N85.8 - Other specified noninflammatory disorders of uterus Coding Level of Care Code Est Pt Prev Care 40-64y(76581) Diagnoses Encounter for well woman exam with routine gynecological exam Z01.419
[2023-08-06 07:56] VITALS: BP 152/100; BMI 45.1
== END 2023-08-06 08:34 | disposition home or self-care (01) ==
PROVIDERS: PCP Internal Medicine; Visit Provider Advanced Practice Midwife
DX: Z01.419 Encounter for gynecological examination (general) (routine) without abnormal findings (principal)
CPT/HCPCS: 99396

== ENCOUNTER 2023-08-06 08:25 | Outpatient (REF) | payer OTHER, SELFPAY | END 2023-08-06 08:26 | disposition home or self-care (01) | LOC: HO.LNP 08:25 | PROVIDERS: Visit Provider Advanced Practice Midwife | DX: Z13.89 Encounter for screening for other disorder (principal) ==

== ENCOUNTER 2023-09-14 08:41 | Outpatient (REF) | payer OTHER, SELFPAY ==
--- NOTE | ~2023-09-14 | MR_ITS ---
EXAMINATION: MR PELVIS WITHOUT AND WITH CONTRAST CLINICAL INFORMATION: Uterine leiomyoma, left ovarian cysts COMPARISON: MRI pelvis on 07/09/2021 TECHNIQUE: Examination was performed in a high field strength MRI scanner. Pre-contrast multiplanar multisequence MR imaging of the pelvis was performed without IV contrast enhancement. Post-contrast axial T1 weighted fat suppressed images of the pelvis were obtained after IV injection of 10 mL Gadavist. FINDINGS: Uterus is anteverted. T2 hyperintense endometrium measures 1.20 cm in AP thickness. Posterior uterine fundal subserosal T2 hypointense, hypoenhancing mass lesion is seen measuring 2.1 cm in AP diameter, 1.8 cm in width, 1.6 cm in vertical height (previously 2.1 cm). Left anterior uterine body subserosal T2 hypointense, isoenhancing mass lesion is seen measuring 1.6 cm in AP diameter, 2.2 cm in width, 2.2 cm in vertical height (previously 1.6 cm). Persistent T1 and T2 hyperintense hypoenhancing left lateral vaginal cystic lesion is seen, measuring 2.7 cm in AP diameter, 2.2 cm in width, 2.9 cm in vertical height (previously 2.8 cm). Left ovary is normal in size, containing multiple T2 hyperintense normal follicles measuring up to 1.5 cm in diameter. There is interval resolution of the T1 hyperintense hemorrhagic left ovarian cyst. Persistent left paraovarian simple cyst is seen, measuring 2.2 cm in AP diameter, 2.0 cm in width, 1.7 cm in vertical height (previously 1.8 cm). Right ovary is also normal in size, containing normal follicles up to 1.8 cm in diameter. Urinary bladder is well filled with urine. Pelvic fat plane is clean. No pelvic ascites is seen. No abnormally enlarged iliac or inguinal lymph nodes are found. The pelvis and bilateral hips are intact. Bilateral femoral heads and necks show normal signal without focal lesion. No abnormal joint effusion can be seen. The visualized bony pelvis show normal signal. Bilateral sacroiliac joints also appear unremarkable. MR/MR pelvis wo/w con IMPRESSION: 1. Interval resolution of the hemorrhagic left ovarian cyst. 2. Persistent left paraovarian simple cyst. 3. Persistent left lateral vaginal cystic lesion, consistent with Bartholin's gland cyst. 4. Unchanged uterine fibroids.
[2023-09-14] MEDS: gadobutroL 10 ML VIAL IVPUSH (10:20)
== END 2023-09-14 08:42 | disposition home or self-care (01) ==
LOC: HO.MRI 08:41
PROVIDERS: PCP Internal Medicine; Visit Provider Advanced Practice Midwife
DX: N85.8 Other specified noninflammatory disorders of uterus (principal)
CPT/HCPCS: 72197; A9585

== ENCOUNTER 2023-10-13 12:20 | Outpatient (AMB) | payer OTHER, SELFPAY ==
[2023-10-13 12:30] VITALS: BP 160/98; PULSE 99; O2SAT 99; BMI 45.4
--- NOTE | 2023-10-13 12:30 | MHC.PC.OV ---
Vital Signs 10/13/23 12:30 Height 5 ft 5 in Weight 273 lb BMI 45.4 BP 160/98 H Blood Pressure Location Lt brachial Position Sitting Pulse 99 Pulse Source Pulse Oximeter Pulse Oximetry (%) 99 Oxygen Delivery Method Room Air Intake Visit Reasons: 4 month f/u Mask Inspector Required: No Allergies aspirin [Aspirin] Allergy (Mild, Verified 10/13/23 12:56) EYES SWELL zucchini Allergy (Intermediate, Uncoded 10/13/23 12:56) Rash SEASONAL ALLERGIES Allergy (Unknown, Uncoded 10/13/23 12:56) TRIGGERS ASTHMA ATTACKS Medication List - Last Reconciled 10/13/23 by Hadley Spaulding MD acetaminophen 1,000 mg PO Q6H PRN albuterol sulfate 90 mcg/actuation 2 inhalations inhalation Q6H PRN amlodipine 5 mg See Protocol PO DAILY cholecalciferol (vitamin D3) 50 mcg PO DAILY 90 days cyanocobalamin (vitamin B-12) (Vitamin B-12) 1 tab PO DAILY fexofenadine ([place] [facility]) 180 mg PO DAILY PRN furosemide 20 mg PO DAILY infliximab (Remicade) 600 mg IV Q5W ketotifen fumarate 0.025%(0.035%) 1 drp ophthalmic (eye) BID PRN lisinopril 30 mg PO DAILY 90 days omeprazole 20 mg PO DAILY@0630 Tobacco use date assessed: 10/13/23 Dental Screening Dental Screen Date: 10/13/23 Did you have a dental visit in the last 12 months?: No Did you have a dental problem in the last 6 months where you did not have access to dental care?: No HPI 4 month f/u HPI Details Patient comes in today for her follow up visit She was hospitalized in May 2023 for a bout of bowel obstruction but she responded promptly to steroids and did not require any surgical intervention States though that she has gained a lot of weight since her last visit due to the effects of the oral prednisone States that her Crohn's colitis is currently under control with Remicade and she continues to follow up with Dr. Bowen regularly for her ongoing management and treatment She is also following up with Dr. Kaplan regularly for her anemia - she last had IV iron infusion in February 2023 and will continue to receive them as needed (she is unable to tolerate oral iron Rx) States that her menstrual periods remain irregular but states that they have not been any heavier than before She has been recommended IUD to help cycle her periods but she declined; is hoping to get a hysyerectomy done instead but is not sure why gynecology is not considering this States that she also has some abnormality in her left ovary that is currently being investigated further by gynecology and she recently had a pelvic MRI done for further evaluation States that she currently feels okay and denies any headaches or dizziness Denies any chest pains, no SOB No nausea/vomiting, no abdominal pain No change in bowel habits noted She has no follow up labs done recently other than a CBC last month [facility] Medical History (Updated 10/13/23 @ 13:31 by Hadley Spaulding MD) Morbid obesity with BMI of 45.0-49.9, adult GERD without esophagitis Vitamin D deficiency Uterine fibroid Breast nodule Asthma Obesity (BMI 30-39.9) Crohn's disease Benign essential hypertension Anemia Surgical History Hx of colonoscopy Hx of tubal ligation Hx of section Hx of cholecystectomy Family History Mother Diabetes HTN (hypertension) Parkinson disease Father Hyperthyroidism Social History Household Members: Family Household Members Other:: 3 Housing: House Do you presently have visiting nurse or other home services: No Alcohol intake: never Patient Tobacco Use Status: Former Tobacco user Tobacco use type: Cigarette Cigarettes Per Day: 4 e-Cigarette/Vaping Use: Never Used Second Hand Smoke Exposure: No Advance Directives Date on File: 09/21/20 service: No Current occupational status: employed Current occupation: [employer] Sexual orientation: Straight/Heterosexual Cognitive needs: No Hearing needs: No Vision needs: Yes Female Reproductive History Menstrual Age of Menarche: 12 Questionnaire Thrive Questionnaire Date Thrive assessed: 06/14/23 AUDIT C Alcohol Use Questionnaire (AUDIT-C) 1. How often do you have a drink containing alcohol?: Never 3. How often do you have six or more drinks on one occasion?: Never Total Score: 0 Score Reviewed/Action Taken: Yes RAJAT-7 AMB Questionnaire RAJAT-7 Date RAJAT - 7 assessed: 06/01/23 Source: Developed by Drs. Roosevelt Eubanks, Paola Weaver, Maicol Paul and colleagues, with an educational rajesh from [employer]. Review of Systems Const Denies chills, Denies fatigue, Denies fever(s), Denies headache(s), Denies malaise and Reports weight gain (due to side effects of oral steroids ) ENT Denies dysphagia, Denies dizziness, Denies otalgia, Denies headache(s), Denies neck pain, Denies odynophagia and Denies sore throat Card Denies chest pain, Denies rapid heart rate, Denies irregular heart rhythm, Denies palpitations and Denies dyspnea Resp Denies chest congestion, Denies cough, Denies dyspnea and Denies wheezing GI Denies abdominal pain, Reports constipation (recurrent - better controlled lately), Denies dysphagia, Denies heartburn, Denies diarrhea, Denies nausea, Denies odynophagia and Denies vomiting Reports abnormal menses (irregular), Denies hematuria, Denies urinary frequency, Denies dysuria, Denies urinary incontinence and Denies urinary urgency Musc Denies back pain, Denies arthralgias and Denies neck pain Skin/Breast Denies rash Neuro Denies dizziness, Denies headache(s) and Denies paresthesias Psych Denies anxiety and Denies depression Endo Denies fatigue and Denies palpitations Mendez/Lymph Denies easy bruising Aller/Immun Denies wheezing Physical exam (Primary Care) Vital Signs: Last Vital Signs Pulse 99 10/13/23 12:30 BP 160/98 H 10/13/23 12:30 Pulse Ox 99 10/13/23 12:30 Oxygen Delivery Method Room Air 10/13/23 12:30 BMI result Body Mass Index 45.4 Tobacco/Smoking Status: Tobacco use Status Tobacco use date assessed 10/13/23 10/13/23 12:37 Patient Tobacco Use Status Former Tobacco user 10/13/23 12:37 Tobacco use type Cigarette 10/13/23 12:37 e-Cigarette/Vaping Use Never Used 10/13/23 12:37 Thrive Assessment: Date of Thrive Assessment Date Thrive assessed 06/14/23 10/13/23 12:37 Const General: no acute distress and alert HENMT Ears: TM's normal bilaterally and EAC's normal Throat: Yes posterior oropharynx normal and Yes tonsils normal (no TP congestion) Neck Neck: Yes no lymphadenopathy and Yes supple Thyroid: Thyroid normal Resp Auscultation: clear to auscultation bilaterally, no rales and no wheezes Cardio Rate: regular rate Rhythm: regular rhythm Heart sounds: no murmurs GI Palpation (GI): Soft to palpation and nontender Auscultation: normal bowel sounds General: Yes no CVA tenderness Back/Spine/Pelvis Back: no CVA tenderness Thoracic/Lumbar Spine: No lumbar spinal tenderness Skin Rashes: no rashes Extrem General: Yes no clubbing, cyanosis or edema Results Reviewed Results Reviewed: Laboratory Tests 08/26/23 09:01 WBC 12.8 H Hgb 11.6 L Hct 37.2 Plt Count 313 Assessment and Plan Assessment & Plan (1) Benign essential hypertension: Code(s): I10 - Essential (primary) hypertension Plan: Reinforced low sodium diet - goal is systolic BP of 120 mm or less States that her blood pressure has been running high since she had to be started on oral Prednisone for flare up of her Crohn's Continue Lisinopril 30 mg QD and Amlodipine 5 mg QD for now but advised that we may need to make some further adjustments to her BP meds over the next few months if her BP is still not at goal Patient is reminded to continue monitoring her blood pressure regularly (2) Crohn's disease: Code(s): K50.90 - Crohn's disease, unspecified, without complications Qualifiers: Gastrointestinal tract location: unspecified location Digestive disease complication type: without complication Qualified Code(s): K50.90 - Crohn's disease, unspecified, without complications Plan: States that her Crohn's disease has been better controlled on Remicade lately, outside of her recent flare up Continue Remicade 600 mg IV every 5 weeks; she just finished her oral Prednisone 40 mg QD Follow up with GI (Dr. Bowen) as scheduled (3) Asthma: Comment: WELL CONTROLLED WITH ALLERGY SHOTS Code(s): J45.909 - Unspecified asthma, uncomplicated Qualifiers: Asthma severity: mild Asthma persistence: intermittent Asthma complication type: unspecified Qualified Code(s): J45.20 - Mild intermittent asthma, uncomplicated Plan: Notes that her asthma has been well controlled since she started receiving allergy injections from [facility] a couple of years ago (sees Dr. Puga) States that she has not had to use her rescue inhaler in a while now; continue Albuterol HFA 1 to 2 inhalations Q 6 hours PRN only She is also taking Fexofenadine 180 mg QD PRN (4) Impaired fasting glucose: Code(s): R73.01 - Impaired fasting glucose Plan: HgbA1c was normal at 5.7% when checked previously but she has gained a lot of weight (almost 20 pounds) in the past few months due to effects of her oral steroids and we will have to recheck her FBS and HgbA1c for follow up BILLY Reinforced low calorie diet/exercise as tolerated (5) Arthralgia: Code(s): M25.50 - Pain in unspecified joint Qualifiers: Joint pain location: unspecified Qualified Code(s): M25.50 - Pain in unspecified joint Plan: X-rays of both hands done in September 2021 came out normal Arthralgia work ups done last year also came out normal (6) Vitamin D deficiency: Code(s): E55.9 - Vitamin D deficiency, unspecified Plan: Continue Vitamin D3 2000 units QD (7) Anemia: Comment: Unable to tolerate oral iron tablets (severe constipation) Code(s): D64.9 - Anemia, unspecified Qualifiers: Anemia type: iron deficiency Iron deficiency anemia type: inadequate dietary iron intake Qualified Code(s): D50.8 - Other iron deficiency anemias Plan: H/H was at 11.6/37.2 on her CBC done last month States that she receives infusion of IV as needed (is unable to tolerate oral iron supplements) - last received in February 2023 Follow up with hematology (Dr. Kaplan) as scheduled (8) GERD without esophagitis: Code(s): K21.9 - Gastro-esophageal reflux disease without esophagitis Plan: Dietary restrictions reinforced Continue Omeprazole 20 mg QD (9) Uterine fibroid: Code(s): D25.9 - Leiomyoma of uterus, unspecified Qualifiers: Uterine leiomyoma location: unspecified location Qualified Code(s): D25.9 - Leiomyoma of uterus, unspecified Plan: Pelvic MRI done last month revealed (+) interval resolution of the hemorrhagic left ovarian cyst, with persistent left paraovarian simple cyst and persistent left lateral vaginal cystic lesion, consistent with Bartholin's gland cyst noted. Her uterine fibroids have remained mostly unchanged from before Follow up with gynecology as scheduled - patient is reminded that she does have a follow up appt with gynecology scheduled for tomorrow (10) Morbid obesity with BMI of 45.0-49.9, adult: Code(s): E66.01 - Morbid (severe) obesity due to excess calories; Z68.42 - Body mass index [BMI] 45.0-49.9, adult Plan: Reinforced diet/exercise as tolerated/lose weight - she has gained a lot of weight since her last visit due to the side effects of her oral Prednisone therapy over the past few months Plan Follow up in 4 months Orders: Orders Lipid Panel Today E78.00 - Pure hypercholesterolemia, unspecified Hemoglobin A1c Today R73.01 - Impaired fasting glucose Complete Blood Count Auto Diff Today D64.9 - Anemia, unspecified Comprehensive [place]. Panel Fast Today E78.00 - Pure hypercholesterolemia, unspecified TSH reflex Free T4 Today E78.00 - Pure hypercholesterolemia, unspecified UA CC w/rflx Micro + Cult Today R30.0 - Dysuria Vitamin D 25-OH Total Today E55.9 - Vitamin D deficiency, unspecified Vitamin B12 and Folate Today E53.8 - Deficiency of other specified B group vitamins Coding Level of Care Code Est Pt Level 4 (63524) Diagnoses Benign essential hypertension I10 Crohn's disease without complication, unspecified gastrointestinal tract location K50.90 Gastrointestinal tract location: unspecified location Digestive disease complication type: without complication Mild intermittent asthma, unspecified whether complicated J45.20 Asthma severity: mild Asthma persistence: intermittent Asthma complication type: unspecified Impaired fasting glucose R73.01 Arthralgia, unspecified joint M25.50 Joint pain location: unspecified Vitamin D deficiency E55.9 Iron 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 intake D50.8 Anemia type: iron deficiency Iron deficiency anemia type: inadequate dietary iron intake GERD without esophagitis K21.9 Uterine leiomyoma, unspecified location D25.9 Uterine leiomyoma location: unspecified location Morbid obesity with BMI of 45.0-49.9, adult E66.01; Z68.42
== END 2023-10-13 13:05 | disposition home or self-care (01) ==
PROVIDERS: PCP Internal Medicine; Visit Provider Internal Medicine
DX: I10 Essential (primary) hypertension (principal); K50.90 Crohn's disease, unspecified, without complications; J45.20 Mild intermittent asthma, uncomplicated; R73.01 Impaired fasting glucose; M25.50 Pain in unspecified joint; E55.9 Vitamin D deficiency, unspecified; D50.8 Other iron deficiency anemias; K21.9 Gastro-esophageal reflux disease without esophagitis; D25.9 Leiomyoma of uterus, unspecified; E66.01 Morbid (severe) obesity due to excess calories; Z68.42 Body mass index [BMI] 45.0-49.9, adult
CPT/HCPCS: 99214

== ENCOUNTER 2023-10-14 09:30 | Outpatient (AMB) | payer OTHER, SELFPAY ==
--- NOTE | 2023-10-14 09:42 | MHC.OFFVIS ---
Vital Signs 10/14/23 09:46 Weight 275 lb 5 oz BP 132/76 Blood Pressure Location Lt radial Position Sitting Intake Visit Reasons: MRI follow up Intake Note: Still having pain and bleeding, having large clots Allergies aspirin [Aspirin] Allergy (Mild, Verified 10/13/23 12:56) EYES SWELL zucchini Allergy (Intermediate, Uncoded 10/13/23 12:56) Rash SEASONAL ALLERGIES Allergy (Unknown, Uncoded 10/13/23 12:56) TRIGGERS ASTHMA ATTACKS Is last menstrual period known: Yes (Continuous since ) Last menstrual period: 08/06/23 Post menopausal: No Patient : No HPI Comments Details: Patient is here today for an MRI follow up test results, she had a history of uterine fibroids was seen previously this year and was thought to have necrotic fibroid tissue noted on her scan. She reports she has been bleeding since her last visit now for 2 months. Three weeks ago she had lots of pain and pressure sat on the toilet and released a large blood clot. She reports the pain has recurred on the right side mostly, but occasionally on the left. Hgb. 08/2023= 11.6. TSH 04/2023= 0.56. Pap was 2020, negative. EMB 02/2022, negative. She declines physical examination today. [facility] Medical History (Updated 10/14/23 @ 10:15 by Brianne Arellano CNM) Morbid obesity with BMI of 45.0-49.9, adult GERD without esophagitis Vitamin D deficiency Uterine fibroid Breast nodule Asthma Obesity (BMI 30-39.9) Crohn's disease Benign essential hypertension Anemia Surgical History Hx of colonoscopy Hx of tubal ligation Hx of section Hx of cholecystectomy Family History Mother Diabetes HTN (hypertension) Parkinson disease Father Hyperthyroidism Social History Household Members: Family Household Members Other:: 3 Housing: House Do you presently have visiting nurse or other home services: No Alcohol intake: never Patient Tobacco Use Status: Former Tobacco user Tobacco use type: Cigarette Cigarettes Per Day: 4 e-Cigarette/Vaping Use: Never Used Second Hand Smoke Exposure: No Advance Directives Date on File: 09/21/20 service: No Current occupational status: employed Current occupation: [employer] Sexual orientation: Straight/Heterosexual Cognitive needs: No Hearing needs: No Vision needs: Yes Female Reproductive History Menstrual Age of Menarche: 12 Date of last menstrual period: 08/06/23 Physical Exam Vital Signs: Last Vital Signs BP 132/76 10/14/23 09:46 Assessment & Plan Assessment & Plan (1) Encounter to discuss test results: Code(s): Z71.2 - Person consulting for explanation of examination or test findings Plan: Discussed: MRI findings posterior fundal fibroid, left anterior fibroid, left vaginal cyst-she reports is not having any discomfort. Left paraovarian cyst. (2) Fibroids: Code(s): D21.9 - Benign neoplasm of connective and other soft tissue, unspecified Category: Medical Plan: Counseled re: Leiomyoma: common pelvic neoplasm. Differential diagnosis-may include leiomyosarcoma which is a rare uterine sarcoma 3-7/100,000, difficult to distinguish from fibroids on ultrasound from uterine sarcoma's. Unlikely any single test will have a highly positive predictive value. Hysterectomy is not recommended for sole purpose of excluding malignant neoplasm. Report any AUB. Pelvic pressure, bloating, or pain. Consult for surgical exploration verses expectant management offered. Patient prefers monitoring. Expectant management follow up yearly for stability. Referral to MD if indicated for level of care. Plan next ultrasound follow up in June therefore we can review it at her annual exam. (3) Abnormal uterine bleeding (AUB): Code(s): N93.9 - Abnormal uterine and vaginal bleeding, unspecified Category: Medical Plan: Advised to complete Dr. Spaulding's labs as they will obtain the thyroid and CBC results. Hydrate well. Monitor menstrual cycles, report any unscheduled bleeding, bleeding episodes <24 days apart or heavy/prolonged menstrual bleeding. Call the office for a follow up for any concerns. Schedule EMB, counseled regarding anticipatory guidance including eating and drinking for the before procedure, taking ibuprofen 3 tablets if no contraindications 1 hour before her scheduled appointment time. Counseled regarding the Mirena IUD in its use it for treatment for AUB, booklet given for review. Plan to schedule EMB in Mirena insert same day appointment. All of her questions and concerns were addressed to the best of my ability and shared decision making. She is agreeable to the plan of care. This note is constructed using voice recognition software. While every effort has been made to ensure accuracy, finishing supervisor plastic sheets errors may have been included. Plan As noted above. Orders: Orders US pelvic and transvaginal 07/11/24 D21.9 - Benign neoplasm of connective and other soft tissue, unspecified Coding Level of Care Code Est Pt Level 3 (57904) Diagnoses Encounter to discuss test results Z71.2 Fibroids D21.9 Abnormal uterine bleeding (AUB) N93.9
[2023-10-14 09:46] VITALS: BP 132/76
== END 2023-10-14 10:28 | disposition home or self-care (01) ==
PROVIDERS: PCP Internal Medicine; Visit Provider Advanced Practice Midwife
DX: Z71.2 Person consulting for explanation of examination or test findings (principal); D21.9 Benign neoplasm of connective and other soft tissue, unspecified; N93.9 Abnormal uterine and vaginal bleeding, unspecified
CPT/HCPCS: 99213

== ENCOUNTER → 2023-10-14 09:30 | Outpatient (BNVA) | payer OTHER, SELFPAY | PROVIDERS: PCP Internal Medicine; Visit Provider Advanced Practice Midwife | DX: Z71.2 Person consulting for explanation of examination or test findings (principal); D21.9 Benign neoplasm of connective and other soft tissue, unspecified; N93.9 Abnormal uterine and vaginal bleeding, unspecified | CPT/HCPCS: 99212 ==

== ENCOUNTER 2024-02-11 10:33 | Outpatient (AMB) | payer OTHER, SELFPAY ==
[2024-02-11 10:39] VITALS: BP 160/100; PULSE 94; O2SAT 97; BMI 45.9
--- NOTE | 2024-02-11 10:39 | A.OFFPC_ITS ---
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: No Accompanied by: Self / Same As Patient Allergies aspirin [Aspirin] Allergy (Mild, Verified 02/11/24 11:28) EYES SWELL zucchini Allergy (Intermediate, Uncoded 02/11/24 11:28) Rash SEASONAL ALLERGIES Allergy (Unknown, Uncoded 02/11/24 11:28) TRIGGERS ASTHMA ATTACKS Medication List - Last Reconciled 02/11/24 by Hadley Spaulding MD acetaminophen 1,000 mg PO Q6H PRN albuterol sulfate 90 mcg/actuation 2 inhalations inhalation Q6H PRN cholecalciferol (vitamin D3) 50 mcg PO DAILY 90 days cyanocobalamin (vitamin B-12) (Vitamin B-12) 1 tab PO DAILY fexofenadine ([place] Allergy) 180 mg PO DAILY PRN furosemide 20 mg PO DAILY infliximab (Remicade) 600 mg IV Q5W ketotifen fumarate 0.025%(0.035%) 1 drp ophthalmic (eye) BID PRN lisinopril 30 mg PO DAILY 90 days omeprazole 20 mg PO DAILY@0630 Tobacco use date assessed: 02/11/24 Dental Screening Dental Screen Date: 02/11/24 Did you have a dental visit in the last 12 months?: No Did you have a dental problem in the last 6 months where you did not have access to dental care?: No Was dental information given to patient?: Patient has dentist HPI 4mt f/u HPI Details Patient comes in today for her annual physical examination States that she was started on Amlodipine 5 mg at the ER back in May 2023 but she stopped it a couple of days later when she felt that her blood pressure came down too fast and she was feeling lightheaded often at the time whenever she took the Amlodipine Rx Adds that she still has heavy and continuous (non-stop) heavy and painful menstrual bleeding and she often passes out large clots of blood vaginally She has been following up with gynecology regularly for this but was advised that a hysterectomy, which she wants them to do, is not indicated Patient states that she feels okay otherwise She denies any headaches and has had no dizziness lately She denies any chest pains or shortness of breath No nausea/vomiting, no abdominal pain No change in bowel habits noted She denies any acute urinary symptoms She was not able to get her follow-up labs done yet She is up-to-date with her annual gynecology exam and pap smear as well as her mammogram, which was done back in May 2023 [facility] Medical History Morbid obesity with BMI of 45.0-49.9, adult GERD without esophagitis Vitamin D deficiency Uterine fibroid Breast nodule Asthma Obesity (BMI 30-39.9) Crohn's disease Benign essential hypertension Anemia Surgical History Hx of colonoscopy Hx of tubal ligation Hx of section Hx of cholecystectomy Family History Mother Diabetes HTN (hypertension) Parkinson disease Father Hyperthyroidism Social History Household Members: Family Household Members Other:: 3 Housing: House Do you presently have visiting nurse or other home services: No Alcohol intake: never Patient Tobacco Use Status: Former Tobacco user Tobacco use type: Cigarette Cigarettes Per Day: 4 e-Cigarette/Vaping Use: Never Used Second Hand Smoke Exposure: No Advance Directives Date on File: 09/21/20 service: No Current occupational status: employed 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 1. Little interest or pleasure in doing things: not at all 2. Feeling down, depressed, or hopeless: several days 3. Trouble falling or staying asleep, or sleeping too much: not at all 4. Feeling tired or having little energy: not at all 5. Poor appetite or overeating: not at all 6. Feeling bad about yourself - or that you are a failure or have let yourself or your family down: not at all 7. Trouble concentrating on things, such as reading the newspaper or watching television: not at all 8. Moving or speaking so slowly that other people could have noticed. Or the opposite - being so fidgety or restless that you have been moving around a lot more than usual: not at all 9. Thoughts that you would be better off or of hurting yourself in some way: not at all Total score: 1 Depression Screening Interpretation: Negative Depression Screening Done: Yes 06258 - PHQ-9 Billing: Yes Source: Developed by Drs. Roosevelt Eubanks, Paola Weaver, Maicol Paul and colleagues, with an educational rajesh from [employer]. Thrive Questionnaire Date Thrive assessed: 02/11/24 I am a: Patient What is your living situation today?: I have a steady place to live Within the past 12 months, did the food you bought not last and you didn't have the money to get more?: Never true Within the past 12 months, did you worry whether your food would run out before you got money to buy more?: Never true Do you have trouble paying for medicines?: No Do you have trouble getting transportation to medical appointments?: No Do you have trouble paying your heating and electricity bill?: No Do you have trouble taking care of your child, family member or friend?: No Do you have trouble with day-to-day activities such as bathing, preparing meals, shopping, managing finances, etc.?: No Are you currently unemployed and looking for a job?: No Are you interested in more education?: No Please select the resources that you would like help with: None Currently or been in a relationship where the following occur: No concerns reported THRIVE Score: 0 AUDIT C Alcohol Use Questionnaire (AUDIT-C) 1. How often do you have a drink containing alcohol?: Never 3. How often do you have six or more drinks on one occasion?: Never Total Score: 0 Score Reviewed/Action Taken: Yes RAJAT-7 AMB Questionnaire RAJAT-7 Date RAAJT - 7 assessed: 02/11/24 Feeling nervous, anxious, or on edge: 0 = Not at all Not being able to stop or control worryin = Not at all Worrying too much about different things: 0 = Not at all Trouble relaxin = Not at all Being so restless that it is hard to sit still: 0 = Not at all Becoming easily annoyed or irritable: 0 = Not at all Feeling afraid as if something awful might happen: 0 = Not at all Total RAJAT-7 score (0-4 normal; 5-9 mild; 10-14 moderate; 15-21 severe): 0 Source: Developed by Drs. Roosevelt Eubanks, Paola Weaver, Maicol Paul and colleagues, with an educational rajesh from [employer]. Review of Systems Const Denies chills, Denies fatigue, Denies fever(s), Denies headache(s) and Denies malaise Eyes Denies blurry vision, Denies change in vision, Denies irritation and Denies itchy eyes ENT Denies dysphagia, Denies dizziness, Denies otalgia, Denies headache(s), Denies nasal congestion, Denies neck pain, Denies odynophagia, Denies sinus pain and Denies sore throat Card Denies chest pain, Denies rapid heart rate, Denies irregular heart rhythm, Denies palpitations and Denies dyspnea Resp Denies chest congestion, Denies cough, Denies dyspnea and Denies wheezing GI Denies abdominal pain, Denies bloating, Denies constipation, Denies dysphagia, Denies heartburn, Denies diarrhea, Denies nausea, Denies odynophagia and Denies vomiting Denies hematuria, Denies urinary frequency, Reports menorrhagia, Denies dysuria, Denies urinary incontinence and Denies urinary urgency Musc Denies back pain, Denies arthralgias, Denies joint swelling, Denies muscle weakness and Denies neck pain Skin/Breast Denies breast pain, Denies breast mass, Denies change in pigmentation, Denies lesions, Denies rash and Denies unusual bruising Neuro Denies dizziness, Denies headache(s) and Denies paresthesias Psych Denies anxiety and Denies depression Endo Denies fatigue and Denies palpitations Mendez/Lymph Denies easy bruising Aller/Immun Denies itchy eyes and Denies wheezing Physical exam (Primary Care) Vital Signs: Last Vital Signs Pulse 94 02/11/24 10:39 BP 200/100 H 02/11/24 11:27 Pulse Ox 97 02/11/24 10:39 Oxygen Delivery Method Room Air 02/11/24 10:39 BMI result Body Mass Index 45.9 Tobacco/Smoking Status: Tobacco use Status Tobacco use date assessed 02/11/24 02/11/24 10:45 Patient Tobacco Use Status Former Tobacco user 02/11/24 10:45 Tobacco use type Cigarette 02/11/24 10:45 e-Cigarette/Vaping Use Never Used 02/11/24 10:45 PHQ-9: PHQ-9 Score PHQ-9: Total score 1 02/11/24 11:23 Depression Screening Interpretation: Negative Thrive Assessment: Date of Thrive Assessment Date Thrive assessed 02/11/24 02/11/24 10:45 Currently or been in a relationship where the following occur: No concerns reported Const General: no acute distress, alert and awake Orientation/consciousness: patient oriented x3 HENMT Head: Yes normocephalic and Yes atraumatic Ears: external ears normal, TM's normal bilaterally and EAC's normal General nose exam: No nasal discharge present Face and sinus: Yes normal facial exam and Yes sinuses nontender Teeth and gingiva: dentition normal Throat: Yes posterior oropharynx normal and Yes tonsils normal (no TP congestion) Eyes Eyelids: Yes eyelids normal Conjunctivae: conjunctivae normal Pupils: Equal, round and reactive pupils present EOM: EOMs intact bilaterally Neck Neck: Yes no lymphadenopathy and Yes supple Thyroid: Thyroid normal Resp Auscultation: clear to auscultation bilaterally, no rales and no wheezes Cardio Rate: regular rate Rhythm: regular rhythm Heart sounds: no murmurs GI Palpation (GI): Soft to palpation, nontender and No hepatosplenomegaly present Auscultation: normal bowel sounds General: Yes no CVA tenderness Back/Spine/Pelvis Back: no CVA tenderness Thoracic/Lumbar Spine: thoracic and lumbar spine normal to inspection Skin Lesions: no lesions Rashes: no rashes Neuro General: patient oriented x3, moves all extremities, no focal motor deficits and CN's II-XI intact bilaterally Cranial nerves: Yes Equal, round and reactive pupils present Cognition (Neuro): normal cognition Gait exam (Neuro): Normal gait present Extrem General: Yes no clubbing, cyanosis or edema Office Procedures Flu Questionnaire Does the patient have a severe egg allergy?: No Immunizations Fluarix Triv [id number] (PF) 45 mcg (15 mcg x 3)/0.5 mL IM syringe Performing Provider: Hadley Spaulding MD Per[facility] Documented (not given) by: RADHA Victoria on 02/11/24 10:47 Reason Not Given: Patient Refused Coding Level of Care Code Est Pt Prev Care 40-64y(07663) Diagnoses Annual physical exam Z00.00 Benign essential hypertension I10 Crohn's disease without complication, unspecified gastrointestinal tract location K50.90 Gastrointestinal tract location: unspecified location Digestive disease complication type: without complication Mild intermittent asthma, unspecified whether complicated J45.20 Asthma severity: mild Asthma persistence: intermittent Asthma complication type: unspecified Impaired fasting glucose R73.01 Arthralgia, unspecified joint M25.50 Joint pain location: unspecified Vitamin D deficiency E55.9 Iron 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 intake D50.8 Anemia type: iron deficiency Iron deficiency anemia type: inadequate dietary iron intake GERD without esophagitis K21.9 Uterine leiomyoma, unspecified location D25.9 Uterine leiomyoma location: unspecified location Morbid obesity with BMI of 40.0-44.9, adult E66.01; Z68.41 Assessment & Plan Assessment & Plan (1) Annual physical exam: Code(s): Z00.00 - Encounter for general adult medical examination without abnormal findings Category: Medical Plan: Patient is instructed to go and get her previously ordered lab done [facility] She is up-to-date with her annual gynecology exam and pap smear as well as her mammogram, which was done back in May 2023 (2) Benign essential hypertension: Code(s): I10 - Essential (primary) hypertension Category: Medical Plan: Reinforced low sodium diet - goal is systolic BP of 120 mm or less Continue Lisinopril 30 mg QD She was started on Amlodipine 5 mg QD a few months ago but she stopped taking as she has noticed that she will get very dizzy and lightheaded a few minutes after he takes his Amlodipine and at one time, she checked her blood pressure and it was very low She subsequently stopped taking her Amlodipine As her blood pressure is again very high today, will start her on Hydralazine 10 mg TID Patient is reminded to continue monitoring her blood pressure regularly (3) Crohn's disease: Code(s): K50.90 - Crohn's disease, unspecified, without complications Category: Medical Qualifiers: Gastrointestinal tract location: unspecified location Digestive disease complication type: without complication Qualified Code(s): K50.90 - Crohn's disease, unspecified, without complications Plan: States that her Crohn's disease has been better controlled on her current Rx Continue Remicade 600 mg IV every 5 weeks (4) Asthma: Comment: WELL CONTROLLED WITH ALLERGY SHOTS Code(s): J45.909 - Unspecified asthma, uncomplicated Category: Medical Qualifiers: Asthma severity: mild Asthma persistence: intermittent Asthma complication type: unspecified Qualified Code(s): J45.20 - Mild intermittent asthma, uncomplicated Plan: Notes that her asthma has been well controlled since she started receiving allergy injections from [facility] a couple of years ago (sees Dr. Puga) States that she has not had to use her rescue inhaler in a while now; continue Albuterol HFA 1 to 2 inhalations Q 6 hours PRN only She is also taking Fexofenadine 180 mg QD PRN to help with her allergies (5) Impaired fasting glucose: Code(s): R73.01 - Impaired fasting glucose Category: Medical Plan: Her HgbA1c was normal at 5.7% when checked previously Reinforced low calorie diet/exercise as tolerated Will recheck her FBS and HgbA1c for follow up (6) Arthralgia: Code(s): M25.50 - Pain in unspecified joint Category: Medical Qualifiers: Joint pain location: unspecified Qualified Code(s): M25.50 - Pain in unspecified joint Plan: X-rays of both hands done in September 2021 came out normal Arthralgia work ups done last year also came out normal (7) Vitamin D deficiency: Code(s): E55.9 - Vitamin D deficiency, unspecified Category: Medical Plan: Continue Vitamin D3 2000 units QD (8) Anemia: Comment: Unable to tolerate oral iron tablets (severe constipation) Code(s): D64.9 - Anemia, unspecified Category: Medical Qualifiers: Anemia type: iron deficiency Iron deficiency anemia type: inadequate dietary iron intake Qualified Code(s): D50.8 - Other iron deficiency anemias Plan: Her H/H was at 11.6/37.2 on her CBC done back in August 2023 States that she receives infusion of IV iron as needed (is unable to tolerate oral iron supplements) - last received in February 2023 Follow up with hematology (Dr. Kaplan) as scheduled (9) GERD without esophagitis: Code(s): K21.9 - Gastro-esophageal reflux disease without esophagitis Category: Medical Plan: Dietary restrictions reinforced Continue Omeprazole 20 mg QD (10) Uterine fibroid: Code(s): D25.9 - Leiomyoma of uterus, unspecified Category: Medical Qualifiers: Uterine leiomyoma location: unspecified location Qualified Code(s): D25.9 - Leiomyoma of uterus, unspecified Plan: Pelvic MRI done a few months ago revealed (+) interval resolution of the hemorrhagic left ovarian cyst, with persistent left paraovarian simple cyst and persistent left lateral vaginal cystic lesion, consistent with Bartholin's gland cyst noted. Her uterine fibroids have remained mostly unchanged from before She continues to have heavy and persistent vaginal / menstrual bleeding often, per patient Follow up with gynecology as scheduled (11) Morbid obesity with BMI of 40.0-44.9, adult: Code(s): E66.01 - Morbid (severe) obesity due to excess calories; Z68.41 - Body mass index [BMI] 40.0-44.9, adult Category: Medical Plan: Reinforced diet/exercise as tolerated/lose weight Plan Follow up in 2 months Orders: Orders Influenza [id number] Immunization 02/11/24 Z23 - Encounter for immunization Medications: New hydralazine 10 mg PO TID 30 days 90 tabs 1RF
[2024-02-11 11:27] VITALS: BP 200/100
== END 2024-02-11 11:35 | disposition home or self-care (01) ==
PROVIDERS: PCP Internal Medicine; Visit Provider Internal Medicine
DX: Z00.00 Encounter for general adult medical examination without abnormal findings (principal); K50.90 Crohn's disease, unspecified, without complications; E66.813 Obesity, class 3; Z68.41 Body mass index [BMI] 40.0-44.9, adult; I10 Essential (primary) hypertension; J45.20 Mild intermittent asthma, uncomplicated; R73.01 Impaired fasting glucose; M25.50 Pain in unspecified joint; E55.9 Vitamin D deficiency, unspecified; D50.8 Other iron deficiency anemias; K21.9 Gastro-esophageal reflux disease without esophagitis; D25.9 Leiomyoma of uterus, unspecified

== ENCOUNTER → 2024-02-11 10:33 | Outpatient (BNVA) | payer OTHER, SELFPAY | PROVIDERS: PCP Internal Medicine; Visit Provider Internal Medicine | DX: Z00.00 Encounter for general adult medical examination without abnormal findings (principal); I10 Essential (primary) hypertension; K50.90 Crohn's disease, unspecified, without complications; J45.20 Mild intermittent asthma, uncomplicated; R73.01 Impaired fasting glucose; M25.50 Pain in unspecified joint; E55.9 Vitamin D deficiency, unspecified; D50.8 Other iron deficiency anemias; K21.9 Gastro-esophageal reflux disease without esophagitis; D25.9 Leiomyoma of uterus, unspecified; E66.01 Morbid (severe) obesity due to excess calories; Z68.41 Body mass index [BMI] 40.0-44.9, adult; Z79.899 Other long term (current) drug therapy | CPT/HCPCS: 90471; 96127; 99396 ==

== ENCOUNTER 2024-02-22 09:24 | Outpatient (REF) | payer OTHER, SELFPAY ==
[2024-02-22 10:17] LABS: MANUAL DIFF FLAG NO
[2024-02-22 10:43] LABS: Basophils Percent Auto 0.2 % (0-2); Eosinophils Absolute Auto 0.1 X10*3/uL (0.0-0.4); Eosinophils Percent Auto 0.5 % (0-4); Hematocrit 25.8 % (37.0-47.0); Imm Gran Abs Auto 0.14 X10*3/uL (0.00-0.03); Imm Gran Pct Auto 1.1 % (0.0-0.4); Lymphocytes Absolute Auto 1.1 X10*3/uL (1.2-4.9); Lymphocytes Percent Auto 8.6 % (20-40); Mean Corpuscular HGB Conc 27.1 g/dl (31.0-35.0); Mean Corpuscular Hemoglobin 19.2 pg (27.0-33.0); Mean Corpuscular Volume 70.7 fL (80.0-98.0); Mean Platelet Volume 9.4 fL (9.4-12.3); Monocytes Absolute Auto 0.8 X10*3/uL (0.1-1.2); Neutrophils Absolute Auto 10.6 x10*3/uL (2.0-8.3); Neutrophils Percent Auto 83.6 % (45-73); Platelet Count 436 X10*3/uL (160-400); Red Blood Count 3.65 X10*6/uL (4.20-5.50); Red Cell Distribution Width 17.2 % (11.0-16.0); White Blood Count 12.7 X10*3/uL (4.8-10.8)
[2024-02-22 10:46] LABS: Estimated Average Glucose 146 mg/dL; Hemoglobin A1C 94.7119 umol/L; Hemoglobin A1c % 6.7 % (<6.0); Total Hemoglobin (HGBA1C) 1892.0891 umol/L
[2024-02-22 10:59] LABS: Appearance Urine Cloudy; Color Urine Dark Yellow; Glucose Urine UA Negative (Negative); Leukocyte Esterase Urine Moderate (2+) (Negative); Nitrite Urine Negative (Negative); Specific Gravity - Urine 1.025 (1.005-1.025); UMIC TRIGGER UACC YES; Urine Blood Large (3+) (Negative); Urine Ketones Negative (Negative); Urine Protein 100 (2+) mg/dL (Neg-Trace)
[2024-02-22 11:05] LABS: Alanine Aminotransferase 27 U/L (0-31); Albumin Level 3.5 g/dL (3.5-5.0); Alkaline Phosphatase 69 U/L (39-117); Anion Gap 9 (12-20); Aspartate Amino Transferase 15 U/L (5-31); Bilirubin Total 0.2 mg/dL (0.0-1.0); Blood Urea Nitrogen 13 mg/dL (9-16); Calcium 8.5 mg/dL (8.4-10.2); Carbon Dioxide 29 mmol/L (22-29); Chloride 108 mmol/L (96-108); Cholesterol 137 mg/dL (<200); Estimated Glomerular Filt Rate > 60; Glucose Fasting 89 mg/dL (60-99); HDL Cholesterol 52 mg/dL (>40); LDL Cholesterol Calculated 68 mg/dL (<100); Potassium 3.7 mmol/L (3.3-5.1); Sodium 142 mmol/L (135-145); Total Protein 6.7 g/dL (6.5-8.0); Triglycerides 85 mg/dL (<150)
[2024-02-22 11:06] LABS: Bacteria Urine 2+ (None Seen); Hyaline Casts Urine 0-2 /LPF (0-2); RBC Urine >20 /HPF (0-2); UACC Culture Trigger YES; WBC Urine >50 /HPF (0-5)
[2024-02-22 11:20] LABS: TSH reflex Free T4 0.72 uIU/mL (0.32-4.0); Vitamin D 25-OH Total 28.7 ng/mL (>30)
[2024-02-22 11:36] LABS: Folate 10.6 ng/mL (> or = 4.0); Vitamin B12 352 pg/mL (200-900)
== END 2024-02-22 09:25 | disposition home or self-care (01) ==
LOC: HO.LAB 09:24
PROVIDERS: PCP Internal Medicine; Visit Provider Internal Medicine
DX: I10 Essential (primary) hypertension (principal); E78.00 Pure hypercholesterolemia, unspecified; R73.01 Impaired fasting glucose; E53.8 Deficiency of other specified B group vitamins; E55.9 Vitamin D deficiency, unspecified; D64.9 Anemia, unspecified; R30.0 Dysuria; Z00.00 Encounter for general adult medical examination without abnormal findings
CPT/HCPCS: 36415; 80053; 80061; 81001; 82306; 82607; 82746; 83036; 84443; 85025; 87086; 87088; 87186

== ENCOUNTER 2024-03-18 13:12 | Outpatient (AMB) | payer OTHER, SELFPAY ==
--- NOTE | 2024-03-18 13:13 | A.OFFVIS_ITS ---
Vital Signs 03/18/24 13:15 Height 5 ft 5 in Weight 273 lb BMI 45.4 BP 174/90 H Blood Pressure Location Lt brachial Position Sitting Pulse 100 Pulse Source Palpation Intake Visit Reasons: Heavy Menstrual Bleeding Allergies aspirin [Aspirin] Allergy (Mild, Verified 03/18/24 13:22) EYES SWELL zucchini Allergy (Intermediate, Uncoded 03/18/24 13:22) Rash SEASONAL ALLERGIES Allergy (Unknown, Uncoded 03/18/24 13:22) TRIGGERS ASTHMA ATTACKS HPI Comments Details: Patient is here today with concerns that she has been bleeding over the last 6 months and feels tired. She is currently seeing Dr. Kaplan and having iron few infusions weekly. History of uterine fibroids. [facility] Medical History Morbid obesity with BMI of 45.0-49.9, adult GERD without esophagitis Vitamin D deficiency Uterine fibroid Breast nodule Asthma Obesity (BMI 30-39.9) Crohn's disease Benign essential hypertension Anemia Surgical History Hx of colonoscopy Hx of tubal ligation Hx of section Hx of cholecystectomy Family History Mother Diabetes HTN (hypertension) Parkinson disease Father Hyperthyroidism Social History Household Members: Family Household Members Other:: 3 Housing: House Do you presently have visiting nurse or other home services: No Alcohol intake: never Patient Tobacco Use Status: Former Tobacco user Tobacco use type: Cigarette Cigarettes Per Day: 4 e-Cigarette/Vaping Use: Never Used Second Hand Smoke Exposure: No Advance Directives Date on File: 09/21/20 service: No Current occupational status: employed 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 Sexual orientation: Straight/Heterosexual Cognitive needs: No Hearing needs: No Vision needs: Yes Female Reproductive History Menstrual Age of Menarche: 12 Review of Systems Const All systems reviewed & are unremarkable except as noted in HPI and below Physical Exam Vital Signs: Last Vital Signs Pulse 100 03/18/24 13:15 BP 174/90 H 03/18/24 13:15 BMI result Body Mass Index 45.4 Const General: cooperative, healthy appearing and no acute distress Orientation/consciousness: patient oriented x3 GI Inspection: Yes normal to inspection Palpation (GI): Soft to palpation and Other GI palpation findings present (Nontender) Rectal Exam - Female: visual inspection normal General: Yes bladder normal to palpation External Female Exam: normal appearance of the urethra Speculum Exam - Vagina: normal appearance of the vagina, normal palpation and vaginal bleeding Speculum Exam - Cervix: normal appearance of the cervix and normal palpation Bimanual exam- vagina & uterus: normal bimanual exam, normal palpation, uterine size normal, bladder normal to palpation, normal palpation, uterine shape normal and non-tender Bimanual Exam- Adnexa, other: normal adnexae OB/external & speculum: vaginal bleeding Neuro General: patient oriented x3 Results AMB Test Urine AMB Test Urine Negative Last Edit by Cinda Niño CMA on 03/18/24 13:25 Results Reviewed Results Reviewed: Laboratory Last Values Tst Clinic Negative 03/18/24 13:24 Assessment & Plan Assessment & Plan (1) Heavy menstrual bleeding: Code(s): N92.0 - Excessive and frequent menstruation with regular cycle Category: Medical (2) Abnormal uterine bleeding (AUB): Code(s): N93.9 - Abnormal uterine and vaginal bleeding, unspecified Category: Medical (3) Fibroids: Code(s): D21.9 - Benign neoplasm of connective and other soft tissue, unspecified Category: Medical Plan Stat CBC, pelvic ultrasound, plan EMB at follow up, Rx to pharmacy for Provera 10 mg x 30 days sent in. Labs reviewed hemoglobin 7.5 plan to be seen today in the ED for 1 unit of packed red blood cells. Reviewed warnings over the weekend if any increase in bleeding to call the on-call provider Dr. Weinberg. Increase p.o. fluids. Appointment scheduled for EMB on Thursday, preprocedure anticipatory guidance reviewed, to take ibuprofen 3 tablets 1 hour before the procedure time with food and fluids. Dr. Weinberg informed and collaborate with patient care plan. All of her questions and concerns were addressed to the best of my ability and shared decision making. She is agreeable to the plan of care. Report given to the emergency room staff. This note is constructed using voice recognition software. While every effort has been made to ensure accuracy, hose operator errors may have been included. Orders: Orders Complete Blood Count no Diff Today N92.0 - Excessive and frequent menstruation with regular cycle AMB HCG Urine Test Today Z32.02 - Encounter for test, result negative US pelvic and transvaginal Today N92.0 - Excessive and frequent menstruation with regular cycle Bacterial Vaginosis Panel Today N89.8 - Other specified noninflammatory disorders of vagina CT NG by PCR Today N89.8 - Other specified noninflammatory disorders of vagina Coding Level of Care Code Est Pt Level 4 (52573) Diagnoses Heavy menstrual bleeding N92.0 Abnormal uterine bleeding (AUB) N93.9 Fibroids D21.9
[2024-03-18 13:15] VITALS: BP 174/90; PULSE 100; BMI 45.4
== END 2024-03-18 14:06 | disposition home or self-care (01) ==
LOC: HO.HWS 13:12
PROVIDERS: PCP Internal Medicine; Visit Provider Advanced Practice Midwife
DX: N92.0 Excessive and frequent menstruation with regular cycle (principal); N93.9 Abnormal uterine and vaginal bleeding, unspecified; D21.9 Benign neoplasm of connective and other soft tissue, unspecified; Z32.02 Encounter for pregnancy test, result negative
CPT/HCPCS: 99214

== ENCOUNTER 2024-03-18 13:12 | Outpatient (REF) | payer OTHER, SELFPAY ==
--- NOTE | ~2024-03-18 | US_ITS ---
EXAMINATION: US PELVIC AND TRANSVAGINAL CLINICAL INFORMATION: Excessive and frequent menstruation. COMPARISON: Most recent pelvic MRI dated 09/14/2023. TECHNIQUE: Ultrasound of the pelvis is performed using both transabdominal and transvaginal transducers along with Doppler. Transvaginal imaging is performed due to inadequate visualization transabdominally. FINDINGS: UTERUS: The uterus is anteverted and measures 10.2 x 4.3 x 4.4 cm. Nabothian cysts are identified. The double wall endometrial thickness is 1.1 mm. The uterus is smooth in contour and has normal myometrial echogenicity. Redemonstration of a left-sided uterine fibroid measuring up to 2.1 cm, not significantly changed. The second previously seen uterine fibroid is not identified on the current examination. No new myometrial lesion. ADNEXA: The ovaries are not seen. No pelvic free fluid. US/US pelvic and transvaginal IMPRESSION: 1. Redemonstration of a left-sided uterine fibroid measuring up to 2.1 cm, not significantly changed. The second previously seen fibroid is not identified on the current examination. No new myometrial lesion. 2. Sonographically unremarkable endometrium. 3. Ovaries not seen. Electronically signed by: Washington Murillo MD 03/20/2024 07:05 PM OZZY
[2024-03-19 05:51] LABS: CT PCR NOT DETECTED (Not Detect.); NG PCR NOT DETECTED (Not Detect.)
[2024-03-19 12:10] LABS: Bacterial Vaginosis PCR NEGATIVE (Negative); Candida Group PCR NOT DETECTED (Not Detect); Candida glab krusei PCR NOT DETECTED (Not Detect); Trichomonas vaginalis PCR NOT DETECTED (Not Detect)
== END 2024-03-18 13:13 | disposition home or self-care (01) ==
LOC: HO.LAB 13:12
PROVIDERS: PCP Internal Medicine; Visit Provider Advanced Practice Midwife
DX: N89.8 Other specified noninflammatory disorders of vagina (principal); N92.0 Excessive and frequent menstruation with regular cycle; Z32.02 Encounter for pregnancy test, result negative; D25.9 Leiomyoma of uterus, unspecified
CPT/HCPCS: 0352U; 76830; 76856; 81025; 87491; 87591; 99212

== ENCOUNTER 2024-03-18 13:40 | Outpatient (REF) | payer OTHER, SELFPAY ==
[2024-03-18 14:09] LABS: Hematocrit 27.9 % (37.0-47.0); Hemoglobin 7.5 g/dl (12.0-16.0); Mean Corpuscular HGB Conc 26.9 g/dl (31.0-35.0); Mean Corpuscular Hemoglobin 19.4 pg (27.0-33.0); Mean Corpuscular Volume 72.1 fL (80.0-98.0); Mean Platelet Volume 8.8 fL (9.4-12.3); Platelet Count 299 X10*3/uL (160-400); Red Blood Count 3.87 X10*6/uL (4.20-5.50); Red Cell Distribution Width 21.9 % (11.0-16.0); White Blood Count 6.7 X10*3/uL (4.8-10.8)
== END 2024-03-18 13:41 | disposition home or self-care (01) ==
LOC: HO.LNP 13:40
PROVIDERS: Visit Provider Advanced Practice Midwife
DX: N92.0 Excessive and frequent menstruation with regular cycle (principal)
CPT/HCPCS: 85027

== ENCOUNTER 2024-03-18 16:29 | Emergency (ER) | payer OTHER, SELFPAY ==
[2024-03-18] VITALS (12 sets, daily range): BP systolic 150–192; BP diastolic 72–104; PULSE 95–109; RESP 16–20; TEMP 36.6–37; O2SAT 97–100; BMI 43.6
--- NOTE | 2024-03-18 16:57 | ED_ITS ---
HPI - General Adult General Chief complaint: Vaginal Bleeding Stated complaint: ?Needs blood transfusion Time Seen by Provider: 03/18/24 17:33 Source: patient Mode of arrival: ambulatory History of Present Illness ED Provider: dilcia MONROE narrative: Patient's history of Crohn's disease and iron-deficiency anemia never had any blood transfusion had iron infusion last week hemoglobin was 6.6 on 03/02 has a dysfunctional uterine bleed from fibroid and bleeding heavy not bleeding much today no shortness a breath no dizziness no chest pain or palpitation patient is feeling much better today today hemoglobin was done it was 7.5. Patient is sent by GI on the basis of the previous labs for blood transfusion Related Data Home Medications ?Medication ?Instructions ?Recorded ?Confirmed infliximab 100 mg intravenous 600 mg IV Q5W 05/23/21 03/02/24 solution (Remicade) ketotifen fumarate 0.025 % (0.035 1 drp ophthalmic (eye) BID PRN Dry 02/04/22 03/02/24 %) eye drops Eye(S) acetaminophen 500 mg tablet 1,000 mg PO Q6H PRN Pain 11/06/22 03/02/24 fexofenadine 180 mg tablet 180 mg PO DAILY PRN Allergy 11/06/22 03/02/24 ([facility]) Symptoms furosemide 20 mg tablet 20 mg PO DAILY 10/13/23 03/02/24 omeprazole 20 mg capsule,delayed 20 mg PO DAILY@0630 10/13/23 03/02/24 release Previous Rx's ?Medication ?Instructions ?Recorded albuterol sulfate 90 mcg/actuation 2 inh inhalation Q6H PRN shortness 12/27/21 breath activated powder inhaler of breath or wheezing #1 ea cyanocobalamin (vitamin B-12) 1 tab PO DAILY 01/01/23 1,000 mcg tablet (Vitamin B-12) cholecalciferol (vitamin D3) 50 50 mcg PO DAILY 90 days #90 tabs 06/01/23 mcg (2,000 unit) tablet lisinopril 30 mg tablet 30 mg PO DAILY 90 days #90 tabs 11/20/23 hydralazine 10 mg tablet 10 mg PO TID 30 days #90 tabs 02/11/24 Allergies Allergy/AdvReac Type Severity Reaction Status Date / Time aspirin [Aspirin] Allergy Mild EYES SWELL Verified 03/18/24 16:56 zucchini Allergy Intermediate Rash Uncoded 03/18/24 13:22 SEASONAL ALLERGIES Allergy Unknown TRIGGERS Uncoded 03/18/24 13:22 ASTHMA ATTACKS Review of Systems Review of Systems: Yes all other systems are reviewed and are negative [facility] Past Medical History Medical History Morbid obesity with BMI of 45.0-49.9, adult GERD without esophagitis Vitamin D deficiency Uterine fibroid Breast nodule Asthma Obesity (BMI 30-39.9) Crohn's disease Benign essential hypertension Anemia Surgical History Hx of colonoscopy Hx of tubal ligation Hx of section Hx of cholecystectomy Family History Family History Mother Diabetes HTN (hypertension) Parkinson disease Father Hyperthyroidism Social History Social History Household Members: Family Household Members Other:: 3 Housing: House Do you presently have visiting nurse or other home services: No Alcohol intake: never Patient Tobacco Use Status: Former Tobacco user Tobacco use type: Cigarette Cigarettes Per Day: 4 Smoked in Last 30 Days: No e-Cigarette/Vaping Use: Never Used Second Hand Smoke Exposure: No Use of substances other than those prescribed or required for medical reasons: No Advance Directives: Yes Advance Directives on File: Yes Advance Directives Date on File: 09/21/20 Do you have a plan to hurt others: No Plan Patient : No service: No Current occupational status: employed 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 Oriented X3. No acute distress. Eyes: Pallor++ ENT: Pharynx normal. Oral Mucosa moist Neck: Normal inspection. Neck supple. CVS: Normal heart rate and rhythm. Pulses normal. Respiratory: No respiratory distress. Equal air entry bilateral, no wheezing/rales/rhonchi Abdomen: Soft and nontender. Bowel sounds are present, no mass palpable, no CVA tenderness Skin: Skin warm and dry. Normal skin color. Normal skin turgor. Extremities: No lower extremity edema. No calf tenderness Neuro: Oriented X 3. No motor deficit. No sensory deficit.No cerebellar signs , cranial nerves II-XII intact Course Course Course Narrative: RME, this is a rapid medical exam performed by Cristiano Kwan please refer to primary provider for complete H&P- 44-year-old female presents for evaluation of a blood transfusion. The patient was seen by the nurse supervisor word processing today and was sent as an expect to receive a blood transfusion. She reports vaginal bleeding for 6 months and had an outpatient hemoglobin was 7.5 today. The patient was prescribed Provera that she started today. She also follows with heme Onc for iron infusions. She has follow-up with doctors are be on Thursday. plan for type and screen for likely blood transfusion Medical Decision Making Medical Decision Making MDM Narrative: Patient has dysfunctional uterine bleed with significant anemia which has improved after iron infusion from 6.6-7.5 patient was seen by Dr. Weinberg who started her on Provera 10 mg daily did the pelvic exam feels that patient needs 1 unit of blood transfusion before the Provera start working patient is asymptomatic as such no orthostatic hypotension Differential Diagnosis Differential Diagnoses: The differential diagnosis associated with the presentation includes Discharge Plan Discharge Clinical Impression: Chronic iron deficiency anemia Patient Disposition: Home, Self-Care Instructions: Iron Deficiency Anemia (ED) Additional Instructions: Your hemoglobin has improved after iron infusion to 7.5 g at this time Continue to follow up with logging superintendent for further iron infusions Report to the ER if heavy bleeding/dizziness/passing out episode Prescriptions: No Action albuterol sulfate 90 mcg/actuation aerosol powdr breath activated 2 inh inhalation Q6H PRN (Reason: shortness of breath or wheezing) Qty: 1 3RF cyanocobalamin (vitamin B-12) [Vitamin B-12] 1,000 mcg tablet 1 tab PO DAILY 11RF lisinopril 30 mg tablet 30 mg PO DAILY 90 Days Qty: 90 1RF infliximab [Remicade] 100 mg recon soln 600 mg IV Q5W Patient Comments: Dr. Bowen ketotifen fumarate 0.025 % (0.035 %) drops 1 drp ophthalmic (eye) BID PRN (Reason: Dry Eye(S)) furosemide 20 mg tablet 20 mg PO DAILY fexofenadine [[facility] Allergy] 180 mg Tablet 180 mg PO DAILY PRN (Reason: Allergy Symptoms) acetaminophen 500 mg Tablet 1,000 mg PO Q6H PRN (Reason: Pain) omeprazole 20 mg capsule,delayed release(DR/EC) 20 mg PO DAILY@0630 cholecalciferol (vitamin D3) 50 mcg (2,000 unit) tablet 50 mcg PO DAILY 90 Days Qty: 90 3RF hydralazine 10 mg tablet 10 mg PO TID 30 Days Qty: 90 1RF Print Language: Ugandan
--- NOTE | 2024-03-18 18:08 | PC.NURSE ---
Orthostatic VS reviewed with ED provider---no new orders. Dr. Weinberg to bedside for eval.
--- NOTE | 2024-03-18 18:12 | PC.NURSE ---
Per Dr. Weinberg and Dr. Avila Pt will receive 1 unit of blood. Awaiting type and screen.
--- NOTE | 2024-03-18 18:13 | P.CONOB_ITS ---
[employer] HELPER - CN: HPI Data of Consult Consult date: 03/18/24 Primary Care Provider: Hadley Spaulding MD Consult Narrative Narrative: I was consulted on Dirk Frankel who is a 44 year old female presenting to the office with vaginal bleeding associated past for blood clots. The patient has history of long-term anemia on iron transfusion and fibroid uterus. No other associated symptoms. Urine test done in the office was negative H&H done today was 7.5/ 27.9 H&H in 10/18 was 6.6/24.5 Last mammogram 06/20 was BI-RADS 1 Last co testing in 03/17 was negative GC/CT collected today in the office results are still pending Pelvic ultrasound done in the office results not available cc:: CC: OB [facility] Past Medical History Medical History Morbid obesity with BMI of 45.0-49.9, adult GERD without esophagitis Vitamin D deficiency Uterine fibroid Breast nodule Asthma Obesity (BMI 30-39.9) Crohn's disease Benign essential hypertension Anemia Family History Family History Mother Diabetes HTN (hypertension) Parkinson disease Father Hyperthyroidism Surgical History Surgical History Hx of colonoscopy Hx of tubal ligation Hx of section Hx of cholecystectomy Social History Social History Household Members: Family Household Members Other:: 3 Housing: House Do you presently have visiting nurse or other home services: No Alcohol intake: never Patient Tobacco Use Status: Former Tobacco user Tobacco use type: Cigarette Cigarettes Per Day: 4 Smoked in Last 30 Days: No e-Cigarette/Vaping Use: Never Used Second Hand Smoke Exposure: No Use of substances other than those prescribed or required for medical reasons: No Advance Directives: Yes Advance Directives on File: Yes Advance Directives Date on File: 09/21/20 Do you have a plan to hurt others: No Plan Patient : No service: No Current occupational status: employed 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 Sexual orientation: Straight/Heterosexual Cognitive needs: No Hearing needs: No Vision needs: Yes Meds Allergies Allergy/AdvReac Type Severity Reaction Status Date / Time aspirin [Aspirin] Allergy Mild EYES SWELL Verified 03/18/24 16:56 zucchini Allergy Intermediate Rash Uncoded 03/18/24 13:22 SEASONAL ALLERGIES Allergy Unknown TRIGGERS Uncoded 03/18/24 13:22 ASTHMA ATTACKS Home Medications ?Medication ?Instructions ?Recorded ?Confirmed ?Last Taken ?Type infliximab 100 mg intravenous 600 mg IV Q5W 05/23/21 03/02/24 10/07/22 History solution (Remicade) ketotifen fumarate 0.025 % (0.035 1 drp ophthalmic (eye) BID PRN Dry 02/04/22 03/02/24 05/31/22 History %) eye drops Eye(S) acetaminophen 500 mg tablet 1,000 mg PO Q6H PRN Pain 11/06/22 03/02/24 Unknown History fexofenadine 180 mg tablet 180 mg PO DAILY PRN Allergy 11/06/22 03/02/24 Unknown History ([facility] All[facility]) Symptoms furosemide 20 mg tablet 20 mg PO DAILY 10/13/23 03/02/24 Unknown History omeprazole 20 mg capsule,delayed 20 mg PO DAILY@0630 10/13/23 03/02/24 Unknown History release [employer] Physical Exam Vitals Vital signs: Temp Pulse Resp BP Pulse Ox O2 Del Method 97.9 F 101 H 16 192/104 H 100 Room Air 03/18/24 17:35 03/18/24 18:01 03/18/24 17:35 03/18/24 18:01 03/18/24 17:35 03/18/24 17:35 BMI result Body Mass Index 43.6 Female Genitalia (Pelvic) Bladder/Urethra: Normal meatus Vulva: No lesions Lesion: Pustule Vagina: Nontender Adnexa/Parametria: Adnexal Tenderness: None, Adnexal Mass: None, Parametrial Tenderness: None and Parametrial Mass: None Additional Comments: minimal blood per vagina, no evidence of active vaginal bleeding Assessment and Plan (1) Abnormal uterine bleeding (AUB): Status: Acute Provera 10 mg p.o. q.d. prescription sent to the patient's pharmacy Recommend to transfuse with 1 unit of packed RBC Instructions given the patient to schedule appointment on Thursday for EMB to rule out endometrial pathology including endometrial hyperplasia and/or malignancy, to call and come back to the emergency room in case of heavy vaginal bleeding, fever above 0.4, nausea or vomiting or pelvic pain. All questions answered, the patient verbalized understanding.
--- NOTE | 2024-03-18 18:49 | PC.NURSE ---
20g placed to RAC Pt tolerated well.
--- NOTE | 2024-03-18 19:01 | PC.NURSE ---
RN report given to Gifty. Care of Pt relinquished to MONICA Durbin.
--- NOTE | 2024-03-18 19:07 | PC.NURSE ---
This RN assumed pt care @ 1900. Pt resting in bed comfortably, no signs of distress. Pt a&ox3, denies pain at this time. Plan of care ongoing.
== END 2024-03-18 23:33 | disposition home or self-care (01) ==
PROVIDERS: Emergency Provider Internal Medicine; PCP Internal Medicine
DX: D50.9 Iron deficiency anemia, unspecified (principal); N93.8 Other specified abnormal uterine and vaginal bleeding; I10 Essential (primary) hypertension; K50.90 Crohn's disease, unspecified, without complications; Z87.891 Personal history of nicotine dependence
CPT/HCPCS: 36430; 51798; 86850; 86900; 86901; 86923; 99285; P9016

== ENCOUNTER → 2024-03-18 17:34 | Outpatient (BNV) | payer OTHER, SELFPAY | PROVIDERS: Emergency Provider Internal Medicine; PCP Internal Medicine; Visit Provider Obstetrics & Gynecology | DX: N93.9 Abnormal uterine and vaginal bleeding, unspecified (principal) | CPT/HCPCS: 99283 ==

== ENCOUNTER 2024-03-21 10:00 | Outpatient (AMB) | payer OTHER, SELFPAY ==
--- NOTE | 2024-03-21 10:01 | MHC.OFFVIS ---
Intake Visit Reasons: EMB Allergies aspirin [Aspirin] Allergy (Mild, Verified 03/21/24 10:08) EYES SWELL zucchini Allergy (Intermediate, Uncoded 03/18/24 13:22) Rash SEASONAL ALLERGIES Allergy (Unknown, Uncoded 03/18/24 13:22) TRIGGERS ASTHMA ATTACKS HPI Comments Details: Presenting for follow-up from ER visit. The patient has a long history of heavy vaginal bleeding associated with passage of blood clots, the patient presented to the office 3 days ago with heavy vaginal bleeding the following workup was done: Urine test was negative GC/CT was negative H&H was 7.5/27.9 Pelvic ultrasound showed the following: IMPRESSION: 1. Redemonstration of a left-sided uterine fibroid measuring up to 2.1 cm, not significantly changed. The second previously seen fibroid is not identified on the current examination. No new myometrial lesion. 2. Sonographically unremarkable endometrium. 3. Ovaries not seen. Last co testing was in 03/17 was negative Last mammogram in 06/20 was BI-RADS 1 The patient was sent to emergency room received 1 unit of packed RBCs, was prescribed Provera 10 mg p.o. q.d.. Since then the patient is feeling better no more bleeding. [facility] Medical History Morbid obesity with BMI of 45.0-49.9, adult GERD without esophagitis Vitamin D deficiency Uterine fibroid Breast nodule Asthma Obesity (BMI 30-39.9) Crohn's disease Benign essential hypertension Anemia Surgical History Hx of colonoscopy Hx of tubal ligation Hx of section Hx of cholecystectomy Family History Mother Diabetes HTN (hypertension) Parkinson disease Father Hyperthyroidism Social History Household Members: Family Household Members Other:: 3 Housing: House Do you presently have visiting nurse or other home services: No Alcohol intake: never Patient Tobacco Use Status: Former Tobacco user Tobacco use type: Cigarette Cigarettes Per Day: 4 e-Cigarette/Vaping Use: Never Used Second Hand Smoke Exposure: No Advance Directives Date on File: 09/21/20 service: No Current occupational status: employed Current occupation: [employer] Sexual orientation: Straight/Heterosexual Cognitive needs: No Hearing needs: No Vision needs: Yes Female Reproductive History Menstrual Age of Menarche: 12 Review of Systems Const All systems reviewed & are unremarkable except as noted in HPI and below Physical Exam General: Yes no CVA tenderness External Female Exam: normal external appearance and normal appearance of the urethra Speculum Exam - Vagina: normal appearance of the vagina, normal palpation, no lesions and no masses Speculum Exam - Cervix: normal appearance of the cervix, normal palpation, no lesions, no masses and nontender Bimanual exam- vagina & uterus: normal bimanual exam, normal palpation, uterine size normal, normal palpation, uterine shape normal, No Cervical tenderness present and non-tender Bimanual Exam- Adnexa, other: normal adnexae Back/Spine/Pelvis Back: no CVA tenderness Office Procedures Endometrial Biopsy Details: The patient was counseled regarding the indication and benefits of endometrial sampling to rule out endometrial pathology including not limited to endometrial hyperplasia or endometrial cancer and others; The alternatives (Either do nothing vs. hysteroscopy D&C) & the risks were discussed with the patient including but not limited: pain, uterine perforation, bleeding, infection, possible injury to bladder, bowel, ureter, possible need for blood transfusion with all its possible risks. The patient verbalized understanding all questions answered and signed consent. Urine test done in the office was negative The patient was placed into the dorsal lithotomy position; a speculum was inserted in the vagina. Using aseptic technique for the procedure, the cervix was cleansed with Betadine. The anterior lip of the cervix was grasped with a single tooth tenaculum. The uterus was sounded to 7 cm with a 4 mm Pipelle was used. Tissues samples were obtained and placed in formalin, in a patient labeled container and sent to the pathology department. At the end of the procedure, there was minimal bleeding noted The patient tolerated the procedure well and was discharged in good condition with the following instructions: Nothing in the vagina until the bleeding stops. No sex until the bleeding stops, to call if any of the following occurs: fever (>100.4), flu-like symptoms, abdominal pain, heavy bleeding, four smelling vaginal discharge. The patient was instructed to schedule a Follow up appointment in 2 weeks to discuss pathology results of the biopsy and treatment options. This note was generated with a voice recognition program. Some errors may have been overlooked during the review of this note. Sometimes these errors may affect the content or meaning of a given sentence. 48140-Sggijgcovru Biopsy IUD Insert/Removal Details Details: The patient is presenting for Mirena IUD insertion Urine test was done in the office and was negative; All the contraindications were excluded. The following possible complications were discussed with the patient: Intrauterine , Ectopic , Sepsis, Pelvic Infection, Irregular Bleeding and Amenorrhea, Perforation, Expulsion, Ovarian Cysts, Breast Cancer, The following adverse effects were discussed with the patient: alteration of menstrual bleeding pattern, including: unscheduled uterine bleeding decreased uterine bleeding increased scheduled uterine bleeding female genital tract bleeding ,amenorrhea , genital discharge , vulvovaginitis , breast pain , benign ovarian cyst and associated complications , dysmenorrhea , Gastrointestinal disorders abdominal/pelvic pain, headache/migraine , back pain , acne , depression Alternative options were discussed with the patient including but not limited: control pills, patch, NuvaRing, Depo-medroxyprogesterone acetate, Nexplanon, copper IUD, sterilization, vasectomy, others The procedure was explained in detail to patient , at the end patient signed the informed consent obtained. A no touch technique was used throughout the procedure. A speculum was placed into vagina and cervix was cleaned with betadine). A tenaculum was placed. A plastic sound was advanced through the external and internal os until it reached the fundus of the uterus, the depth was 8 cm. The sound was then withdrawn. The IUD was loaded in a sterile manner and advanced into position. The string was visualized and cut to 3 cm. Tenaculum site hemostatic. All instruments removed from vagina. Patient tolerated the procedure well. NO complications were noted. Patient was instructed to call for fever over 100.4, significant pain unrelieved by Motrin, IUD expulsion, heavy bleeding, or abnormal discharge. In addition, the following clinical considerations were discussed with the patient to call for removal: A stroke or heart attack ,Very severe or migraine headaches ,Unexplained fever ,Yellowing of the skin or whites of the eyes, as these may be signs of serious liver problems , or suspected , Pelvic pain or pain during sex ,HIV positive seroconversion in herself or her partner , Possible exposure to sexually transmitted infections Unusual vaginal discharge or genital sores , severe vaginal bleeding or bleeding that lasts a long time, or if she misses a menstrual period, Inability to feel Mirena's threads Counseled the patient that the IUD does not protect against STI's, recommended use of condoms for the first 7 days post insertion and explained to the patient that condoms are recommended for patients at risk for sexually transmitted infections. Informed the patient that Mirena IUD is FDA approved for 8 years for contraception for 5 years for the treatment of heavy menses Instructed the patient to schedule a Follow up appointment in 4 to 6 weeks following insertion. This note was generated with a voice recognition program. Some errors may have been overlooked during the review of this note. Sometimes these errors may affect the content or meaning of a given sentence. [id number] Insertion Procedure code (CPT) selection complete Office Meds Mirena 21 mcg/24 hr (up to 8 years) 52 mg intrauterine device Performing Provider: Kamar Weinberg MD [place] [facility] [place] [facility] Documented (not given) by: Kamar Weinberg MD on 03/21/24 12:16 Dose Route Admin Location Dispensed Lot Number Expiration Date [facility] [employer] 1 device intrauterine ea Assessment & Plan Assessment & Plan (1) Uterine fibroid: Code(s): D25.9 - Leiomyoma of uterus, unspecified Category: Medical Qualifiers: Uterine leiomyoma location: unspecified location Qualified Code(s): D25.9 - Leiomyoma of uterus, unspecified Plan: Discussed with the patient the results of the ultrasound and the size of the myomas. Discussed with the patient risk of myosarcoma and symptoms that are caused by myomas including but not limited to pelvic pain, pressure symptoms, abnormal uterine bleeding. In addition discussed with the patient options of treatment for myomas including: Serial ultrasounds periodically to follow-up on the size of the myoma while targeting the treatment against fibroids related symptoms ( control pills, Mirena IUD, progesterone treatment, GnRH agonist/antagonist, uterine artery embolization or endometrial ablation) versus surgical treatment including hysterectomy and or myomectomy. All pros and cons, risks and benefits of all options were discussed with the patient. The patient understands that delay in surgical treatment in case of myosarcoma can affect her prognosis, after further discussion, the patient decided to proceed with Mirena IUD and follow-up ultrasound to monitor the size of her uterine myomas. Instructions given the patient to call in case of persistent abnormal uterine bleeding, pelvic pain and or pressure, pelvic ultrasound ordered in six-months. Instructions given the patient to schedule an ultrasound and a follow-up appointment in 6 months. All questions answered, the patient verbalized understanding. (2) Abnormal uterine bleeding (AUB): Code(s): N93.9 - Abnormal uterine and vaginal bleeding, unspecified Category: Medical Plan: Will order CBC, TSH, prolactin, HCG. Discussed with the patient the different causes of abnormal bleeding including thyroid disorders, uterine and ovarian pathology, endometrial hyperplasia, carcinoma and other potential causes. Discussed with the patient the work up including CBC (to r/o anemia), TSH, prolactin, pelvic Ultrasound, endometrial biopsy to r/o endometrial pathology. EMB done, see procedure note. Discussed with the patient the options of treatment including Lysteda, control pills, Mirena IUD, endometrial ablation and hysterectomy. All pros, cons, risks and benefits if each option was discussed with the patient and the patient decided to go ahead with Mirena IUD so a more detailed discussion about it was conducted including mechanism of action, risks (uterine perforation, infection, injury to bladder, bowel, displacement, and others) benefits (hypo menorrhea, amenorrhea, ...). GC/CT were taken and were negative and Mirena IUD insertion was done, see procedure . Instructions given the patient to discontinue Provera today , to schedule a 6 week IUD check appointment and to call or go to the emergency in case of recurrence of vaginal bleeding. All questions answered, the patient verbalized understanding Orders: Orders US pelvic and transvaginal 6 Months D25.9 - Leiomyoma of uterus, unspecified Prolactin Today N93.9 - Abnormal uterine and vaginal bleeding, unspecified HCG Quantitative Today N93.9 - Abnormal uterine and vaginal bleeding, unspecified Complete Blood Count no Diff Today N93.9 - Abnormal uterine and vaginal bleeding, unspecified AMB IUD Insertion/Removal - Practice Supplied Today N93.9 - Abnormal uterine and vaginal bleeding, unspecified TSH reflex Free T4 Today N93.9 - Abnormal uterine and vaginal bleeding, unspecified AMB Endometrial Biopsy Today N93.9 - Abnormal uterine and vaginal bleeding, unspecified Medications: New Mirena (levonorgestrel) 1 device intrauterine ONCE 1 ea 0RF AUB NS N93.9 - Abnormal uterine and vaginal bleeding, unspecified Discontinued medroxyprogesterone (Provera) start Provera 1 tablet daily Discontinued Reason: Doctor's Order 10 mg PO DAILY 10 days 30 tabs 0RF Coding Level of Care Code Est Pt Level 3 (84975) Procedure Only Diagnoses Uterine leiomyoma, unspecified location D25.9 Uterine leiomyoma location: unspecified location Abnormal uterine bleeding (AUB) N93.9 CPT Codes Endometrial Biopsy - CPT: 52855-Etotohrtdmj Biopsy ([id number]) Details - CPT: 13816-XBW Insertion ([id number])
== END 2024-03-21 10:53 | disposition home or self-care (01) ==
LOC: HO.HWS 10:00
PROVIDERS: PCP Internal Medicine; Visit Provider Obstetrics & Gynecology
DX: D25.9 Leiomyoma of uterus, unspecified (principal); N93.9 Abnormal uterine and vaginal bleeding, unspecified; Z32.02 Encounter for pregnancy test, result negative; Z30.430 Encounter for insertion of intrauterine contraceptive device
CPT/HCPCS: 58100; 58300; 99213

== ENCOUNTER 2024-03-21 10:00 | Outpatient (REF) | payer OTHER, SELFPAY ==
[2024-03-21 14:08] LABS: Hematocrit 31.1 % (37.0-47.0); Hemoglobin 8.9 g/dl (12.0-16.0); Mean Corpuscular HGB Conc 28.6 g/dl (31.0-35.0); Mean Corpuscular Hemoglobin 21.4 pg (27.0-33.0); Mean Corpuscular Volume 74.9 fL (80.0-98.0); Mean Platelet Volume 9.3 fL (9.4-12.3); NRBC Pct Auto 0.3 /100WBC (0.0-0.2); Platelet Count 371 X10*3/uL (160-400); Red Blood Count 4.15 X10*6/uL (4.20-5.50); Red Cell Distribution Width 23.7 % (11.0-16.0); White Blood Count 5.9 X10*3/uL (4.8-10.8)
[2024-03-21 15:08] LABS: HCG Quantitative < 2 mIU/mL; TSH reflex Free T4 1.16 uIU/mL (0.32-4.0)
[2024-03-22 08:58] LABS: Prolactin 6.4 ng/mL
== END 2024-03-21 10:01 | disposition home or self-care (01) ==
LOC: HO.LAB 10:00
PROVIDERS: PCP Internal Medicine; Visit Provider Obstetrics & Gynecology
DX: Z30.430 Encounter for insertion of intrauterine contraceptive device (principal); N93.9 Abnormal uterine and vaginal bleeding, unspecified; D25.9 Leiomyoma of uterus, unspecified
CPT/HCPCS: 36415; 58100; 58300; 81025; 84146; 84443; 84702; 85027; 99212; J7298

== ENCOUNTER 2024-03-21 12:54 | Outpatient (REF) | payer OTHER, SELFPAY | END 2024-03-21 12:55 | disposition home or self-care (01) | LOC: HO.LNP 12:54 | PROVIDERS: Visit Provider Obstetrics & Gynecology | DX: N93.9 Abnormal uterine and vaginal bleeding, unspecified (principal) | CPT/HCPCS: 88305 ==

== ENCOUNTER 2024-03-23 07:30 | Outpatient (RCR) | payer OTHER, SELFPAY ==
[2024-03-02 12:18] VITALS: BP 189/93; PULSE 106; RESP 16; TEMP 36.4; O2SAT 98
[2024-03-02] MEDS: Iron Sucrose Complex 400 MG in 0.9 % Sodium Chloride 250 ML 180 MG IV (12:33)
[2024-03-09 07:25] VITALS: BP 176/96; PULSE 105; RESP 16; TEMP 36; O2SAT 100
[2024-03-09] MEDS: Iron Sucrose Complex 400 MG in 0.9 % Sodium Chloride 250 ML 180 MG IV (08:17)
[2024-03-16 07:35] VITALS: BP 140/81; PULSE 94; RESP 18; TEMP 36.3; O2SAT 99
[2024-03-16] MEDS: Iron Sucrose Complex 400 MG in 0.9 % Sodium Chloride 250 ML 180 MG IV (07:42)
[2024-03-23 07:27] VITALS: BP 188/100; PULSE 95; RESP 16; TEMP 36.2; O2SAT 98
[2024-03-23] MEDS: Iron Sucrose Complex 400 MG in 0.9 % Sodium Chloride 250 ML 180 MG IV (07:37)
== END 2024-03-23 09:21 | disposition home or self-care (01) ==
LOC: HO.INF 07:30
PROVIDERS: PCP Internal Medicine; Visit Provider Internal Medicine
DX: D64.9 Anemia, unspecified (principal)
CPT/HCPCS: 96365; 96366; J1756

== ENCOUNTER 2024-04-19 09:42 | Outpatient (AMB) | payer OTHER, SELFPAY ==
[2024-04-19 09:51] VITALS: BP 168/110; PULSE 92; O2SAT 99; BMI 43.3
--- NOTE | 2024-04-19 09:51 | A.OFFPC_ITS ---
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 Accompanied by: Self / Same As Patient Allergies aspirin [Aspirin] Allergy (Mild, Verified 04/19/24 09:51) EYES SWELL zucchini Allergy (Intermediate, Uncoded 04/19/24 09:51) Rash SEASONAL ALLERGIES Allergy (Unknown, Uncoded 04/19/24 09:51) TRIGGERS ASTHMA ATTACKS Tobacco use date assessed: 04/19/24 Dental Screening Dental Screen Date: 04/19/24 Did you have a dental visit in the last 12 months?: No Did you have a dental problem in the last 6 months where you did not have access to dental care?: No Was dental information given to patient?: No HPI uncontrolled HTN HPI Details Patient comes in today for her follow up visit She was sent to the ER by GI last month when they found her to have H/H of 6.6/24.5 during her routine visit as she will likely require blood transfusion States that she did end up getting iron infusion and 1 unit of transfusion of PRBC with some improvement of her H/H subsequently She will continue to receive iron infusions from Dr. Kaplan regularly as needed States that she also ended up getting a Mirena inserted last month to help control her heavy vaginal bleeding States that she currently feels okay although the stress of the holidays is getting to her She denies any headaches or dizziness Denies any chest pains, no SOB No nausea/vomiting, no abdominal pain No change in bowel habits noted She is scheduled for her IUD check in a couple of weeks with Dr. Weinberg States that she never did get her Rx for Hydralazine at her pharmacy when she was started on it in late January (2023) as her pharmacist told her that they never received the Rx She also needs her Albuterol inhaler Rx refilled today [facility] Medical History Morbid obesity with BMI of 45.0-49.9, adult GERD without esophagitis Vitamin D deficiency Uterine fibroid Breast nodule Asthma Obesity (BMI 30-39.9) Crohn's disease Benign essential hypertension Anemia Surgical History Hx of colonoscopy Hx of tubal ligation Hx of section Hx of cholecystectomy Family History Mother Diabetes HTN (hypertension) Parkinson disease Father Hyperthyroidism Social History Household Members: Family Household Members Other:: 3 Housing: House Do you presently have visiting nurse or other home services: No Alcohol intake: never Patient Tobacco Use Status: Former Tobacco user Tobacco use type: Cigarette Cigarettes Per Day: 4 e-Cigarette/Vaping Use: Never Used Second Hand Smoke Exposure: No Advance Directives Date on File: 09/21/20 service: No Current occupational status: employed 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 1. Little interest or pleasure in doing things: not at all 2. Feeling down, depressed, or hopeless: several days 3. Trouble falling or staying asleep, or sleeping too much: not at all 4. Feeling tired or having little energy: not at all 5. Poor appetite or overeating: not at all 6. Feeling bad about yourself - or that you are a failure or have let yourself or your family down: not at all 7. Trouble concentrating on things, such as reading the newspaper or watching television: not at all 8. Moving or speaking so slowly that other people could have noticed. Or the opposite - being so fidgety or restless that you have been moving around a lot more than usual: not at all 9. Thoughts that you would be better off or of hurting yourself in some way: not at all Total score: 1 Depression Screening Interpretation: Negative Depression Screening Done: Yes 81977 - PHQ-9 Billing: Yes Source: Developed by Drs. Roosevelt Eubanks, Paola Weaver, Maicol Paul and colleagues, with an educational rajesh from [employer]. Thrive Questionnaire Date Thrive assessed: 04/19/24 I am a: Patient What is your living situation today?: I have a steady place to live Within the past 12 months, did the food you bought not last and you didn't have the money to get more?: Never true Within the past 12 months, did you worry whether your food would run out before you got money to buy more?: Never true Do you have trouble paying for medicines?: No Do you have trouble getting transportation to medical appointments?: No Do you have trouble paying your heating and electricity bill?: No Do you have trouble taking care of your child, family member or friend?: No Do you have trouble with day-to-day activities such as bathing, preparing meals, shopping, managing finances, etc.?: No Are you currently unemployed and looking for a job?: No Are you interested in more education?: No Please select the resources that you would like help with: None Currently or been in a relationship where the following occur: No concerns reported THRIVE Score: 0 AUDIT C Alcohol Use Questionnaire (AUDIT-C) 1. How often do you have a drink containing alcohol?: Never 3. How often do you have six or more drinks on one occasion?: Never Total Score: 0 Score Reviewed/Action Taken: Yes RAJAT-7 AMB Questionnaire RAJAT-7 Date RAJAT - 7 assessed: 04/19/24 Feeling nervous, anxious, or on edge: 0 = Not at all Not being able to stop or control worryin = Not at all Worrying too much about different things: 0 = Not at all Trouble relaxin = Not at all Being so restless that it is hard to sit still: 0 = Not at all Becoming easily annoyed or irritable: 0 = Not at all Feeling afraid as if something awful might happen: 0 = Not at all Total RAJAT-7 score (0-4 normal; 5-9 mild; 10-14 moderate; 15-21 severe): 0 Source: Developed by Drs. Roosevelt Eubanks, Paola Weaver, Maicol Paul and colleagues, with an educational rajesh from [employer]. Review of Systems Const Denies chills, Reports fatigue, Denies fever(s) and Denies headache(s) ENT Denies dysphagia, Denies dizziness, Denies otalgia, Denies headache(s), Denies neck pain, Denies odynophagia and Denies sore throat Card Denies chest pain, Denies irregular heart rhythm, Denies palpitations and Denies dyspnea Resp Denies chest congestion, Denies cough and Denies dyspnea GI Denies abdominal pain, Denies constipation, Denies dysphagia, Denies heartburn, Denies diarrhea, Denies nausea, Denies odynophagia and Denies vomiting Denies urinary frequency, Reports menorrhagia, Denies dysuria and Denies urinary urgency Musc Denies back pain, Denies arthralgias and Denies neck pain Skin/Breast Denies rash Neuro Denies dizziness, Denies headache(s) and Denies paresthesias Psych Denies anxiety and Denies depression Endo Reports fatigue and Denies palpitations Mendez/Lymph Denies easy bruising Physical exam (Primary Care) Vital Signs: Last Vital Signs Pulse 92 04/19/24 09:51 BP 168/110 H 04/19/24 09:51 Pulse Ox 99 04/19/24 09:51 Oxygen Delivery Method Room Air 04/19/24 09:51 BMI result Body Mass Index 43.3 Tobacco/Smoking Status: Tobacco use Status Tobacco use date assessed 04/19/24 04/19/24 09:55 Patient Tobacco Use Status Former Tobacco user 04/19/24 09:55 Tobacco use type Cigarette 04/19/24 09:55 e-Cigarette/Vaping Use Never Used 04/19/24 09:55 PHQ-9: PHQ-9 Score PHQ-9: Total score 1 04/19/24 09:55 Depression Screening Interpretation: Negative Thrive Assessment: Date of Thrive Assessment Date Thrive assessed 04/19/24 04/19/24 09:55 Currently or been in a relationship where the following occur: No concerns reported Const General: no acute distress and alert HENMT Ears: TM's normal bilaterally and EAC's normal Throat: Yes posterior oropharynx normal and Yes tonsils normal (no TP congestion) Neck Neck: Yes supple and No lymphadenopathy Thyroid: Thyroid normal Resp Auscultation: clear to auscultation bilaterally, no rales and no wheezes Cardio Rate: regular rate Rhythm: regular rhythm Heart sounds: no murmurs GI Palpation (GI): Soft to palpation and nontender Auscultation: normal bowel sounds General: Yes no CVA tenderness Back/Spine/Pelvis Back: no CVA tenderness Thoracic/Lumbar Spine: No lumbar spinal tenderness Skin Rashes: no rashes Extrem General: Yes no clubbing, cyanosis or edema Coding Level of Care Code Est Pt Level 4 (71994) Diagnoses Iron 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 intake D50.8 Anemia type: iron deficiency Iron deficiency anemia type: inadequate dietary iron intake Benign essential hypertension I10 Crohn's disease K50.912 Digestive disease complication type: with intestinal obstruction Gastrointestinal tract location: unspecified location Mild intermittent asthma, unspecified whether complicated J45.20 Asthma severity: mild Asthma persistence: intermittent Asthma complication type: unspecified Impaired fasting glucose R73.01 GERD without esophagitis K21.9 Uterine leiomyoma, unspecified location D25.9 Uterine leiomyoma location: unspecified location Morbid obesity with BMI of 40.0-44.9, adult E66.01; Z68.41 Additional Codes PHQ-9 - 13005 - PHQ-9 Billing: Yes ([id number]) Assessment & Plan Assessment & Plan (1) Anemia: Comment: Unable to tolerate oral iron tablets (severe constipation) Code(s): D64.9 - Anemia, unspecified Category: Medical Qualifiers: Anemia type: iron deficiency Iron deficiency anemia type: inadequate dietary iron intake Qualified Code(s): D50.8 - Other iron deficiency anemias Plan: Her H/H dropped to 6.6/24.5 a couple of months ago during his routine GI visit and he was sent to the ER for possible blood transfusion She ended up getting iron infusion and 1 unit of transfusion of PRBC with some improvement of her H/H subsequently to 7.5/27.9 She will continue to receive iron infusions and follow up with Dr. Kaplan regularly as scheduled Will send her today for some labs to recheck and follow up on her CBC as well as her renal function (2) Benign essential hypertension: Code(s): I10 - Essential (primary) hypertension Category: Medical Plan: Reinforced low sodium diet - goal is systolic BP of 120 mm or less Continue Lisinopril 30 mg QD She was started on Amlodipine 5 mg QD earlier this year but she stopped taking it as she has noticed that she gets very dizzy and lightheaded a few minutes after she takes her Amlodipine She has reportedly noticed at one time when she checked her blood pressure that it was very low and she immediately stopped taking her Amlodipine then As her blood pressure remained very high today, we started her on Hydralazine 10 mg TID back in January 2024 but she now admits that she never got her Rx as her pharmacy told her they never received the Rx we sent in then Will resend her Rx and advised her to start taking her Hydralazine 10 mg TID Patient is reminded to continue checking her blood pressure regularly (3) Crohn's disease: Code(s): K50.90 - Crohn's disease, unspecified, without complications Category: Medical Qualifiers: Digestive disease complication type: with intestinal obstruction Gastrointestinal tract location: unspecified location Qualified Code(s): K50.912 - Crohn's disease, unspecified, with intestinal obstruction Plan: States that her Crohn's disease has been better controlled on her current Rx of Remicade 600 mg IV every 5 weeks but she missed her last infusion and plans to contact GI to get this set up again BILLY (4) Asthma: Comment: WELL CONTROLLED WITH ALLERGY SHOTS Code(s): J45.909 - Unspecified asthma, uncomplicated Category: Medical Qualifiers: Asthma severity: mild Asthma persistence: intermittent Asthma compli cation type: unspecified Qualified Code(s): J45.20 - Mild intermittent asthma, uncomplicated Plan: Notes that her asthma has been well controlled since she started receiving allergy injections from [facility] a couple of years ago (sees Dr. Puga) States that she has not had to use her rescue inhaler in a while now; continue Albuterol HFA 1 to 2 inhalations Q 6 hours PRN only (Rx refilled per request) She is also taking Fexofenadine 180 mg QD PRN to help with her allergies (5) Impaired fasting glucose: Code(s): R73.01 - Impaired fasting glucose Category: Medical Plan: Her HgbA1c was normal at 5.7% when checked previously Reinforced low calorie diet/exercise as tolerated (6) GERD without esophagitis: Code(s): K21.9 - Gastro-esophageal reflux disease without esophagitis Category: Medical Plan: Dietary restrictions reinforced Continue Omeprazole 20 mg QD (7) Uterine fibroid: Code(s): D25.9 - Leiomyoma of uterus, unspecified Category: Medical Qualifiers: Uterine leiomyoma location: unspecified location Qualified Code(s): D25.9 - Leiomyoma of uterus, unspecified Plan: Pelvic MRI done a few months ago revealed (+) interval resolution of the hemorrhagic left ovarian cyst, with persistent left paraovarian simple cyst and persistent left lateral vaginal cystic lesion, consistent with Bartholin's gland cyst noted. Her uterine fibroids have remained mostly unchanged from before She continues to have heavy and persistent vaginal / menstrual bleeding often until her IUD insertion by Dr. Weinberg a couple of weeks ago Follow up with gynecology as scheduled (8) Morbid obesity with BMI of 40.0-44.9, adult: Code(s): E66.01 - Morbid (severe) obesity due to excess calories; Z68.41 - Body mass index [BMI] 40.0-44.9, adult Category: Medical Plan: Reinforced diet/exercise as tolerated/lose weight Plan Follow up in 3 months Orders: Orders Comprehensive Met. Panel Today D21.9 - Benign neoplasm of connective and other soft tissue, unspecified Complete Blood Count Auto Diff Today D21.9 - Benign neoplasm of connective and other soft tissue, unspecified, D64.9 - Anemia, unspecified Medications: Refilled hydralazine 10 mg PO TID 30 days 90 tabs 3RF albuterol sulfate 90 mcg/actuation 2 inhalations inhalation Q6H PRN 1 ea 3RF shortness of breath or wheezing
== END 2024-04-19 10:32 | disposition home or self-care (01) ==
PROVIDERS: PCP Internal Medicine; Visit Provider Internal Medicine
DX: D50.8 Other iron deficiency anemias (principal); K50.912 Crohn's disease, unspecified, with intestinal obstruction; E66.01 Morbid (severe) obesity due to excess calories; Z68.41 Body mass index [BMI] 40.0-44.9, adult; I10 Essential (primary) hypertension; J45.20 Mild intermittent asthma, uncomplicated; R73.01 Impaired fasting glucose; K21.9 Gastro-esophageal reflux disease without esophagitis; D25.9 Leiomyoma of uterus, unspecified

== ENCOUNTER → 2024-04-19 09:42 | Outpatient (BNVA) | payer OTHER, SELFPAY | PROVIDERS: PCP Internal Medicine; Visit Provider Internal Medicine | DX: I10 Essential (primary) hypertension (principal); D50.8 Other iron deficiency anemias; K50.912 Crohn's disease, unspecified, with intestinal obstruction; J45.20 Mild intermittent asthma, uncomplicated; R73.01 Impaired fasting glucose; K21.9 Gastro-esophageal reflux disease without esophagitis; D25.9 Leiomyoma of uterus, unspecified; E66.01 Morbid (severe) obesity due to excess calories; Z68.41 Body mass index [BMI] 40.0-44.9, adult | CPT/HCPCS: 96127; 99212 ==

== ENCOUNTER 2024-04-22 09:27 | Outpatient (REF) | payer OTHER, SELFPAY ==
[2024-04-22 09:44] LABS: MANUAL DIFF FLAG NO
[2024-04-22 11:03] LABS: Basophils Percent Auto 0.1 % (0-2); Eosinophils Percent Auto 0.4 % (0-4); Hematocrit 35.9 % (37.0-47.0); Hemoglobin 10.2 g/dl (12.0-16.0); Imm Gran Abs Auto 0.08 X10*3/uL (0.00-0.03); Imm Gran Pct Auto 0.8 % (0.0-0.4); Lymphocytes Absolute Auto 0.9 X10*3/uL (1.2-4.9); Lymphocytes Percent Auto 8.8 % (20-40); Mean Corpuscular HGB Conc 28.4 g/dl (31.0-35.0); Mean Corpuscular Hemoglobin 22.2 pg (27.0-33.0); Mean Platelet Volume 9.6 fL (9.4-12.3); Monocytes Absolute Auto 0.5 X10*3/uL (0.1-1.2); Neutrophils Absolute Auto 8.6 x10*3/uL (2.0-8.3); Neutrophils Percent Auto 84.9 % (45-73); Platelet Count 326 X10*3/uL (160-400); Red Cell Distribution Width 22.7 % (11.0-16.0); White Blood Count 10.1 X10*3/uL (4.8-10.8)
[2024-04-22 11:30] LABS: Appearance Urine Cloudy; Color Urine Yellow; Glucose Urine UA Negative (Negative); Leukocyte Esterase Urine Moderate (2+) (Negative); Nitrite Urine Positive (Negative); Specific Gravity - Urine 1.015 (1.005-1.025); UMIC TRIGGER UACC YES; Urine Blood Large (3+) (Negative); Urine Ketones Negative (Negative); Urine Protein Trace mg/dL (Neg-Trace)
[2024-04-22 11:36] LABS: Bacteria Urine 4+ (None Seen); Hyaline Casts Urine 0-2 /LPF (0-2); RBC Urine >20 /HPF (0-2); UACC Culture Trigger YES; WBC Urine 21-50 /HPF (0-5)
[2024-04-22 12:23] LABS: Albumin Level 3.7 g/dL (3.5-5.0); Alkaline Phosphatase 72 U/L (39-117); Anion Gap 11 (12-20); Aspartate Amino Transferase 17 U/L (5-31); Bilirubin Total 0.3 mg/dL (0.0-1.0); Blood Urea Nitrogen 17 mg/dL (9-16); Carbon Dioxide 29 mmol/L (22-29); Chloride 104 mmol/L (96-108); Cholesterol 174 mg/dL (<200); Estimated Glomerular Filt Rate > 60; Glucose Fasting 87 mg/dL (60-99); HDL Cholesterol 49 mg/dL (>40); LDL Cholesterol Calculated 102 mg/dL (<100); Potassium 3.9 mmol/L (3.3-5.1); Sodium 140 mmol/L (135-145); Total Protein 7.2 g/dL (6.5-8.0); Triglycerides 119 mg/dL (<150)
[2024-04-22 12:24] LABS: TSH reflex Free T4 0.75 uIU/mL (0.32-4.0); Vitamin D 25-OH Total 30.7 ng/mL (>30)
[2024-04-22 12:50] LABS: Alanine Aminotransferase 42 U/L (0-31)
== END 2024-04-22 09:28 | disposition home or self-care (01) ==
LOC: HO.LAB 09:27
PROVIDERS: PCP Internal Medicine; Visit Provider Internal Medicine
DX: Z00.00 Encounter for general adult medical examination without abnormal findings (principal); E78.00 Pure hypercholesterolemia, unspecified; E55.9 Vitamin D deficiency, unspecified; D64.9 Anemia, unspecified; D21.9 Benign neoplasm of connective and other soft tissue, unspecified; R30.0 Dysuria
CPT/HCPCS: 36415; 80053; 80061; 81001; 82306; 84443; 85025; 87086; 87088; 87186

== ENCOUNTER 2024-05-02 14:39 | Outpatient (AMB) | payer OTHER, SELFPAY ==
--- NOTE | 2024-05-02 15:08 | A.OFFVIS_ITS ---
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 The patient has no complaints periods are normal, not painful, and flow is normal. [facility] Medical History Morbid obesity with BMI of 45.0-49.9, adult GERD without esophagitis Vitamin D deficiency Uterine fibroid Breast nodule Asthma Obesity (BMI 30-39.9) Crohn's disease Benign essential hypertension Anemia Surgical History Hx of colonoscopy Hx of tubal ligation Hx of section Hx of cholecystectomy Family History Mother Diabetes HTN (hypertension) Parkinson disease Father Hyperthyroidism Social History Household Members: Family Household Members Other:: 3 Housing: House Do you presently have visiting nurse or other home services: No Alcohol intake: never Patient Tobacco Use Status: Former Tobacco user Tobacco use type: Cigarette Cigarettes Per Day: 4 e-Cigarette/Vaping Use: Never Used Second Hand Smoke Exposure: No Advance Directives Date on File: 09/21/20 service: No Current occupational status: employed 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 Sexual orientation: Straight/Heterosexual Cognitive needs: No Hearing needs: No Vision needs: Yes Female Reproductive History Menstrual Age of Menarche: 12 Review of Systems Const All systems reviewed & are unremarkable except as noted in HPI and below Physical Exam General: Yes no CVA tenderness External Female Exam: normal external appearance and normal appearance of the urethra Speculum Exam - Vagina: normal appearance of the vagina, normal palpation, no lesions and no masses Speculum Exam - Cervix: normal appearance of the cervix, normal palpation, no lesions, no masses, nontender and Other cervical findings present (IUD thread in place) Bimanual exam- vagina & uterus: normal bimanual exam, normal palpation, uterine size normal, normal palpation, uterine shape normal, No Cervical tenderness present and non-tender Bimanual Exam- Adnexa, other: normal adnexae Back/Spine/Pelvis Back: no CVA tenderness Assessment & Plan Assessment & Plan (1) IUD check up: Code(s): Z30.431 - Encounter for routine checking of intrauterine contraceptive device Category: Medical Plan: UPT done in the office was negative. Discussed with the patient the finding on physical exam, IUD string in place, the patient was reassured. Instructions given to patient to call in case of temperature above 100.4, severe cramping/pelvic pain, abnormal discharge or abnormal uterine bleeding or if she misses her menstrual cycle. Otherwise follow-up at her annual exam appointment. All questions answered, the patient verbalized understanding. Coding Level of Care Code Est Pt Level 3 (86124) Diagnoses IUD check up Z30.431
== END 2024-05-02 15:43 | disposition home or self-care (01) ==
PROVIDERS: PCP Internal Medicine; Visit Provider Obstetrics & Gynecology
DX: Z30.431 Encounter for routine checking of intrauterine contraceptive device (principal)
CPT/HCPCS: 99213

== ENCOUNTER → 2024-05-02 14:39 | Outpatient (BNVA) | payer OTHER, SELFPAY | PROVIDERS: PCP Internal Medicine; Visit Provider Obstetrics & Gynecology | DX: Z30.431 Encounter for routine checking of intrauterine contraceptive device (principal) | CPT/HCPCS: 99212 ==

== ENCOUNTER 2024-08-09 12:28 | Outpatient (AMB) | payer OTHER, SELFPAY ==
[2024-08-09 12:41] VITALS: BP 124/82; PULSE 110; O2SAT 96; BMI 43.0
--- NOTE | 2024-08-09 12:41 | A.OFFPC_ITS ---
Vital Signs 08/09/24 12:41 Height 5 ft 5 in Weight 258 lb 8 oz BMI 43.0 BP 124/82 Blood Pressure Location Lt brachial Position Sitting Pulse 110 H Pulse Source Pulse Oximeter Pulse Oximetry (%) 96 Oxygen Delivery Method Room Air Intake Visit Reasons: 3mth f/u Prison Keeper Required: No Accompanied by: Self / Same As Patient Allergies aspirin [Aspirin] Allergy (Mild, Verified 08/09/24 13:18) EYES SWELL zucchini Allergy (Intermediate, Uncoded 08/09/24 13:18) Rash SEASONAL ALLERGIES Allergy (Unknown, Uncoded 08/09/24 13:18) TRIGGERS ASTHMA ATTACKS Medication List - Last Reconciled 08/09/24 by Hadley Spaulding MD acetaminophen 1,000 mg PO Q6H PRN albuterol sulfate 90 mcg/actuation 2 inhalations inhalation Q6H PRN cholecalciferol (vitamin D3) 50 mcg PO DAILY 90 days cyanocobalamin (vitamin B-12) (Vitamin B-12) 1 tab PO DAILY enoxaparin (Lovenox) 40 mg subcut Q12H ferrous sulfate 325 mg PO BID 90 days fexofenadine ([place] Allergy) 180 mg PO DAILY PRN furosemide 20 mg PO DAILY hydralazine 10 mg PO TID 30 days infliximab (Remicade) 600 mg IV Q5W ketotifen fumarate 0.025%(0.035%) 1 drp ophthalmic (eye) BID PRN lisinopril 30 mg PO DAILY 90 days metronidazole 500 mg PO Q8H omeprazole 20 mg PO DAILY@0630 Tobacco use date assessed: 08/09/24 Dental Screening Dental Screen Date: 08/09/24 Did you have a dental visit in the last 12 months?: No Did you have a dental problem in the last 6 months where you did not have access to dental care?: No Was dental information given to patient?: No HPI 3mth f/u HPI Details Patient comes in today for her follow-up visit She apparently underwent an open ileocecectomy a couple of weeks ago on 07/29/[address] 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 Sixto rosas month on 08/29/24 Patient states that she currently feels okay She denies any headaches or dizziness Denies any chest pains, no shortness of breath No nausea/vomiting, no abdominal pain States that her bowel movements are back to normal at present [facility] Medical History Morbid obesity with BMI of 45.0-49.9, adult GERD without esophagitis Vitamin D deficiency Uterine fibroid Breast nodule Asthma Obesity (BMI 30-39.9) Crohn's disease Benign essential hypertension Anemia Surgical History (Updated 08/09/24 @ 17:37 by Hadley Spaulding MD) History of bowel resection Hx of colonoscopy Hx of tubal ligation Hx of section Hx of cholecystectomy Family History Mother Diabetes HTN (hypertension) Parkinson disease Father Hyperthyroidism Social History Household Members: Family Household Members Other:: 3 Housing: House Do you presently have visiting nurse or other home services: No Alcohol intake: never Patient Tobacco Use Status: Former Tobacco user Tobacco use type: Cigarette Cigarettes Per Day: 4 e-Cigarette/Vaping Use: Never Used Second Hand Smoke Exposure: No Advance Directives Date on File: 09/21/20 service: No Current occupational status: employed 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 1. Little interest or pleasure in doing things: not at all 2. Feeling down, depressed, or hopeless: several days 3. Trouble falling or staying asleep, or sleeping too much: not at all 4. Feeling tired or having little energy: not at all 5. Poor appetite or overeating: not at all 6. Feeling bad about yourself - or that you are a failure or have let yourself or your family down: not at all 7. Trouble concentrating on things, such as reading the newspaper or watching television: not at all 8. Moving or speaking so slowly that other people could have noticed. Or the opposite - being so fidgety or restless that you have been moving around a lot more than usual: not at all 9. Thoughts that you would be better off or of hurting yourself in some way: not at all Total score: 1 Depression Screening Interpretation: Negative Depression Screening Done: Yes 03550 - PHQ-9 Billing: Yes Source: Developed by Drs. Roosevelt Eubanks, Paola Weaver, Maicol Paul and colleagues, with an educational rajesh from [employer]. Thrive Questionnaire Date Thrive assessed: 08/09/24 I am a: Patient What is your living situation today?: I have a steady place to live Within the past 12 months, did the food you bought not last and you didn't have the money to get more?: Never true Within the past 12 months, did you worry whether your food would run out before you got money to buy more?: Never true Do you have trouble paying for medicines?: No Do you have trouble getting transportation to medical appointments?: No Do you have trouble paying your heating and electricity bill?: No Do you have trouble taking care of your child, family member or friend?: No Do you have trouble with day-to-day activities such as bathing, preparing meals, shopping, managing finances, etc.?: No Are you currently unemployed and looking for a job?: No Are you interested in more education?: No Please select the resources that you would like help with: None Currently or been in a relationship where the following occur: No concerns reported THRIVE Score: 0 AUDIT C Alcohol Use Questionnaire (AUDIT-C) 1. How often do you have a drink containing alcohol?: Never 3. How often do you have six or more drinks on one occasion?: Never Total Score: 0 Score Reviewed/Action Taken: Yes RAJAT-7 AMB Questionnaire RAJAT-7 Date RAJAT - 7 assessed: 08/09/24 Feeling nervous, anxious, or on edge: 0 = Not at all Not being able to stop or control worryin = Not at all Worrying too much about different things: 0 = Not at all Trouble relaxin = Not at all Being so restless that it is hard to sit still: 0 = Not at all Becoming easily annoyed or irritable: 0 = Not at all Feeling afraid as if something awful might happen: 0 = Not at all Total RAJAT-7 score (0-4 normal; 5-9 mild; 10-14 moderate; 15-21 severe): 0 Source: Developed by Drs. Roosevelt Eubanks, Paola Weaver, Maicol Paul and colleagues, with an educational rajesh from [employer]. Review of Systems Const Denies chills, Denies fatigue, Denies fever(s) and Denies headache(s) ENT Denies dysphagia, Denies dizziness, Denies otalgia, Denies headache(s), Denies neck pain, Denies odynophagia and Denies sore throat Card Denies chest pain, Denies irregular heart rhythm, Denies palpitations and Denies dyspnea Resp Denies chest congestion, Denies cough and Denies dyspnea GI Denies abdominal pain, Denies constipation, Denies dysphagia, Denies heartburn, Denies diarrhea, Denies nausea, Denies odynophagia and Denies vomiting Denies urinary frequency, Reports menorrhagia, Denies dysuria and Denies urinary urgency Musc Denies back pain, Denies arthralgias and Denies neck pain Skin/Breast Denies rash Neuro Denies dizziness, Denies headache(s) and Denies paresthesias Psych Denies anxiety and Denies depression Endo Denies fatigue and Denies palpitations Mendez/Lymph Denies easy bruising Physical exam (Primary Care) Vital Signs: Last Vital Signs Pulse 110 H 08/09/24 12:41 BP 124/82 08/09/24 12:41 Pulse Ox 96 08/09/24 12:41 Oxygen Delivery Method Room Air 08/09/24 12:41 BMI result Body Mass Index 43.0 Tobacco/Smoking Status: Tobacco use Status Tobacco use date assessed 08/09/24 08/09/24 12:50 Patient Tobacco Use Status Former Tobacco user 08/09/24 12:50 Tobacco use type Cigarette 08/09/24 12:50 e-Cigarette/Vaping Use Never Used 08/09/24 12:50 PHQ-9: PHQ-9 Score PHQ-9: Total score 1 08/09/24 17:39 Depression Screening Interpretation: Negative Thrive Assessment: Date of Thrive Assessment Date Thrive assessed 04/15/25 04/15/25 12:50 Currently or been in a relationship where the following occur: No concerns reported Const General: no acute distress and alert HENMT Ears: TM's normal bilaterally and EAC's normal Throat: Yes posterior oropharynx normal and Yes tonsils normal (no TP congestion) Neck Neck: Yes supple and No lymphadenopathy Thyroid: Thyroid normal Resp Auscultation: clear to auscultation bilaterally, no rales and no wheezes Cardio Rate: regular rate Rhythm: regular rhythm Heart sounds: no murmurs GI Other: (+) healing surgical scar over the anterior abdomen, with catalino in place Palpation (GI): Soft to palpation and nontender Auscultation: normal bowel sounds General: Yes no CVA tenderness Back/Spine/Pelvis Back: no CVA tenderness Thoracic/Lumbar Spine: No lumbar spinal tenderness Skin Rashes: no rashes Extrem General: Yes no clubbing, cyanosis or edema Results Reviewed Results Reviewed: Laboratory Tests 04/22/24 04/22/24 09:41 09:42 WBC 10.1 Hgb 10.2 L Hct 35.9 L Plt Count 326 Sodium 140 Potassium 3.9 Creatinine 0.73 Estimated GFR > 60 Fasting Glucose 87 Calcium 9.0 AST 17 ALT 42 H Triglycerides 119 Cholesterol 174 LDL Cholesterol, Calc 102 H HDL Cholesterol 49 25-OH Vitamin D Total 30.7 TSH 0.75 Ur Specific [place]vel 1.015 Urine Protein Trace Urine Glucose (UA) Negative Urine Blood Large (3+) H Urine Nitrite Positive H Ur Leukocyte Esterase Moderate (2+) H Coding Level of Care Code Est Pt Level 4 (55506) Diagnoses 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 Iron 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 intake D50.8 Anemia type: iron deficiency Iron deficiency anemia type: inadequate dietary iron intake Crohn's disease K50.912 Digestive disease complication type: with intestinal obstruction Gastrointestinal tract location: unspecified location Benign essential hypertension I10 Mild intermittent asthma, unspecified whether complicated J45.20 Asthma severity: mild Asthma persistence: intermittent Asthma complication type: unspecified Impaired fasting glucose R73.01 GERD without esophagitis K21.9 Uterine leiomyoma, unspecified location D25.9 Uterine leiomyoma location: unspecified location Morbid obesity with BMI of 40.0-44.9, adult E66.01; Z68.41 Additional Codes PHQ-9 - 52708 - PHQ-9 Billing: Yes ([id number]) Assessment & Plan Assessment & Plan (1) Enterocolic fistula: Code(s): 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 Tay Henson at [facility] Patient did not require a diversion colostomy Follow-up with surgery as scheduled (2) Anemia: Comment: Unable to tolerate oral iron tablets (severe constipation) Code(s): D64.9 - Anemia, unspecified Category: Medical Qualifiers: Anemia type: iron deficiency Iron deficiency anemia type: inadequate dietary iron intake Qualified Code(s): D50.8 - Other iron deficiency anemias Plan: Her last CBC done on 04/22/24 showed H/H at 10.2/35.9 Patient continues to receive iron infusions and follows up with Dr. Kaplan regularly for her anemia Her H/H dropped to 6.6/24.5 a few months ago during her routine GI visit and she was sent to the ER for possible blood transfusion She ended up getting iron infusion and 1 unit of transfusion of PRBC with some improvement of her H/H subsequently to 7.5/27.9 (3) Crohn's disease: Code(s): K50.90 - Crohn's disease, unspecified, without complications Category: Medical Qualifiers: Digestive disease complication type: with intestinal obstruction Gastrointestinal tract location: unspecified location Qualified Code(s): K50.912 - Crohn's disease, unspecified, with intestinal obstruction Plan: States that her Crohn's disease has been better controlled on her current Rx of Remicade 600 mg IV every 5 weeks Follow up with GI as scheduled (4) Benign essential hypertension: Code(s): I10 - Essential (primary) hypertension Category: Medical Plan: Reinforced low sodium diet - goal is systolic BP of 120 mm or less Continue Lisinopril 30 mg QD and Hydralazine 10 mg TID She was started on Amlodipine 5 mg QD last year but she stopped taking it as she gets very dizzy and lightheaded a few minutes after she takes her Amlodipine She has reportedly noticed at one time when she checked her blood pressure that it was very low and she immediately stopped taking her Amlodipine then As her blood pressure remained very high today, she was started on Hydralazine 10 mg TID back in January 2024 but she never received her Rx until her appointment in March 2024 when her Rx was sent again to her pharmacy Patient is reminded to continue checking her blood pressure regularly (5) Asthma: Comment: WELL CONTROLLED WITH ALLERGY SHOTS Code(s): J45.909 - Unspecified asthma, uncomplicated Category: Medical Qualifiers: Asthma severity: mild Asthma persistence: intermittent Asthma complication type: unspecified Qualified Code(s): J45.20 - Mild intermittent asthma, uncomplicated Plan: Notes that her asthma has been well controlled since she started receiving allergy injections from [facility] a couple of years ago (sees Dr. Puga) States that she has not had to use her rescue inhaler in a while now; continue Albuterol HFA 1 to 2 inhalations Q 6 hours PRN only (Rx refilled per request) She is also taking Fexofenadine 180 mg QD PRN to help with her allergies (6) Impaired fasting glucose: Code(s): R73.01 - Impaired fasting glucose Category: Medical Plan: Her HgbA1c was normal at 5.7% when checked previously Reinforced low calorie diet/exercise as tolerated (7) GERD without esophagitis: Code(s): K21.9 - Gastro-esophageal reflux disease without esophagitis Category: Medical Plan: Dietary restrictions reinforced Continue Omeprazole 20 mg QD (8) Uterine fibroid: Code(s): D25.9 - Leiomyoma of uterus, unspecified Category: Medical Qualifiers: Uterine leiomyoma location: unspecified location Qualified Code(s): D 25.9 - Leiomyoma of uterus, unspecified Plan: Pelvic MRI done last year revealed (+) interval resolution of the hemorrhagic left ovarian cyst, with persistent left paraovarian simple cyst and persistent left lateral vaginal cystic lesion, consistent with Bartholin's gland cyst noted. Her uterine fibroids have remained mostly unchanged from before She continues to have heavy and persistent vaginal / menstrual bleeding often until her IUD insertion by Dr. Weinberg a couple of weeks ago Follow up with gynecology as scheduled (9) Morbid obesity with BMI of 40.0-44.9, adult: Code(s): E66.01 - Morbid (severe) obesity due to excess calories; Z68.41 - Body mass index [BMI] 40.0-44.9, adult Category: Medical Plan: Reinforced diet/exercise as tolerated/lose weight Plan Follow up in 4 months
--- OUTSIDE RECORDS SUMMARY | 2024-08-09 15:18 | XMS_ITS ---
Author Organization [facility] Address [address] [place] [address] [place] [phone] Care Team Providers Care Retail Team Member Name Role Phone Jasson BUI, Aroda Primary Care Provider Rae Bowen Jr, Cosmo Unavailable Clayton BUI, Ghanshyam Unavailable Unavailable REASON FOR VISIT Refill furosemide Medications Medication SIG (Take, Route, Fr equency, Duration) Notes Start Date End Date Status Furosemide 20 MG take 1 tablet orally daily for swelling Orally for 30 days 07/06/2024 Acti ve Encounters Encounter Location Date Provider Diagnosis [facility] [address] [place] [address] [place] [phone] 07/06/2024 Cosmo Bowen Jr Plan Of Treatment Medication Medication Name Sig Start Date Stop Date Notes Furosemide 20 MG take 1 tablet orally daily for swelling Orally for 30 days 07/06/2024 Next Appt Details Provider Name:Cosmo michael Jr, 09/28/2024 09:20:00 AM, [address] [place] [address], Suite [facility], [place], [phone], Progress Notes * GOYO RONADOB:[birth year] (44 yo F)Acc No.[id number]:07/06/2024 Patient:?JAQUI RONVALERIE Carrasco :1980???Age:44 Y???Sex:Female Address:[address] [place] [address] [place] [address] * Refills? Refill Furosemide Tablet, 20 MG, Orally, 30, take 1 tablet orally daily for swelling, 30 days, Refills=5 * true * Date:? Generated for Amy addison/Ragini/Sesaritting on:?08/09/2024 03:17 PM EDT
--- OUTSIDE RECORDS SUMMARY | 2024-08-09 15:18 | XMS_ITS ---
Author Organization [facility] Address [address] [facility] [address] [place] [phone] Care Team Providers Care Fur Farmer Name Role Phone Jasson BUI, Hadley Primary Care Provider Rae Bowen Jr, Cosmo Unavailable [phone] Clayton BUI, Ghanshyam Unavailable Unavailable REASON FOR VISIT requesting rx for Prednisone Medications Medication SIG (Take, Route, Fr equency, Duration) Notes Start Date End Date Status predniSONE 5 MG TAKE 8 TABS (40MG) B Y MOUTH DAILY X1 WEEK, THEN DECREASE BY 5MG (1 TABLET) PER WEEK (TOTAL=56 DAYS). for 56 Active Encounters Encounter Location Date Provider Diagnosis [facility] [address] [place] [address] [place] [phone] 03/28/2024 Cosmo Bowen Jr Plan Of Treatment Medication Medication Name Sig Start Date Stop Date Notes predniSONE 5 MG TAKE 8 TABS (40MG) B Y MOUTH DAILY X1 WEEK, THEN DECREASE BY 5MG (1 TABLET) PER WEEK (TOTAL=56 DAYS). for 56 Next Appt Details Provider Name:Cosmo michael Jr, 09/28/2024 09:20:00 AM, [address] [facility], [address], [place], [address], Progress Notes * GOYO RONADOB:[birth year] (44 yo F)Acc No.[id number]:03/28/2024 Patient:?JAQUI RONVALERIE Carrasco :1980???Age:44 Y???Sex:Female Address:[address] [place], [place] [address], [place] [address] * Refills? Refill predniSONE Tablet, 5 MG, 275 Tablet, TAKE 8 TABS (40MG) BY MOUTH DAILY X1 WEEK, THEN DECREASE BY 5MG (1 TABLET) PER WEEK (TOTAL=56 DAYS)., 56, Refills=0 * true * Date:? Generated for Amy addison/Ragini/Nat on:?08/09/2024 03:17 PM EDT
--- OUTSIDE RECORDS SUMMARY | 2024-08-09 15:18 | XMS_ITS ---
Author Organization [facility] Address [address] [facility] [address] [place] [phone] Care Team Providers Care Compound Coating Machine Offbearer Name Role Phone Jasson BUI, Hadley Primary Care Provider Rae Bowen Jr, Cosmo Unavailable [phone] Asaf BUI, Ghanshyam Unavailable Unavailable REASON FOR VISIT pt is nauseous Medications Medication SIG (Take, Route, Fr equency, Duration) Notes Start Date End Date Status predniSONE 5 MG TAKE 8 TABS (40MG) B Y MOUTH DAILY X1 WEEK, THEN DECREASE BY 5MG (1 TABLET) PER WEEK (TOTAL=56 DAYS). for 56 Active Encounters Encounter Location Date Provider Diagnosis [facility] [address] [facility] [address] [place] [phone] 05/19/2024 Cosmo oBwen Jr Plan Of Treatment Medication Medication Name Sig Start Date Stop Date Notes predniSONE 5 MG TAKE 8 TABS (40MG) B Y MOUTH DAILY X1 WEEK, THEN DECREASE BY 5MG (1 TABLET) PER WEEK (TOTAL=56 DAYS). for 56 Next Appt Details Provider Name:Cosmo michael Jr, 09/28/2024 09:20:00 AM, [address] [place] [address], [address], [place], [phone], Progress Notes * GOYO RONADOB:[birth year] (44 yo F)Acc No.[id number]:05/19/2024 Patient:?ASAFJAQUIVALERIE Carrasco :1980???Age:44 Y???Sex:Female Address:[address] [place] [address] [place] [address] * Refills? Refill predniSONE Tablet, 5 MG, 275 Tablet, TAKE 8 TABS (40MG) BY MOUTH DAILY X1 WEEK, THEN DECREASE BY 5MG (1 TABLET) PER WEEK (TOTAL=56 DAYS)., 56, Refills=0 * true * Date:? Generated for Amy addison/Ragini/Nta on:?08/09/2024 03:17 PM EDT
--- OUTSIDE RECORDS SUMMARY | 2024-08-09 15:18 | XMS_ITS | Patient Health Record ---
Author Organization [facility] Address [address] [place] [phone] Care Team Providers Care Gimp Buttonhole Machine Operator Name Role Phone Jasson BUI, [place] Primary Care Provider Cosmo Wills Jr Unavailable Ghanshyam Ron MD Unavailable Unavailable Allergies Allergen (clinical drug ingredient) Drug/Non Drug Allergy documented on EMR Reaction Allergy Type Onset Date Status aspirin Aspirin Unknown Drug Allergy Active zuccini (uncoded) Unknown Allergy Ac tive Reason For Referral No Information Medications Medication SIG (Take, Route, Fr equency, Duration) Notes Start Date End Date Status Vitamin B 12 500 MCG 1 lozenge Orally On ce a day for 30 day(s) Active Albuterol Active Vitamin D3 1000 UNIT 1 capsule Orally Once a day Active predniSONE 5 MG TAKE 8 TABS (40MG) B Y MOUTH DAILY X1 WEEK, THEN DECREASE BY 5MG (1 TABLET) PER WEEK (TOTAL=56 DAYS). for 56 Active Lisinopril 5 MG take 1 tablet by jarrett th once daily Oral for 30 Active Omeprazole 20 MG TOME FAITH CAPSULA TOD OS LOS FRAZIER 30 MINUTOS BEFORE MORNING MEAL FOR 90 DAYS for 90 Active Remicade 100 MG 10 mg/kg Intravenous every 5 weeks Active Dicyclomine HCl 20 MG TOME FAITH TABLETA P OR VIA ORAL 2-4 TIMES A DAY for 90 Active Furosemide 20 MG take 1 tablet orally daily for swelling Orally for 30 days 07/06/2024 Acti ve Immunizations Vaccine Route Administration Date Status Comme nts Influenza Unknown 08/18/2018 Refused Influenza Unknown 10/02/2021 Refused Influenza Unknown 04/02/2022 Refused Influenza Unknown 04/01/2023 Refused Problems Problem Type SNOMED Code ICD Code Onset Dates Problem Status W/U Status Risk Notes Problem 68988240 Crohn's disease of small intestine with intestinal obstruction (K50.012) Active confirmed Problem Intestinal obstruction due to Crohn's disease of small intestine (disorder) (20190620425276 03) Crohn''s disease of small intestine with intestinal obstruction (K50.012) Active confirmed Problem 262347667 Gastroesophageal reflux disease, unspecified whether esophagitis present (K21.9) Active confirmed Problem Complication due to Crohn's disease of large intestine (41045643043937 03) Crohn's disease of colon with intestinal obstruction (K50.112) Active confirmed Vital Signs Temperature 97.7 degrees Fahrenheit 09/30/2023 Blood pressure diastolic 00 mm Hg 09/30/2023 Height 66 in 09/30/2023 Blood pressure systolic 000 mm Hg 09/30/2023 Weight 273 lb 8 oz lbs 09/30/2023 BMI 44.14 kg/m2 09/30/2023 Encounters Encounter Location Date Provider Diagnosis [facility] [address] [place] [phone] 09/30/2023 Cosmo Bowen Jr Crohn's disease of small intestine with intestinal obstruction K50.012 and Gastroesophageal reflux disease, unspecified whether esophagitis present K21.9 [facility] [address] [place] [phone] 11/19/2023 Cosmo Bowen Jr [facility] [address] [place] [phone] 01/19/2024 Cosmo Bowen Jr [facility] [address] [place] [phone] 03/28/2024 Cosmo Bowen Jr [facility] [address] [place] [phone] 05/19/2024 Cosmo Bowen Jr [facility] [address] [place] [phone] 07/06/2024 Cosmo Bowen Jr Assessments Encounter Date Diagnosis (ICD Code) Assessment Notes Treatment Notes Treatment Clinical Notes Section Notes 09/30/2023 Crohn's disease of small intestine with intestinal obstruction (ICD-10 - K50.012) do labs adter 3 more remicade infusions At this time, she is doing well. She will continue her present regimen. We discussed Crohn's disease. We discussed diet, lifestyle modifications , and weight management regarding the treatment of reflux. She will obtain levels prior to her coming infusion. 09/30/2023 Gastroesophageal reflux disease, unspecified whether esophagitis present (ICD-10 - K21.9) At this time, she is doing well. She will continue her present regimen. We discussed Crohn's disease. We discussed diet, lifestyle modifications , and weight management regarding the treatment of reflux. She will obtain levels prior to her coming infusion. Plan Of Treatment Pending Test Test Name Order Date LIVER PROFILE 10/01/2022 LIVER PROFILE 04/01/2023 LIVER PROFILE 09/30/2023 LIVER PROFILE 09/08/2022 LIVER PROFILE 04/04/2021 LIPASE 09/08/2022 LIPASE 04/04/2021 LIPASE 10/01/2022 LIPASE 04/01/2023 CRP 09/30/2023 CRP 09/08/2022 CRP 04/04/2021 CRP 10/01/2022 CRP 04/01/2023 CBC w/o DIFF 04/01/2023 CBC w/o DIFF 09/30/2023 CBC w/o DIFF 09/08/2022 CBC w/o DIFF 04/04/2021 CBC w/o DIFF 10/01/2022 SED RATE (ESR) 10/01/2022 SED RATE (ESR) 04/01/2023 SED RATE (ESR) 09/30/2023 SED RATE (ESR) 09/08/2022 SED RATE (ESR) 04/04/2021 MRI ABD W&WO CONTRAST 04/02/2022 MRI ABD W&WO CONTRAST 01/31/2021 MRI ABD W&WO CONTRAST 04/09/2022 XR GI SMALL BOWEL SERIES 06/24/2013 PROMETHEUS CROHN'S PROGNOSTIC 04/02/2022 ADALIMUMAB LEVEL ADA IBD 09/21/2020 T SPOT TB 11/15/2020 T SPOT TB 11/06/2021 PROMETHEUS ANSER IFX 10/01/2022 PROMETHEUS ANSER IFX 04/01/2023 PROMETHEUS ANSER IFX 04/02/2022 PROMETHEUS ANSER IFX 09/30/2023 Prometheus ANSER IFX 04/04/2021 XR abdomen 3V 09/08/2022 Future Test Test Name Order Date COLONOSCOPY 02/23/2019 COLONOSCOPY 10/17/2020 Next Appt Details Provider Name:Cosmo michael , 09/28/2024 09:20:00 AM, [address], [address], [place], [address], Insurance Providers Payer Name Payer Address Payer Phone Subscriber Number Group Number Insured Name Patient Relationship to Insured Coverage Start Date Coverage End Date [facility] [address] [address] [place], [place] [id number] ROSEMARIE RON Self - patient is the insured 9 Medical (General) History Medical History History ICD Code Hypertension Crohn's disease, small intes christy, with recurrent small bowel obstructions, colonoscopy 06/10 showing terminal ileal disease, upper GI small bowel follow-through 07/08 showing 2 segments of distal ileal disease. Previous therapy, Pentasa, steroid tapers. Humira treatment started 2015, increased to weekly dosing 2016, infliximab started January 2021 due to lack of response to Humira, increased to 10 mg/kg q 8w 08/17 due to inadequate levels. Dose increased to every 5 weeks 05/20. MRE 02/14 marked inflammatory changes right lower quadrant with fistulization and inflammatory mass, referred to Dr. Henson (see 03/17 consult). Infliximab 10 mg/kg every 6 wks 10/17 for low levels. asthma Iron deficiency anemia, s/p parenteral i lorenzo infusions, Dr. Kaplan Elevated BMI seasonal allergies Colonoscopy 11/09/20, termina l ileum not examined, active disease in the cecum, Pathology showed mild active colitis in the cecum. Right colon, transverse, left, and rectum were normal, endoscopically and on biopsy Surgical History Surgery Date(Month/Year) Cholecystectomy section x2 Hospitalization History Reason Date(Month/Year) flair ups 3 weeks ago
== END 2024-08-09 13:22 | disposition home or self-care (01) ==
LOC: HO.HMCH 12:28
PROVIDERS: PCP Internal Medicine; Visit Provider Internal Medicine
DX: K63.2 Fistula of intestine (principal); K50.912 Crohn's disease, unspecified, with intestinal obstruction; E66.01 Morbid (severe) obesity due to excess calories; Z68.41 Body mass index [BMI] 40.0-44.9, adult; D50.8 Other iron deficiency anemias; I10 Essential (primary) hypertension; J45.20 Mild intermittent asthma, uncomplicated; R73.01 Impaired fasting glucose; K21.9 Gastro-esophageal reflux disease without esophagitis; D25.9 Leiomyoma of uterus, unspecified

== ENCOUNTER → 2024-08-09 12:28 | Outpatient (BNVA) | payer OTHER, SELFPAY | PROVIDERS: PCP Internal Medicine; Visit Provider Internal Medicine | DX: K50.912 Crohn's disease, unspecified, with intestinal obstruction (principal); D50.8 Other iron deficiency anemias; I10 Essential (primary) hypertension; J45.20 Mild intermittent asthma, uncomplicated; R73.01 Impaired fasting glucose; K21.9 Gastro-esophageal reflux disease without esophagitis; D25.9 Leiomyoma of uterus, unspecified; E66.01 Morbid (severe) obesity due to excess calories; Z68.41 Body mass index [BMI] 40.0-44.9, adult; Z87.19 Personal history of other diseases of the digestive system; Z98.890 Other specified postprocedural states | CPT/HCPCS: 96127; 99212 ==

== ENCOUNTER 2024-09-21 10:36 | Outpatient (REF) | payer OTHER, SELFPAY ==
--- NOTE | ~2024-09-21 | US_ITS ---
EXAMINATION: US PELVIS TRANSABDOMINAL AND TRANSVAGINAL HISTORY: D25.9 - Leiomyoma of uterus, unspecified COMPARISON: Comparison is made with the prior examination dated 03/18/2024. TECHNIQUE: Transabdominal and endovaginal real-time 2D [place]-scale ultrasound was performed. FINDINGS: Uterus: The uterus is normal in size, measuring 10.2 x 5.4 x 5.7 cm. Myometrium has a normal echotexture. There is a left-sided fibroid measuring 2.5 x 2.4 x 2.3 cm (previously 2.1 x 1.9 x 2.1 cm. An additional fundal fibroid is noted measuring 1.9 x 1.7 x 1.7 cm which was not seen previously. Endometrium: The endometrial stripe is obscured by the presence of an IUD which is in appropriate position. Right ovary: The right ovary measures 3.4 x 1.7 x 2.6 cm. The right ovary is normal in size and echotexture. Left ovary: The left ovary measures 5.3 x 3.8 x 5.0 cm. There is a 3.1 x 2.5 x 3.1 cm simple cyst. Pelvic fluid: none. US/US pelvic and transvaginal IMPRESSION: 1. Fibroid uterus as described. 2. The endometrial stripe is obscured by an IUD in appropriate position. 3. 3.1 x 2.5 x 3.1 cm left ovarian simple cyst. Electronically signed by: Roosevelt Sunshine MD 09/21/2024 01:31 PM EDT
--- OUTSIDE RECORDS SUMMARY | 2024-09-21 11:39 | XMS_ITS ---
Author Organization [facility] Address [address] [place] [phone] Care Team Providers Care Attending Urologist Name Role Phone Jasson BUI, [place] Primary Care Provider Cosmo Wills Jr Unavailable [phone] Allergies Allergen (clinical drug ingredient) Drug/Non Drug Allergy documented on EMR Reaction Allergy Type Onset Date Status aspirin Aspirin Unknown Drug Allergy Active zuccini (uncoded) Unknown Allergy Ac tive REASON FOR VISIT Patient presents today for crohn's ( surgeon req sooner appt) Medications Medication SIG (Take, Route, Fr equency, Duration) Notes Start Date End Date Status Lisinopril 5 MG take 1 tablet by once daily Oral for 30 Active Vitamin D3 1000 UNIT 1 capsule Orally Once a day Active Albuterol Active Vitamin B 12 500 MCG 1 lozenge Orally On ce a day for 30 day(s) Active Furosemide 20 MG take 1 tablet orally daily for swelling Orally for 30 days 07/06/2024 Acti ve Omeprazole 20 MG TOME FAITH CAPSULA TOD OS LOS FRAZIER 30 MINUTOS BEFORE MORNING MEAL FOR 90 DAYS for 90 Active predniSONE 5 MG TAKE 8 TABS (40MG) B Y MOUTH DAILY X1 WEEK, THEN DECREASE BY 5MG (1 TABLET) PER WEEK (TOTAL=56 DAYS). for 56 Active Dicyclomine HCl 20 MG TOME FAITH TABLETA P OR VIA ORAL 2-4 TIMES A DAY for 90 Active Remicade 100 MG 10 mg/kg Intravenous every 5 weeks Active Vital Signs Temperature 98.2 degrees Fahrenheit 09/06/19 25 Blood pressure systolic 001 mm Hg 09/06/19 25 Blood pressure diastolic 01 mm Hg 025 Height 66 in 09/05/2024 Weight 254.4 lbs 09/05/2024 BMI 41.06 kg/m2 09/05/2024 Encounters Encounter Location Date Provider Diagnosis [facility] [address] [place] [address] 09/05/2024 Cosmo Bowen Jr Crohn's disease of small intestine with intestinal obstruction K50.012 Assessments Encounter Date Diagnosis (ICD Code) Assessment Notes Treatment Notes Treatment Clinical Notes Section Notes 09/05/2024 Crohn's disease of small intestine with intestinal obstruction (ICD-10 - K50.012) Currently, she is doing well. We had extensive discussions regarding her surgery and pathology reports. We have asked her to resume Remicade 10 mg/kg IV every 5 weeks which was her presurgical dose. Drug levels and antibodies assessment will be obtained after 3 doses. Follow-up will be in 6 months. Plan Of Treatment Pending Test Test Name Order Date LIVER PROFILE 09/05/2024 LIPASE 09/05/2024 CRP 09/05/2024 CBC w/o DIFF 09/05/2024 SED RATE (ESR) 09/05/2024 Adalimumab+Ab 09/05/2024 Next Appt Details Follow Up: 6 Months, Reason: Provider Name:Cosmo michael , 03/08/2025 10:00:00 AM, [address], [address], [place], [address], Progress Notes * GOYO RONADOB:[birth year] (44 yo F)Acc No.[id number]:09/05/2024 Progress Notes Patient:?GOYO RON Provider:?Cosmo Bowen MD :1980???Age:44 Y???Sex:Female D ate:09/05/2024 Address:[address] [place] [address], [id number] Pcp:Hadley Spaulding MD Subjective: * Chief Complaints: * ???1. Patient presents today for crohn's ( surgeon req sooner appt). * HPI: ???New symptom(s):? Celidamara returns today for follow-up of Crohn's disease with obstruction. She underwent surgical resectionWith ileocecectomy and ileocolonic anastomosis on 07/29/2024. Operative notes and pathology reports are reviewed in detail today. Since surgery, she feels great. She has no complaints of diarrhea, abdominal bloating, rectal pain or abdominal pain. Weight and appetite have been stable. Surgical records are reviewed in detail. Currently she is not taking anything for her Crohn's disease. We discussed this today. We discussed the benefits of medical therapy after surgery and preventing relapse/recurrence. She understands these and agrees to proceed. * Medical History:?Hypertensio n, Crohn's disease, small intestine, with recurrent small bowel obstructions, colonoscopy 06/10 [...] mg/kg every 6 wks 10/17 for low levels., Asthma, Iron deficiency anemia, s/p parenteral iron infusions, Dr. Kaplan, Elevated BMI, Seasonal allergies, Colonoscopy 11/09/20, terminal ileum not examined, active disease in the cecum, Pathology showed mild active colitis in the cecum. Right colon, transverse, left, and rectum were normal, endoscopically and on biopsy. * Surgical History:?Cholecyste ctomy , section x2 , bowel resection . * Hospitalization/Major Diagno stic Procedure:?flair ups 3 weeks ago. * Family History:?Father: ulices zuniga?Mother: alive, diagnosed with HTN (hypertension), Diabetes.? Patient denies family history of colon cancer, polyps and inflammatory bowel disease. * Social History:?Tobacco Use:?Tobacco Use/Smoking?Are you a: former smoker , How long has it been since you last smoked?: > 10 years.?Drugs/Alcohol:?Alcohol Screen?Points: 1, Interpretation: Negative.?Miscellaneous:?Marital status: single. 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 * Medications:?Taking Albutero l , Taking Vitamin B 12 500 MCG Lozenge 1 lozenge Orally Once a day , Taking Lisinopril 5 MG Tablet take 1 tablet by mouth once daily Oral , Taking Vitamin D3 1000 UNIT Capsule 1 capsule Orally Once a day , Taking Dicyclomine HCl 20 MG Tablet TOME FAITH TABLETA POR VIA ORAL 2-4 TIMES A DAY , Taking Remicade 100 MG Solution Reconstituted 10 mg/kg Intravenous every 5 weeks , Taking Omeprazole 20 MG Capsule Delayed Release TOME FAITH CAPSULA TODOS LOS FRAZIER 30 MINUTOS BEFORE MORNING MEAL FOR 90 DAYS , Taking predniSONE 5 MG Tablet TAKE 8 TABS (40MG) BY MOUTH DAILY X1 WEEK, THEN DECREASE BY 5MG (1 TABLET) PER WEEK (TOTAL=56 DAYS). , Taking Furosemide 20 MG Tablet take 1 tablet orally daily for swelling Orally * Allergies:?Aspirin, zuccini. Objective: * Vitals:?Wt: 254.4 lbs, Ht: 6 6 in, BMI:41.06Index, BP: 001/01 mm Hg, Temp: 98.2, Wt-k.4. * Examination: ???General Examination: ???On examination today she presents as a well-appearing female in no acute distress. Skin is anicteric. Lungs are clear. Heart shows a regular rate and rhythm. Abdomen is soft without focal masses or tenderness. Extremities are without edema. Assessment: * Assessment: 1.?Crohn's disease of small intestine with intestinal obstruction - K50.012 (Primary)??? Currently, she is doing well . We had extensive discussions regarding her surgery and pathology reports. We have asked her to resume Remicade 10 mg/kg IV every 5 weeks which was her presurgical dose. Drug levels and antibodies assessment will be obtained after 3 doses. Follow-up will be in 6 months. Plan: * Treatment: * Procedure Codes:?G9903 Pt sc rn tbco id as non user, G8785 BP SCR NOT PRFRM REC REASON NOS * Preventive Medicine:? ??Counseling:?Care goal follow-up plan:?Above Normal BMI Follow-up?Dietary management education, guidance, and counseling,?BMI management provided?Yes.? * Follow Up:?6 Months * * Sign off status: Completed true * Provider:?Cosmo Bowen MD Date:?0 09/05/2024 [facility]ag[facility]/eTransmitting on:?09/21/2024 11:39 AM EDT History and Physical Notes * HPI (History of Present Illness) Category Sub-Category Detail Notes Category Not es New symptom(s) Rosemarie returns today for follow-up of Crohn's disease with obstruction. She underwent surgical resectionWith ileocecectomy and ileocolonic anastomosis on 07/29/2024. Operative notes and pathology reports are reviewed in detail today. Since surgery, she feels great. She has no complaints of diarrhea, abdominal bloating, rectal pain or abdominal pain. Weight and appetite have been stable. Surgical records are reviewed in detail. Currently she is not taking anything for her Crohn's disease. We discussed this today. We discussed the benefits of medical therapy after surgery and preventing relapse/recurrence. She understands these and agrees to proceed. Examination Category Sub-Category Detail Notes Category Not es General Examination On exam[facility] today she presents as a well-appearing female in no acute distress. Skin is anicteric. Lungs are clear. Heart shows a regular rate and rhythm. Abdomen is soft without focal masses or tenderness. Extremities are without edema.
== END 2024-09-21 10:37 | disposition home or self-care (01) ==
LOC: HO.US 10:36
PROVIDERS: PCP Internal Medicine; Visit Provider Obstetrics & Gynecology
DX: D25.9 Leiomyoma of uterus, unspecified (principal)
CPT/HCPCS: 76830; 76856

== ENCOUNTER → 2024-09-21 10:38 | Outpatient (BNV) | payer OTHER, SELFPAY | PROVIDERS: PCP Internal Medicine; Visit Provider Radiology Diagnostic Radiology | DX: D25.9 Leiomyoma of uterus, unspecified (principal) | CPT/HCPCS: 76830; 76856 ==

== ENCOUNTER 2024-09-27 12:44 | Outpatient (AMB) | payer OTHER, SELFPAY ==
--- NOTE | 2024-09-27 12:45 | A.OFFVIS_ITS ---
Intake Visit Reasons: ultrasound results Allergies aspirin [Aspirin] Allergy (Mild, Verified 08/09/24 13:18) EYES SWELL zucchini Allergy (Intermediate, Uncoded 08/09/24 13:18) Rash SEASONAL ALLERGIES Allergy (Unknown, Uncoded 08/09/24 13:18) TRIGGERS ASTHMA ATTACKS HPI Comments Details: The patient scheduled a telehealth visit for ultrasound follow-up regarding uterine myomas. Doing well with no complaints no pelvic pressure or pelvic pain or abnormal uterine bleeding. Pelvic ultrasound done recently showed the following: Uterus: The uterus is normal in size, measuring 10.2 x 5.4 x 5.7 cm. Myometrium has a normal echotexture. There is a left-sided fibroid measuring 2.5 x 2.4 x 2.3 cm (previously 2.1 x 1.9 x 2.1 cm. An additional fundal fibroid is noted measuring 1.9 x 1.7 x 1.7 cm which was not seen previously. Endometrium: The endometrial stripe is obscured by the presence of an IUD which is in appropriate position. Right ovary: The right ovary measures 3.4 x 1.7 x 2.6 cm. The right ovary is normal in size and echotexture. Left ovary: The left ovary measures 5.3 x 3.8 x 5.0 cm. There is a 3.1 x 2.5 x 3.1 cm simple cyst. Pelvic fluid: none. [facility] Medical History Morbid obesity with BMI of 45.0-49.9, adult GERD without esophagitis Vitamin D deficiency Uterine fibroid Breast nodule Asthma Obesity (BMI 30-39.9) Crohn's disease Benign essential hypertension Anemia Surgical History History of bowel resection Hx of colonoscopy Hx of tubal ligation Hx of section Hx of cholecystectomy Family History Mother Diabetes HTN (hypertension) Parkinson disease Father Hyperthyroidism Social History Household Members: Family Household Members Other:: 3 Housing: House Do you presently have visiting nurse or other home services: No Alcohol intake: never Patient Tobacco Use Status: Former Tobacco user Tobacco use type: Cigarette Cigarettes Per Day: 4 e-Cigarette/Vaping Use: Never Used Second Hand Smoke Exposure: No Advance Directives Date on File: 09/21/20 service: No Current occupational status: employed 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 [employer] Sexual orientation: Straight/Heterosexual Cognitive needs: No Hearing needs: No Vision needs: Yes Female Reproductive History Menstrual Age of Menarche: 12 Review of Systems Const All systems reviewed & are unremarkable except as noted in HPI and below Reports as per HPI and Reports no additional complaints GI Reports no additional complaints Reports no additional complaints Telehealth Telehealth Telehealth Platform: Telephone Location of provider rendering services: practice address Location of patient: address on file Patient Identification confirmed using: Name, : Yes Telehealth method: video Patient verbally consented to treatment: Yes Patient verbally consented to billing insurance company: Yes Patient informed of any privacy concerns related to visit: Yes Minutes spent on Phone/Video with Pt.: 2 Assessment & Plan Assessment & Plan (1) Uterine fibroid: Code(s): D25.9 - Leiomyoma of uterus, unspecified Category: Medical Qualifiers: Uterine leiomyoma location: unspecified location Qualified Code(s): D25.9 - Leiomyoma of uterus, unspecified Plan: Discussed with the patient the findings on pelvic ultrasound & the risk of myosarcoma; in addition reviewed with the patient that malignancy and pre malignancy cannot be ruled out without hysterectomy for pathological evaluation ; furthermore, explained to the patient the limitation of pelvic ultrasound and endometrial biopsy in the setting. Discussed with the patient the options of treatment including expectant management versus hysterectomy; the pros and cons, risks benefits of each approach were discussed with the patient including the fact that in cases of myosarcoma, surgical treatment can lead to early diagnosis and positively affects the prognosis; after further discussion, the patient decided to proceed with expectant management. Will repeat pelvic ultrasound periodically. Instructions given to patient to call in case any of the following occurs: pressure symptoms, abnormal uterine bleeding, pelvic pain; and to schedule a 12 -months pelvic ultrasound (order placed) and a follow-up appointment . All q uestions answered, the patient verbalized understanding and agreed with the plan . I spent a total of 20 minutes reviewing the chart, talking to the patient via video and documenting in the medical record. Orders: Orders US pelvic and transvaginal 12 Months D25.9 - Leiomyoma of uterus, unspecified Coding Level of Care Code Tele Est Pt Level 3 (46684) Diagnoses Uterine leiomyoma, unspecified location D25.9 Uterine leiomyoma location: unspecified location
--- OUTSIDE RECORDS SUMMARY | 2024-09-27 14:02 | XMS_ITS ---
Author Organization [facility] Address [address] [place] [address] Care Team Providers Care Outside Plant Cable Engineer Name Role Phone Jasson BUI, [place] Primary Care Provider Cosmo Wills Jr Unavailable Allergies Allergen (clinical drug ingredient) Drug/Non [...] 09/05/2024 Encounters Encounter Location Date Provider Diagnosis [facility] [address] [place] [address] 09/05/2024 Cosmo Bowen Jr Crohn's disease of [...] Name:Cosmo michael , 03/08/2025 10:00:00 AM, [address], [address], [place], [address], Progress Notes * GOYO RONADOB:[birth year] (44 yo F)Acc No.[id number]:09/05/2024 Progress Notes Patient:?GOYO RON Provider:?Cosmo Bowen MD :1980???Age:44 Y???Sex:Female D ate:09/05/2024 Address:[address] [place] [address], [id number] Pcp:Hadley Spaulding MD Subjective: * Chief Complaints: [...] Provider:?Cosmo Bowen MD Date:?0 09/05/2024 Generated for [facility]/Ragini/eTrangeriitting on:?09/27/2024 02:02 PM EDT History and Physical Notes * HPI [...] Category Not es General Examination On exami [facility] [place] today she presents as a well-appearing female in no acute distress. Skin is anicteric. Lungs are clear. Heart shows a regular rate and rhythm. Abdomen is soft without focal masses or tenderness. Extremities are without edema.
== END 2024-09-27 12:59 | disposition home or self-care (01) ==
LOC: HO.HWS 12:44
PROVIDERS: PCP Internal Medicine; Visit Provider Obstetrics & Gynecology
DX: D25.9 Leiomyoma of uterus, unspecified (principal)
CPT/HCPCS: 99213

== ENCOUNTER → 2024-09-27 12:44 | Outpatient (BNVA) | payer OTHER, SELFPAY | PROVIDERS: PCP Internal Medicine; Visit Provider Obstetrics & Gynecology ==

== ENCOUNTER → 2024-10-19 07:36 | Outpatient (BNV) | payer OTHER, SELFPAY | PROVIDERS: PCP Internal Medicine; Visit Provider Radiology Diagnostic Radiology | DX: R06.02 Shortness of breath (principal) | CPT/HCPCS: 71045 ==

== ENCOUNTER 2024-10-19 08:19 | Emergency (ER) | payer OTHER, SELFPAY ==
--- OUTSIDE RECORDS SUMMARY | 2024-09-28 05:20 | XMS_ITS ---
Author Organization [facility] Address [address] [place] [address] Care Team Providers Care Trimming Inspector Name Role Phone Jasson BUI, Hadley Primary Care Provider Rae Bowen Jr, Cosmo Unavailable REASON FOR VISIT crohn's Encounters Encounter Location Date Provider Diagnosis [facility] [address] [place] [phone] 09/28/2024 Cosmo Bowen Jr Plan Of Treatment Next Appt Details Provider Name:Cosmo michael Jr, 03/08/2025 10:00:00 AM, [address], [address], [place], [address], Progress Notes * GOYO RONADOB:[birth year] (44 yo F)Acc No.[id number]:09/28/2024 Progress Notes Patient: ROSEMARIE CRONIN Provider: Claribel Bowen MD :1980 A ge:44 Y S ex:Female Date:09/28/2024 Address:[address] [place] [address] [place] [facility] Pcp:Hadley Spaulding MD Subjective: * Chief Complaints: [...] 09/28/2024 Generated for Amy addison/Ragini/Nat on: 0 10/19/2024 09:55 AM EDT
--- NOTE | 2024-10-19 | ECG_ITS ---
Test Reason : DYSPNEA/SOB Blood Pressure : */* mmHG Vent. Rate : 89 BPM Atrial Rate : 89 BPM P-R Int : 142 ms QRS Dur : 94 ms QT Int : 392 ms P-R-T Axes : 29 -16 59 degrees QTcB Int : 476 ms Normal sinus rhythm Possible Left atrial enlargement Left ventricular hypertrophy ( R in aVL , Michele product ) Abnormal ECG When compared with ECG of 13-Jun-2023 09:10, No significant change was found Referred By: Generic ED Physician Electronically Signed By: ROD NO
--- NOTE | ~2024-10-19 | XR_ITS ---
EXAMINATION: XR CHEST 1 VIEW HISTORY: SOB COMPARISON: Comparison is made with the prior examination dated 10/28/2022. FINDINGS: A single AP portable view of the chest performed at 8:36 AM is submitted. There are increased interstitial markings throughout both lungs could represent vascular congestion or atypical infection. A more focal opacity is seen in the right lower lung zone. There is no pleural effusion, pneumothorax, or pulmonary vascular congestion. The heart is normal in size. The bones are intact. XR/XR chest 1V IMPRESSION: Increased interstitial markings in both lungs which could represent vascular congestion or atypical infection. A more focal opacity in the right lower lung zone could represent asymmetric pulmonary edema or pneumonia. Clinical correlation is recommended. Electronically signed by: Roosevelt Sunshine MD 10/19/2024 08:55 AM EDT
[2024-10-19 08:23] VITALS: BP 196/113; PULSE 98; RESP 18; TEMP 36.3; O2SAT 99; BMI 40.1
[2024-10-19 08:59] LABS: MANUAL DIFF FLAG NO
[2024-10-19 09:00] LABS: Basophils Percent Auto 0.4 % (0-2); Eosinophils Absolute Auto 0.2 X10*3/uL (0.0-0.4); Eosinophils Percent Auto 3.6 % (0-4); Hematocrit 34.2 % (37.0-47.0); Hemoglobin 10.7 g/dl (12.0-16.0); Imm Gran Abs Auto 0.03 X10*3/uL (0.00-0.03); Imm Gran Pct Auto 0.4 % (0.0-0.4); Lymphocytes Absolute Auto 0.9 X10*3/uL (1.2-4.9); Lymphocytes Percent Auto 12.9 % (20-40); Mean Corpuscular HGB Conc 31.3 g/dl (31.0-35.0); Mean Corpuscular Hemoglobin 24.4 pg (27.0-33.0); Mean Corpuscular Volume 77.9 fL (80.0-98.0); Mean Platelet Volume 9.8 fL (9.4-12.3); Monocytes Absolute Auto 0.5 X10*3/uL (0.1-1.2); Monocytes Percent Auto 7.6 % (2-11); Neutrophils Percent Auto 75.1 % (45-73); Platelet Count 315 X10*3/uL (160-400); Red Blood Count 4.39 X10*6/uL (4.20-5.50); Red Cell Distribution Width 13.8 % (11.0-16.0); White Blood Count 6.7 X10*3/uL (4.8-10.8)
[2024-10-19 09:15] LABS: Alanine Aminotransferase 23 U/L (0-31); Albumin Level 3.9 g/dL (3.5-5.0); Alkaline Phosphatase 116 U/L (39-117); Anion Gap 11 (12-20); Aspartate Amino Transferase 25 U/L (5-31); Bilirubin Total 0.4 mg/dL (0.0-1.0); Blood Urea Nitrogen 11 mg/dL (9-16); Calcium 8.8 mg/dL (8.4-10.2); Carbon Dioxide 25 mmol/L (22-29); Chloride 110 mmol/L (96-108); Creatinine Clr Calc Pharmacy 124.8; Estimated Glomerular Filt Rate > 60; Glucose Random 100 mg/dL (60-115); Potassium 3.5 mmol/L (3.3-5.1); Sodium 142 mmol/L (135-145); Total Protein 7.1 g/dL (6.5-8.0)
--- NOTE | 2024-10-19 09:15 | ED_ITS ---
HPI - General Adult General Chief complaint: Dyspnea Stated complaint: sob Time Seen by Provider: 10/19/24 09:13 Source: patient Mode of arrival: ambulatory Limitations: no limitations History of Present Illness ED Provider: Susi Seo PA-C HPI narrative: Patient is a 44 year old assigned female at with a history of HTN, anemia, asthma, crohn's disease, and SBO presenting to the emergency department today with increased shortness of breath. Patient states that over the last 2 months she has had shortness of breath that has not fully improved. Patient states that her inhaler helps some but does not resolve it entirely. Patient states that she has high blood pressure and did not take her medicine this morning. Patient denies any dizziness, lightheadedness, abdominal pain, nausea, vomiting, fever, chills, blurry vision, double vision, loss of vision, chest pain, back pain, night sweats, pain with urination, increased urinary frequency, increased urinary urgency, blood in her urine or stool, syncope or a near syncopal episode, recent trauma or falls, bowel incontinence, bladder incontinence, or any other complaints at this time. Onset (ago): month(s) (2) Relieving factors: none Exacerbating factors: none Associated symptoms: shortness of breath Related Data Home Medications ?Medication ?Instructions ?Recorded ?Confirmed infliximab 100 mg intravenous 600 mg IV Q5W 05/23/21 0 08/09/24 solution (Remicade) ketotifen fumarate 0.025 % (0.035 1 drp ophthalmic (ey e) BID PRN Dry 02/04/22 08/09/24 %) eye drops Eye(S) acetaminophen 500 mg tablet 1,000 mg PO Q6H PRN Pain 0 11/06/22 08/09/24 fexofenadine 180 mg tablet 180 mg PO DAILY PRN Allergy 11/06/22 08/09/24 ([place] [facility]) Symptoms furosemide 20 mg tablet 20 mg PO DAILY 10/13/2307/26 omeprazole 20 mg capsule,delayed 20 mg PO DAILY@0630 0 10/13/23 08/09/24 release enoxaparin 40 mg/0.4 mL 40 mg subcut Q12H 08/09/24 0 08/09/24 subcutaneous syringe (Lovenox) metronidazole 500 mg tablet 500 mg PO Q8H 08/09/24 Previous Rx's ?Medication ?Instructions ?Recorded cyanocobalamin (vitamin B-12) 1 tab PO DAILY 01/01/23 1,000 mcg tablet (Vitamin B-12) cholecalciferol (vitamin D3) 50 50 mcg PO DAILY 90 day s #90 tabs 06/01/23 mcg (2,000 unit) tablet ferrous sulfate 325 mg (65 mg 325 mg PO BID 90 days #1 80 tabs 03/21/24 iron) tablet,delayed release albuterol sulfate 90 mcg/actuation 2 inh inhalation Q6 H PRN shortness 04/19/24 breath activated powder inhaler of breath or wheezing #1 ea hydralazine 10 mg tablet 10 mg PO TID 30 days #90 tab s 04/19/24 lisinopril 30 mg tablet 30 mg PO DAILY 90 days #90 t abs 06/04/24 amoxicillin 875 mg-potassium 1 tab PO BID 7 days #14 t abs 10/19/24 clavulanate 125 mg tablet doxycycline hyclate 100 mg tablet 100 mg PO BID 7 days #14 tabs 10/19/24 prednisone 20 mg tablet See Rx Instructions .Route 0 10/19/24 .COMPLEX 9 days #18 tabs Allergies Allergy/AdvReac Type Severity Reaction Status Date / Time aspirin (Aspirin) Allergy Mild EYES SWELL Verified 10/19/24 08:27 [email or web address] Allergy Intermediate Rash Uncoded 10/19/24 08:27 SEASONAL ALLERGIES Allergy Unknown TRIGGERS Uncoded 10/19/24 08:27 ASTHMA ATTACKS Review of Systems 2 Constitutional: Constitutional: Reports no additional constitutional complaints, Denies chills, Denies fever(s) and Denies night sweats Eyes: Eyes: Reports no additional eye complaints, Denies blurry vision, Denies change in vision, Denies diplopia, Denies eye discharge, Denies loss of vision and Denies eye pain ENT: Denies dizziness Cardiovascular: Cardiovascular: Reports no additional cardiovascular complaints, Denies chest pain, Denies lightheadedness, Denies Loss of Consciousness and Reports dyspnea Respiratory: Respiratory: Reports no additional respiratory complaints and Reports dyspnea Gastrointestinal: Gastrointestinal: Reports no additional gastrointestinal complaints, Denies abdominal pain, Denies melena, Denies hematochezia, Denies change in bowel habits and Denies change in stool character Genitourinary: Genitourinary: Denies hematuria, Denies urinary frequency, Denies dysuria, Denies urinary incontinence, Denies urinary hesitancy and Denies urinary urgency Musculoskeletal: Musculoskeletal: Reports no additional musculoskeletal complaints, Denies numbness and Denies tingling Neurologic: Denies dizziness, Denies loss of vision, Denies numbness and Denies tingling Psychiatric: Psychiatric: Reports no additional psychiatric complaints Endocrine: Endocrine: Reports no additional endocrine complaints Hematologic/Lymphatic: Hematologic/Lymphatic: Reports no additional hematologic/lymphatic complaints Allergic/Immunologic: Allergic/Immunologic: Reports no additional allergic/immunologic complaints [facility] Past Medical History Attestation statement: The following information was validated with the patient. Source: old records reviewed and nursing notes reviewed Medical History Morbid obesity with BMI of 45.0-49.9, adult GERD without esophagitis Vitamin D deficiency Uterine fibroid Breast nodule Asthma Obesity (BMI 30-39.9) Crohn's disease Benign essential hypertension Anemia Surgical History History of bowel resection Hx of colonoscopy Hx of tubal ligation Hx of section Hx of cholecystectomy Family History Family History Mother Diabetes HTN (hypertension) Parkinson disease Father Hyperthyroidism Social History Social History Household Members: Family Household Members Other:: 3 Housing: House Do you presently have visiting nurse or other home services: No Alcohol intake: never Patient Tobacco Use Status: Former Tobacco user Tobacco use type: Cigarette Cigarettes Per Day: 4 Smoked in Last 30 Days: No e-Cigarette/Vaping Use: Never Used Second Hand Smoke Exposure: No Use of substances other than those prescribed or required for medical reasons: No Advance Directives: Yes Advance Directives on File: Yes Advance Directives Date on File: 09/21/20 service: No Current occupational status: employed 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 Sexual orientation: Straight/Heterosexual Cognitive needs: No Hearing needs: No Vision needs: Yes Physical Exam ED Vital Signs: Vital Signs - 24 hr 10/19/24 08:23 10/19/24 09:38 Temperature 97.4 F Pulse Rate 98 85 Respiratory Rate 18 15 Blood Pressure 196/113 H Pulse Oximetry 99 Oxygen Delivery Method Room Air BMI result Body Mass Index 40.1 Const General: cooperative, no acute distress, alert and awake Nutritional Appearance: well nourished Orientation/consciousness: patient oriented x3 HENMT Head: Yes normal to inspection and Yes atraumatic Ears: hearing grossly normal bilaterally and external ears normal General nose exam: Normal external nose present, no nasal discharge noted and no epistaxis Face and sinus: Yes normal facial exam, No abrasion and No laceration Mouth: Normal oral and palatal mucosa present, no drooling and no muffled voice Eyes General: appearance normal, both eyes and all related structures Periorbital: periorbital findings normal Eyelids: Yes eyelids normal Conjunctivae: conjunctivae normal Pupils: Equal, round and reactive pupils present EOM: EOMs intact bilaterally Neck Neck: Yes normal visual inspection, Yes full ROM and Yes no lymphadenopathy Resp Effort & Inspection: normal respiratory effort and able to speak in complete sentences Neuro General: patient oriented x3, moves all extremities and CN's II-XI intact bilaterally Cranial nerves: Yes Equal, round and reactive pupils present Cognition (Neuro): normal cognition Extrem General: Yes normal to inspection, Yes full ROM and Yes capillary refill normal Psych Appearance: grossly normal Mental Status: mental status grossly normal Affect: normal affect Attitude: cooperative Thought process: Normal thought process present Thought content: Normal thought content present Insight: Good insight present (Psych) Medications Administered Discontinued Medications Generic Name Dose Route Start Last Admin Trade Name Freq PRN Reason Stop Dose Admin Albuterol/Ipratropium 3 ml 10/19/24 09:30 10/19/24 09:37 Albuterol/Iprat 2.5/0.5mg 3 Ml Ampul.Neb INHALE 10/19/24 09:31 3 ml ONCE ONE Administration Amoxicillin/Clavulanate Potassium 875 mg 10/19/24 09:20 10/19/24 09:52 Amoxicillin/Potassium Clav 875 Mg Tablet PO 10/19/24 09:21 875 mg ONCE ONE Administration Doxycycline Monohydrate 100 mg 10/19/24 09:20 10/19/24 09:52 Doxycycline Monohydrate 100 Mg Capsule PO 10/19/24 09:21 100 mg ONCE ONE Administration Methylprednisolone Sodium Succinate 60 mg 10/19/24 10:20 10/19/24 10:23 Methylprednisolone Sod Succ 125 Mg Vial IM 10/19/24 10:21 60 mg ONCE ONE Administration Medical Decision Making Medical Decision Making [facility] Narrative: Patient is a 44 year old assigned female at with a history of HTN, anemia, asthma, crohn's disease, and SBO presenting to the emergency department today with increased shortness of breath. Patient's physical exam was unremarkable. Patient's blood work was unremarkable. Patient's EKG was unremarkable. Patient's chest x-ray showed evidence of atypical pneumonia. Patient's clinical presentation is most consistent with pneumonia and asthma exacerbation. Patient was not hypoxic in the department. I explained my physical exam findings as well as all test results to the patient. I answered all questions asked by the patient. Patient received solu-medrol, breathing treatments, and augmentin + doxy while in the department which, upon re-evaluation, she stated it helped her symptoms significantly. I stressed the importance of the patient taking her medication as directed (either prescribed or as the over the counter packaging recommends). I stressed the importance of the patient following up with her primary care provider. I stressed the importance of the patient returning to the emergency department immediately if her symptoms were to worsen or if she were to develop any dizziness, shortness of breath, difficulty breathing, chest pain, blurry vision, loss of vision, nausea, vomiting, abdominal pain, fever, chills, back pain, or any other complaints. Patient verbalized agreement and understanding with this treatment plan and discharge. Differential Diagnosis Differential Diagnoses: The differential diagnosis associated with the presentation includes Asthma exacerbation Pneumonia Admission/Observation Consideration of admission/observation: Escalation of care including admission/observation considered Patient would have been admitted to the hospital had her work up had any findings where hospital admission was appropriate and her clinical presentation warranted hospital admission. Lab Data [facility] Lab Attestation statement: I reviewed the patient's lab results. My interpretation of these results are in the [facility] Rationale portion of this note. 10/19/24 08:52 10/19/24 08:52 Labs: Lab Results 10/19/24 Range/Units 08:52 WBC 6.7 (4.8-10.8) X10*3/uL RBC 4.39 (4.20-5.50) X10*6/uL Hgb 10.7 L (12.0-16.0) g/dl Hct 34.2 L (37.0-47.0) % MCV 77.9 L (80.0-98.0) fL MCH 24.4 L (27.0-33.0) pg MCHC 31.3 (31.0-35.0) g/dl RDW 13.8 (11.0-16.0) % Plt Count 315 (160-400) X10*3/uL MPV 9.8 (9.4-12.3) fL Immature Gran % (Auto) 0.4 (0.0-0.4) % Neut % (Auto) 75.1 H (45-73) % Lymph % (Auto) 12.9 L (20-40) % Lamb % (Auto) 7.6 (2-11) % Eos % (Auto) 3.6 (0-4) % Baso % (Auto) 0.4 (0-2) % Lymph # (Auto) 0.9 L (1.2-4.9) X10*3/uL Lamb # (Auto) 0.5 (0.1-1.2) X10*3/uL Eos # (Auto) 0.2 (0.0-0.4) X10*3/uL Baso # (Auto) 0.0 (0.0-0.2) X10*3/uL Abs Immat Gran (auto) 0.03 (0.00-0.03) X10*3/uL Absolute Neuts (auto) 5.0 (2.0-8.3) x10*3/uL Absolute Nucleated RBC 0.000 (0.0-0.012) X10*3/uL Nucleated RBC % (auto) 0.0 (0.0-0.2) /100WBC Sodium 142 (135-145) mmol/L Potassium 3.5 (3.3-5.1) mmol/L Chloride 110 H (96-108) mmol/L Carbon Dioxide 25 (22-29) mmol/L Anion Gap 11 L (12-20) BUN 11 (9-16) mg/dL Creatinine 0.74 (0.5-1.4) mg/dL Estim Creat Clear Calc 124.8 Estimated GFR > 60 Random Glucose 100 (60-115) mg/dL Calcium 8.8 (8.4-10.2) mg/dL Total Bilirubin 0.4 (0.0-1.0) mg/dL AST 25 (5-31) U/L ALT 23 (0-31) U/L Alkaline Phosphatase 116 (39-117) U/L Troponin I High Sens 6.1 D (<3.5-17.0) ng/L Total Protein 7.1 (6.5-8.0) g/dL Albumin 3.9 (3.5-5.0) g/dL Influenza Type A (PCR) NEGATIVE (Negative) Influenza Type B (PCR) NEGATIVE (Negative) RSV RNA Qual (PCR) NEGATIVE (Negative) SARS-CoV-2 RNA (RT-PCR) NEGATIVE (Negative) Independent Interpretation I performed an independent interpretation of an: EKG and Plain X-Ray Interpretation: My interpretation is in agreement with the radiologist's impression of this imaging study. L EXAMINATION: XR CHEST 1 VIEW HISTORY: SOB COMPARISON: Comparison is made with the prior examination dated 10/28/2022. FINDINGS: A single AP portable view of the chest performed at 8:36 AM is submitted. There are increased interstitial markings throughout both lungs could represent vascular congestion or atypical infection. A more focal opacity is seen in the right lower lung zone. There is no pleural effusion, pneumothorax, or pulmonary vascular congestion. The heart is normal in size. The bones are intact. XR/XR chest 1V IMPRESSION: Increased interstitial markings in both lungs which could represent vascular congestion or atypical infection. A more focal opacity in the right lower lung zone could represent asymmetric pulmonary edema or pneumonia. Clinical correlation is recommended. Electronically signed by: Roosevelt Sunshine MD 10/19/2024 08:55 AM EDT Dictated By: Roosevelt Sunshine MD Signed By: Electronically signed by Roosevelt Sunshine MD 10/19/24 0855 I independently interpreted this EKG and am in agreement with the below findings: Vent. Rate: 89 BPM Atrial Rate: 89 BPM P-R Int: 142 ms QRS Dur: 94 ms QT Int: 392 ms P-R-T Axes: 29 -16 59 degrees QTcB Int: 476 ms Normal sinus rhythm Possible Left atrial enlargement Left ventricular hypertrophy (R in aVL , [place] product) When compared with ECG of 13-Jun-2023 09:10, No significant change was found DD/ [id number] Radiology Impression Discussion of test interpretation with radiology: I have reviewed the radiologist's reading. Prescription Management I considered prescription management with: Antibiotic (patient prescribed antibiotics for atypical pneumonia) Critical Care Time Critical Care Time Critical Care Time: Yes Total Critical Care Time: 33 Attestation: I spent 33 minutes of Critical Care Time with this patient. This does not include time spent on separately reported billable procedures. Discharge Plan Discharge Clinical Impression: Asthma exacerbation, Atypical pneumonia Patient Disposition: Home, Self-Care Instructions: Asthma (DC), Pneumonia (ED) Additional Instructions: Follow up with your primary care provider. Return to the emergency department immediately if your symptoms worsen or if you develop any numbness, tingling, dizziness, shortness of breath, difficulty breathing, chest pain, blurry vision, loss of vision, nausea, vomiting, abdominal pain, fever, chills, back pain, or any other complaints. Please see the information below about our Patient Portal. If you are not yet enrolled in the [facility] Patient Portal, you will receive an enrollment email invitation following your visit to any [facility] setting. You may also self-enroll in the Patient Portal by visiting our website: [email or web address] The following information is required to access the Patient Portal: - Your [facility] Medical Record Number - Your personal home email address (must match what is in your electronic medical record, Registration staff can assist with this) - Name - Date of Capabilities of the Patient Portal: - Message some providers - View upcoming appointments - Access your health summary, medical history, and visit history - View current conditions and allergies - View procedure and lab results - View your medications, including guidelines, side effects, and precautions - Complete pre-appointment questionnaires requested by your provider - Ready summary reports of your office visits and procedures To access the Patient Portal Mobile [employer], follow these directions: - Search [employer] in the Selene Store or Google Play Store - Download the Selene - Search for [facility] - Enter your login/password Prescriptions: New prednisone 20 mg tablet See Rx Instructions .ROUTE .COMPLEX 9 Days Qty: 18 0RF Rx Instructions: 20 mg orally, Take 3 tablets for 3 days THEN; Take 2 tablets for 3 days THEN; Take 1 tablet for 3 days doxycycline hyclate 100 mg tablet 100 mg PO BID 7 Days Qty: 14 0RF amoxicillin-pot clavulanate 875-125 mg tablet 1 tab PO BID 7 Days Qty: 14 0RF No Action cyanocobalamin (vitamin B-12) [Vitamin B-12] 1,000 mcg tablet 1 tab PO DAILY 11RF ferrous sulfate 325 mg (65 mg iron) tablet,delayed release (DR/EC) 325 mg PO BID 90 Days Qty: 180 0RF lisinopril 30 mg tablet 30 mg PO DAILY 90 Days Qty: 90 1RF infliximab [Remicade] 100 mg recon soln 600 mg IV Q5W Patient Comments: Dr. Bowen ketotifen fumarate 0.025 % (0.035 %) drops 1 drp ophthalmic (eye) BID PRN (Reason: Dry Eye(S)) furosemide 20 mg tablet 20 mg PO DAILY fexofenadine [[place] Allergy] 180 mg Tablet 180 mg PO DAILY PRN (Reason: Allergy Symptoms) acetaminophen 500 mg Tablet 1,000 mg PO Q6H PRN (Reason: Pain) omeprazole 20 mg capsule,delayed release(DR/EC) 20 mg PO DAILY@0630 cholecalciferol (vitamin D3) 50 mcg (2,000 unit) tablet 50 mcg PO DAILY 90 Days Qty: 90 3RF enoxaparin [Lovenox] 40 mg/0.4 mL syringe 40 mg subcut Q12H Rx Instructions: x 30 days post-op metronidazole 500 mg tablet 500 mg PO Q8H Rx Instructions: x 30 days post-op hydralazine 10 mg tablet 10 mg PO TID 30 Days Qty: 90 3RF albuterol sulfate 90 mcg/actuation aerosol powdr breath activated 2 inh inhalation Q6H PRN (Reason: shortness of breath or wheezing) Qty: 1 3RF Referrals: Hadley Spaulding MD [Primary Care Provider, Internal Medicine] Stand Alone Forms: Work/School Release Interventions: ED Discharge Assessment Last Done: 10/19/24 10:30 Discharge Date/Time: 10/19/24 10:31 Print Language: Citizen Of [place]
[2024-10-19 09:22] LABS: Troponin-I High Sensitivity 6.1 ng/L (<3.5-17.0)
[2024-10-19] MEDS: Albuterol/Iprat 2.5/0.5MG 3 ML AMPUL.NEB INHALE (09:37)
[2024-10-19 09:38] VITALS: PULSE 85; RESP 15; O2SAT 98
[2024-10-19 09:44] LABS: Influenza A PCR NEGATIVE (Negative); Influenza B PCR NEGATIVE (Negative); Resp Syncy Virus RNA Qual PCR NEGATIVE (Negative); SARS COV2 PCR INHOUSE NEGATIVE (Negative)
[2024-10-19] MEDS: Amoxicillin/Potassium Clav 875 MG TABLET PO (09:52)
[2024-10-19] MEDS: Doxycycline Monohydrate 100 MG CAPSULE PO (09:52)
[2024-10-19 10:30] VITALS: BP 136/85; PULSE 82; RESP 15; TEMP 36.8
== END 2024-10-19 10:31 | disposition home or self-care (01) ==
PROVIDERS: Emergency Provider Emergency Medicine; PCP Internal Medicine
DX: J18.9 Pneumonia, unspecified organism (principal); R06.02 Shortness of breath; J45.901 Unspecified asthma with (acute) exacerbation; R94.31 Abnormal electrocardiogram [ECG] [EKG]; Z03.818 Encounter for observation for suspected exposure to other biological agents ruled out; Z79.899 Other long term (current) drug therapy
CPT/HCPCS: 0241U; 36415; 71045; 80053; 84484; 85025; 93005; 94640; 96372; 99284; J2919

== ENCOUNTER → 2024-10-19 08:43 | Outpatient (BNV) | payer OTHER, SELFPAY | PROVIDERS: Emergency Provider Emergency Medicine; PCP Internal Medicine; Visit Provider Internal Medicine | DX: I51.7 Cardiomegaly (principal) | CPT/HCPCS: 93010 ==

== ENCOUNTER 2024-12-12 15:03 | Outpatient (AMB) | payer OTHER, SELFPAY ==
--- OUTSIDE RECORDS SUMMARY | 2024-09-28 05:20 | XMS_ITS ---
Author Organization [facility] Address [address] [place] [phone] Care Team Providers Care Natural Gas Plant Supervisor Name Role Phone Jasson BUI, Hadley Primary Care Provider Rae Bowen Jr, Cosmo Unavailable REASON FOR VISIT crohn's Encounters Encounter Location Date Provider Diagnosis [facility] [address] [place] [phone] 09/28/2024 Csomo Bowen Jr Plan Of Treatment Next Appt Details Provider Name:Cosmo michael Jr, 03/01/2025 09:40:00 AM, [address], [address], [place], [address], Progress Notes * GOYO RONADOB:[birth year] (44 yo F)Acc No.[id number]:09/28/2024 Progress Notes Patient: ROSEMARIE CRONIN Provider: Claribel Bowen MD :1980 A ge:44 Y S ex:Female Date:09/28/2024 Address:[address] [place] [address] [place] [facility] Pcp:Hadley Spaulding MD Subjective: * Chief Complaints: [...] Bowen MD Date: 0 09/28/2024 Generated for Aym addison/Ragini/Nat on: 0 12/12/2024 03:42 PM EDT
--- NOTE | 2024-12-12 15:05 | A.OFFPC_ITS ---
Vital Signs 12/12/24 15:06 12/12/24 15:37 12/12/24 15:56 Height 5 ft 5 in Weight 245 lb BMI 40.8 BP 220/100 H 210/102 H 222/110 H Blood Pressure Location Lt brachial Lt brachial Lt brachial Position Sitting Sitting Sitting Respiration 18 Pulse 100 Pulse Source Pulse Oximeter Temp 97.3 F Temp Source Temporal Artery Scan Pulse Oximetry (%) 96 Oxygen Delivery Method Room Air Intake Visit Reasons: Crohn's, asthma, HTN Behavioral Psychologist Required: No Accompanied by: Self / Same As Patient Allergies aspirin (Aspirin) Allergy (Mild, Verified 12/12/24 15:28) EYES SWELL zucchini Allergy (Intermediate, Uncoded 12/12/24 15:28) Rash SEASONAL ALLERGIES Allergy (Unknown, Uncoded 12/12/24 15:28) TRIGGERS ASTHMA ATTACKS Medication List - Last Reconciled 12/12/24 by SANCHEZ Grey acetaminophen 1,000 mg PO Q6H PRN albuterol sulfate 90 mcg/actuation 2 inhalations inhalation Q6H PRN amoxicillin-pot clavulanate 875-125 mg 1 tab PO BID 7 days cholecalciferol (vitamin D3) 50 mcg PO DAILY 90 days cyanocobalamin (vitamin B-12) (Vitamin B-12) 1 tab PO DAILY doxycycline hyclate 100 mg PO BID 7 days enoxaparin (Lovenox) 40 mg subcut Q12H ferrous sulfate 325 mg PO BID 90 days fexofenadine ([place] Allergy) 180 mg PO DAILY PRN furosemide 20 mg PO DAILY hydralazine 10 mg PO TID 30 days infliximab (Remicade) 600 mg IV Q5W ketotifen fumarate 0.025%(0.035%) 1 drp ophthalmic (eye) BID PRN lisinopril 30 mg PO DAILY 90 days metronidazole 500 mg PO Q8H omeprazole 20 mg PO DAILY@0630 prednisone 20 mg orally, Take 3 tablets for 3 days THEN; Take 2 tablets for 3 days THEN; Take 1 tablet for 3 days 9 days Tobacco use date assessed: 12/12/24 Dental Screening Dental Screen Date: 12/12/24 Did you have a dental visit in the last 12 months?: No Did you have a dental problem in the last 6 months where you did not have access to dental care?: No Was dental information given to patient?: No HPI Crohn's, asthma, HTN HPI Details The patient is a 44-year-old female presenting for follow appt for chronic condition with a reaction to a Remicade infusion and management of her chronic conditions. The patient has a history of Crohn's disease, for which she underwent surgery. She has been receiving Remicade infusions as part of her treatment regimen. During a recent infusion, she experienced a severe reaction characterized by feeling hot and flushed, leading to the cessation of the infusion and administration of Benadryl and steroids. The patient also has a history of asthma, which has been stable for a long period. She uses a rescue inhaler as needed, although she reports that her current inhaler is different from what she is accustomed to due to insurance changes. She experiences dyspnea approximately twice a week, requiring the use of her inhaler every four to six hours during episodes. The patient has essential hypertension, managed with lisinopril and hydralazine. She reports inconsistent adherence to her hydralazine regimen, often missing doses due to her schedule. Her blood pressure remains elevated, with recent readings as high as 210/100 mmHg. Anemia is also a concern, with a recent hemoglobin level of 10 or 11 g/dL. The patient attributes her anemia to heavy menstrual bleeding due to fibroids. [facility] Medical History Morbid obesity with BMI of 45.0-49.9, adult GERD without esophagitis Vitamin D deficiency Uterine fibroid Breast nodule Asthma Obesity (BMI 30-39.9) Crohn's disease Benign essential hypertension Anemia Surgical History History of bowel resection Hx of colonoscopy Hx of tubal ligation Hx of section Hx of cholecystectomy Family History Mother Diabetes HTN (hypertension) Parkinson disease Father Hyperthyroidism Social History Household Members: Family Household Members Other:: 3 Housing: House Do you presently have visiting nurse or other home services: No Alcohol intake: never Patient Tobacco Use Status: Former Tobacco user Tobacco use type: Cigarette Cigarettes Per Day: 4 e-Cigarette/Vaping Use: Never Used Second Hand Smoke Exposure: No Advance Directives Date on File: 09/21/20 service: No Current occupational status: employed Current occupation: [employer] Sexual orientation: Straight/Heterosexual Cognitive needs: No Hearing needs: No Vision needs: Yes Female Reproductive History Menstrual Age of Menarche: 12 Questionnaire PHQ-9 Over the last 2 weeks, how often have you been bothered by any of the following problems? 1. Little interest or pleasure in doing things: several days 2. Feeling down, depressed, or hopeless: not at all 3. Trouble falling or staying asleep, or sleeping too much: nearly every day 4. Feeling tired or having little energy: several days 5. Poor appetite or overeating: several days 6. Feeling bad about yourself - or that you are a failure or have let yourself or your family down: not at all 7. Trouble concentrating on things, such as reading the newspaper or watching television: not at all 8. Moving or speaking so slowly that other people could have noticed. Or the opposite - being so fidgety or restless that you have been moving around a lot more than usual: not at all 9. Thoughts that you would be better off or of hurting yourself in some way: not at all Total score: 6 Source: Developed by Drs. Roosevelt Eubanks, Paola Weaver, Maicol Paul and colleagues, with an educational rajesh from [employer]. Thrive Questionnaire Date Thrive assessed: 12/12/24 I am a: Patient What is your living situation today?: I have a steady place to live Within the past 12 months, did the food you bought not last and you didn't have the money to get more?: Never true Within the past 12 months, did you worry whether your food would run out before you got money to buy more?: Never true Do you have trouble paying for medicines?: No Do you have trouble getting transportation to medical appointments?: No Do you have trouble paying your heating and electricity bill?: No Do you have trouble taking care of your child, family member or friend?: No Do you have trouble with day-to-day activities such as bathing, preparing meals, shopping, managing finances, etc.?: No Are you currently unemployed and looking for a job?: No Are you interested in more education?: No Please select the resources that you would like help with: None Currently or been in a relationship where the following occur: No concerns reported THRIVE Score: 0 AUDIT C Alcohol Use Questionnaire (AUDIT-C) 1. How often do you have a drink containing alcohol?: Never Total Score: 0 RAJAT-7 AMB Questionnaire RAJAT-7 Date RAJAT - 7 assessed: 12/12/24 Feeling nervous, anxious, or on edge: 1 = Several days Not being able to stop or control worryin = Not at all Worrying too much about different things: 0 = Not at all Trouble relaxin = Not at all Being so restless that it is hard to sit still: 0 = Not at all Becoming easily annoyed or irritable: 1 = Several days Feeling afraid as if something awful might happen: 0 = Not at all Total RAJAT-7 score (0-4 normal; 5-9 mild; 10-14 moderate; 15-21 severe): 2 Source: Developed by Drs. Roosevelt Eubanks, Paola Weaver, Maicol Paul and colleagues, with an educational rajesh from [employer]. Review of Systems Const Denies headache(s) Eyes Denies loss of vision ENT Denies vertigo, Denies dizziness, Denies headache(s) and Denies sore throat Card Denies chest pain, Reports rapid heart rate, Denies leg edema, Denies lightheadedness and Reports dyspnea on exertion Resp Denies cough, Denies hemoptysis, Reports dyspnea on exertion and Denies wheezing GI Denies abdominal pain, Denies melena, Denies constipation, Denies diarrhea and Denies vomiting Denies urinary frequency, Denies dysuria and Denies urinary urgency Musc Denies arthralgias, Denies joint swelling, Denies numbness and Denies tingling Neuro Denies Abnormal speech present, Denies behavioral changes, Denies vertigo, Denies dizziness, Denies headache(s), Denies loss of vision, Denies memory loss, Denies numbness and Denies tingling Psych Denies anxiety, Denies behavioral changes, Denies depression, Denies memory loss and Denies panic attacks Mendez/Lymph Denies easy bleeding and Denies easy bruising Aller/Immun Denies wheezing Physical exam (Primary Care) Vital Signs: Last Vital Signs Temp 97.3 F 12/12/24 15:06 Pulse 100 12/12/24 15:06 Resp 18 12/12/24 15:06 BP 222/110 H 12/12/24 15:56 Pulse Ox 96 12/12/24 15:06 Oxygen Delivery Method Room Air 12/12/24 15:06 BMI result Body Mass Index 40.8 Tobacco/Smoking Status: Tobacco use Status Tobacco use date assessed 12/12/24 12/12/24 15:10 Patient Tobacco Use Status Former Tobacco user 12/12/24 15:10 Tobacco use type Cigarette 12/12/24 15:10 e-Cigarette/Vaping Use Never Used 12/12/24 15:10 PHQ-9: PHQ-9 Score PHQ-9: Total score 6 12/12/24 15:39 Thrive Assessment: Date of Thrive Assessment Date Thrive assessed 12/12/24 12/12/24 15:10 Currently or been in a relationship where the following occur: No concerns reported Const General: healthy appearing, no acute distress, alert and awake Nutritional Appearance: well nourished Orientation/consciousness: oriented to person, oriented to place and oriented to time HENMT Ears: TM's normal bilaterally General nose exam: Normal nasal mucous membranes and turbinates present Eyes Conjunctivae: conjunctivae normal Sclerae: sclerae normal Pupils: Equal, round and reactive pupils present Neck Neck: Yes no lymphadenopathy and Yes no JVD Thyroid: Thyroid normal Carotids: no bruits Resp Effort & Inspection: normal respiratory effort and not tachypneic Auscultation: no crackles, no rales, no rhonchi and no wheezes Cardio Rate: regular rate Rhythm: regular rhythm Heart sounds: no murmurs and normal S1 and S2 GI Palpation (GI): Soft to palpation, nontender, no hepatomegaly and no splenomegaly Auscultation: normal bowel sounds Skin General skin exam: no rashes or lesions noted and dry skin Neuro General: oriented to person, oriented to place and oriented to time Cranial nerves: Yes Equal, round and reactive pupils present Speech: No Abnormal speech present Gait exam (Neuro): Normal gait present Motor exam (neuro): no tremor noted Extrem Right upper extremity: full ROM Left upper extremity: full ROM Right lower extremity: full ROM; no edema Left lower extremity: full ROM; no edema Psych Mental Status: mental status grossly normal Speech and movement: Normal speech and movement present Affect: normal affect Attitude: cooperative Thought process: Normal thought process present Coding Level of Care Code Est Pt Level 4 (66471) Diagnoses Benign essential hypertension I10 Morbid obesity with BMI of 40.0-44.9, adult E66.01; Z68.41 GERD without esophagitis K21.9 Crohn's disease K50.912 Digestive disease complication type: with intestinal obstruction Gastrointestinal tract location: unspecified location Uterine leiomyoma, unspecified location D25.9 Uterine leiomyoma location: unspecified location Iron 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 intake D50.8 Anemia type: iron deficiency Iron deficiency anemia type: inadequate dietary iron intake Mild intermittent asthma, unspecified whether complicated J45.20 Asthma severity: mild Asthma persistence: intermittent Asthma complication type: unspecified Time Spent (min) 41 Assessment & Plan Assessment & Plan (1) Benign essential hypertension: Code(s): I10 - Essential (primary) hypertension Category: Medical Plan: Patient's systolic is in the 200s and diastolic in the low 100s. Reports that she took her lisinopril 30 mg and hydralazine 10 mg this morning. However, the patient did not take the afternoon dose of the hydralazine and reports that she does not take the afternoon dose at times. Encouraged the patient to go to the emergency room due to elevated blood pressure, but the patient refused. Instructed the patient to go home and take the afternoon dose now of hydralazine 10 mg, take her furosemide 20 mg as well and to follow up with the hydralazine about 21:00. The patient to follow up tomorrow morning for nurse visit for blood pressure check. The patient was also instructed to monitor her blood pressure at home and if her blood pressure continues to be elevated she again encouraged to go to the emergency room. (2) Morbid obesity with BMI of 40.0-44.9, adult: Code(s): E66.01 - Morbid (severe) obesity due to excess calories; Z68.41 - Body mass index [BMI] 40.0-44.9, adult Category: Medical Plan: Discussed lifestyle modifications including dietary changes and physical activity (3) GERD without esophagitis: Code(s): K21.9 - Gastro-esophageal reflux disease without esophagitis Category: Medical Plan: Do not eat meals or drink carbonated beverages within 3 hr of bedtime Decrease the amount of fried, fatty, and spicy foods to decrease gastric acid production Raise the head of the bed using 4 to 6-inch blocks, especially if nocturnal symptoms are present Lose weight if indicated; avoid tight-fitting clothing, especially around the waist Avoid foods that relax the Lower esophageal sphincter (chocolate, peppermint, high-fat foods etc.,) Continue omeprazole 20 mg daily (4) Crohn's disease: Code(s): K50.90 - Crohn's disease, unspecified, without complications Category: Medical Qualifiers: Digestive disease complication type: with intestinal obstruction Gastrointestinal tract location: unspecified location Qualified Code(s): K50.912 - Crohn's disease, unspecified, with intestinal obstruction Plan: Patient partially received Remicade infusion before having a reaction and was given Benadryl and steroids. Otherwise, the patient reports that she is feeling okay and denies any abdominal symptoms at this time. Follow up with GI as scheduled (5) Uterine fibroid: Code(s): D25.9 - Leiomyoma of uterus, unspecified Category: Medical Qualifiers: Uterine leiomyoma location: unspecified location Qualified Code(s): D25.9 - Leiomyoma of uterus, unspecified Plan: Ongoing. Patient reports that this is the sole reason of her anemia and she would like to get a hysterectomy but Dr. Weinberg wants to hold off at this time. Follow up with OBGYN as scheduled. (6) Anemia: Comment: Unable to tolerate oral iron tablets (severe constipation) Code(s): D64.9 - Anemia, unspecified Category: Medical Qualifiers: Anemia type: iron deficiency Iron deficiency anemia type: inadequate dietary iron intake Qualified Code(s): D50.8 - Other iron deficiency anemias Plan: The patient received IV iron supplement, plans to resume ferrous sulfate 325 mg b.i.d once the patient is completely healed from surgery. We will continue to monitor CBC. Follow up with Hematology as scheduled (7) Asthma: Comment: WELL CONTROLLED WITH ALLERGY SHOTS Code(s): J45.909 - Unspecified asthma, uncomplicated Category: Medical Qualifiers: Asthma severity: mild Asthma persistence: intermittent Asthma complication type: unspecified Qualified Code(s): J45.20 - Mild intermittent asthma, uncomplicated Plan: Patient reports having asthma symptoms at least 2 times a week and has to take her rescue inhaler Q 4-6 hours during these episodes. Advair Diskus inhaler bid ordered and a pulmonary referral placed. Plan The patient will be referred to pulmonology for further evaluation of her respiratory symptoms, including lung function tests. She is advised to start Advair for asthma management to reduce reliance on her rescue inhaler. For her hypertension, the patient is instructed to adhere to her prescribed medication regimen, including lisinopril and hydralazine, and to monitor her blood pressure regularly. She is also advised to take her water pill as prescribed to aid in blood pressure control. The patient should monitor her symptoms and seek immediate medical attention if her blood pressure remains elevated or if she experiences any concerning symptoms. A follow-up appointment is scheduled to reassess her blood pressure and overall management plan. Patient was informed and verbally consented to the use of an ambient scribe for clinic note documentation during this visit. Orders: Orders Vitamin D 25-OH Total Today D50.8 - Other iron deficiency anemias, E55.9 - Vitamin D deficiency, unspecified, E66.01 - Morbid (severe) obesity due to excess calories, E66.9 - Obesity, unspecified, I10 - Essential (primary) hypertension, J45.20 - Mild intermittent asthma, uncomplicated, K21.9 - Gastro- esophageal reflux disease without esophagitis, K50.912 - Crohn's disease, unspecified, with intestinal obstruction, R73.01 - Impaired fasting glucose, Z68.41 - Body mass index [BMI] 40.0-44.9, adult, Z68.42 - Body mass index [BMI] 45.0-49.9, adult TSH reflex Free T4 Today D50.8 - Other iron deficiency anemias, E55.9 - Vitamin D deficiency, unspecified, E66.01 - Morbid (severe) obesity due to excess calories, E66.9 - Obesity, unspecified, I10 - Essential (primary) hypertension, J45.20 - Mild intermittent asthma, uncomplicated, K21.9 - Gastro-esophageal reflux disease without esophagitis, K50.912 - Crohn's disease, unspecified, with intestinal obstruction, R73.01 - Impaired fasting glucose, Z68.41 - Body mass index [BMI] 40.0-44.9, adult, Z68.42 - Body mass index [BMI] 45.0-49.9, adult Complete Blood Count Auto Diff Today D50.8 - Other iron deficiency anemias, E55.9 - Vitamin D deficiency, unspecified, E66.01 - Morbid (severe) obesity due to excess calories, E66.9 - Obesity, unspecified, I10 - Essential (primary) hypertension, J45.20 - Mild intermittent asthma, uncomplicated, K21.9 - Gastro- esophageal reflux disease without esophagitis, K50.912 - Crohn's disease, unspecified, with intestinal obstruction, R73.01 - Impaired fasting glucose, Z68.41 - Body mass index [BMI] 40.0-44.9, adult, Z68.42 - Body mass index [BMI] 45.0-49.9, adult Comprehensive [place]. Panel Fast Today D50.8 - Other iron deficiency anemias, E55.9 - Vitamin D deficiency, unspecified, E66.01 - Morbid (severe) obesity due to excess calories, E66.9 - Obesity, unspecified, I10 - Essential (primary) hypertension, J45.20 - Mild intermittent asthma, uncomplicated, K21.9 - Gastro- esophageal reflux disease without esophagitis, K50.912 - Crohn's disease, unspecified, with intestinal obstruction, R73.01 - Impaired fasting glucose, Z68.41 - Body mass index [BMI] 40.0-44.9, adult, Z68.42 - Body mass index [BMI] 45.0-49.9, adult UA CC w/rflx Micro + Cult Today D50.8 - Other iron deficiency anemias, E55.9 - Vitamin D deficiency, unspecified, E66.01 - Morbid (severe) obesity due to excess calories, E66.9 - Obesity, unspecified, I10 - Essential (primary) hypertension, J45.20 - Mild intermittent asthma, uncomplicated, K21.9 - Gastro- esophageal reflux disease without esophagitis, K50.912 - Crohn's disease, unspecified, with intestinal obstruction, R73.01 - Impaired fasting glucose, Z68.41 - Body mass index [BMI] 40.0-44.9, adult, Z68.42 - Body mass index [BMI] 45.0-49.9, adult Referrals Pulmonology Referral J45.20 - Mild intermittent asthma, uncomplicated Medications: New fluticasone propion-salmeterol 250-50 mcg/dose (Advair Diskus) 1 inh inhalation BID 60 ea 3RF
[2024-12-12 15:06] VITALS: BP 220/100; PULSE 100; RESP 18; TEMP 36.3; O2SAT 96; BMI 40.8
[2024-12-12 15:37] VITALS: BP 210/102
[2024-12-12 15:56] VITALS: BP 222/110
== END 2024-12-12 16:06 | disposition home or self-care (01) ==
LOC: HO.HMCH 15:04
PROVIDERS: PCP Internal Medicine
DX: I10 Essential (primary) hypertension (principal); E66.01 Morbid (severe) obesity due to excess calories; Z68.41 Body mass index [BMI] 40.0-44.9, adult; K21.9 Gastro-esophageal reflux disease without esophagitis; K50.912 Crohn's disease, unspecified, with intestinal obstruction; D25.9 Leiomyoma of uterus, unspecified; D50.8 Other iron deficiency anemias; J45.20 Mild intermittent asthma, uncomplicated

== ENCOUNTER → 2024-12-12 15:03 | Outpatient (BNVA) | payer OTHER, SELFPAY | PROVIDERS: PCP Internal Medicine | DX: I10 Essential (primary) hypertension (principal); K50.90 Crohn's disease, unspecified, without complications; E66.01 Morbid (severe) obesity due to excess calories; K21.9 Gastro-esophageal reflux disease without esophagitis; K50.912 Crohn's disease, unspecified, with intestinal obstruction; D25.9 Leiomyoma of uterus, unspecified; D50.8 Other iron deficiency anemias; J45.20 Mild intermittent asthma, uncomplicated; Z68.41 Body mass index [BMI] 40.0-44.9, adult | CPT/HCPCS: 99212 ==

== ENCOUNTER 2024-12-28 08:53 | Outpatient (REF) | payer OTHER, SELFPAY ==
--- OUTSIDE RECORDS SUMMARY | 2024-09-28 05:20 | XMS_ITS ---
Author Organization [facility] Address [address] [place] [address] Care Team Providers Care Airline Radio Operator Name Role Phone Jasson BUI, Hadley Primary Care Provider Rae Bowen Jr, Cosmo Unavailable [phone] REASON FOR VISIT crohn's Encounters Encounter Location Date Provider Diagnosis [facility] [address] [place] [phone] 09/28/2024 Cosmo Bowen Jr Plan Of Treatment Next Appt Details Provider Name:Cosmo michael Jr, 03/01/2025 09:40:00 AM, [address], [address], [place], [address], Progress Notes * GOYO RONADOB:[birth year] (44 yo F)Acc No.[id number]:09/28/2024 Progress Notes Patient: ROSEMARIE CRONIN Provider: Claribel Bowen MD :1980 A ge:44 Y S ex:Female Date:09/28/2024 Address:[address] [place] [address] [place] [facility] Pcp:Hadley Spaulding MD Subjective: * Chief Complaints: * 1 . Crohn's. * Medical History: Objective: * Vitals: Assessment: Plan: * Treatment: * * The named appointment provid er may or may not be the originator of this progress note, and it is not deemed complete until electronically signed by the appointment provider. Sign off status: Pending * Provider: Claribel Bowen MD Date: 0 09/28/2024 Generated for Amy addison/Ragini/Nat on: 0 12/28/2024 09:26 AM EDT
[2024-12-28 09:09] LABS: MANUAL DIFF FLAG NO
--- OUTSIDE RECORDS SUMMARY | 2024-12-28 09:27 | XMS_ITS | Patient Health Record ---
Author Organization [facility] Address [address] [place] [phone] Care Team Providers Care Metal Tester Name Role Phone Jasson BUI, [place] Primary Care Provider Cosmo Wills Jr Unavailable Allergies Allergen (clinical drug ingredient) Drug/Non Drug Allergy documented on EMR Reaction Allergy Type Onset Date Status aspirin Aspirin Unknown Drug Allergy Active zuccini (uncoded) Unknown Allergy Ac tive Reason For Referral No Information Medications Medication SIG (Take, Route, Fr equency, Duration) Notes Start Date End Date Status Omeprazole 20 MG TOME FAITH CAPSULA TOD [...] 10 mg/kg Intravenous every 5 weeks Active Lisinopril 5 MG take 1 tablet by jarrett th once daily Oral for 30 Active Vitamin [...] Problem Status W/U Status Risk Notes Problem [id number] Crohn's disease of small intestine with intestinal obstruction (K50.012) Active confirmed Problem Intestinal obstruction due to Crohn's disease of small intestine (disorder) ([id number] 03) Crohn''s disease of small intestine with intestinal obstruction (K50.012) Active confirmed Problem [id number] Gastroesophageal reflux disease, unspecified whether esophagitis present (K21.9) Active confirmed Problem Complication due to Crohn's disease of large intestine (71634885426475 03) Crohn's disease of colon with intestinal obstruction (K50.112) Active confirmed Vital Signs Temperature 98.2 degrees Fahrenheit 09/05/2024 Blood pressure diastolic 01 mm Hg 09/05/2024 Height 66 in 09/05/2024 Blood pressure systolic 001 mm Hg 09/05/2024 Weight 254.4 lbs 09/05/2024 BMI 41.06 kg/m2 09/05/2024 Encounters Encounter Location Date Provider Diagnosis [facility] [address] [place] [phone] 09/05/2024 Cosmo Bowen Jr Crohn's disease of small intestine with intestinal obstruction K50.012 [facility] [address] [place] [phone] 01/19/2024 Cosmo Bowen Jr [facility] [address] [place] [phone] 03/28/2024 Cosmo Bowen Jr [facility] [address] [place] [phone] 05/19/2024 Cosmo Bowen Jr [facility] [address] [place] [phone] 07/06/2024 Cosmo Bowen Jr [facility] [address] [place] [phone] 09/01/2024 Cosmo Bowen Jr [facility] [address] [place] [phone] 10/20/2024 Cosmo Bowen Jr Assessments Encounter Date Diagnosis [...] Test Test Name Order Date LIVER PROFILE 04/01/2023 LIVER PROFILE 09/30/2023 LIVER PROFILE 09/08/2022 LIVER PROFILE 09/05/2024 LIVER PROFILE 04/04/2021 LIVER PROFILE 10/01/2022 LIPASE 04/01/2023 LIPASE 09/08/2022 LIPASE 09/05/2024 LIPASE 04/04/2021 LIPASE 10/01/2022 CRP 10/01/2022 CRP 04/01/2023 CRP 09/30/2023 CRP 09/08/2022 CRP 09/05/2024 CRP 04/04/2021 CBC w/o DIFF 09/08/2022 CBC w/o DIFF 09/05/2024 CBC w/o DIFF 04/04/2021 CBC w/o DIFF 10/01/2022 CBC w/o DIFF 04/01/2023 CBC w/o DIFF 09/30/2023 SED RATE (ESR) 09/30/2023 SED RATE (ESR) 09/08/2022 SED RATE (ESR) 09/05/2024 SED RATE (ESR) 04/04/2021 SED RATE (ESR) 10/01/2022 SED RATE (ESR) 04/01/2023 MRI ABD W&WO CONTRAST 01/31/2021 MRI ABD W&WO CONTRAST 04/09/2022 MRI ABD W&WO CONTRAST 04/02/2022 XR GI SMALL BOWEL SERIES 06/24/2013 PROMETHEUS CROHN'S PROGNOSTIC 04/02/2022 ADALIMUMAB LEVEL ADA IBD 09/21/2020 T SPOT TB 11/15/2020 T SPOT TB 11/06/2021 PROMETHEUS ANSER IFX 04/01/2023 PROMETHEUS ANSER IFX 04/02/2022 PROMETHEUS ANSER IFX 09/30/2023 PROMETHEUS ANSER IFX 10/01/2022 Prometheus ANSER IFX 04/04/2021 Adalimumab+Ab 09/05/2024 XR abdomen 3V 09/08/2022 Future Test Test Name Order Date COLONOSCOPY 02/23/2019 COLONOSCOPY 10/17/2020 Next Appt Details Provider Name:Cosmo michael , 03/01/2025 09:40:00 AM, [address], [address], [place], [address], Insurance Providers Payer Name Payer Address Payer Phone Subscriber Number Group Number Insured Name Patient Relationship to Insured Coverage Start Date Coverage End Date [facility] [address] [address] [place], [place] [phone] [id number] ROSEMARIE RON Self - patient is the insured Medical (General) History Medical History History ICD [...] and on biopsy Surgical History Surgery Date(Month/Year) bowel resection section x2 Cholecystectomy Hospitalization History Reason Date(Month/Year) flair ups 3 weeks ago
[2024-12-28 10:11] LABS: Hematocrit 34.7 % (37.0-47.0); Hemoglobin 10.5 g/dl (12.0-16.0); Imm Gran Abs Auto 0.04 X10*3/uL (0.00-0.03); Imm Gran Pct Auto 0.6 % (0.0-0.4); Lymphocytes Absolute Auto 1.1 X10*3/uL (1.2-4.9); Mean Corpuscular HGB Conc 30.3 g/dl (31.0-35.0); Mean Corpuscular Hemoglobin 23.9 pg (27.0-33.0); Mean Corpuscular Volume 79.0 fL (80.0-98.0); NRBC Abs Auto 0.000 X10*3/uL (0.0-0.012); NRBC Pct Auto 0.0 /100WBC (0.0-0.2); Platelet Count 318 X10*3/uL (160-400); Red Blood Count 4.39 X10*6/uL (4.20-5.50); White Blood Count 6.6 X10*3/uL (4.8-10.8)
[2024-12-28 10:55] LABS: Appearance Urine Clear; Glucose Urine UA Negative (Negative); PH 6.5 (5.0-9.0); Specific Gravity - Urine 1.010 (1.005-1.025); UMIC TRIGGER UACC YES
[2024-12-28 11:02] LABS: Alanine Aminotransferase 26 U/L (0-31); Albumin Level 3.8 g/dL (3.5-5.0); Alkaline Phosphatase 100 U/L (39-117); Anion Gap 11 (12-20); Aspartate Amino Transferase 28 U/L (5-31); Blood Urea Nitrogen 13 mg/dL (9-16); Calcium 8.6 mg/dL (8.4-10.2); Carbon Dioxide 25 mmol/L (22-29); Chloride 108 mmol/L (96-108); Estimated Glomerular Filt Rate > 60; Potassium 3.9 mmol/L (3.3-5.1); Sodium 140 mmol/L (135-145); Total Protein 7.1 g/dL (6.5-8.0)
== END 2024-12-28 08:54 | disposition home or self-care (01) ==
LOC: HO.LAB 08:53
PROVIDERS: PCP Internal Medicine
DX: K50.912 Crohn's disease, unspecified, with intestinal obstruction (principal); I10 Essential (primary) hypertension; K63.2 Fistula of intestine; D50.8 Other iron deficiency anemias; J45.20 Mild intermittent asthma, uncomplicated; R73.01 Impaired fasting glucose; K21.9 Gastro-esophageal reflux disease without esophagitis; D25.9 Leiomyoma of uterus, unspecified; E66.01 Morbid (severe) obesity due to excess calories; Z68.41 Body mass index [BMI] 40.0-44.9, adult; Z79.899 Other long term (current) drug therapy
CPT/HCPCS: 36415; 80053; 81001; 82306; 84443; 85025; 99212

== ENCOUNTER 2024-12-28 09:35 | Outpatient (AMB) | payer OTHER, SELFPAY ==
--- NOTE | 2024-12-28 09:42 | A.OFFPC_ITS ---
Vital Signs 12/28/24 09:43 Height 5 ft 5 in Weight 249 lb 4 oz BMI 41.5 BP 130/60 Blood Pressure Location Lt brachial Position Sitting Pulse 85 Pulse Source Pulse Oximeter Temp 97.3 F Temp Source Temporal Artery Scan Pulse Oximetry (%) 98 Oxygen Delivery Method Room Air Intake Visit Reasons: Crohn's Intake Note: Patient is here to follow up on Crohn. Shrimp Header Required: No Front End Alignment Specialist: Not Required per policy Accompanied by: Self / Same As Patient Allergies aspirin (Aspirin) Allergy (Mild, Verified 12/28/24 09:54) EYES SWELL zucchini Allergy (Intermediate, Uncoded 12/28/24 09:54) Rash SEASONAL ALLERGIES Allergy (Unknown, Uncoded 12/28/24 09:54) TRIGGERS ASTHMA ATTACKS Medication List - Last Reconciled 12/28/24 by Hadley Spaulding MD albuterol sulfate 90 mcg/actuation 2 inhalations inhalation Q6H PRN cholecalciferol (vitamin D3) 50 mcg PO DAILY 90 days cyanocobalamin (vitamin B-12) (Vitamin B-12) 1 tab PO DAILY fexofenadine ([facility] Allergy) 180 mg PO DAILY PRN fluticasone propion-salmeterol 250-50 mcg/dose (Advair Diskus) 1 inh inhalation BID furosemide 20 mg PO DAILY hydralazine 10 mg PO TID 30 days infliximab (Remicade) 600 mg IV Q5W ketotifen fumarate 0.025%(0.035%) 1 drp ophthalmic (eye) BID PRN lisinopril 30 mg PO DAILY 90 days Tobacco use date assessed: 12/28/24 Dental Screening Dental Screen Date: 12/12/24 HPI Crohn's HPI Details Patient comes in today for her follow up visit States that she currently feels okay She apparently experienced some type of transfusion reaction recently (last month) while she was receiving her Remicade infusion and started experiencing increasing sensation of generalized flushing (recalls feeling hot all over) and was immediately given some Benadryl and steroids, which promptly relieved her symptoms She is scheduled for her next round of Remicade infusion in a couple of weeks and is not sure if she should proceed She denies any headaches or dizziness Denies any chest pains, no increased SOB - states that her asthma seems to be well-controlled lately No nausea/vomiting, no abdominal pain No change in bowel habits noted Needs her Fallon Rx refilled today She had her follow up labs done just a few minutes ago and her results are all still not available for review at this time [facility] Medical History Morbid obesity with BMI of 45.0-49.9, adult GERD without esophagitis Vitamin D deficiency Uterine fibroid Breast nodule Asthma Obesity (BMI 30-39.9) Crohn's disease Benign essential hypertension Anemia Surgical History History of bowel resection Hx of colonoscopy Hx of tubal ligation Hx of section Hx of cholecystectomy Family History Mother Diabetes HTN (hypertension) Parkinson disease Father Hyperthyroidism Social History Household Members: Family Household Members Other:: 3 Housing: House Do you presently have visiting nurse or other home services: No Alcohol intake: never Patient Tobacco Use Status: Former Tobacco user Tobacco use type: Cigarette Cigarettes Per Day: 4 e-Cigarette/Vaping Use: Never Used Second Hand Smoke Exposure: Yes Advance Directives Date on File: 09/21/20 service: No Current occupational status: employed 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 Depression Screening Interpretation: Negative Depression Screening Done: Yes Source: Developed by Drs. Roosevelt Eubanks, Paola Weaver, Maicol Paul and colleagues, with an educational rajesh from [employer]. Thrive Questionnaire Date Thrive assessed: 12/12/24 I am a: Patient What is your living situation today?: I have a steady place to live Within the past 12 months, did the food you bought not last and you didn't have the money to get more?: Never true Within the past 12 months, did you worry whether your food would run out before you got money to buy more?: Never true Do you have trouble paying for medicines?: No Do you have trouble getting transportation to medical appointments?: No Do you have trouble paying your heating and electricity bill?: No Do you have trouble taking care of your child, family member or friend?: No Do you have trouble with day-to-day activities such as bathing, preparing meals, shopping, managing finances, etc.?: No Are you currently unemployed and looking for a job?: No Are you interested in more education?: No Please select the resources that you would like help with: None Currently or been in a relationship where the following occur: No concerns reported THRIVE Score: 0 RAJAT-7 AMB Questionnaire RJAAT-7 Date RAJAT - 7 assessed: 12/12/24 Source: Developed by Drs. Roosevelt Eubanks, Paola Weaver, Maicol Paul and colleagues, with an educational rajesh from [employer]. Review of Systems Const Denies chills, Denies fatigue, Denies fever(s) and Denies headache(s) ENT Denies dysphagia, Denies dizziness, Denies otalgia, Denies headache(s), Denies neck pain, Denies odynophagia and Denies sore throat Card Denies chest pain, Denies irregular heart rhythm, Denies palpitations and Denies dyspnea Resp Denies chest congestion, Denies cough and Denies dyspnea GI Denies abdominal pain, Denies constipation, Denies dysphagia, Denies heartburn, Denies diarrhea, Denies nausea, Denies odynophagia and Denies vomiting Denies difficulty voiding, Reports menorrhagia, Denies dysuria and Denies urinary urgency Musc Denies back pain, Denies arthralgias and Denies neck pain Skin/Breast Denies rash Neuro Denies dizziness, Denies headache(s) and Denies paresthesias Psych Denies anxiety and Denies depression Endo Denies fatigue and Denies palpitations Mendez/Lymph Denies easy bruising Physical exam (Primary Care) Vital Signs: Last Vital Signs Temp 97.3 F 12/28/24 09:43 Pulse 85 12/28/24 09:43 BP 130/60 12/28/24 09:43 Pulse Ox 98 12/28/24 09:43 Oxygen Delivery Method Room Air 12/28/24 09:43 BMI result Body Mass Index 41.5 Tobacco/Smoking Status: Tobacco use Status Tobacco use date assessed 12/28/24 12/28/24 09:49 Patient Tobacco Use Status Former Tobacco user 12/28/24 09:49 Tobacco use type Cigarette 12/28/24 09:49 e-Cigarette/Vaping Use Never Used 12/28/24 09:49 Depression Screening Interpretation: Negative Thrive Assessment: Date of Thrive Assessment Date Thrive assessed 12/12/24 12/28/24 09:49 Currently or been in a relationship where the following occur: No concerns reported Const General: no acute distress and alert HENMT Ears: TM's normal bilaterally and EAC's normal Throat: Yes posterior oropharynx normal and Yes tonsils normal (no TP congestion) Neck Neck: Yes supple and No lymphadenopathy Thyroid: Thyroid normal Resp Auscultation: clear to auscultation bilaterally, no rales and no wheezes Cardio Rate: regular rate Rhythm: regular rhythm Heart sounds: no murmurs GI Palpation (GI): Soft to palpation and nontender Auscultation: normal bowel sounds General: Yes no CVA tenderness Back/Spine/Pelvis Back: no CVA tenderness Thoracic/Lumbar Spine: No lumbar spinal tenderness Skin Rashes: no rashes Extrem General: Yes no clubbing, cyanosis or edema Coding Level of Care Code Est Pt Level 4 (03811) Diagnoses 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 Iron 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 intake D50.8 Anemia type: iron deficiency Iron deficiency anemia type: inadequate dietary iron intake Crohn's disease K50.912 Digestive disease complication type: with intestinal obstruction Gastrointestinal tract location: unspecified location Benign essential hypertension I10 Mild intermittent asthma, unspecified whether complicated J45.20 Asthma severity: mild Asthma persistence: intermittent Asthma complication type: unspecified Impaired fasting glucose R73.01 GERD without esophagitis K21.9 Uterine leiomyoma, unspecified location D25.9 Uterine leiomyoma location: unspecified location Morbid obesity with BMI of 40.0-44.9, adult E66.01; Z68.41 Assessment & Plan Assessment & Plan (1) 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 Tay Henson at [facility] Patient had a primary anastomoses done and did not require a diversion colostomy Follow-up with surgery as scheduled (2) Anemia: Comment: Unable to tolerate oral iron tablets (severe constipation) Code(s): D64.9 - Anemia, unspecified Category: Medical Qualifiers: Anemia type: iron deficiency Iron deficiency anemia type: inadequate dietary iron intake Qualified Code(s): D50.8 - Other iron deficiency anemias Plan: Her last CBC done on 10/19/24 showed H/H at 10.7/34.2; her repeat labs done earlier this morning are all still pending Patient continues to receive iron infusions and follows up with Dr. Kaplan regularly for her anemia Her H/H dropped to 6.6/24.5 a few months ago during her routine GI visit and she was sent to the ER for possible blood transfusion She ended up getting iron infusion and 1 unit of transfusion of PRBC with some improvement of her H/H subsequently to 7.5/27.9 (3) Crohn's disease: Code(s): K50.90 - Crohn's disease, unspecified, without complications Category: Medical Qualifiers: Digestive disease complication type: with intestinal obstruction Gastrointestinal tract location: unspecified location Qualified Code(s): K50.912 - Crohn's disease, unspecified, with intestinal obstruction Plan: States that her Crohn's disease has been better controlled on her current Rx of Remicade 600 mg IV every 5 weeks but she apparently experienced some sort of transfusion reaction (?) during her last infusion Follow up with GI as scheduled - have advised her to try to reach out to Dr. Bowen first to see what he thinks about her recent reaction and if it is prudent to continue on her current Rx or not before her next scheduled infusion in 3 weeks (4) Benign essential hypertension: Code(s): I10 - Essential (primary) hypertension Category: Medical Plan: Reinforced low sodium diet - goal is systolic BP of 120 mm or less Her blood pressure appears to be much better controlled today Continue Lisinopril 30 mg QD and Hydralazine 10 mg TID She was started on Amlodipine 5 mg QD last year but she stopped taking it as she gets very dizzy and lightheaded a few minutes after she takes her Amlodipine She has reportedly noticed at one time when she checked her blood pressure that it was very low and she immediately stopped taking her Amlodipine then Patient is reminded to continue checking her blood pressure regularly (5) Asthma: Comment: WELL CONTROLLED WITH ALLERGY SHOTS Code(s): J45.909 - Unspecified asthma, uncomplicated Category: Medical Qualifiers: Asthma severity: mild Asthma persistence: intermittent Asthma complication type: unspecified Qualified Code(s): J45.20 - Mild intermittent asthma, uncomplicated Plan: Notes that her asthma has been well controlled since she started receiving allergy injections from [facility] a couple of years ago (sees Dr. Puga) States that she has not had to use her rescue inhaler in a while now; continue Albuterol HFA 1 to 2 inhalations Q 6 hours PRN only She is also taking Fexofenadine 180 mg QD PRN to help with her allergies - Rx refilled (6) Impaired fasting glucose: Code(s): R73.01 - Impaired fasting glucose Category: Medical Plan: Her HgbA1c was normal at 5.7% when checked previously; her follow up labs done earlier this morning are all still pending at this time Reinforced low calorie diet/exercise as tolerated (7) GERD without esophagitis: Code(s): K21.9 - Gastro-esophageal reflux disease without esophagitis Category: Medical Plan: Dietary restrictions reinforced Continue Omeprazole 20 mg QD (8) Uterine fibroid: Code(s): D25.9 - Leiomyoma of uterus, unspecified Category: Medical Qualifiers: Uterine leiomyoma location: unspecified location Qualified Code(s): D25.9 - Leiomyoma of uterus, unspecified Plan: Pelvic MRI done last year revealed (+) interval resolution of the hemorrhagic left ovarian cyst, with persistent left paraovarian simple cyst and persistent left lateral vaginal cystic lesion, consistent with Bartholin's gland cyst noted. Her uterine fibroids have remained mostly unchanged from before She continues to have heavy and persistent vaginal / menstrual bleeding often until her IUD insertion by Dr. Weinberg Follow up with gynecology as scheduled (9) Morbid obesity with BMI of 40.0-44.9, adult: Code(s): E66.01 - Morbid (severe) obesity due to excess calories; Z68.41 - Body mass index [BMI] 40.0-44.9, adult Category: Medical Plan: Reinforced diet/exercise as tolerated/lose weight Plan Follow up in 4 months Orders: Orders Complete Blood Count Auto Diff 4 Months D64.9 - Anemia, unspecified Comprehensive [place]. Panel Fast 4 Months E78.00 - Pure hypercholesterolemia, unspecified TSH reflex Free T4 4 Months E78.00 - Pure hypercholesterolemia, unspecified Lipid Panel 4 Months E78.00 - Pure hypercholesterolemia, unspecified UA CC w/rflx Micro + Cult 4 Months R30.0 - Dysuria Vitamin D 25-OH Total 4 Months E55.9 - Vitamin D deficiency, unspecified Hemoglobin A1c 4 Months R73.01 - Impaired fasting glucose Medications: New fexofenadine ([facility] Allergy) 180 mg PO DAILY PRN 90 tabs 1RF Allergy Symptoms
[2024-12-28 09:43] VITALS: BP 130/60; PULSE 85; TEMP 36.3; O2SAT 98; BMI 41.5
== END 2024-12-28 10:03 | disposition home or self-care (01) ==
LOC: HO.HMCH 09:36
PROVIDERS: PCP Internal Medicine; Visit Provider Internal Medicine
DX: K50.912 Crohn's disease, unspecified, with intestinal obstruction (principal); E66.01 Morbid (severe) obesity due to excess calories; Z68.41 Body mass index [BMI] 40.0-44.9, adult; K63.2 Fistula of intestine; D50.8 Other iron deficiency anemias; I10 Essential (primary) hypertension; J45.20 Mild intermittent asthma, uncomplicated; R73.01 Impaired fasting glucose; K21.9 Gastro-esophageal reflux disease without esophagitis; D25.9 Leiomyoma of uterus, unspecified

== ENCOUNTER 2025-01-26 14:24 | Outpatient (AMB) | payer OTHER, SELFPAY ==
--- OUTSIDE RECORDS SUMMARY | 2024-09-28 05:20 | XMS_ITS ---
Author Organization [facility] Address [address] [place] [phone] Care Team Providers Care Sand Caster Apprentice Name Role Phone Jasson BUI, Hadley Primary Care Provider Rae Bowen Jr, Cosmo Unavailable [phone] REASON FOR VISIT crohn's Encounters Encounter Location Date Provider Diagnosis [facility] [address] [place] [phone] 09/28/2024 Cosmo Bowen Jr Plan Of Treatment Next Appt Details Provider Name:Cosmo michael Jr, 03/01/2025 09:40:00 AM, [address], [address], [place], [address], Progress Notes * GOYO RONADOB:[birth year] (45 yo F)Acc No.[id number]:09/28/2024 Progress Notes Patient: ROSEMARIE CRONIN Provider: Claribel Bowen MD :1980 A ge:44 Y S ex:Female Date:09/28/2024 Address:[address] [place] [address] [place] [facility] Pcp:Hadley Spaulding MD Subjective: * Chief Complaints: [...] 09/28/2024 Generated for Amy addison/Ragini/Nat on: 1 03:59 PM EDT
[2025-01-26 14:33] VITALS: BP 142/76; PULSE 89; RESP 18; TEMP 36.3; O2SAT 98; BMI 40.8
--- NOTE | 2025-01-26 14:33 | MHC.PC.OV ---
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 Required: No Accompanied by: Self / Same As Patient Allergies aspirin (Aspirin) Allergy (Mild, Verified 01/26/25 14:47) EYES SWELL zucchini Allergy (Intermediate, Uncoded 01/26/25 14:47) Rash SEASONAL ALLERGIES Allergy (Unknown, Uncoded 01/26/25 14:47) TRIGGERS ASTHMA ATTACKS Medication List - Last Reconciled 01/26/25 by SANCHEZ Grey albuterol sulfate 90 mcg/actuation 2 inhalations inhalation Q6H PRN cholecalciferol (vitamin D3) 50 mcg PO DAILY 90 days cyanocobalamin (vitamin B-12) (Vitamin B-12) 1 tab PO DAILY fexofenadine ([facility] Allergy) 180 mg PO DAILY PRN fluticasone propion-salmeterol 250-50 mcg/dose (Advair Diskus) 1 inh inhalation BID furosemide 20 mg PO DAILY hydralazine 10 mg PO TID 30 days infliximab (Remicade) 600 mg IV Q5W ketotifen fumarate 0.025%(0.035%) 1 drp ophthalmic (eye) BID PRN lisinopril 30 mg PO DAILY 90 days Tobacco use date assessed: 01/26/25 Dental Screening Dental Screen Date: 01/26/25 Did you have a dental visit in the last 12 months?: No Did you have a dental problem in the last 6 months where you did not have access to dental care?: No Was dental information given to patient?: No HPI joint pain and swelling HPI Details The patient is a 45-year-old female presenting with joint pain and swelling in fingers. The joint pain began approximately two weeks ago and is described as affecting all joints, including the fingers, arms, wrists, knees, and neck. The pain is more severe in the left knee and neck, and it worsens at night. Swelling has been noted in the fingers, with one finger feeling particularly unusual. The patient reports difficulty holding objects and requires assistance to open jars. The patient has a family history of arthritis, with her sister diagnosed at age 32 and currently experiencing significant mobility issues. A positive CASH test was noted in the past, suggesting a potential autoimmune component. [facility] Medical History Morbid obesity with BMI of 45.0-49.9, adult GERD without esophagitis Vitamin D deficiency Uterine fibroid Breast nodule Asthma Obesity (BMI 30-39.9) Crohn's disease Benign essential hypertension Anemia Surgical History History of bowel resection Hx of colonoscopy Hx of tubal ligation Hx of section Hx of cholecystectomy Family History Mother Diabetes HTN (hypertension) Parkinson disease Father Hyperthyroidism Social History Household Members: Family Household Members Other:: 3 Housing: House Do you presently have visiting nurse or other home services: No Alcohol intake: never Patient Tobacco Use Status: Former Tobacco user Tobacco use type: Cigarette Cigarettes Per Day: 4 e-Cigarette/Vaping Use: Never Used Second Hand Smoke Exposure: Yes Advance Directives Date on File: 09/21/20 service: No Current occupational status: employed 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 Sexual orientation: Straight/Heterosexual Cognitive needs: No Hearing needs: No Vision needs: Yes Female Reproductive History Menstrual Age of Menarche: 12 Questionnaire Thrive Questionnaire Date Thrive assessed: 12/12/24 I am a: Patient What is your living situation today?: I have a steady place to live Within the past 12 months, did the food you bought not last and you didn't have the money to get more?: Never true Within the past 12 months, did you worry whether your food would run out before you got money to buy more?: Never true Do you have trouble paying for medicines?: No Do you have trouble getting transportation to medical appointments?: No Do you have trouble paying your heating and electricity bill?: No Do you have trouble taking care of your child, family member or friend?: No Do you have trouble with day-to-day activities such as bathing, preparing meals, shopping, managing finances, etc.?: No Are you currently unemployed and looking for a job?: No Are you interested in more education?: No Please select the resources that you would like help with: None Currently or been in a relationship where the following occur: No concerns reported THRIVE Score: 0 RAJAT-7 AMB Questionnaire RAJAT-7 Date RAJAT - 7 assessed: 12/12/24 Source: Developed by Drs. Roosevelt Eubanks, Paola Weaver, Maicol Paul and colleagues, with an educational rajesh from [employer]. Review of Systems Const Denies body aches, Denies chills, Denies fever(s), Denies headache(s) and Denies poor appetite Eyes Reports no additional complaints ENT Denies dysphagia, Denies dizziness, Denies headache(s) and Denies odynophagia Card Denies chest pain, Denies syncope, Denies edema, Denies irregular heart rhythm, Denies lightheadedness and Denies dyspnea Resp Denies cough and Denies dyspnea GI Denies abdominal pain, Denies constipation, Denies dysphagia, Denies diarrhea, Denies nausea, Denies odynophagia and Denies vomiting Reports no additional complaints Musc Reports arthralgias (fingers both hands, elbows, wrists, necks, knee >left knee) and Reports joint swelling (fingers both hands, elbows, wrists, necks, knee >left knee) Skin/Breast Reports system reviewed and no additional complaints, except as documented Neuro Denies dizziness, Denies syncope and Denies headache(s) Psych Reports no additional complaints Physical exam (Primary Care) Vital Signs: Last Vital Signs Temp 97.3 F 01/26/25 14:33 Pulse 89 01/26/25 14:33 Resp 18 01/26/25 14:33 BP 142/76 H 01/26/25 14:33 Pulse Ox 98 01/26/25 14:33 Oxygen Delivery Method Room Air 01/26/25 14:33 BMI result Body Mass Index 40.8 Tobacco/Smoking Status: Tobacco use Status Tobacco use date assessed 01/26/25 01/26/25 14:38 Patient Tobacco Use Status Former Tobacco user 01/26/25 14:37 Tobacco use type Cigarette 01/26/25 14:37 e-Cigarette/Vaping Use Never Used 01/26/25 14:37 Thrive Assessment: Date of Thrive Assessment Date Thrive assessed 12/12/24 01/26/25 14:37 Currently or been in a relationship where the following occur: No concerns reported Const General: cooperative, healthy appearing, comfortable and no acute distress Orientation/consciousness: patient oriented x3 [facility] Head: Yes normocephalic Ears: hearing grossly normal bilaterally General nose exam: Normal external nose present Eyes General: appearance normal, both eyes and all related structures Conjunctivae: conjunctivae normal Neck Neck: Yes full ROM and Yes no lymphadenopathy Resp Effort & Inspection: normal respiratory effort Auscultation: clear to auscultation bilaterally, no crackles, no rales, no rhonchi and no wheezes Cardio Rate: regular rate Rhythm: regular rhythm Heart sounds: S1 normal heart sound present and S2 normal heart sound present GI Palpation (GI): Soft to palpation and nontender Auscultation: normal bowel sounds Back/Spine/Pelvis Cervical Spine: Cervical spine tenderness Thoracic/Lumbar Spine: No lumbar spinal tenderness Skin General skin exam: no rashes or lesions noted Neuro General: patient oriented x3 Gait exam (Neuro): Normal gait present Extrem General: Yes normal to inspection, Yes full ROM and No edema Right upper extremity: elbow/forearm Details: swelling; no tenderness, wrist Details: no tenderness and no swelling and Extremity exam: right hand Details: tenderness and swelling Left upper extremity: elbow/forearm Details: no tenderness and no swelling, wrist (swelling, tenderness) and hand Details: tenderness and swelling Right lower extremity: knee Details: tenderness and swelling Left lower extremity: knee Details: tenderness and swelling Psych Affect: normal affect Attitude: cooperative Insight: Good insight present (Psych) Judgement: Good judgement present (Psych) Coding Level of Care Code Est Pt Level 3 (41879) Diagnoses Multiple joint pain M25.50 Swelling of multiple joints M25.40 Time Spent (min) 29 Assessment & Plan Assessment & Plan (1) Multiple joint pain: Code(s): M25.50 - Pain in unspecified joint Category: Medical Plan: The plan includes ordering an inflammation panel and rechecking the CASH to assess for any autoimmune processes. Referral to rheumatology may be considered based on lab results. (2) Swelling of multiple joints: Code(s): M25.40 - Effusion, unspecified joint Category: Medical Plan: The swelling in the fingers will be monitored, and further evaluation will depend on the results of the inflammation panel and CASH test. Bilateral knee pain, worse in left knee, will hold off on imaging due to the widespread joints pain. Orders: Orders CRP High Sensitivity 01/26/25 M25.40 - Effusion, unspecified joint, M25.50 - Pain in unspecified joint Uric Acid 01/26/25 M25.40 - Effusion, unspecified joint, M25.50 - Pain in unspecified joint Complete Blood Count Auto Diff 01/26/25 M25.40 - Effusion, unspecified joint, M25.50 - Pain in unspecified joint Erythrocyte Sedimentation Rate 01/26/25 M25.40 - Effusion, unspecified joint, M25.50 - Pain in unspecified joint CASH Reflex Titer and Pattern 01/26/25 M25.40 - Effusion, unspecified joint, M25.50 - Pain in unspecified joint Cyclic Citrullinated Peptide 01/26/25 M25.40 - Effusion, unspecified joint, M25.50 - Pain in unspecified joint Rheumatoid Factor 01/26/25 M25.40 - Effusion, unspecified joint, M25.50 - Pain in unspecified joint
--- OUTSIDE RECORDS SUMMARY | 2025-01-26 16:00 | XMS_ITS | Patient Health Record ---
Author Organization [facility] Address [address] [place] [phone] Care Team Providers Care Rfid Specialist Name Role Phone Jasson BUI, Hadley Primary [...] Problem Status W/U Status Risk Notes Problem 62596759 Crohn's disease of small intestine with intestinal obstruction (K50.012) Active confirmed Problem Intestinal obstruction due to Crohn's disease of small intestine (disorder) (41413507205924 03) Crohn''s disease of small intestine with intestinal obstruction (K50.012) Active confirmed Problem 889987726 Gastroesophageal reflux disease, unspecified whether esophagitis present (K21.9) Active confirmed Problem Complication due to Crohn's disease of large intestine (01851338158175 03) Crohn's disease of colon with intestinal obstruction (K50.112) Active confirmed Vital Signs Temperature 98.2 degrees Fahrenheit 09/05/2024 Blood pressure diastolic 01 mm Hg 09/05/2024 Height 66 in 09/05/2024 Blood pressure systolic 001 mm Hg 09/05/2024 Weight 254.4 lbs 09/05/2024 BMI 41.06 kg/m2 09/05/2024 Encounters Encounter Location Date Provider Diagnosis [facility] [address] [place] [phone] 09/05/2024 Cosmo Bowen Jr Crohn's disease of small intestine with intestinal obstruction K50.012 [facility] [address] [place] [phone] 03/28/2024 Cosmo Bowen Jr [facility] [address] [place] [phone] 05/19/2024 Cosmo Bowen Jr [facility] [address] [place] [phone] 07/06/2024 Cosmo Bowen Jr [facility] [address] [place] [phone] 09/01/2024 Cosmo Bowen Jr [facility] [address] [place] [phone] 10/20/2024 Cosmo Bowen Jr Assessments Encounter Date [...] CBC w/o DIFF 09/30/2023 SED RATE (ESR) 09/08/2022 SED RATE (ESR) 09/05/2024 SED RATE (ESR) 04/04/2021 SED RATE (ESR) 10/01/2022 SED RATE (ESR) 04/01/2023 SED RATE (ESR) 09/30/2023 MRI ABD W&WO CONTRAST 01/31/2021 MRI ABD [...] Name:Cosmo michael , 03/01/2025 09:40:00 AM, [address], [address], [place], [address], Insurance Providers Payer Name Payer Address Payer Phone Subscriber Number Group Number Insured Name Patient Relationship to Insured Coverage Start Date Coverage End Date [facility] [address] [address] [place], [place] [id number] [phone] [id number] ROSEMARIE RON Self - patient is the [...]
== END 2025-01-26 15:42 | disposition home or self-care (01) ==
LOC: HO.HMCH 14:25
PROVIDERS: PCP Internal Medicine
DX: M25.50 Pain in unspecified joint (principal); M25.40 Effusion, unspecified joint

== ENCOUNTER → 2025-01-26 14:24 | Outpatient (BNVA) | payer OTHER, SELFPAY | PROVIDERS: PCP Internal Medicine | DX: M25.562 Pain in left knee (principal); M54.2 Cervicalgia; M25.50 Pain in unspecified joint; M25.40 Effusion, unspecified joint | CPT/HCPCS: 99212 ==

== ENCOUNTER 2025-01-30 09:32 | Outpatient (REF) | payer OTHER, SELFPAY ==
--- OUTSIDE RECORDS SUMMARY | 2024-09-28 05:20 | XMS_ITS ---
Author Organization [facility] Address [address] [place] [address] Care Team Providers Care Supervisor [place] Name Role Phone Jasson BUI, Hadley Primary Care Provider Rae Bowen Jr, Cosmo Unavailable [phone] REASON FOR VISIT crohn's Encounters Encounter Location Date Provider Diagnosis [facility] [address] [place] [phone] 09/28/2024 Cosmo Bowen Jr Plan Of Treatment Next Appt Details Provider Name:Cosmo michael Jr, 03/01/2025 09:40:00 AM, [address], [address], [place], [address], Progress Notes * GOYO RONADOB:[birth year] (45 yo F)Acc No.[id number]:09/28/2024 Progress Notes Patient: ROSEMARIE CRONIN Provider: Claribel Bowen MD :1980 A ge:44 Y S ex:Female Date:09/28/2024 Address:[address] [place] [address] [place] [facility] Pcp:Hadley Spaulding MD Subjective: * Chief Complaints: [...] 0 09/28/2024 Generated for Amy addison/Ragini/Nat on: 1 10:53 AM EDT
[2025-01-30 09:47] LABS: MANUAL DIFF FLAG NO
--- OUTSIDE RECORDS SUMMARY | 2025-01-30 10:53 | XMS_ITS | Patient Health Record ---
Author Organization [facility] Address [address] [place] [address] Care Team Providers Care Package Drier Name Role Phone Jasson BUI, Hadley Primary [...] Problem Status W/U Status Risk Notes Problem 57003882 Crohn's disease of small intestine with intestinal obstruction (K50.012) Active confirmed Problem Intestinal obstruction due to Crohn's disease of small intestine (disorder) (76135262586267 03) Crohn''s disease of small intestine with intestinal obstruction (K50.012) Active confirmed Problem 971678810 Gastroesophageal reflux disease, unspecified whether esophagitis present (K21.9) Active confirmed Problem Complication due to Crohn's disease of large intestine (83662307847395 03) Crohn's disease of colon with intestinal obstruction (K50.112) Active confirmed Vital Signs Temperature 98.2 degrees Fahrenheit 09/05/2024 Blood pressure diastolic 01 mm Hg 09/05/2024 Height 66 in 09/05/2024 Blood pressure systolic 001 mm Hg 09/05/2024 Weight 254.4 lbs 09/05/2024 BMI 41.06 kg/m2 09/05/2024 Encounters Encounter Location Date Provider Diagnosis [facility] [address] [place] [phone] 09/05/2024 Cosmo Bowen Jr Crohn's disease of small intestine with intestinal obstruction K50.012 [facility] [address] [place] [phone] 03/28/2024 Cosmo Bowen Jr [facility] [address] [place] [phone] 05/19/2024 Cosmo Bowen Jr [facility] [address] [place] [address] 07/06/2024 Cosmo Bowen Jr [facility] [address] [place] [phone] 09/01/2024 Cosmo Bowen Jr [facility] [address] [place] [phone] 10/20/2024 Cosmo Bowen Jr Assessments Encounter Date [...] 09:40:00 AM, [address], [address], [place], [address], Insurance Providers Payer Name Payer Address Payer Phone Subscriber Number Group Number Insured Name Patient Relationship to Insured Coverage Start Date Coverage End Date [facility] [address] [address] [place], [place] [id number] [phone] [id number] ROSEMARIE RON Self - patient is the [...]
[2025-01-30 11:09] LABS: Hematocrit 34.7 % (37.0-47.0); Hemoglobin 10.4 g/dl (12.0-16.0); Imm Gran Abs Auto 0.04 X10*3/uL (0.00-0.03); Imm Gran Pct Auto 0.4 % (0.0-0.4); Lymphocytes Absolute Auto 1.0 X10*3/uL (1.2-4.9); Mean Corpuscular HGB Conc 30.0 g/dl (31.0-35.0); Mean Corpuscular Hemoglobin 23.7 pg (27.0-33.0); Mean Corpuscular Volume 79.0 fL (80.0-98.0); NRBC Abs Auto 0.000 X10*3/uL (0.0-0.012); NRBC Pct Auto 0.0 /100WBC (0.0-0.2); Platelet Count 398 X10*3/uL (160-400); Red Blood Count 4.39 X10*6/uL (4.20-5.50); White Blood Count 9.4 X10*3/uL (4.8-10.8)
[2025-01-30 11:50] LABS: Uric Acid 4.2 mg/dL (2.4-5.7)
[2025-02-07 15:34] LABS: Anti Nuclear Antibody Pattern Nuclear, Homogeneous; Anti Nuclear Antibody Screen POSITIVE (NEGATIVE); Anti Nuclear Antibody Titer 1:1280 titer
== END 2025-01-30 09:33 | disposition home or self-care (01) ==
LOC: HO.LAB 09:32
PROVIDERS: PCP Internal Medicine
DX: Z01.84 Encounter for antibody response examination (principal); M25.50 Pain in unspecified joint; M25.40 Effusion, unspecified joint
CPT/HCPCS: 36415; 84550; 85025; 85652; 86038; 86039; 86141; 86200; 86431

== ENCOUNTER 2025-03-15 10:12 | Outpatient (AMB) | payer OTHER, SELFPAY ==
--- OUTSIDE RECORDS SUMMARY | 2024-09-28 04:20 | XMS_ITS ---
Author Organization [facility] Address [address] [place] [address] Care Team Providers Care Brush Washer Name Role Phone Jasson BUI, Hadley Primary Care Provider Rae Bowen Jr, Cosmo Laws REASON FOR VISIT crohn's Encounters Encounter Location Date Provider Diagnosis [facility] [address] [place] [phone] 09/28/2024 Cosmo Bowen Jr Plan Of Treatment No Information Progress Notes * GOYO RONJOSE ALFREDOB:[birth year] (45 yo F)Acc No.[id number]:09/28/2024 Progress Notes Patient: ROSEMARIE CRONIN Provider: Claribel Bowen MD :1980 A ge:44 Y S ex:Female Date:09/28/2024 Address:[address] [place] [address] [facility] Pcp:Hadley Spaulding MD Subjective: * Chief Complaints: * C rohn's * The named appointment provid er may or may not be the originator of this progress note, and it is not deemed complete until electronically signed by the appointment provider. Sign off status: Pending * Provider: Claribel Bowen MD Date: 0 09/28/2024 Generated for Gisellai ng/Fadorotag/eTransmitting on: 05/15/2024 07:27 PM EST
--- OUTSIDE RECORDS SUMMARY | 2025-03-01 04:40 | XMS_ITS ---
Author Organization [facility] Address [address] [place] [phone] Care Team Providers Care Certified Medical Biller Name Role Phone Jasson BUI, Hadley Primary Care Provider Rae Bowen Jr, Cosmo Laws REASON FOR VISIT Patient presents today for crohn's Encounters Encounter Location Date Provider Diagnosis [facility] [address] [place] [phone] 03/01/2025 Cosmo Bowen Jr Plan Of Treatment No Information Progress Notes * GOYO RONADOB:[birth year] (45 yo F)Acc No.[id number]:03/01/2025 Progress Notes Patient: ROSEMARIE CRONIN Provider: Claribel Bowen MD :1980 A ge:45 Y S ex:Female Date:03/01/2025 Address:[address] [place] [address] [facility] Pcp:Hadley Spaulding MD Subjective: * Chief Complaints: * P atient presents today for crohn's Billing Information: * Procedure Codes: * The named appointment provid er may or may not be the originator of this progress note, and it is not deemed complete until electronically signed by the appointment provider. Sign off status: Pending * Provider: Claribel Bowen MD Date: 05/01/2024 Generated for Printi ng/Faxing/eTransmitting on: 05/15/2024 07:27 PM EST
--- OUTSIDE RECORDS SUMMARY | 2025-03-08 05:00 | XMS_ITS ---
Author Organization [facility] Address [address] [place] [address] Care Team Providers Care Envelope Fold Operator Name Role Phone Jasson BUI, Hadley Primary Care Provider Rae Bowen Jr, Cosmo Laws REASON FOR VISIT crohn's Encounters Encounter Location Date Provider Diagnosis [facility] [address] [place] [phone] 03/08/2025 Cosmo Bowen Jr Plan Of Treatment No Information Progress Notes * GOYO RONADOB:[birth year] (45 yo F)Acc No.[id number]:03/08/2025 Progress Notes Patient: ROSEMARIE CRONIN Provider: Claribel Bowen MD :1980 A ge:45 Y S ex:Female Date:03/08/2025 Address:[address] [place] [address] [facility] Pcp:Hadley Spaulding MD Subjective: * Chief Complaints: * C rohn's * The named appointment provid er may or may not be the originator of this progress note, and it is not deemed complete until electronically signed by the appointment provider. Sign off status: Pending * Provider: Claribel Bowen MD Date: 05/08/2024 Generated for Gisellai ng/Fadorotag/eTransmitting on: 05/15/2024 07:27 PM EST
--- NOTE | 2025-03-15 10:18 | A.OFFVIS_ITS ---
Vital Signs 03/15/25 10:19 Height 5 ft 5 in Weight 247 lb 8 oz BMI 41.2 BP 170/88 H Blood Pressure Location Rt brachial Position Sitting Pulse 81 Pulse Source Pulse Oximeter Pulse Oximetry (%) 99 Oxygen Delivery Method Room Air Intake Visit Reasons: Asthma Allergies aspirin (Aspirin) Allergy (Mild, Verified 03/15/25 10:21) EYES SWELL zucchini Allergy (Intermediate, Uncoded 03/15/25 10:21) Rash SEASONAL ALLERGIES Allergy (Unknown, Uncoded 03/15/25 10:21) TRIGGERS ASTHMA ATTACKS HPI HPI Asthma: Details: Dirk is a pleasant 45 year old female, former 10 pack year smoker, quit 2013 with underlying asthma, Crohn's disease, Anemia and HTN. She was referred by PCP for pulmonary evaluation. She was diagnosed with asthma as a child and has experienced hospitalizations in [place] due to severe episodes, but has never required intubation. Her asthma symptoms have improved since moving to a different climate, although were suboptimally controlled until starting Advair. Currently, she uses inhalers, which she finds helpful, and has been on them for about two months. Previously, she only used inhalers as needed. The patient was hospitalized in September for pneumonia, CXR demonstrated increased interstitial markings in both lungs which could represent vascular congestion or atypical infection. A more focal opacity in the right lower lung zone could represent asymmetric pulmonary edema or pneumonia. She was treated with abx/prednisone and feels symptoms have resolved. She endorses an allergic component. She has not had recent allergy testing but has been receiving allergy shots, which she finds beneficial. She has two dogs at home but reports no issues with them, although she has had reactions to cats in the past. She denies occupational exposures. She reports multiple first degree family members with asthma. REPLACED BY [facility] Medical History Morbid obesity with BMI of 45.0-49.9, adult GERD without esophagitis Vitamin D deficiency Uterine fibroid Breast nodule Asthma Obesity (BMI 30-39.9) Crohn's disease Benign essential hypertension Anemia Surgical History History of bowel resection Hx of colonoscopy Hx of tubal ligation Hx of section Hx of cholecystectomy Family History Mother Diabetes HTN (hypertension) Parkinson disease Father Hyperthyroidism Social History Household Members: Family Household Members Other:: 3 Housing: House Do you presently have visiting nurse or other home services: No Alcohol intake: never Patient Tobacco Use Status: Former Tobacco user Tobacco use type: Cigarette Cigarettes Per Day: 4 e-Cigarette/Vaping Use: Never Used Second Hand Smoke Exposure: Yes Advance Directives Date on File: 09/21/20 service: No Current occupational status: employed 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 Sexual orientation: Straight/Heterosexual Cognitive needs: No Hearing needs: No Vision needs: Yes Female Reproductive History Menstrual Age of Menarche: 12 Review of Systems Const Denies chills, Denies excessive sweating, Denies fever(s), Denies headache(s) and Denies night sweats Eyes Denies dry eyes, Denies irritation and Denies itchy eyes ENT Reports Normal hearing present, Denies headache(s), Denies nasal congestion, Denies nasal discharge, Denies post nasal drip and Denies sore throat Card Denies chest pain, Denies chest pain at rest, Denies chest pain with activity, Denies claudication, Denies leg edema, Denies dyspnea, Denies dyspnea on exertion, Denies orthopnea and Denies paroxysmal nocturnal dyspnea Resp Denies chest congestion, Denies cough, Denies excessive phlegm production, Denies pain on inspiration, Denies pain with cough, Denies dyspnea, Denies dyspnea on exertion, Denies stridor and Denies wheezing Musc Denies myalgias Neuro Reports Normal hearing present and Denies headache(s) Endo Denies excessive sweating Mendez/Lymph Denies lymphadenopathy Aller/Immun Denies itchy eyes, Denies seasonal rhinorrhea and Denies wheezing Physical Exam Vital Signs: Last Vital Signs Pulse 81 03/15/25 10:19 BP 170/88 H 03/15/25 10:19 Pulse Ox 99 03/15/25 10:19 Oxygen Delivery Method Room Air 03/15/25 10:19 BMI result Body Mass Index 41.2 Const General: cooperative, healthy appearing, comfortable, no acute distress, well developed and alert Nutritional Appearance: obese Orientation/consciousness: patient oriented x3 Limitations: no limitations HEENT Head: Yes normal to inspection, Yes normocephalic and Yes atraumatic Ears: hearing grossly normal bilaterally and external ears normal Eyes General: appearance normal, both eyes and all related structures Eyelids: Yes eyelids normal Sclerae: sclerae normal EOM: EOMs intact bilaterally Neck Neck: Yes normal visual inspection and Yes no lymphadenopathy Lymphatic: no lymphadenopathy noted Chest Chest palpation & inspection: normal inspection of the chest Resp Effort & Inspection: normal respiratory effort, able to speak in complete sentences, no audible wheezes, no cough, no stridor, not tachypneic, no tripod positioning and no use of accessory muscles Auscultation: clear to auscultation bilaterally Cardio Jugular venous distension: no JVD Rate: regular rate Rhythm: regular rhythm Skin Other: warm, dry General skin exam: no rashes or lesions noted Neuro General: patient oriented x3 Cranial nerves: Yes Normal hearing present Cognition (Neuro): normal cognition Gait exam (Neuro): Normal gait present Extrem General: Yes normal to inspection, Yes capillary refill normal, Yes no clubbing, cyanosis or edema and Yes no pedal edema Psych Appearance: grossly normal and well kempt Speech and movement: Normal speech and movement present and Clear speech present Affect: normal affect Attitude: cooperative Thought process: Normal thought process present Thought content: Normal thought content present Insight: Good insight present (Psych) Judgement: Good judgement present (Psych) Results Reviewed Results Reviewed: [address] [address] XRay Report Signed Patient: Dirk Bolivar MR#: [id number] : 1980 Acct:[id number] Age/Sex: 44 / F ADM Date: 10/19/24 Loc: HO.ED Attending Dr: Ordering Physician: Generic ED Physician Date of Service: 10/19/24 Procedure(s): XR chest 1V Accession Number(s): [id number] cc: Hadley Spaulding MD; Generic ED Physician~ EXAMINATION: XR CHEST 1 VIEW HISTORY: SOB COMPARISON: Comparison is made with the prior examination dated 10/28/2022. FINDINGS: A single AP portable view of the chest performed at 8:36 AM is submitted. There are increased interstitial markings throughout both lungs could represent vascular congestion or atypical infection. A more focal opacity is seen in the right lower lung zone. There is no pleural effusion, pneumothorax, or pulmonary vascular congestion. The heart is normal in size. The bones are intact. XR/XR chest 1V IMPRESSION: Increased interstitial markings in both lungs which could represent vascular congestion or atypical infection. A more focal opacity in the right lower lung zone could represent asymmetric pulmonary edema or pneumonia. Clinical correlation is recommended. Electronically signed by: Roosevelt Sunshine MD 10/19/2024 08:55 AM EDT RP Dictated By: Roosevelt Sunshine MD Signed By: <Electronically signed by Roosevelt Sunshine MD in OV> 10/19/24 0855 DD/ 0736 TD/TT: 10/19/24 0835 Manager Quantitative: Assessment & Plan Assessment & Plan (1) Asthma: Code(s): J45.909 - Unspecified asthma, uncomplicated Category: Medical Qualifiers: Asthma severity: mild Asthma persistence: intermittent Asthma complication type: unspecified Qualified Code(s): J45.20 - Mild intermittent asthma, uncomplicated (2) History of recent pneumonia: Code(s): Z87.01 - Personal history of pneumonia (recurrent) Category: Medical (3) Environmental allergies: Code(s): Z91.09 - Other allergy status, other than to drugs and biological substances Category: Medical Plan The patient will continue using Advair and has been advised to rinse her mouth after use to prevent oral thrush. A PFT is recommended to assess lung function, and a follow-up chest x-ray is advised to ensure resolution of pneumonia. The patient is advised to monitor asthma symptoms and report any worsening, such as increased use of albuterol. The patient is advised to continue allergy shots and to avoid known allergens, particularly cats. Blood work may be considered to further assess allergy-related asthma exacerbations. All questions were answered and patient is in agreement of plan. Will follow up in 3 months or sooner if needed. Orders: Orders XR chest 2V Today Z87.01 - Personal history of pneumonia (recurrent) PFT pulmonary function test Today J45.20 - Mild intermittent asthma, uncomplicated Medications: New albuterol sulfate 2.5 mg (3 mL) inhalation Q4-6H PRN 90 mL 3RF shortness of breath or wheezing Coding Level of Care Code New Pt Level 4 (57053) Diagnoses Mild intermittent asthma, unspecified whether complicated J45.20 Asthma severity: mild Asthma persistence: intermittent Asthma complication type: unspecified History of recent pneumonia Z87.01 Environmental allergies Z91.09
[2025-03-15 10:19] VITALS: BP 170/88; PULSE 81; O2SAT 99; BMI 41.2
--- OUTSIDE RECORDS SUMMARY | 2025-03-15 19:28 | XMS_ITS | Patient Health Record ---
Author Organization [facility] Address [address] [place] [address] Care Team Providers Care Cigarette Inspector Name Role Phone Jasson BUI, Hadley Primary Care Provider Cosmo Wills Jr Unavailable Allergies Allergen (clinical drug ingredient) Drug/Non Drug Allergy documented on EMR Reaction Allergy Type Onset Date Status zuccini (uncoded) Unknown Allergy Ac tive aspirin Aspirin Unknown Drug Allergy Active Reason For Referral No Information Medications Medication SIG (Take, Route, Frequency, Duration) Notes Start Date End Date Status Furosemide 20 MG Tablet take 1 tablet or ally daily for swelling Orally; Duration: 30 days 07/06/2024 Unknown Lisinopril 5 MG Tablet take 1 tablet by mouth once daily Oral; Duration: 30 Unknown Vitamin D3 1000 UNIT Capsule 1 capsule Orally Once a day Unknown Albuterol Unknown Vitamin B 12 500 MCG Lozenge 1 lozenge Orally Once a day; Duration: 30 day(s) Unknown Omeprazole 20 MG Capsule Delayed Release TOME FAITH CAPSULA TODOS [place] FRAZIER 30 MINUTOS BEFORE MORNING MEAL FOR 90 DAYS; Duration: 90 Unknown predniSONE 5 MG Tablet TAKE 8 TABS (40MG ) BY MOUTH DAILY X1 WEEK, THEN DECREASE BY 5MG (1 TABLET) PER WEEK (TOTAL=56 DAYS).; Duration: 56 Unknown Dicyclomine HCl 20 MG Tablet TOME FAITH TABLETA POR VIA ORAL 2-4 TIMES A DAY; Duration: 90 Unknown Remicade 100 MG Solution Reconstituted 10 mg/kg Intravenous every 5 weeks Unknown Immunizations Vaccine Route Administration Date Status Comme nts Influenza Unknown 08/18/2018 Refused Influenza Unknown 10/02/2021 Refused Influenza Unknown 04/02/2022 Refused Influenza Unknown 04/01/2023 Refused Social History Social History Additional Details Category Social Info Options Details Miscellaneous: Marital status: single 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 Problems Problem Type SNOMED Code ICD Code Onset Dates Problem Status W/U Status Risk Notes Problem Intestinal obstruction due to Crohn's disease of small intestine (0213728225071811) Crohn's disease of small intestine with intestinal obstruction (K50.012) Active confirmed Problem Intestinal obstruction due to Crohn's disease of small intestine (disorder) (2371926494849813) Crohn''s disease of small intestine with intestinal obstruction (K50.012) Active confirmed Problem Gastroesophageal reflux disease (878362147) Gastroesophageal reflux disease, unspecified whether esophagitis present (K21.9) Active confirmed Problem Crohn's disease of colon with intestinal obstruction (K50.112) Active confirmed Vital Signs Temperature 98.2 degrees Fahrenheit 09/05/2024 Blood pressure diastolic 01 mm Hg 09/05/2024 Height 66 in 09/05/2024 Blood pressure systolic 001 mm Hg 09/05/2024 Weight 254.4 lbs 09/05/2024 BMI 41.06 kg/m2 09/05/2024 Encounters Encounter Location Date Provider Diagnosis [facility] [address] [place] [address] 09/05/2024 Cosmo Bowen Jr Crohn's disease of small intestine with intestinal obstruction K50.012 [facility] [address] [place] [address] 03/28/2024 Cosmo Bowen Jr [facility] [address] [place] [address] 05/19/2024 Cosmo Bowen Jr [facility] [address] [place] [address] 07/06/2024 Cosmo Bowen Jr [facility] [address] [place] [address] 09/01/2024 Cosmo Bowen Jr [facility] [address] [place] [address] 09/05/2024 Cosmo Bowen Jr [facility] [address] [place] [address] 09/05/2024 Cosmo Bowen Jr [facility] [address] [place] [address] 10/20/2024 Cosmo Bowen Jr [facility] [address] [place] [address] 03/01/2025 Cosmo Bowen Jr Assessments Encounter Date Diagnosis [...] Test Test Name Order Date LIVER PROFILE 04/04/2021 LIVER PROFILE 09/08/2022 LIVER PROFILE 10/01/2022 LIVER PROFILE 04/01/2023 LIVER PROFILE 09/30/2023 LIVER PROFILE 09/05/2024 LIPASE 09/05/2024 LIPASE 04/01/2023 LIPASE 10/01/2022 LIPASE 09/08/2022 LIPASE 04/04/2021 CRP 04/04/2021 CRP 09/08/2022 CRP 10/01/2022 CRP 04/01/2023 CRP 09/30/2023 CRP 09/05/2024 CBC w/o DIFF 09/05/2024 CBC w/o DIFF 09/30/2023 CBC w/o DIFF 04/01/2023 CBC w/o DIFF 10/01/2022 CBC w/o DIFF 09/08/2022 CBC w/o DIFF 04/04/2021 SED RATE (ESR) 09/08/2022 SED RATE (ESR) 10/01/2022 SED RATE (ESR) 04/04/2021 SED RATE (ESR) 09/05/2024 SED RATE (ESR) 04/01/2023 SED RATE (ESR) 09/30/2023 MRI ABD W&WO CONTRAST 01/31/2021 MRI ABD W&WO CONTRAST 04/02/2022 MRI ABD W&WO CONTRAST 04/09/2022 XR GI SMALL BOWEL SERIES 06/24/2013 PROMETHEUS CROHN'S PROGNOSTIC 04/02/2022 ADALIMUMAB LEVEL ADA IBD 09/21/2020 T SPOT TB 11/15/2020 T SPOT TB 11/06/2021 PROMETHEUS ANSER IFX 04/02/2022 PROMETHEUS ANSER IFX 09/30/2023 PROMETHEUS ANSER IFX 10/01/2022 PROMETHEUS ANSER IFX 04/01/2023 Prometheus ANSER IFX 04/04/2021 Adalimumab+Ab 09/05/2024 XR abdomen 3V 09/08/2022 Future Test Test Name Order Date COLONOSCOPY 02/23/2019 COLONOSCOPY 10/17/2020 Insurance Providers Payer Name Payer Address Payer Phone Subscriber Number Group Number Insured Name Patient Relationship to Insured Coverage Start Date Coverage End Date [facility] [address] [address] [place], [place] [id number] ROSEMARIE RON Self - patient is the [...] Surgical History Surgery Date(Month/Year) Cholecystectomy section x2 bowel resection Hospitalization History Reason Date(Month/Year) flair ups 3 weeks ago
== END 2025-03-15 10:54 | disposition home or self-care (01) ==
PROVIDERS: PCP Internal Medicine; Visit Provider Nurse Practitioner Family
DX: J45.20 Mild intermittent asthma, uncomplicated (principal); Z87.01 Personal history of pneumonia (recurrent); Z91.09 Other allergy status, other than to drugs and biological substances
CPT/HCPCS: 99204

== ENCOUNTER → 2025-03-15 10:12 | Outpatient (BNVA) | payer OTHER, SELFPAY | PROVIDERS: PCP Internal Medicine; Visit Provider Nurse Practitioner Family | DX: J45.20 Mild intermittent asthma, uncomplicated (principal); Z87.01 Personal history of pneumonia (recurrent); Z91.09 Other allergy status, other than to drugs and biological substances | CPT/HCPCS: 99202 ==